=== PATIENT | male | born 1940 | race Caucasian/White ===

== ENCOUNTER → 2019-08-30 10:26 | Outpatient (BNVA) | payer MEDICARE, OTHER, SELFPAY | PROVIDERS: Family Provider Family Medicine; PCP Family Medicine; Visit Provider Podiatrist Foot & Ankle Surgery | DX: M21.612 Bunion of left foot (principal); M21.611 Bunion of right foot; M20.42 Other hammer toe(s) (acquired), left foot; M20.41 Other hammer toe(s) (acquired), right foot | CPT/HCPCS: 73630; 77077 ==

== ENCOUNTER 2020-01-29 07:52 | Outpatient (CLI) | payer MEDICARE, OTHER, SELFPAY ==
--- NOTE | 2020-01-29 08:30 | CT_ITS ---
WS: [id number] CT scan of the abdomen with oral and IV contrast. Additional two-dimensional coronal and sagittal rec onstruction was performed. 01/29/2020 Clinical Data: ABOMINAL PAIN Comparison: CT abdomen and pelvis, 01/03/2018. DLP: 811.[address] scans at [facility] use at least one of these dose optimization techniques: automat ed exposure control; mA and/or kV adjustment per patient size (includes targeted exams where dose is matched to clinical indication); or iterative reconstruction. Findings: The lower lungs show no nodules, masses or effusions. The liver, gallbladder, spleen, adrenal glands and pancreas are normal. The kidneys show equal bilateral contrast excretion with with a left inferior pole 3.2 cm cyst. There is a nonobstructing left midpole 0.28 cm calculus. No masses, obstructing calculi or intrarenal calc nicolasa are seen.. The abdominal aorta is normal in size with moderate atherosclerotic change. No appendicitis or divert iculitis is seen. Oral contrast is in the colon and small bowel and there is no bowel dilatation. No abscess, adenopathy, ascites, mass, obstruction or free air is seen. The patient has had a posterior L4-L5 fusion. CT/CT abdomen w con* [id number] Impression: Negative for acute intra-abdominal abnormalities.
[2020-01-29] MEDS: iohexol 300 mg/mL 50 mL Btl PO (08:48)
[2020-01-29 09:12] LABS: Blood Urea Nitrogen 17 mg/dL (8-23)
[2020-01-29] MEDS: iohexol 300 mg/mL 100 mL Btl IV (09:24)
== END 2020-01-29 07:53 | disposition home or self-care (01) ==
LOC: RADWPI 07:56
PROVIDERS: Family Provider Family Medicine; PCP Family Medicine; Visit Provider Family Medicine
DX: R10.9 Unspecified abdominal pain (principal)
CPT/HCPCS: 74160; 82565; 84520; Q9967

== ENCOUNTER 2020-01-30 08:46 | Outpatient (CLI) | payer MEDICARE, OTHER, SELFPAY ==
--- NOTE | 2020-01-30 09:30 | USCV_ITS ---
John Valadez Age: 79 Gender: M : 1940 Exam Date: 01/30/2020 09:13 Ordering Phys: Will Gallego MD ([email or web address]) Technologist: Mario Valero [place] [facility] [place]: ARTHEROSCLEROSIS OF CORONARY ARTERIES Risk Factors: Previous Vascular Surgery: Right Brachial BP: / Left Brachial BP: / Right Left Velocity (cm/s) Spectral Plaque Velocity (cm/s) Spectral Plaque Syst/Diast Broadening Syst/Diast Broadening 38.10/ 10.90 Prox CCA 68.50 / 19.10 48.20/ 10.10 Mid CCA 59.85 / 14.80 44.30/ 12.40 Distal CCA 50.60 / 13.00 57.50/ 10.10 Prox ICA 62.30 / 13.00 48.20/ 12.40 Mid ICA 56.80 / 15.40 66.80/ 21.80 Distal ICA 66.00 / 17.55 81.60 ECA 71.60 1.39 ICA/CCA 0.91 Antegrade Vertebral Antegrade 41.20/ 13.20 cm/s 35.80/ 11.10 cm/s Tri Subclavian Tri 71.50 71.00 FINDINGS Moderate heterogeneous plaquesat the left bifurcation and proximal internal carotid artery. Minimal plaques at the right bifurcation and proximal carotid artery. Antegrade flow in the vertebral arteries bilaterally. Normal Doppler flow velocities in the external carotid arteries bilaterally. Normal Doppler velocities in the subclavian arteries bilaterally CONCLUSIONS Moderate heterogeneous plaques at the left bifurcation and proximal internal carotid artery. Minimal plaques of the right bifurcation and proximal carotid artery. No significant stenosis, based on the above findings. Dr Will Gallego MD [facility] (Electronically Signed) Final Date: 31 January 2020 08:20 S
== END 2020-01-30 08:47 | disposition home or self-care (01) ==
LOC: US 08:47
PROVIDERS: Family Provider Family Medicine; PCP Family Medicine; Visit Provider Internal Medicine Cardiovascular Disease
DX: I25.10 Atherosclerotic heart disease of native coronary artery without angina pectoris (principal); I65.22 Occlusion and stenosis of left carotid artery
CPT/HCPCS: 93880

== ENCOUNTER 2020-02-18 07:37 | Outpatient (CLI) | payer MEDICARE, OTHER, SELFPAY ==
--- NOTE | 2020-02-18 07:47 | NM_ITS ---
WS: [id number] NUCLEAR MEDICINE HIDA SCAN WITH GALLBLADDER EJECTION FRACTION HISTORY: RUQ PAIN/NAUSEA/NORMAL CT US COMPARISON: 02/17/2019 TECHNIQUE: The patient was intravenously injected with 8.0 mCi of TC99m Mebrofenin. Immediate imaging over the right upper quadrant was followed by 5 minute image and additional images for a total of 60 minutes. Normal uptake of radiotracer throughout the liver. Activity identified in the gallbladder at 20 minutes and well distended by 60 minutes. Activity in the proximal small bowel was seen by 15 minutes. Good washout of the radiotracer from the liver by 60 minutes. The patient then drank 8 ounces of Ensure Plus. Ejection fraction at 60 minutes was 94%. Normal GB ej ection fraction is 35-75%. Post fatty meal symptoms: None. NM/NM hepatobiliary w phar* [id number] IMPRESSION: 1. Normal HIDA scan. 2. Normal gallbladder ejection fraction.
== END 2020-02-18 07:38 | disposition home or self-care (01) ==
LOC: NM 07:39
PROVIDERS: Family Provider Family Medicine; PCP Family Medicine; Visit Provider Family Medicine
DX: R10.11 Right upper quadrant pain (principal)
CPT/HCPCS: 78227; A9537

== ENCOUNTER 2020-02-28 06:35 | Day surgery (SDC) | payer MEDICARE, OTHER, SELFPAY ==
[2020-02-27 16:04] VITALS: BMI 23.3
[2020-02-28] VITALS (7 sets, daily range): BP systolic 111–158; BP diastolic 56–85; PULSE 61–73; RESP 16–21; TEMP 36.4–36.6; O2SAT 95–100
--- NOTE | 2020-02-28 06:36 | ECG_ITS ---
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 Measurements Intervals [place] Rate: 62 P: 55 [place]: 218 QRS: -48 QRSD: 75 T: 42 QT: 398 QTc: 406 Interpretive Statements SINUS RHYTHM WITH FIRST DEGREE AV BLOCK MARKED LEFT AXIS DEVIATION [QRS AXIS < -30] Compared to ECG 06/15/2019 21:32:07 No significant changes Electronically Signed On 02-29-2020 1:34:59 CDT by Will Gallego M.D. [id number]
[2020-02-28] MEDS: sodium chloride 0.9% 1,000 ML 30 ML IV (07:11)
--- NOTE | 2020-02-28 07:11 | ANES.PREANE2 ---
Pre-Anesthetic Assessment Pre-Anesthetic Assessment: Height/Weight: Height 1.75 m Weight 71.668 kg Temp Pulse Resp BP Pulse Ox 97.9 F 64 16 111/56 98 02/28/20 06:47 02/28/20 06:47 02/28/20 06:47 02/28/20 06:47 02/28/20 06:47 Preop Diagnosis: cholelithaisis Proposed Procedure: Operation Date: 02/28/20 08:05 Proposed Procedures p Laparoscopic Cholecystectomy possibly open(Not Applicable) - Cole Stewart MD Familial anesthetic complications: none Was Beta Aquilino taken within 24 hours: N/A Last intake: Intake last took plavix on tuesday, doesn't take beta blockers anymore Last Liquid Date 02/28/20 Last Liquid Time 06:25 Last Solid Date 02/27/20 Last Solid Time 20:00 Social: Social History: No alcohol and No tobacco Exam: Pre-Anes Outpt Exam: alert, oriented x 3, clear to auscultation bilaterally and regular rate & rhythm Airway: Cervical ROM: WNL MP: 3 Dentition: Full Pulmonary: Pulmonary: None reported CV/HEM: CV/HEM: CAD, HTN and CT Comments: multiple PCI interventions in the past (last one 2005) angioplasty 2012 EKG 02/27 with SR + 1st degree AV block Stress test 2016 - EF 73%, no ischemia, normal wall motion Recent visit w/ cardiology in december (no concerns for coronary insufficiency) : : None reported Hepatic: Hepatic: None reported GI: GI: GERD Metabolic: Metabolic: DM and Hyperlipidemia Musc/skel: Musc/skel: Lower Back Pain and OA/DJD Neuropsych: Neuropsych: None reported Comments: carotid duplex 02/01 - no significant stenosis Anesthetic Plan: ASA status: 4 Anesthesia: General Risk of > 500 ml blood loss (7ml/kg in children): No PFSH Anesthesia PFSH: Medical History Acquired bilateral hammer toes Aortic atherosclerosis Atherosclerosis of coronary artery of [place] heart CAD (coronary artery disease) Hyperlipidemia LDL was 80s, HDL 60 Hypertension Wan's neuroma of both feet Renal calculus Surgical History H/O arthroscopy of knee H/O thumb surgery History of back surgery History of hernia surgery Family History Other CAD (coronary artery disease) Cancer Diabetes Denies family history of Anesthesia complication Bleeding disorder Data Anesthesia Cardiac Studies: No Data to Display
[2020-02-28 07:32] LABS: Alanine Aminotransferase 16 U/L (0-41); Albumin Level 4.2 g/dL (3.5-5.2); Alkaline Phosphatase 33 IU/L (40-130); Aspartate Amino Transferase 18 U/L (0-40); Globulin 2.3 g/dL (1.3-4.6); Total Bilirubin 0.7 mg/dL (0.15-1.2); Total Protein 6.5 g/dL (6.6-8.7)
--- NOTE | 2020-02-28 07:59 | W.PM.OPSUD ---
Surgery/Procedure H&P Update DATE OF PROCEDURE: February 28, 2020 DATE H&P PERFORMED: 02/19/20 H&P UPDATE INFORMATION: No changes to prior documentation PREOP DIAGNOSIS: cholelithaisis PLANNED PROCEDURE: Operation Date: 02/28/20 08:05 Proposed Procedures p Laparoscopic Cholecystectomy possibly open(Not Applicable) - Cole Stewart MD
--- NOTE | 2020-02-28 08:43 | PM.OP ---
Operative Report Date of procedure: February 28, 2020 Pre-op Diagnosis: Chronic cholecystitis. Post-op diagnosis: same Procedure Done: Laparoscopic cholecystectomy. Specimens removed/disposition: Gallbladder. Surgeon: Cole Stewart Anesthesia: General Estimated blood loss (mL): 5 Condition: stable Disposition: PACU Procedure: The patient was brought to the Operating Room and was placed in a supine position on the Operating Room table. General endotracheal anesthesia was induced. The abdomen was prepped and draped in a sterile fashion. A small vertical incision was carried out in the inferior aspect of the umbilicus. Blunt dissection was carried out down to the fascia, which was grasped with a Court clamp. A stay suture of 0 Vicryl was placed on either side of the midline and the midline fascia was incised. The underlying peritoneum was opened bluntly and the Boo port was placed directly into the peritoneal cavity and was held in place with the inflatable balloon. The peritoneal cavity was insufflated with carbon dioxide. The laparoscope was used to inspect the abdominal cavity. No gross abnormalities were initially noted. A 5 millimeter port was placed in the epigastrium under direct vision. Two 5-millimeter ports were placed on the right side of the abdomen under direct vision. The gallbladder was grasped and was elevated. The patient was found to have some adhesions up to the infundibular region of the gallbladder which were easily taken down using blunt dissection. Blunt dissection and hydrodissection were carried out in the infundibular region of the gallbladder and the cystic duct and cystic artery were identified. The gallbladder was partially removed from the liver bed using cautery and the spatula to confirm the anatomy before the structures were clipped and divided. The gallbladder was then removed from the liver bed using cautery and the spatula. A small hole was inadvertently made in the gallbladder during the dissection and eventually all of the bile was suctioned out. No stones were ever seen, consistent with the patient's preoperative studies. After the gallbladder had been removed from the liver bed, the laparoscope was moved to the epigastric port and the gallbladder was removed from the peritoneal cavity through the umbilical port site. The stay sutures of Vicryl were tied to each other at the umbilicus. An additional [id number] suture of 0 Vicryl was placed, closing the defect so that it was airtight. The perihepatic spaces were irrigated with saline and the liver bed was reinspected. No ongoing problems were seen. The remaining ports were removed from the abdominal wall and the pneumoperitoneum was evacuated. All skin incisions were closed using inverted interrupted sutures of 4-0 Vicryl. Benzoin and Steri-Strips were placed over the incisions and Band-Aids followed. The patient was taken to the Recovery Area in stable condition postoperatively.
== END 2020-02-28 10:15 | disposition home or self-care (01) ==
PROVIDERS: PCP Family Medicine; Visit Provider Surgery
PROC: 0FT44ZZ Resection of Gallbladder, Percutaneous Endoscopic Approach (ICD-10-PCS; CPT 47562; principal; 2020-02-28 08:05)
DX: K81.1 Chronic cholecystitis (principal); I25.10 Atherosclerotic heart disease of native coronary artery without angina pectoris; I10 Essential (primary) hypertension; I25.2 Old myocardial infarction; I44.0 Atrioventricular block, first degree; K21.9 Gastro-esophageal reflux disease without esophagitis; E11.9 Type 2 diabetes mellitus without complications; E78.5 Hyperlipidemia, unspecified; M19.90 Unspecified osteoarthritis, unspecified site; Z82.49 Family history of ischemic heart disease and other diseases of the circulatory system; Z83.3 Family history of diabetes mellitus; Z79.02 Long term (current) use of antithrombotics/antiplatelets; Z79.82 Long term (current) use of aspirin
CPT/HCPCS: 47562; 12345; 36415; 80076; 88304; 93005; J0131; J0690; J2370; J2405; J2704; J2710; J3010; J3490; J7030

== ENCOUNTER 2020-02-28 23:01 | Emergency (ER) | payer MEDICARE, OTHER, SELFPAY ==
[2020-02-29 00:27] VITALS: RESP 16; TEMP 36.2
--- NOTE | 2020-02-29 01:53 | ED_ITS ---
HPI - General Adult General: Chief complaint: General Medical Stated complaint: post op problems Time Seen by Provider: 02/29/20 01:15 Source: patient and family Mode of arrival: ambulatory Limitations: no limitations History of Present Illness: HPI narrative: Mr. Valadez is a nice 79-year-old male who comes in complaining of difficulty urinating and dysuria. The patient had a cholecystectomy performed by Dr. Stewart earlier this morning. Since discharge from the hospital he has been able to urinate but he has a hard time getting himself to urinate and has discomfort when he does. It is possible there is been a small amount of blood in his urine. Patient denies any nausea vomiting, fevers or chills, back pain, or other complaints. He is unaware of anything that makes his symptoms better or worse. He is really not tried anything for this other than coming to the hospital. Associated symptoms: Deny chest pain, dyspnea, headache(s), nausea, rash, palpitations, syncope or vomiting Review of Systems Const: Denies: fever(s) Eyes: Denies: change in vision ENMT: Denies: throat pain Card: Denies: chest pain, palpitations, syncope, pre-syncope or dyspnea on exertion Resp: Denies: dyspnea, productive cough or non-productive cough GI: Reports: abdominal pain (Suprapubic); Denies: nausea, vomiting or diarrhea : Reports: difficulty urinating, dysuria and difficulty starting urination; Denies: flank pain, urinary frequency or urinary urgency Musc: Denies: neck pain, back pain or extremity pain Skin/Breast: Denies: rash or pruritus Neuro: Denies: headache(s), numbness in extremities, weakness in extremities or dizziness Troy/Lymph: Denies: easy bruising or easy bleeding All/Imm: Denies: urticaria PFSH ED PFSH: Medical History Acquired bilateral hammer toes Aortic atherosclerosis Atherosclerosis of coronary artery of [place] CAD (coronary artery disease) Hyperlipidemia LDL was 80s, HDL 60 Hypertension Wan's neuroma of both feet Renal calculus Surgical History H/O arthroscopy of knee H/O thumb surgery History of back surgery History of hernia surgery Family History Other CAD (coronary artery disease) Cancer Diabetes Denies family history of Anesthesia complication Bleeding disorder Physical Exam Const: COMMON NORMALS: no acute distress, patient oriented x3, no limitations, healthy appearing and well nourished GENERAL APPEARANCE: cooperative, well kempt and well developed HENMT: COMMON NORMALS: normocephalic, atraumatic, external ears normal, EAC's normal and Normal external nose present HEAD & SCALP: normal to inspection, normocephalic and atraumatic FACE & SINUS: normal facial exam and face symmetric NOSE: Normal external nose present and Normal nares present EXTERNAL EAR: Yes external ears normal EXTERNAL AUDITORY CANAL: EAC's normal MOUTH: Normal oral and palatal mucosa present, lip normal and tongue normal Eye: COMMON NORMALS: Equal, round and reactive pupils present and conjunctivae normal GENERAL EYE: appearance normal, both eyes and all related structures ALIGNMENT: Yes alignment normal PERIORBITAL: periorbital findings normal EYELID: eyelids normal CONJUNCTIVA: Yes conjunctivae normal SCLERA: sclerae normal PUPIL: Yes Equal, round and reactive pupils present Neck/C-Spine: COMMON NORMALS: full ROM, no lymphadenopathy, supple, no meningeal signs and no JVD GENERAL: Yes normal visual inspection and Yes trachea midline Chest: COMMONS NORMALS: normal inspection of the chest and normal palpation of entire chest wall Resp: COMMON NORMALS: normal respiratory effort, No retractions and No use of accessory muscles EFFORT & INSPECTION: Yes able to speak in complete sentences and Yes symmetric chest movement AUSCULTATION: no crackles, no rales, no rhonchi and no wheezes Cardio: COMMON NORMALS: no JVD, regular rate, regular rhythm, S1 normal heart sound present and S2 normal heart sound present RATE: regular rate RHYTHM: regular rhythm HEART SOUNDS: S1 normal heart sound present, S2 normal heart sound present, no click, no gallops, no murmurs, no rubs and abnormal split S2 GI: COMMON NORMALS: Soft to palpation and No hepatosplenomegaly present PALPATION: Yes Soft to palpation, No Tenderness to palpation present (GI), No Guarding due to palpation present (GI), No Rigid due to palpation, Yes No hepatosplenomegaly present, No Hernia present, No Palpable mass present and No Pulsatile mass present : COMMON NORMALS: Yes no CVA tenderness BLADDER/KIDNEY EXAM: Yes no CVA tenderness Back/Pelvis: COMMON NORMALS: no CVA tenderness, thoracic and lumbar spine normal to inspection, no thoracic nor lumbar tenderness and thoraco-lumbar ROM normal Extremity: COMMON NORMALS: normal to inspection, full ROM, capillary refill normal, no joint enlargement, no clubbing, cyanosis or edema and no calf tenderness Neuro: COMMON NORMALS: patient oriented x3, CN's II-XII intact bilaterally, moves all extremities, no focal motor deficits and no sensory deficits noted MENINGEAL SIGNS: Yes no meningeal signs SPEECH: speech normal Psych: COMMON NORMALS: mental status grossly normal, Normal thought process present, cooperative, normal affect, speech normal and activity/motor behavior normal APPEARANCE: Yes well kempt SPEECH: Yes normal speech THOUGHT PROCESS: Normal thought process present Skin: COMMON NORMALS: no rashes or lesions noted, turgor normal, no jaundice, no petechiae and no mottling GENERAL SKIN EXAM: no rashes or lesions noted and turgor normal Course Vital Signs: Vital signs: Vital Signs Temperature 97.9 F 02/29/20 01:59 Pulse Rate 68 02/29/20 02:51 Respiratory Rate 16 02/29/20 02:51 Blood Pressure 137/71 02/29/20 02:51 Pulse Oximetry 97 02/29/20 02:51 MDM - General Adult MDM Narrative: Medical decision making narrative: Patient had 500 cc on bladder scan but is been able to spontaneously void 350 cc of urine here. He is refusing Duvall catheter. He feels better now wants to go home. I have warned him about the possibility of recurrence of the symptoms but despite this he does not want any further testing done. Urinalysis is pending but I will go ahead and place him on an antibiotic for prostate inflammation or urinary tract infection. He agrees to follow-up with Dr. Stewart as scheduled or return here if he has any recurrence of his urinary symptoms. Lab Data: Labs: Lab Results 02/29/20 02/29/20 Range/Units 01:56 01:56 WBC 7.2 (4.0-10.0) 10^3/ uL RBC 4.71 (4.1-5.3) 10^6/u L Hgb 14.5 (11.7-16.6) g/dL Hct 44.4 (42.0-52.0) % MCV 94.3 H (80-94) fL MCH 30.8 (28.0-34.0) pg MCHC 32.7 (30.0-36.0) g/dL RDW 12.5 (12.1-15.1) % Plt Count 217 (130-400) 10^3/c mm MPV 10.2 (7.4-10.4) fL Neut % (Auto) 69.4 % Lymph % (Auto) 20.2 % [place] % (Auto) 7.9 % Eos % (Auto) 1.8 % Baso % (Auto) 0.4 % Neut # (Auto) 4.98 (1.8-7.7) 10^3/u L Lymph # (Auto) 1.5 (0.8-4.8) 10^3/u L [place] # (Auto) 0.6 (0.2-0.9) 10^3/u L Eos # (Auto) 0.1 (0.0-0.8) 10^3/u L Baso # (Auto) 0.0 (0.0-0.1) 10^3/u L Nucleated RBC % (a uto) 0 % Nucleated RBCs # 0.0 /100WBC Sodium 137 (136-145) mmol/L Potassium 4.4 (3.5-5.1) mmol/L Chloride 100 (98-107) mmol/L Carbon Dioxide 30 H (22-29) mmol/L Anion Gap 11.4 (5-19) BUN 12 (8-23) mg/dL Creatinine 0.9 (0.7-1.2) mg/dL Glucose 120 H (65-115) mg/dL Calculated Osmolal ity 281 L (285-295) mOsm/k g Calcium 9.2 (8.5-10.5) mg/dL Total Bilirubin 0.6 (0.15-1.2) mg/dL AST 24 (0-40) U/L ALT 27 (0-41) U/L Alkaline Phosphata se 34 L (40-130) IU/L Total Protein 6.7 (6.6-8.7) g/dL Albumin 4.3 (3.5-5.2) g/dL Globulin 2.4 (1.3-4.6) g/dL Lipase 26 (13-60) U/L Discharge Plan Discharge Patient Disposition: Home, Self-Care Clinical Impression: Acute urinary retention Condition: Stable Prescriptions: New cefdinir 300 mg capsule 300 mg PO Q12H 10 Days Qty: 20 RF: 0 No Action aspirin 81 mg tablet,delayed release (DR/EC) 81 mg PO QDAY RF: 0 metformin 500 mg tablet 500 mg PO QDAY RF: 0 pramipexole 0.125 mg tablet 0.125 mg PO QDAY RF: 0 diazepam [Valium] 2 mg tablet 2 mg PO BID PRN (Reason: Anxiety) RF: 0 pantoprazole 40 mg tablet,delayed release (DR/EC) 40 mg PO QDAY RF: 0 simvastatin 80 mg tablet 80 mg PO DAILY 30 Days Qty: 30 RF: 5 lisinopril 10 mg tablet 10 mg PO DAILY 30 Days Qty: 30 RF: 5 clopidogrel [Plavix] 75 mg tablet 75 mg PO QDAY Qty: 90 RF: 3 ezetimibe [Zetia] 10 mg tablet 10 mg PO QDAY Qty: 90 RF: 3 trazodone 150 mg Tablet 75 mg PO DAILY RF: 0 hydrocodone-acetaminophen 5-325 mg tablet 1 - 2 tab PO Q5H PRN (Reason: pain) Qty: 30 RF: 0 Discharge Orders: Discharge Order (Routine); Ordered 02/29/20 Ordered By: Alicia Howard Referrals: Cole Stewart MD [Physician] - 1-3 days Sathya Seay MD [Physician] - 1-3 days Jl Felix MD [Primary Care Provider] - Discharge Diet: Advance as tolerated Discharge Activity: Resume usual activity Patient Instructions: Urinary Retention in Men (ED) Activity Restrictions/Additional Instructions: Please return to the ER immediately for any of the signs or symptoms listed on your discharge instruction sheets, worsening/changing of your symptoms, you are not getting better as quickly as expected, or for ANY other cause or concerns. If your symptoms return of not being able to urinate please return to the ER immediately for recheck. Coding Level of Care Code ED Sales And Service Technician for Juwan Fwd Exam Comprehensive
[2020-02-29 01:59] VITALS: BP 140/68; PULSE 62; RESP 16; TEMP 36.6; O2SAT 97
[2020-02-29 02:22] LABS: Basophils % 0.4 %; Eosinophils # 0.1 10^3/uL (0.0-0.8); Eosinophils % 1.8 %; Hematocrit 44.4 % (42.0-52.0); Hemoglobin 14.5 g/dL (11.7-16.6); Lymphocytes # 1.5 10^3/uL (0.8-4.8); Lymphocytes % 20.2 %; Mean Corpuscular HGB Conc 32.7 g/dL (30.0-36.0); Mean Corpuscular Hemoglobin 30.8 pg (28.0-34.0); Mean Corpuscular Volume 94.3 fL (80-94); Mean Platelet Volume 10.2 fL (7.4-10.4); Monocytes # 0.6 10^3/uL (0.2-0.9); Monocytes % 7.9 %; Neutrophils # 4.98 10^3/uL (1.8-7.7); Neutrophils % 69.4 %; Nucleated Red Blood Cells % 0 %; Platelet Count 217 10^3/cmm (130-400); Red Blood Count 4.71 10^6/uL (4.1-5.3); Red Cell Distribution Width 12.5 % (12.1-15.1); White Blood Count 7.2 10^3/uL (4.0-10.0)
[2020-02-29 02:39] LABS: Alanine Aminotransferase 27 U/L (0-41); Albumin Level 4.3 g/dL (3.5-5.2); Alkaline Phosphatase 34 IU/L (40-130); Anion Gap 11.4 (5-19); Aspartate Amino Transferase 24 U/L (0-40); Blood Urea Nitrogen 12 mg/dL (8-23); Calcium 9.2 mg/dL (8.5-10.5); Carbon Dioxide 30 mmol/L (22-29); Chloride 100 mmol/L (98-107); Globulin 2.4 g/dL (1.3-4.6); Glucose 120 mg/dL (65-115); Lipase 26 U/L (13-60); Osmolality Calculated 281 mOsm/kg (285-295); Potassium 4.4 mmol/L (3.5-5.1); Sodium 137 mmol/L (136-145); Total Bilirubin 0.6 mg/dL (0.15-1.2); Total Protein 6.7 g/dL (6.6-8.7)
[2020-02-29 02:51] VITALS: BP 137/71; PULSE 68; RESP 16; O2SAT 97
[2020-02-29 02:54] LABS: Add Urine Microscopic? NO
[2020-02-29 02:59] LABS: Bilirubin Urine Neg (NEGATIVE); Blood Urine Neg (Negative); Glucose Urine UA Norm (Normal); Ketones Urine Negative (Negative); Leukocyte Esterase Urine Negative (Negative); Nitrate Urine Negative (Negative); Protein Urine Neg (Negative); Urine Appearance Clear (CLEAR); Urine Color Straw (Yellow); Urobilinogen Urine Norm (Negative); pH Urine 5 (5-7)
[2020-02-29] MEDS: cefdinir 300 MG CAPSULE PO (03:20)
[2020-02-29 03:27] VITALS: BP 152/71; PULSE 77; RESP 17; O2SAT 97
== END 2020-02-29 03:28 | disposition home or self-care (01) ==
PROVIDERS: Nurse Practitioner Family; Emergency Provider Emergency Medicine; PCP Family Medicine
DX: R33.9 Retention of urine, unspecified (principal); Z79.82 Long term (current) use of aspirin; Z79.02 Long term (current) use of antithrombotics/antiplatelets; I25.10 Atherosclerotic heart disease of native coronary artery without angina pectoris; E78.5 Hyperlipidemia, unspecified; I10 Essential (primary) hypertension
CPT/HCPCS: 12345; 51798; 80053; 81003; 83690; 85025; 99282; 99283

== ENCOUNTER → 2020-03-14 08:31 | Outpatient (BNVA) | payer MEDICARE, OTHER, SELFPAY | PROVIDERS: PCP Family Medicine; Visit Provider Nurse Practitioner Family | DX: N41.9 Inflammatory disease of prostate, unspecified (principal); N41.1 Chronic prostatitis; R33.8 Other retention of urine; N20.0 Calculus of kidney; R33.9 Retention of urine, unspecified | CPT/HCPCS: 81001 ==

== ENCOUNTER → 2020-06-17 10:45 | Outpatient (BNVA) | payer MEDICARE, OTHER, SELFPAY | PROVIDERS: PCP Family Medicine; Visit Provider Internal Medicine Cardiovascular Disease | DX: I25.10 Atherosclerotic heart disease of native coronary artery without angina pectoris (principal); I70.0 Atherosclerosis of aorta; R25.2 Cramp and spasm; I10 Essential (primary) hypertension | CPT/HCPCS: 80048 ==

== ENCOUNTER → 2020-06-18 10:31 | Outpatient (BNVA) | payer MEDICARE, OTHER, SELFPAY | PROVIDERS: PCP Family Medicine; Visit Provider Internal Medicine Cardiovascular Disease | DX: I25.10 Atherosclerotic heart disease of native coronary artery without angina pectoris (principal); I70.0 Atherosclerosis of aorta; R25.2 Cramp and spasm; I10 Essential (primary) hypertension; E78.2 Mixed hyperlipidemia | CPT/HCPCS: 83735 ==

== ENCOUNTER 2020-06-30 08:24 | Outpatient (CLI) | payer MEDICARE, OTHER, SELFPAY ==
--- NOTE | 2020-06-30 08:30 | XR_ITS ---
WS: [id number] Exam: XR KUB [id number] Date/Time of Exam: 06/30/2020 8:34 AM Reason For Exam: RENAL STONE Comparison 04/26/2019. No sign of bowel obstruction or free air. Signs of prior cholecystectomy. Operative fusion and decomp ression laminectomy of the spine from L4 to S1 with pedicle screws and posterior rods. Visualized org an margins are intact. XR/XR KUB [id number] IMPRESSION: 1. No acute abdominal finding. 2. Postoperative changes as indicated above.
== END 2020-06-30 08:25 | disposition home or self-care (01) ==
LOC: RAD 08:30
PROVIDERS: PCP Family Medicine; Visit Provider Urology
DX: N20.0 Calculus of kidney (principal)
CPT/HCPCS: 74018; 81003

== ENCOUNTER → 2020-07-21 09:55 | Outpatient (BNVA) | payer MEDICARE, OTHER, SELFPAY | PROVIDERS: PCP Family Medicine; Visit Provider Podiatrist Foot & Ankle Surgery | DX: M21.611 Bunion of right foot (principal); M21.612 Bunion of left foot; M20.41 Other hammer toe(s) (acquired), right foot; G57.63 Lesion of plantar nerve, bilateral lower limbs; M20.42 Other hammer toe(s) (acquired), left foot | CPT/HCPCS: 73630 ==

== ENCOUNTER → 2020-08-15 08:34 | Outpatient (BNVA) | payer MEDICARE, OTHER, SELFPAY | PROVIDERS: PCP Family Medicine; Visit Provider Podiatrist Foot & Ankle Surgery | DX: Z01.812 Encounter for preprocedural laboratory examination (principal); Z20.828 Contact with and (suspected) exposure to other viral communicable diseases | CPT/HCPCS: 87635 ==

== ENCOUNTER 2020-08-22 05:53 | Day surgery (SDC) | payer MEDICARE, OTHER, SELFPAY ==
[2020-08-21 10:05] VITALS: BMI 22.8
[2020-08-22 06:12] VITALS: BP 121/71; PULSE 65; RESP 16; TEMP 36.6; O2SAT 98
--- NOTE | 2020-08-22 06:12 | W.PM.OPSUD ---
Surgery/Procedure H&P Update DATE OF PROCEDURE: August 22, 2020 DATE H&P PERFORMED: 07/21/20 H&P UPDATE INFORMATION: I have reviewed H&P completed within last 30 days, I have examined patient prior to procedure, No changes to prior documentation and H&P is in [facility] EMR on date indicated PREOP DIAGNOSIS: Left bunion deformity, left second hammertoe deformity PLANNED PROCEDURE: Operation Date: 08/22/20 07:00 Proposed Procedures p left Bunionectomy Francisco with possible left sofia bunionectomywith correction of angular deformity left second toe [id number] M21.612 M20.41(Left) - Minesh Barr DPM s right second Hammertoe Correction(Right) - Minesh Barr DPM
--- NOTE | 2020-08-22 06:13 | P.HP_ITS ---
Providers/Chief Complaint Primary Care Provider: Jl Felix MD Chief Complaint: bunionectomy History of Present Illness Mr. Valadez is a pleasant 80-year-old male presenting for surgical consultation of bilateral bunion and bilateral hammertoes that are painful and affecting his ability to care everyday activities comfortably. He is exhausted conservative treatment options consisting of wide accommodative shoes, spacing, padding, splinting, stretching exercises, activity modifications and NSAIDs. Areas that are most painful to him and would like to be addressed surgically or his left bunion, left and right second hammertoes. He most recently saw his mobility engineer Dr. Gallego June 2019 and was scheduled for routine 6-month follow-up at that point. Patient has history of 1 myocardial infarction which occurred in 1999, history of coronary stenting. Review of Systems Const: Denies: fever(s) or chills Card: Denies: chest pain or dyspnea on exertion Resp: Denies: dyspnea or productive cough GI: Denies: abdominal pain, nausea or vomiting Musc: Reports: joint pain, joint swelling and limited range of motion Skin/Breast: Denies: changes in skin color or dry skin Neuro: Denies: numbness in extremities or weakness in extremities Psych: Denies: anxiety [place]/Lymph: Denies: easy bruising or easy bleeding Medications/Allergies Home Medications Medication Instructions Recorded Confirmed Last Taken Type aspirin 81 mg tablet,delayed 81 mg PO QDAY 08/30/19 08/21/20 08/21/20 History release clopidogrel 75 mg tablet 75 mg PO QDAY #90 tab 09/24/19 08/21/20 08/17/20 Rx ezetimibe 10 mg tablet 10 mg PO QDAY #90 tab 12/18/19 08/22/20 08/21/20 Rx lisinopril 10 mg tablet 10 mg PO DAILY 30 Days #30 tab 01/01/20 08/22/20 08/21/20 Rx hydrocodone-acetaminophen 1 - 2 tab PO Q5H PRN #30 tab 02/28/20 08/22/20 08/21/20 Rx trazodone 75 mg PO DAILY 02/28/20 08/21/20 02/27/20 History simvastatin 80 mg tablet 80 mg PO DAILY #90 tab 05/14/20 08/21/20 Unknown Rx diazepam 5 mg tablet 2.5 mg PO BID PRN tab 06/17/20 08/22/20 08/21/20 History famotidine 40 mg tablet 40 mg PO BID tab 06/17/20 08/22/20 08/21/20 History metformin 500 mg tablet 1,000 mg PO QDAY tab 06/17/20 08/22/20 08/21/20 08:00 History pramipexole 0.25 mg tablet 0.25 mg PO BID tab 06/17/20 08/22/20 08/21/20 History Allergies Allergy/AdvReac Type Severity Reaction Status Date / Time ciprofloxacin [From Cipro] Allergy Unknown unknown Verified 08/21/20 10:00 doxycycline Allergy Unknown hives Verified 08/21/20 10:00 PFSH PFSH: Medical History Acquired bilateral hammer toes Aortic atherosclerosis Atherosclerosis of coronary artery of [place] heart CAD (coronary artery disease) Hyperlipidemia LDL was 80s, HDL 60 Hypertension Leg cramps Wan's neuroma of both feet Renal calculus Surgical History H/O arthroscopy of knee H/O thumb surgery History of back surgery History of hernia surgery S/P extracorporeal shock wave therapy Family History Other CAD (coronary artery disease) Cancer Diabetes Denies family history of Anesthesia complication Bleeding disorder Social History Smoking and tobacco status: never smoked Alcohol intake: never Marital status: Current occupational status: retired Vital Signs Weight: Weight last 48 hrs Weight 155 lb Physical Exam Narrative: EXAM NARRATIVE: Patient is alert and oriented ?3 and in no acute distress. The following is a focused bilateral lower extremity exam. VASCULAR: Dorsalis pedis and posterior tibial arteries palpable +2 bilaterally triphasic signal appreciated with pedal Doppler up both pedal pulses bilaterally. Capillary refill time less than 3 seconds to the distal hallux bilaterally. Calf is supple and nontender proximally and distally. No edema, pedal hair growth present, mild varicosities. NEUROLOGICAL: Protective sensation intact 10 out of 10 sites, tested with [place] monofilament to bilateral feet. DERMATOLOGICAL: Dystrophic toenails at the great toe bilaterally with thickening and discoloration appreciated. Remaining toenails are normal thickness and length. Skin is well-hydrated, decreased texture and turgor, decreased elasticity there is some thinning of the skin. No open wounds. No erythema or ecchymosis present. MUSCULOSKELETAL: Bunion deformity with hallux valgus left greater than right left hallux under right the second toe. Ankle joint dorsiflexion to neutral bilaterally. First metatarsal phalangeal joint dorsiflexion 65 degrees bilaterally. Left hallux valgus deformity is reducible and is not track bound. Second hammertoe deformity bilaterally left more severe than right. Collapse of medial longitudinal arch which is partially re-created with elevation of the hallux. Muscle strength 5 out of 5 in all 3 cardinal planes to bilateral foot and ankle. Mild tenderness palpation at the left bunion deformity and second metatarsal phalangeal joint. Reducible hammertoe deformities 2 through 5 bilaterally second digit is painful and most severe with sagittal plane and transverse plane components bilaterally. Resp: COMMON NORMALS: normal respiratory effort, No retractions, No use of accessory muscles and clear to auscultation bilaterally EFFORT & INSPECTION: Yes able to speak in complete sentences and Yes symmetric chest movement AUSCULTATION: clear to auscultation bilaterally Cardio: COMMON NORMALS: regular rate, regular rhythm, S1 normal heart sound present, S2 normal heart sound present and Peripheral pulses 2+ throughout RATE: regular rate RHYTHM: regular rhythm HEART SOUNDS: S1 normal heart sound present and S2 normal heart sound present PERIPHERAL PULSES: Peripheral pulses 2+ throughout A&P Additional A&P Information Patient examined and evaluated, findings and treatment options discussed with patient at length. Patient would like to proceed with bunionectomy and hammertoe correction as his left bunion and bilateral second hammertoes are interfering with his ability to care everyday activities with increased pain with weightbearing and ambulation. Risks include pain, bleeding, numbness, i nfection, failure to correct deformity, overcorrection of deformity, damage to adjacent soft tissue structures, swelling, bruising, surgical site dehiscence, hardware irritation, hallux varus, need for further surgical intervention. Follow-up in podiatry clinic with nurse visit week 1 and 2 postoperatively. Follow-up with Dr. Barr 3 weeks postop. Of note patient had a myocardial infarction in 1999, has history of coronary stenting x8 Student Assistant: Dr. Gallego date of last visit 06/17/2020 overall functional status is stable per documentation and was scheduled for 6-month follow-up last EKG February 28, 2020 without significant change from previous evaluation. Planned procedure: Francisco bunionectomy, left foot, possible Lonnie osteotomy left foot, second hammertoe correction with proximal interphalangeal joint arthroplasty with implant right foot, plantar plate repair with possible hammertoe correction left second toe. Duration of procedure 90 minutes, anesthesia MAC, no popliteal block required. Surgery scheduled for 08/22/2019, he will DC Plavix August 17 and resume August 23. Coding Level of Care Code Acute Yardage Control Operator Forming for Chg Fwd Exam Expanded Problem Focused
[2020-08-22] MEDS: sodium chloride 0.9% 1,000 ML 30 ML IV (06:24)
[2020-08-22 06:26] LABS: Glucose Point of Care 118 mg/dL (70-110)
--- NOTE | 2020-08-22 06:38 | ANES.PREANE2 ---
Pre-Anesthetic Assessment Pre-Anesthetic Assessment: Height/Weight: Height 1.75 m Weight 70.307 kg Temp Pulse Resp BP Pulse Ox 97.9 F 65 16 121/71 98 08/22/20 06:12 08/22/20 06:12 08/22/20 06:12 08/22/20 06:12 08/22/20 06:12 Preop Diagnosis: Left bunion deformity, left second hammertoe deformity Proposed Procedure: Operation Date: 08/22/20 07:00 Proposed Procedures p left Bunionectomy Francisco with possible left sofia bunionectomywith correction of angular deformity left second toe [id number] M21.612 M20.41(Left) - Minesh Barr DPM s right second Hammertoe Correction(Right) - Minesh Barr DPM Familial anesthetic complications: None Last intake: Intake Last Liquid Date 08/21/20 Last Liquid Time 23:55 Last Solid Date 08/21/20 Last Solid Time 23:55 Social: Social History: No alcohol and No tobacco Exam: Pre-Anes Outpt Exam: alert, oriented x 3, clear to auscultation bilaterally and regular rate & rhythm Airway: MP: 2 Dentition: Full CV/HEM: CV/HEM: CAD (8 stents on plavix - last one 2012, doing well since) and HTN Comments: Able to achieve > 4 mETS stopped plavix tuesday GI: GI: GERD Metabolic: Metabolic: DM and Hyperlipidemia Anesthetic Plan: ASA status: 3 Anesthesia: MAC Risk of > 500 ml blood loss (7ml/kg in children): No Meds/Allergies Current Medications: Current Medications Generic Name Dose Route Start Last Admin Trade Name Freq PRN Reason Stop Dose Admin Sodium Chloride 1,000 mls @ 30 ml s/hr 08/22/20 06:00 08/22/20 06:24 Sodium Chloride 0.9% IV 08/23/20 05:59 30 mls/hr .Q24H MARNI Administration PFSH Anesthesia PFSH: Medical History Acquired bilateral hammer toes Aortic atherosclerosis Atherosclerosis of coronary artery of [place] heart CAD (coronary artery disease) Hyperlipidemia LDL was 80s, HDL 60 Hypertension Leg cramps Wan's neuroma of both feet Renal calculus Surgical History H/O arthroscopy of knee H/O thumb surgery History of back surgery History of hernia surgery S/P extracorporeal shock wave therapy Family History Other CAD (coronary artery disease) Cancer Diabetes Denies family history of Anesthesia complication Bleeding disorder Social History Smoking and tobacco status: never smoked Alcohol intake: never Marital status: Current occupational status: retired Data Anesthesia Other Labs: Laboratory Results - last 48 hr 08/22/20 06:22 POC Glucose 118 H Cardiac Studies: No Data to Display
[2020-08-22 08:49] VITALS: BP 116/67; PULSE 66; RESP 16; TEMP 36.2; O2SAT 95
--- NOTE | 2020-08-22 08:50 | XR_ITS ---
WS: [id number] Left foot, 3 views, 08/22/2020 Clinical Data: post op Comparison: Left foot, 07/21/2020. Findings: The patient is had correction of the bunion deformity of the left great toe. There is a distal osteot gentry of the first metatarsal with an oblique orthopedic screw reducing the operative site. XR/XR foot LT min 3V* [id number] Impression: Correction of bunion of left first MP joint of the foot.
--- NOTE | 2020-08-22 08:50 | XR_ITS ---
WS: [id number] Right foot, 3 views, 08/22/2020 Clinical Data: post op Comparison: Bilateral feet, 08/30/2019. 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 There are hammertoes are def ormities of the second through fifth toes. The remainder the foot is not remarkable. No bone destruct ion or erosion is seen. There are no fractures or dislocations. XR/XR foot RT min 3V* [id number] Impression: 1. No change in small right great toe bunion. 2. No change in the second through fifth hammertoe deformities.
[2020-08-22 09:07] VITALS: BP 116/64; PULSE 67; RESP 16; O2SAT 96
--- NOTE | 2020-08-22 11:27 | PM.OP ---
Operative Report Date of procedure: August 22, 2020 Pre-op Diagnosis: Left bunion deformity, left second hammertoe deformity Post-op diagnosis: same Procedure Done: Left modified Francisco bunionectomy CPT code 48501 Left second hammertoe repair CPT code 78217 Right second hammertoe repair CPT code 28328 Implants: 3-0 Vicryl, 4-0 Vicryl, 4-0 nylon, Campbell 28 hammer tube 2.75 mm x 14 mm x 10 degree angle x2, mini monster 3.0 mm headed partially-threaded cannulated screw 18 mm in length Pathology: none sent Surgeon: Minesh Barr D.P.M. Operations Superintendent: Moises Anesthesia: MAC Estimated blood loss: 5 mL Tourniquet time: See intraoperative documentation. IV fluids: None Urine output: None Complications: None Findings: Left bunion and bilateral second hammertoe Condition: stable Disposition: PACU Brief History: Mr. Valadez is a pleasant 80-year-old male who presents with bilateral foot pain. He has a painful bunion on the left, right bunion is not painful at this time. He has pain at the second hammertoe deformity bilaterally. He has noticed over the past several years that has hammertoe contracture as well as left bunion has not been able to be accommodated by wider shoes and padding/spacers. Second toe on the right the left great toe. He has pain with everyday activity walking and standing. Over the past year he states that the left bunion has progressed in severity he would like to have these addressed surgically as conservative measures have failed. Risks include pain, bleeding, numbness, infection, overcorrection of deformity, under correction of deformity, painful retained hardware, hardware failure, delayed union, nonunion, malunion, hypersensitivity, hallux varus, sesamoiditis, cock-up toe, persistent/chronic swelling, bruising, surgical site dehiscence, altered gait, need for further surgical intervention. Patient is agreeable wishes to proceed. He was met with preoperatively and answered all questions to his satisfaction. Informed consent signed and initialed both left and right foot preoperatively with skin marker. Patient wishes to proceed. No guarantees written, expressed or implied. Procedure: Under mild sedation the patient was brought to the operating room and placed on the operating table in supine position. A timeout was performed. Anesthesia was then administered by the anesthesia service. Bilateral lower extremities had pneumatic ankle tourniquets applied that were well-padded. Bilateral lower extremities were scrubbed, prepped and draped utilizing normal aseptic technique. Left foot was attenuated with an Esmarch bandage and tourniquet was inflated to 250 mmHg at the left ankle. Of note right lower extremity tourniquet was never inflated or utilized throughout the duration of the procedure. Attention was directed to the dorsal medial aspect of the left first metatarsophalangeal joint where a linear longitudinal incision was made medial and parallel to the extensor houses longus tendon with #15 blade. Dissection was carried down through skin and subcutaneous tissue down to the level of the joint capsule utilizing a combination of sharp and blunt technique. Care was taken to retract and preserve neurovascular and tendinous structures. All bleeders were ligated and cauterized as necessary. A linear capsulotomy was performed and the head of the first metatarsal and base of the proximal phalanx were freed from their soft tissue and capsular attachments followed by a exostectomy of the medial eminence of the first metatarsal head this was passed from operative field followed by insertion of guidewire to act as an access for the cut guide medially in the first metatarsal head. Followed by a chevron osteotomy this was modified with a oscillating saw with apex pointed distally and the capital fragment translated laterally in a more anatomically corrected position reducing the intermetatarsal angle this was temporally fixated followed by fixation of the first metatarsal head from proximal dorsal to distal plantar with care not to violate the first metatarsal phalangeal articular surface this was confirmed with fluoroscopy and direct visualization. Fixation was performed utilizing a Campbell 28 mini monster 3.0 mm partially-threaded cannulated screw 18 mm in length with excellent bony apposition and compression noted following standard AO technique. Temporary fixation was removed and the medial shelf was transected with sagittal saw all rough edges were smoothed. Lateral release was also performed sharply with #15 blade with a stab incision at the first interspace. Incision sites were flushed with saline solution. Stab incision was closed utilizing 4-0 nylon. Medial incision was closed utilizing 3-0 Vicryl at the capsule, 4-0 Vicryl to subcutaneous level and 4-0 nylon for skin. Attention was directed to the left second toe with a stepwise approach I performed a skin incision over the dorsum of the second metatarsophalangeal joint with a #15 blade 2.5 cm in length. Dissection down to the extensor tendon which a Z lengthening was performed and reapproximated utilizing 4-0 Vicryl. A contracture remained of the left second toe both sagittal plane flexion and medial deviation in the transverse plane. A dorsal and medial capsulotomy performed for release at the metatarsophalangeal joint with improvement in the toe position in the transverse plane however a sagittal contracture remained this necessitated a arthrodesis of the proximal interphalangeal joint which was performed utilizing a 2.75 mm 10 degree angle hammer tube provided by Campbell 28 with excellent bony apposition and compression of the through the head of the proximal phalanx and base of the middle phalanx were denuded of his articular surface. Left second toe was in a more anatomically corrected position. Incision sites were flushed with saline solution. These were closed with 4-0 nylon. Attention was directed to the right second toe where a linear incision was made longitudinally over the second toe proximal interphalangeal joint followed by a transverse tenotomy and capsulotomy with denuding of the articular surface of the head of the proximal phalanx and base of intermediate phalanx this was prepared for arthrodesis. Followed by insertion of implant provided by Campbell 28 2.75 mm hammer tube with 10 degree angle. Extensor tendon was reapproximated utilizing 4-0 Vicryl. Skin closed with 4-0 nylon. Incision sites were dressed with Adaptic, sterile 4 x 4, Kerlix and Mando wrap. Postop shoe applied to the right foot. Cam boot to the left. Tourniquet was deflated to the left foot with a prompt hyperemic response noted. No tourniquet utilized to the right foot. Patient tolerated procedure well and was transferred to the PACU with vital signs stable and vascular status intact. Following a period of postoperative monitoring he will be discharged home was given discharge instructions and follow-up
--- NOTE | 2020-08-22 16:28 | ANE.PACU2 ---
Inpatient post-anesthesia follow up: Airway intact: Yes Vital signs: Temperature 97.2 F Pulse Rate 67 Respiratory Rate 16 Blood Pressure 116/64 Pulse Oximetry 96 Oxygen Delivery Me thod Room Air Oxygen Flow Rate Fraction of Inspir ed Oxygen Hydration adequate: Yes Nausea and vomiting: No Pain level: 2 Mental status: Baseline
== END 2020-08-22 09:27 | disposition home or self-care (01) ==
PROVIDERS: PCP Family Medicine; Visit Provider Podiatrist Foot & Ankle Surgery
PROC: (CPT 28296; principal; 2020-08-22 07:00)
PROC: (CPT 28285; 2020-08-22 07:00)
DX: M21.612 Bunion of left foot (principal); M20.42 Other hammer toe(s) (acquired), left foot; I25.10 Atherosclerotic heart disease of native coronary artery without angina pectoris; Z95.5 Presence of coronary angioplasty implant and graft; Z79.02 Long term (current) use of antithrombotics/antiplatelets; I10 Essential (primary) hypertension; K21.9 Gastro-esophageal reflux disease without esophagitis; E11.9 Type 2 diabetes mellitus without complications; E78.5 Hyperlipidemia, unspecified; Z79.82 Long term (current) use of aspirin
CPT/HCPCS: 28285 ×2; 28296; 12345; 36416; 73630; 82962; 96365; C1713; C9290; J0690; J2704; J3010; J3490; J7030

== ENCOUNTER → 2020-09-05 15:14 | Outpatient (BNVA) | payer MEDICARE, OTHER, SELFPAY | PROVIDERS: PCP Family Medicine; Visit Provider Podiatrist Foot & Ankle Surgery | DX: M21.611 Bunion of right foot (principal); M21.612 Bunion of left foot; M20.41 Other hammer toe(s) (acquired), right foot; M20.42 Other hammer toe(s) (acquired), left foot | CPT/HCPCS: 73630 ==

== ENCOUNTER → 2020-09-22 09:09 | Outpatient (BNVA) | payer MEDICARE, OTHER, SELFPAY | PROVIDERS: PCP Family Medicine; Visit Provider Podiatrist Foot & Ankle Surgery | DX: M21.611 Bunion of right foot (principal); M21.612 Bunion of left foot; M20.41 Other hammer toe(s) (acquired), right foot; Z98.890 Other specified postprocedural states; G57.63 Lesion of plantar nerve, bilateral lower limbs; M20.42 Other hammer toe(s) (acquired), left foot | CPT/HCPCS: 73630 ==

== ENCOUNTER → 2020-10-20 09:48 | Outpatient (BNVA) | payer MEDICARE, OTHER, SELFPAY | PROVIDERS: PCP Family Medicine; Visit Provider Podiatrist Foot & Ankle Surgery | DX: M21.611 Bunion of right foot (principal); M21.612 Bunion of left foot; M20.41 Other hammer toe(s) (acquired), right foot; M20.42 Other hammer toe(s) (acquired), left foot; G57.63 Lesion of plantar nerve, bilateral lower limbs; Z98.890 Other specified postprocedural states | CPT/HCPCS: 73630 ==

== ENCOUNTER → 2020-11-19 09:35 | Outpatient (BNVA) | payer MEDICARE, OTHER, SELFPAY | PROVIDERS: PCP Family Medicine; Visit Provider Podiatrist Foot & Ankle Surgery | DX: M21.611 Bunion of right foot (principal); M21.612 Bunion of left foot; M20.41 Other hammer toe(s) (acquired), right foot; M20.42 Other hammer toe(s) (acquired), left foot; G57.63 Lesion of plantar nerve, bilateral lower limbs; Z98.890 Other specified postprocedural states; Z46.89 Encounter for fitting and adjustment of other specified devices | CPT/HCPCS: 77077; L3030 ==

== ENCOUNTER 2020-11-19 13:50 | Outpatient (CLI) | payer MEDICARE, OTHER, SELFPAY | END 2020-11-19 13:51 | disposition home or self-care (01) | LOC: SPT 13:51 | PROVIDERS: PCP Family Medicine; Visit Provider Podiatrist Foot & Ankle Surgery | DX: Z46.89 Encounter for fitting and adjustment of other specified devices (principal); G57.63 Lesion of plantar nerve, bilateral lower limbs | CPT/HCPCS: L3030 ==

== ENCOUNTER 2021-01-28 09:21 | Outpatient (CLI) | payer MEDICARE, OTHER, SELFPAY ==
--- NOTE | 2021-01-28 09:30 | USCV_ITS ---
John Valadez Age: 80 Gender: M : 1940 Exam Date: 01/28/2021 10:05 Ordering Phys: Will Gallego MD ([email or web address]) Technologist: Eva Godoy Exam Location: [facility] [place] Indication: MURMUR BP: 120 / 60 HR: 65 Rhythm: Sinus Technical Quality: Adequate MEASUREMENTS (Male / Female) Normal Values 2D ECHO LV Diastolic Diameter PLAX 3.6 cm 4.2 - 5.9 / 3.9 - 5.3 cm LV Systolic Diameter PLAX 3.0 cm LV Chamber Size 3.3 cm IVS Diastolic Thickness 0.9 cm 0.6 - 1.0 / 0.6 - 0.9 cm IVS Systolic Thickness 1.1 cm LVPW Diastolic Thickness 1.3 cm 0.6 - 1.0 / 0.6 - 0.9 cm LVPW Systolic Thickness 1.5 cm RV Chamber Size 2.9 cm LVOT Diameter 2.0 cm LV Ejection Fraction 2D Teich 37.3 % LV Ejection Fraction MOD 2C 49.6 % LV Ejection Fraction 2C AL 52.3 % LA Diameter 2.9 cm LA Width 2.7 cm LA Height 3.2 cm RA Width 3.0 cm RA Height 3.6 cm Aorta at Sinotubular Diameter 3.1 cm M-MODE LV Diastolic Diameter MM 3.6 cm 4.2 - 5.9 / 3.9 - 5.3 cm LV Systolic Diameter MM 2.6 cm LV Ejection Fraction MM Teich 56.1 % IVS Diastolic Thickness MM 1.1 cm 0.6 - 1.0 / 0.6 - 0.9 cm IVS Systolic Thickness MM 1.2 cm LVPW Diastolic Thickness MM 1.0 cm 0.6 - 1.0 / 0.6 - 0.9 cm LVPW Systolic Thickness MM 1.3 cm RV Diastolic Diameter MM 1.6 cm Aortic Annulus Diameter 2.9 cm LA Ao Ratio MM 1.3 MV E Point Septal Separation 0.6 cm DOPPLER AV Peak Velocity 144.0 cm/s LVOT Peak Velocity 95.0 cm/s AV Area Cont Eq vti 2.6 cm squared AV Area Cont Eq pk 2.1 cm squared MV Area PHT 3.7 cm squared Mitral E to A Ratio 0.8 MV E' Velocity 40.5 cm/s Mitral E to MV E' Ratio 9.1 Mitral E to LV E' Lateral Ratio 9.4 Mitral E to LV E' Septal Ratio 8.9 TR Peak Velocity 224.2 cm/s TR Peak Gradient 20.1 mmHg TR Mean Velocity 174.9 cm/s TR Mean Gradient 13.6 mmHg TR Velocity Time Integral 75.6 cm TV Peak E Velocity 53.0 cm/s PV Peak Velocity 75.0 cm/s RV Acceleration Time 0.1 s RV Ejection Time 0.3 s RV AcT/ET 0.2 FINDINGS Left Ventricle Normal left ventricular size and systolic function, EF 58 %. No regional wall motion abnormalities. Grade I/IV diastolic dysfunction (abnormal relaxation filling pattern), normal to mildly elevated filling pressures. Right Ventricle The right ventricle is normal in size and function. Right Atrium The right atrium is normal in size. Left Atrium The left atrium is normal in size. Mitral Valve Thickened mitral valve. Mild mitral annular calcification. Mild to moderate calcification in the mitral leaflet Aortic Valve Thickened aortic valve. Trace aortic valve regurgitation. Tricuspid Valve Moderate eccentric tricuspid valve regurgitation. Estimated pulmonary artery peak systolic pressure of around 30 mmHg Pulmonic Valve Mild pulmonary valve regurgitation. Pericardium Normal pericardium without effusion. Aorta Normal ascending aorta dimension. CONCLUSIONS Normal left ventricular size and systolic function, EF 58 %. No regional wall motion abnormalities. Grade I/IV diastolic dysfunction (abnormal relaxation filling pattern), normal to mildly elevated filling pressures. Thickened mitral valve. Mild mitral annular calcification. Mild to moderate calcification in the mitral leaflet. Thickened aortic valve. Trace aortic valve regurgitation. Some features of aortic valve sclerosis. Moderate eccentric tricuspid valve regurgitation. Estimated pulmonary artery peak systolic pressure of around 30 mmHg Mild pulmonary valve regurgitation. There is no pericardial effusion. There are no intracardiac masses. No similar previous studies are available for comparison Dr Will Gallego MD [facility] (Electronically Signed) Final Date: 29 January 2021 10:58 S
== END 2021-01-28 09:22 | disposition home or self-care (01) ==
LOC: RAD 09:25
PROVIDERS: PCP Family Medicine; Visit Provider Internal Medicine Cardiovascular Disease
DX: R07.89 Other chest pain (principal); R01.1 Cardiac murmur, unspecified; I08.3 Combined rheumatic disorders of mitral, aortic and tricuspid valves
CPT/HCPCS: 93306

== ENCOUNTER 2021-06-30 08:16 | Outpatient (CLI) | payer MEDICARE, OTHER, SELFPAY ==
--- NOTE | 2021-06-30 08:15 | XR_ITS ---
WS: [id number] Exam: XR KUB [id number] Date/Time of Exam: 06/30/2021 8:24 AM Reason For Exam: UROLITHIASIS Comparison 06/30/2020. No bowel obstruction or free air. No calcifications are noted in the region of the kidneys. Operative fusion with decompression laminectomy of the lower lumbar spine with hardware. Signs of prior cholec ystectomy. No sign of organ enlargement. XR/XR KUB [id number] IMPRESSION: 1. No acute abdominal process noted. 2. No calcifications noted in the region of the kidneys.
== END 2021-06-30 08:17 | disposition home or self-care (01) ==
LOC: RAD 08:18
PROVIDERS: PCP Family Medicine; Visit Provider Urology
DX: N20.9 Urinary calculus, unspecified (principal)
CPT/HCPCS: 74018; 81003

== ENCOUNTER 2021-07-13 07:17 | Outpatient (CLI) | payer MEDICARE, OTHER, SELFPAY ==
[2021-07-13 07:33] VITALS: BMI 23.6
--- NOTE | 2021-07-13 07:35 | ECG_ITS ---
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 Interpretive Statements NAME OF STUDY: LEXISCAN SESTAMIBI STRESS TEST INDICATION: Chest Pain, PROCEDURE: At the baseline, the EKG revealed sinus rhythm with PACs. Because of the baseline artifact, further interpretation is not possible. The baseline blood pressure was 146/81 mm Hg with a heart rate of 65 beats/min. Lexiscan was infused over a period of 20 seconds. A total of 0.4 milligrams of Lexiscan was infused. The stress phase was continued for a total of 5 minutes. Heart rate at the end of the stress phase was 81 with a blood pressure 133/63. The EKG at the peak infusion revealed no significant changes. Sestamibi was injected 20 seconds after the Lexiscan infusion. Blood pressure at the end of the recovery phase was 129/66 with a heart rate of 79 per minute. CONCLUSION: 1. No significant EKG changes with the LexiScan infusion 2. No LexiScan induced chest pain or cardiac arrhythmia 3. Normal blood pressure and heart rate response 4. Sestamibi/sestamibi perfusion scan pending; see separate report. Electronically Signed On 07-14-2021 18:05:22 ENAMEL SPRAYER by Will Gallego M.D. [id number]
--- NOTE | 2021-07-13 07:35 | NMCV_ITS ---
NM jaun perf SPECT r/s* [id number] John Valadez Age: 81 Gender: M : 1940 Exam Date: 07/13/2021 07:35 Ordering Phys: Will Gallego MD ([email or web address]) Technologist: STEPHANIE Real Exam Location: [facility] [place] Indications: SHORTNESS OF BREATH STRESS TEST Please see separate stress test report in [facility] for full findings IMAGE PROTOCOL Rest/Stress 1 Lexiscan Day Radiopharmaceutical Dose (mCi) Administration Site Administered by Rest: Tc-99m 10.8 IV STEPHANIE Infante Sestamibi Stress:Tc-99m 32.9 IV STEPHANIE Infante Sestamibi Rest: 13-Jul-2021 60 Discovery 630 Stress: 13-Jul-2021 30 Discovery 630 0.4mg Lexiscan. Images obtained in supine and prone position. SPECT RESULTS Technical Quality: Excellent Raw Data Analysis: Normal Image Corrections: No attenuation or motion correction applied Summed Stress Score: 5 Summed Rest Score: 2 Summed Difference Score: 3 PERFUSION FINDINGS Moderate area of decreased tracer uptake in the basal and mid inferior, mid inferolateral and apical lateral regions. Some reversibility was noted in the inferolateral region. FUNCTIONAL RESULTS (calculated via Gated SPECT) Stress Image LV EF (%): 83 Stress EDV (mL):66 TID: 1.06 Stress ESV (mL):11 FUNCTIONAL FINDINGS: Segmental wall motion analysis revealing no gross wall motion of normalities. IMPRESSIONS 1. Myocardial perfusion imaging revealing moderate area of decreased tracer uptake in the basal and mid inferior, mid inferolateral and apical lateral region, with some reversibility in the inferolateral region suggesting myocardial scarring in the distribution of the right coronary artery and the circumflex artery with a small area of ischemia mostly in the distribution of the circumflex artery. 2. Normal LV ejection fraction of 83%. 3. LV wall motion analysis revealing no gross wall motion normalities. 4. Normal LV volume. Compared to the study from 02/27/2019, the area of ischemia appears to be new Dr Will Gallego MD [facility] (Electronically Signed) Final Date: 14 July 2021 17:57 S
[2021-07-13 08:59] VITALS: BP 133/64; PULSE 81
[2021-07-13] MEDS: regadenoson 0.4 Mg/5 ml Syringe IVP (09:01)
== END 2021-07-13 07:18 | disposition home or self-care (01) ==
LOC: CDL 07:20
PROVIDERS: PCP Family Medicine; Visit Provider Internal Medicine Cardiovascular Disease
DX: R07.9 Chest pain, unspecified (principal); R06.02 Shortness of breath
CPT/HCPCS: 78452; 93017; A9500; J2785

== ENCOUNTER 2021-07-14 15:34 | Inpatient (IN) | payer MEDICARE, OTHER, SELFPAY ==
[2021-07-14] VITALS (8 sets, daily range): BP systolic 119–158; BP diastolic 71–87; PULSE 60–80; RESP 13–22; TEMP 36.2–36.5; O2SAT 95–98; BMI 23.6
--- NOTE | 2021-07-14 15:42 | XRR_ITS ---
PROCEDURE INFORMATION: Exam: XR Chest Exam date and time: 07/14/2021 3:42 PM Age: 81 years old Clinical indication: Pain; Cough and shortness of breath; Angina pectoris; Additional info: Chest pain TECHNIQUE: Imaging protocol: XR of the chest. Views: 1 view. COMPARISON: [place] [id number] ORTH 11/19/2020 9:42 AM FINDINGS: Lungs: Left apical benign granuloma. Left lower lobe atelectasis versus minimal infiltrate. Pleural spaces: Unremarkable. No pleural effusion. No pneumothorax. Heart/Mediastinum: Unremarkable. No cardiomegaly. Bones/joints: Unremarkable. XR/XR chest 1V portable [id number] IMPRESSION: 1. Left apical benign granuloma. 2. Left lower lobe atelectasis versus minimal infiltrate. Radiation Dose CTDIVOL = (mGy): DLP = (mGy-cm)
--- NOTE | 2021-07-14 16:10 | PC.NURSE ---
REQUESTED ROOM FOR PT DESMOND REHMAN VERBALIZED UNDERSTANDING.
[2021-07-14 16:18] LABS: Basophils % 0.6 %; Eosinophils # 0.1 10^3/uL (0.0-0.8); Eosinophils % 1.9 %; Hemoglobin 14.4 g/dL (11.7-16.6); Lymphocytes # 1.6 10^3/uL (0.8-4.8); Lymphocytes % 22.3 %; Mean Corpuscular HGB Conc 35.1 g/dL (30.0-36.0); Mean Corpuscular Hemoglobin 31.8 pg (28.0-34.0); Mean Corpuscular Volume 90.5 fl (80-94); Mean Platelet Volume 10.2 fL (7.4-10.4); Monocytes # 0.5 10^3/uL (0.2-0.9); Neutrophils # 4.88 10^3/uL (1.8-7.7); Neutrophils % 67.9 %; Nucleated Red Blood Cells % 0 %; Platelet Count 246 10^3/cmm (130-400); Red Blood Count 4.53 10^6/uL (4.1-5.3); Red Cell Distribution Width 12.4 % (12.1-15.1); White Blood Count 7.2 10^3/uL (4.0-10.0)
[2021-07-14 17:19] LABS: Alanine Aminotransferase 15 U/L (0-41); Albumin Level 4.1 g/dL (3.5-5.2); Alkaline Phosphatase 35 IU/L (40-130); Anion Gap 16.1 (5-19); Aspartate Amino Transferase 14 U/L (0-40); Blood Urea Nitrogen 18 mg/dL (8-23); Calcium 8.7 mg/dL (8.5-10.5); Carbon Dioxide 22 mmol/L (22-29); Chloride 103 mmol/L (98-107); Globulin 1.4 g/dL (1.3-4.6); Glucose 132 mg/dL (65-115); Osmolality Calculated 288 mOsm/kg (285-295); Potassium 4.1 mmol/L (3.5-5.1); Sodium 137 mmol/L (136-145); Total Bilirubin 0.3 mg/dL (0.15-1.2); Total Protein 5.5 g/dL (6.6-8.7)
[2021-07-14 17:21] LABS: Troponin(5th) Baseline 22 ng/L (0-15)
--- NOTE | 2021-07-14 17:42 | ECG_ITS ---
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 Measurements Intervals [place] Rate: 61 P: 53 CT: 239 QRS: -30 QRSD: 93 T: 51 QT: 386 QTc: 392 Interpretive Statements SINUS RHYTHM WITH FIRST DEGREE AV BLOCK BORDERLINE LEFT AXIS DEVIATION [QRS AXIS < -20] Compared to ECG 02/28/2020 06:48:58 No significant changes Electronically Signed On 07-15-2021 10:03:14 SHIPPING ASSOCIATE by Aggie Petty M.D. [id number]
--- NOTE | 2021-07-14 17:53 | ED_ITS ---
HPI - General Adult General: Chief complaint: Chest Pain Stated complaint: CHEST PAIN Time Seen by Provider: 07/14/21 16:31 History of Present Illness: HPI narrative: CC: Chest Pain HPI: This is a [81]yo patient hx of CAD s/pt stent x 8 presenting to the ED co mplaining of acute sudden onset of pressure like chest pain x 1 day at rest and exertional dyspnea x1 day. He is followed by Dr. Gallego. Yesterday, patient underwent a stress test that was abnormal with new reversible regions of ischemia. Pain is not tearing in nature and does not radiate to the back. Pain not associated with vomiting or PO intake. Denies any recent sympathomimetic drug use. Patient denies any cough. Denies palpitations, dysphagia, diaphoresis, radiation of pain to bilateral arms, jaw. Denies F/N/V/D. Patient denies any recent immobility, surgery, unilateral leg swelling, or prior PE. Patient denies any orthopnea. Stress test from yesterday: Myocardial perfusion imaging revealing moderate area of decreased tracer uptake in the basal and mid inferior, mid inferolateral and apical lateral region, with some reversibility in the inferolateral region suggesting myocardial scarring in the distribution of the right coronary artery and the circumflex artery with a small area of ischemia mostly in the distribution of the circumflex artery. Onset: 1 days ago Duration: ongoing for the last 1 days Location: home Severity: mild/moderate Review of Systems Narrative: Constitutional: No fever, no chills. HEENT: No vision changes CV: +chest pain, no palpitations PULM: no cough, +dyspnea. GI: No abdominal pain, no N/V/D. : No dysuria MSKEL: No muscle pain SKIN: No new rashes, no lesions. NEURO: No headache, no focal weakness. HEME: No visible bruises PSYCH: Normal mood PFSH ED PFSH: Medical History Acquired bilateral hammer toes Aortic atherosclerosis Atherosclerosis of coronary artery of [place] heart CAD (coronary artery disease) Hyperlipidemia LDL was 80s, HDL 60 Hypertension Leg cramps Wan's neuroma of both feet Renal calculus Surgical History H/O arthroscopy of knee H/O thumb surgery History of back surgery History of foot surgery History of hernia surgery History of PTCA S/P extracorporeal shock wave therapy Family History Brother CAD (coronary artery disease) Lung disease Family/Other CAD (coronary artery disease) Cancer Grandfather Stroke Cancer Mother , at age 81 Diabetes Father , at age 87 Diabetes Stroke Denies family history of Clotting disorder Dementia Chronic kidney disease (CKD) Suicide Anesthesia complication Bleeding disorder Social History Smoking and tobacco status: former smoker Alcohol intake: never Marital status: Current occupational status: retired History of recent travel: No Physical Exam Narrative: EXAM NARRATIVE: Head: Atraumatic Eyes: PERRL, conjunctiva without injection ENT: Mucous membrane moist NECK: Supple, ROM intact LUNGS: LCTAB, no crackles/rhonchi CV: RRR ABDOMEN: Soft, nontender in all quadrants EXTREMITY: Normal ROM SKIN: No rash or erythema NEURO: Awake and alert, no focal motor deficits PSYCH: Normal mood and affect Course Vital Signs: Vital signs: Vital Signs Temperature 98.7 F 07/16/21 13:14 Pulse Rate 75 07/16/21 13:14 Respiratory Rate 18 07/16/21 13:14 Blood Pressure 150/82 07/16/21 13:14 Pulse Oximetry 100 07/16/21 13:14 MDM - General Adult MDM Narrative: Medical decision making narrative: [81]yo patient w/ hx of CAD s/p stent x 8 presenting to the ED with evaluation of new chest pain at rest with abnormal stress test x 1 day. HDS, pulse 2+ radially bilaterally, no signs of fluid overload, AAOx3, neuro exam intact. Given History and Exam today I have no suspicion for ACS, Pneumothorax, Pneumonia, Pulmonary Embolus, Tamponade, Aortic Dissection or other emergent problems as a cause for this presentation. Workup: ECG, CXR, CBC, BMP, Troponin x 3 Interventions: ASA EKG showing regular sinus rhythm at HT of [61]. Normal axis. No ST elevations/depressions to suggest coronary occlusion. Normal [place], QRS, QT intervals. Findings: ECG: No overt evidence of STEMI, hyperacute T waves, localizable STD or T wave inversions. No evidence of Brugada?s sign, delta wave, epsilon wave, significantly prolonged QTc, or malignant arrhythmia. No Q waves. Disposition: inpatient admission. Dr. Gallego will follow patient. Lab Data: Labs: Lab Results 07/14/21 07/14/21 07/14/21 15:42 15:42 15:42 WBC 7.2 10^3/uL 10^3/ uL (4.0-10.0) RBC 4.53 10^6/uL 10^6 /uL (4.1-5.3) Hgb 14.4 g/dL g/dL (11.7-16.6) Hct 41.0 % L % (42.0-52.0) MCV 90.5 fl fl (80-94) MCH 31.8 pg pg (28.0-34.0) MCHC 35.1 g/dL g/dL (30.0-36.0) RDW 12.4 % % (12.1-15.1) Plt Count 246 10^3/cmm 10^3 /cmm (130-400) MPV 10.2 fL fL (7.4-10.4) Neut % (Auto) 67.9 % % Lymph % (Auto) 22.3 % % [place] % (Auto) 7.0 % % Eos % (Auto) 1.9 % % Baso % (Auto) 0.6 % % Neut # (Auto) 4.88 10^3/uL 10^3 /uL (1.8-7.7) Lymph # (Auto) 1.6 10^3/uL 10^3/ uL (0.8-4.8) [place] # (Auto) 0.5 10^3/uL 10^3/ uL (0.2-0.9) Eos # (Auto) 0.1 10^3/uL 10^3/ uL (0.0-0.8) Baso # (Auto) 0.0 10^3/uL 10^3/ uL (0.0-0.1) Nucleated RBC % (a uto) 0 % % Nucleated RBCs # 0.0 /100WBC /100W BC APTT Sodium 137 mmol/L mmol/L (136-145) Potassium 4.1 mmol/L mmol/L (3.5-5.1) Chloride 103 mmol/L mmol/L (98-107) Carbon Dioxide 22 mmol/L mmol/L (22-29) Anion Gap 16.1 (5-19) BUN 18 mg/dL mg/dL (8-23) Creatinine 0.8 mg/dL mg/dL (0.7-1.2) GFR Calculation Not Reportable Glucose 132 mg/dL H mg/dL (65-115) POC Glucose Calculated Osmolal ity 288 mOsm/kg mOsm/ kg (285-295) Calcium 8.7 mg/dL mg/dL (8.5-10.5) Total Bilirubin 0.3 mg/dL mg/dL (0.15-1.2) AST 14 U/L U/L (0-40) ALT 15 U/L U/L (0-41) Alkaline Phosphata se 35 IU/L L IU/L (40-130) Troponin T Baselin e 22 ng/L H ng/L (0-15) Troponin T 120 Min [place] Troponin T Troponin T Hi Sens 6Hr Troponin T Hi Sens 6Hr [place] Total Protein 5.5 g/dL L g/dL (6.6-8.7) Albumin 4.1 g/dL g/dL (3.5-5.2) Globulin 1.4 g/dL g/dL (1.3-4.6) 07/14/21 07/14/21 07/14/21 17:58 21:30 21:46 WBC RBC Hgb Hct MCV MCH MCHC RDW Plt Count MPV Neut % (Auto) Lymph % (Auto) [place] % (Auto) Eos % (Auto) Baso % (Auto) Neut # (Auto) Lymph # (Auto) [place] # (Auto) Eos # (Auto) Baso # (Auto) Nucleated RBC % (a uto) Nucleated RBCs # APTT Sodium Potassium Chloride Carbon Dioxide Anion Gap BUN Creatinine GFR Calculation Glucose POC Glucose 90 mg/dL mg/dL (70-110) Calculated Osmolal ity Calcium Total Bilirubin AST ALT Alkaline Phosphata se Troponin T Baselin e Troponin T 120 [address] [place] 22.46 ng/L H ng/L (0-15) [place] Troponin T 0.46 ABS# ABS# (0-10) Troponin T Hi Sens 6Hr 22.84 ng/L H ng/L (0-15) Troponin T Hi Sens 6Hr [place] 0.84 ng/L ng/L (0-12) Total Protein Albumin Globulin 12/01/21 12/01/21 12/01/21 04:36 04:36 04:36 WBC 5.1 10^3/uL 10^3/ uL (4.0-10.0) RBC 4.54 10^6/uL 10^6 /uL (4.1-5.3) Hgb 14.3 g/dL g/dL (11.7-16.6) Hct 41.5 % L % (42.0-52.0) MCV 91.4 fl fl (80-94) MCH 31.5 pg pg (28.0-34.0) MCHC 34.5 g/dL g/dL (30.0-36.0) RDW 12.3 % % (12.1-15.1) Plt Count 208 10^3/cmm 10^3 /cmm (130-400) MPV 10.4 fL fL (7.4-10.4) Neut % (Auto) 56.6 % % Lymph % (Auto) 30.3 % % [place] % (Auto) 8.6 % % Eos % (Auto) 3.3 % % Baso % (Auto) 0.8 % % Neut # (Auto) 2.90 10^3/uL 10^3 /uL (1.8-7.7) Lymph # (Auto) 1.6 10^3/uL 10^3/ uL (0.8-4.8) [place] # (Auto) 0.4 10^3/uL 10^3/ uL (0.2-0.9) Eos # (Auto) 0.2 10^3/uL 10^3/ uL (0.0-0.8) Baso # (Auto) 0.0 10^3/uL 10^3/ uL (0.0-0.1) Nucleated RBC % (a uto) 0 % % Nucleated RBCs # 0.0 /100WBC /100W BC APTT 31.3 SECONDS SECO NDS (23.9-36.7) Sodium 141 mmol/L mmol/L (136-145) Potassium 4.0 mmol/L mmol/L (3.5-5.1) Chloride 107 mmol/L mmol/L (98-107) Carbon Dioxide 28 mmol/L mmol/L (22-29) Anion Gap 10.0 (5-19) BUN 16 mg/dL mg/dL (8-23) Creatinine 0.8 mg/dL mg/dL (0.7-1.2) GFR Calculation Not Reportable Glucose 114 mg/dL mg/dL (65-115) POC Glucose Calculated Osmolal ity 294 mOsm/kg mOsm/ kg (285-295) Calcium 8.9 mg/dL mg/dL (8.5-10.5) Total Bilirubin 0.5 mg/dL mg/dL (0.15-1.2) AST 15 U/L U/L (0-40) ALT 13 U/L U/L (0-41) Alkaline Phosphata se 35 IU/L L IU/L (40-130) Troponin T Baselin e Troponin T [address] Min [place] Troponin T Troponin T Hi Sens 6Hr Troponin T Hi Sens 6Hr [place] Total Protein 5.1 g/dL L g/dL (6.6-8.7) Albumin 3.6 g/dL g/dL (3.5-5.2) Globulin 1.5 g/dL g/dL (1.3-4.6) 07/15/21 07/15/21 06:30 16:46 WBC RBC Hgb Hct MCV MCH MCHC RDW Plt Count MPV Neut % (Auto) Lymph % (Auto) [place] % (Auto) Eos % (Auto) Baso % (Auto) Neut # (Auto) Lymph # (Auto) [place] # (Auto) Eos # (Auto) Baso # (Auto) Nucleated RBC % (a uto) Nucleated RBCs # APTT Sodium Potassium Chloride Carbon Dioxide Anion Gap BUN Creatinine GFR Calculation Glucose POC Glucose 112 mg/dL H mg/dL 132 mg/dL H mg/dL (70-110) (70-110) Calculated Osmolal ity Calcium Total Bilirubin AST ALT Alkaline Phosphata se Troponin T Baselin e Troponin T [address] [place] Troponin T Troponin T Hi Sens 6Hr Troponin T Hi Sens 6Hr [place] Total Protein Albumin Globulin Discharge Plan Discharge Patient Disposition: Admitted As Inpatient Admit Provider: Chata Marley Clinical Impression: Chest pain, Dyspnea, Abnormal stress echo Condition: Stable Discharge Diet: Cardiac Discharge Activity: Increase activity as tolerated Coding Level of Care Code ED Wool Sorter for Chg Fwd
[2021-07-14 18:28] LABS: Troponin 5 2HR 22.46 ng/L (0-15); Troponin 5 2HR Delta 0.46 ABS# (0-10)
[2021-07-14] MEDS: aspirin 325 mg Tablet PO (19:21)
[2021-07-14] MEDS: nitroglycerin 0.4 mg sublingual Tablet SUBLINGUAL (19:21)
--- NOTE | 2021-07-14 20:55 | PM.HP ---
Providers/Chief Complaint Primary Care Provider: Jl Felix MD Chief Complaint: CHEST PAIN History of Present Illness John Valadez is a 81 year old male with known PMH atherosclerosis, hypertension, hyperlipidemia, had multiple percutaneous coronary interventions in the past. Recently evaluated by cardiology as outpatient where he was evaluated for chest pain and underwent stress test which was abnormal on 07/13. Showed moderate area of decreased tracer uptake in the basal and mid inferior, mid inferolateral and apical lateral region, with some reversibility in the inferolateral region suggesting myocardial scarring in the distribution of the right coronary artery and the circumflex artery with a small area of ischemia mostly in the distribution of the circumflex artery. Findings appeared to be new compared to 2019. LVEF 83%, no gross RWMA. Presented to ER today for chest pain which is currently subsided with nitro. EKG shows sinus rhytm with no acute St-T wave changes. Baseline troponin at 22, 2 hr at 22.46 without significant delta thus far. saturating 95% on RA Review of Systems General: Reports: 10 or more systems reviewed and unremarkable except in HPI and below Const: Denies: fever(s), chills or body aches Eyes: Denies: change in vision, blurry vision or photophobia ENMT: Reports: hoarseness; Denies: throat pain, enlarged tonsils, odynophagia or nasal congestion Card: Denies: chest pain, palpitations, irregular heart rhythm, edema, swelling of feet/ankles, lightheadedness, pre-syncope, dyspnea on exertion or orthopnea Resp: Denies: dyspnea, productive cough, non-productive cough, wheezing, stridor, pain on inspiration, change in phlegm color, hemoptysis or chest congestion GI: Denies: abdominal pain, nausea, vomiting, hematemesis, coffee ground emesis, dysphagia, heartburn, diarrhea, constipation, GI cramping, change in stool character, hematochezia or melena : Denies: flank pain, dysuria, urinary frequency, urinary urgency, urinary hesitancy or hematuria Musc: Denies: neck pain, back pain, extremity pain, joint swelling, joint warmth or deformity Neuro: Denies: headache(s), numbness in extremities, weakness in extremities, sensory changes, difficulty walking, frequent falls, dizziness, vertigo, behavioral changes, Slurred speech present or seizure-like activity Psych: Denies: anxiety, depression, suicidal ideation or homicidal ideation Endo: Denies: polyuria, polydipsia, tired all the time, cold intolerance or hot flashes [place]/Lymph: Denies: easy bruising or easy bleeding Medications/Allergies Home Medications Medication Instructions Recorded Confirmed Last Taken Type aspirin 81 mg tablet,delayed 81 mg PO QDAY 08/30/19 06/30/21 08/21/20 History release trazodone 75 mg PO DAILY 02/28/20 06/30/21 02/27/20 History diazepam 5 mg tablet 2.5 mg PO BID PRN tab 06/17/20 06/30/21 08/21/20 History famotidine 40 mg tablet 40 mg PO BID tab 06/17/20 06/30/21 08/21/20 History metformin 500 mg tablet 1,000 mg PO QDAY tab 06/17/20 06/30/21 08/21/20 08:00 History Sole Supports #1 ea 10/20/20 06/30/21 Unknown Rx pramipexole 0.25 mg tablet 0.5 mg PO .bedtime tab 12/25/20 06/30/21 Unknown History ezetimibe 10 mg tablet 10 mg PO QDAY #90 tab 02/27/21 06/30/21 Unknown Rx nitroglycerin 0.4 mg sublingual 0.4 mg SUBLINGUAL Q5M PRN #50 tab 03/25/21 06/30/21 Unknown Rx tablet clopidogrel 75 mg tablet See Rx Instructions .ROUTE 04/24/21 06/30/21 Unknown Rx .COMPLEX #90 tab lisinopril 20 mg tablet 5 mg PO DAILY tab 06/22/21 06/30/21 Unknown History pantoprazole 40 mg tablet,delayed 40 mg PO DAILY 06/22/21 06/30/21 Unknown History release potassium gluconate 595 mg (99 mg) 595 mg PO DAILY 06/22/21 06/30/21 Unknown History tablet simvastatin 80 mg tablet 80 mg PO DAILY #90 tab 06/23/21 06/30/21 Unknown Rx Allergies Allergy/AdvReac Type Severity Reaction Status Date / Time ciprofloxacin [From Cipro] Allergy Unknown unknown Verified 06/30/21 09:04 doxycycline Allergy Unknown hives Verified 06/30/21 09:04 PFSH Acute PFSH: Medical History Acquired bilateral hammer toes Aortic atherosclerosis Atherosclerosis of coronary artery of [place] heart CAD (coronary artery disease) Hyperlipidemia LDL was 80s, HDL 60 Hypertension Leg cramps Wan's neuroma of both feet Renal calculus Surgical History H/O arthroscopy of knee H/O thumb surgery History of back surgery History of foot surgery History of hernia surgery History of PTCA S/P extracorporeal shock wave therapy Family History Brother CAD (coronary artery disease) Lung disease Family/Other CAD (coronary artery disease) Cancer Grandfather Stroke Cancer Mother , at age 81 Diabetes Father , at age 87 Diabetes Stroke Denies family history of Clotting disorder Dementia Chronic kidney disease (CKD) Suicide Anesthesia complication Bleeding disorder Social History Smoking and tobacco status: former smoker Alcohol intake: never Marital status: Current occupational status: retired History of recent travel: No Vitals/I&O/Wt Last Vital Signs Temp 97.7 F 07/14/21 15:56 Pulse 72 07/14/21 19:22 Resp 18 07/14/21 19:22 BP 142/71 07/14/21 19:22 Pulse Ox 95 07/14/21 19:22 Weight last 48 hrs Weight 72.575 kg Physical Exam Narrative: EXAM NARRATIVE: General: No acute distress, AO x3 HEENT: PERRLA, pupils bilaterally equal and reactive, pallors not present Chest: Normal vesicular breath sounds, no added sounds, equal good air entry bilaterally CVS: S1-S2 regular, no murmurs, no tachycardia, no gallops, no rubs Abdomen: Soft, nontender, no organomegaly, bowel sounds present Neuro: No focal deficits, no facial deformity, AO x3, power 5/5 in all limbs Data : 07/14/21 15:42 07/14/21 15:42 A&P Assessment and plan (1) Angina pectoris: Ongoing chest pain with abnormal stress test yesterday Currently pain is controlled continue ASA, plavix, prn nitro and morphine for chest pain no acute ST-T wave changes 2 hr trop not significant, awaiting 6 hr troponin cardiology consulted from ER NPO post midnight in case of cardiac cath in am admit to [facility] Status: Acute (2) Abnormal stress test: Status: Acute Attestations Medical Necessity Statement*: observation admission for unstable angina, ongoing chest pain, evaluation for ACS and possible cath Coding Level of Care Code Acute Dairy Manufacturing Technologist for Juwan Caldera Diagnoses Angina pectoris I20.9 Abnormal stress test R94.39
[2021-07-14] MEDS: pramipexole 0.25 mg Tablet 0.5 MG PO (21:44)
[2021-07-14 21:49] LABS: Glucose Point of Care 90 mg/dL (70-110)
[2021-07-14 22:19] LABS: Troponin 5 6HR 22.84 ng/L (0-15); Troponin 5 6HR Delta 0.84 ng/L (0-12)
[2021-07-14] MEDS: enoxaparin 40 mg/0.4 mL Syringe SUBCUT (23:04)
[2021-07-14] MEDS: aspirin 81 mg EC Tablet PO (23:04)
[2021-07-14] MEDS: acetaminophen 325 mg Tablet 650 MG PO (23:34)
[2021-07-15] VITALS (56 sets, daily range): BP systolic 95–148; BP diastolic 56–80; PULSE 56–84; RESP 7–23; TEMP 36.6; O2SAT 92–96
[2021-07-15 04:51] LABS: Basophils % 0.8 %; Eosinophils # 0.2 10^3/uL (0.0-0.8); Eosinophils % 3.3 %; Hematocrit 41.5 % (42.0-52.0); Hemoglobin 14.3 g/dL (11.7-16.6); Lymphocytes # 1.6 10^3/uL (0.8-4.8); Lymphocytes % 30.3 %; Mean Corpuscular HGB Conc 34.5 g/dL (30.0-36.0); Mean Corpuscular Hemoglobin 31.5 pg (28.0-34.0); Mean Corpuscular Volume 91.4 fl (80-94); Mean Platelet Volume 10.4 fL (7.4-10.4); Monocytes # 0.4 10^3/uL (0.2-0.9); Monocytes % 8.6 %; Neutrophils % 56.6 %; Nucleated Red Blood Cells % 0 %; Platelet Count 208 10^3/cmm (130-400); Red Blood Count 4.54 10^6/uL (4.1-5.3); Red Cell Distribution Width 12.3 % (12.1-15.1); White Blood Count 5.1 10^3/uL (4.0-10.0)
[2021-07-15 05:06] LABS: Alanine Aminotransferase 13 U/L (0-41); Albumin Level 3.6 g/dL (3.5-5.2); Alkaline Phosphatase 35 IU/L (40-130); Aspartate Amino Transferase 15 U/L (0-40); Blood Urea Nitrogen 16 mg/dL (8-23); Calcium 8.9 mg/dL (8.5-10.5); Carbon Dioxide 28 mmol/L (22-29); Chloride 107 mmol/L (98-107); Globulin 1.5 g/dL (1.3-4.6); Glucose 114 mg/dL (65-115); Osmolality Calculated 294 mOsm/kg (285-295); Sodium 141 mmol/L (136-145); Total Bilirubin 0.5 mg/dL (0.15-1.2); Total Protein 5.1 g/dL (6.6-8.7)
[2021-07-15 06:19] LABS: Partial Thromboplastin Time 31.3 SECONDS (23.9-36.7)
[2021-07-15 06:33] LABS: Glucose Point of Care 112 mg/dL (70-110)
--- NOTE | 2021-07-15 08:30 | PM.CONSULT ---
Providers/Reason For Consult Consulting Physician/Specialty*: SIMON Gallego MD/cardiology Reason for Consult*: Patient with history of ASHD and multiple PCI's, presenting with symptoms suggestive of unstable angina Attending Physician: Vikram Castle MD Primary Care Provider: Jl Felix MD History of Present Illness History of Present Illness John Valadez is a 81 year old male, is admitted to hospital through the emergency room, where he presented with complaints of chest pain. Mr. Hoang is known to have atherosclerotic heart disease and had multiple percutaneous coronary interventions. He had PCI of all the 3 vessels in the past. He had a several angiograms in the past. But for the last 6-7 years, he has been doing okay with no significant chest pain. Recently started having some chest tightness with shortness of breath. He had a myocardial perfusion imaging on the . He was found to have small areas of ischemia in distribution of the right coronary artery/circumflex artery with areas of fixed defects in the distribution of the same vessels. According the patient, ever since the stress test, he been having some for tight feeling in the chest. This tight feeling persisted throughout the day of the test. Yesterday the pain started getting worse. From 2/6 in intensity, the pain became 6/10 in intensity. He also was fatigued with some amount of shortness of breath. He may have had some sweating. The pain was radiating to both shoulders and down to the arms. Denies any fever or chills. No cough. No other specific complaints. Because of the persistence of the symptoms, he decided to come to the hospital. Pt has an extensive cardiac history and had multiple percutaneous coronary interventions in the past.Mr. Valadez had at least 10-12 cardiac catheterization's in the myocardial past. In June of 2000, he had the first angiogram followed by PCI of the RCA lesion. In August of 2000, he had a restenosis of the same lesion, which then was re intervened. In 2003, he presented with unstable angina and had the cardiac catheterization, followed by PCI of the mid circumflex lesion. In the early part of 2005, he had a PCI of the ostial circumflex lesion. In June of the same year, he presented with unstable angina. Repeat angiogram revealed high-grade lesion in the LAD, for which he underwent a PCI. He had another intervention of the circumflex artery in 2006. He had 2 more coronary interventions in 2010, the details of which are not known at this time. He had multiple coronary angiograms in between the interventions. Pt had percutaneous coronary intervention POBA in 2012. He had at least 2 myocardial perfusion imaging since 2012 , which were unremarkable The most recent myocardial perfusion imaging from 07/13/2021 is as mentioned below. Review of Systems Narrative: CONSTITUTIONAL: No fever or chills. EYES: No blurring of vision or other visual disturbances lately. ENT: No hoarseness of voice, auditory disturbances or sore throat. CARDIOVASCULAR: As mentioned above. RESPIRATORY: No significant cough. GASTROINTESTINAL: No hematemesis or melena. GENITOURINARY: No dysuria or hematuria. INTEGUMENTARY: No skin rashes or history of skin cancer. NEURO: No transient ischemic attacks or amaurosis. PSYCHIATRIC: No history of psychosis or major depression. HEMATOLOGIC: No bleeding disorders or significant anemia. ENDOCRINE: No history of polyuria or polydipsia. MUSCULOSKELETAL: No recent joint pain or swelling. ALLERGY/IMMUNOLOGY: As mentioned above. Meds/Allergies Home Medications and Allergies Home Medications Medication Instructions Recorded Confirmed Last Taken Type aspirin 81 mg tablet,delayed 81 mg PO DAILY 08/30/19 07/15/21 08/21/20 History release trazodone 75 mg PO BEDTIME 02/28/20 07/15/21 02/27/20 History diazepam 5 mg tablet 2.5 mg PO BID PRN tab 06/17/20 07/15/21 08/21/20 History Sole Supports #1 ea 10/20/20 07/15/21 Unknown Rx pramipexole 0.25 mg tablet 0.5 mg PO BEDTIME@20 tab 12/25/20 07/15/21 Unknown History nitroglycerin 0.4 mg sublingual 0.4 mg SUBLINGUAL Q5M PRN #50 tab 03/25/21 07/15/21 Unknown Rx tablet potassium gluconate 595 mg (99 mg) 595 mg PO DAILY 06/22/21 07/15/21 Unknown History tablet simvastatin 80 mg tablet 80 mg PO DAILY #90 tab 06/23/21 07/15/21 Unknown Rx Vitamin D3 1 cap PO DAILY 07/15/21 07/15/21 Unknown History clopidogrel 75 mg PO DAILY 07/15/21 07/15/21 Unknown History ezetimibe 10 mg PO DAILY 07/15/21 07/15/21 Unknown History lisinopril 5 mg PO DAILY 07/15/21 07/15/21 Unknown History metformin 1,000 mg PO DAILY 07/15/21 07/15/21 Unknown History omeprazole 20 mg PO DAILY 07/15/21 07/15/21 Unknown History Allergies Allergy/AdvReac Type Severity Reaction Status Date / Time ciprofloxacin [From Cipro] Allergy Unknown unknown Verified 07/15/21 09:42 doxycycline Allergy Unknown hives Verified 07/15/21 09:42 Current Medications Current Medications Generic Name Dose Route Start Last Admin Trade Name Freq PRN Reason Stop Dose Admin Acetaminophen 650 mg 07/14/21 21:20 07/14/21 23:34 Acetaminophen 325 Mg Tablet PO 650 mg Q6H PRN Administration Mild/Mod Pain Or Temp >/= 101 Aspirin 81 mg 07/14/21 21:30 07/14/21 23:04 Aspirin 81 Mg Ec Tablet PO 81 mg DAILY MARNI Administration Enoxaparin Sodium 40 mg 07/14/21 22:30 07/14/21 23:04 Enoxaparin 40 Mg/0.4 Ml Syringe SUBCUT 40 mg Q24H MARNI Administration PFSH Acute PFSH: Medical History Acquired bilateral hammer toes Aortic atherosclerosis Atherosclerosis of coronary artery of [place] heart CAD (coronary artery disease) Hyperlipidemia LDL was 80s, HDL 60 Hypertension Leg cramps Wan's neuroma of both feet Renal calculus Surgical History H/O arthroscopy of knee H/O thumb surgery History of back surgery History of foot surgery History of hernia surgery History of PTCA S/P extracorporeal shock wave therapy Family History Brother CAD (coronary artery disease) Lung disease Family/Other CAD (coronary artery disease) Cancer Grandfather Stroke Cancer Mother , at age 81 Diabetes Father , at age 87 Diabetes Stroke Denies family history of Clotting disorder Dementia Chronic kidney disease (CKD) Suicide Anesthesia complication Bleeding disorder Social History Smoking and tobacco status: former smoker Alcohol intake: never Marital status: Current occupational status: retired History of recent travel: No Vitals/I&O/Wt Last Vital Signs Temp 98 F 07/15/21 04:00 Pulse 72 07/15/21 05:24 Resp 16 07/15/21 04:00 BP 123/77 07/15/21 04:00 Pulse Ox 93 07/15/21 04:00 07/14/21 07/15/21 07/15/21 22:59 06:59 14:59 Intake Total 200 / 200 Output Total 750 / 750 Balance -550 / -550 Weight last 48 hrs Weight 167 lb 11.2 oz Weight 160 lb Physical Exam Narrative: EXAM NARRATIVE: GENERAL: The patient is alert and oriented times three. Not in any acute distress. HEENT: No significant pallor, icterus or lymphadenopathy. The pupils are reactant to light. Oral cavity: There are no mucous membrane lesions. Funduscopic examination: The fundus is not visualized NECK: Trachea appears to be central. No masses noted. No JVD or thyromegaly appreciated. No carotid bruit. RESPIRATORY: Chest is symmetrical. No intercostals muscle retraction or any accessory muscle activation. There is no chest wall tenderness. Breath sounds are heard bilaterally. No rales or rhonchi heard. No evidence of any consolidation. BREASTS: Deferred. HEART: The PMI is in the 5th left intercostals space just inside the midclavicular line. No palpable precordial events. S1 and S2 are normal. No S3 or S4 heard. No pericardial rub or any click heard. ABDOMEN: No vessel pulsations or distention. No tenderness. No organomegaly appreciated. No abdominal bruit. Bowel sounds are normally heard. : Deferred. RECTAL: Deferred. LYMPHATIC: No lymphadenopathy noted in the neck or groin. EXTREMITIES: No edema or cyanosis. No clubbing. The dorsalis pedis and posterior tibial pulses are palpable but somewhat weak bilaterally. MUSCULOSKELETAL: No acute joint deformities or swelling. SKIN: There are no significant scars or skin rash noted. NEUROPSYCHIATRIC: The patient is alert and oriented x3. Appears to be in a good mood. The higher functions are grossly within normal limits. No tremors or rigidity noted. Data Labs: Other Labs: Laboratory Last Values WBC 5.1 10^3/uL (4.0- 10.0) 07/15/21 04:36 RBC 4.54 10^6/uL (4.1 -5.3) 07/15/21 04:36 Hgb 14.3 g/dL (11.7-1 6.6) 07/15/21 04:36 Hct 41.5 % (42.0-52.0 ) L 07/15/21 04:36 MCV 91.4 fl (80-94) 07/15/21 04:36 MCH 31.5 pg (28.0-34. 0) 07/15/21 04:36 MCHC 34.5 g/dL (30.0-3 6.0) 07/15/21 04:36 RDW 12.3 % (12.1-15.1 ) 07/15/21 04:36 Plt Count 208 10^3/cmm (130 -400) 07/15/21 04:36 MPV 10.4 fL (7.4-10.4 ) 07/15/21 04:36 Neut % (Auto) 56.6 % 07/15/21 04:36 Lymph % (Auto) 30.3 % 07/15/21 04:36 [place] % (Auto) 8.6 % 07/15/21 04:36 Eos % (Auto) 3.3 % 07/15/21 04:36 Baso % (Auto) 0.8 % 07/15/21 04:36 Neut # (Auto) 2.90 10^3/uL (1.8 -7.7) 07/15/21 04:36 Lymph # (Auto) 1.6 10^3/uL (0.8- 4.8) 07/15/21 04:36 [place] # (Auto) 0.4 10^3/uL (0.2- 0.9) 07/15/21 04:36 Eos # (Auto) 0.2 10^3/uL (0.0- 0.8) 07/15/21 04:36 Baso # (Auto) 0.0 10^3/uL (0.0- 0.1) 07/15/21 04:36 Nucleated RBC % (a uto) 0 % 07/15/21 04:36 Nucleated RBCs # 0.0 /100WBC 07/15/21 04:36 APTT 31.3 SECONDS (23. 9-36.7) 07/15/21 04:36 Sodium 141 mmol/L (136-1 45) 07/15/21 04:36 Potassium 4.0 mmol/L (3.5-5 .1) 07/15/21 04:36 Chloride 107 mmol/L (98-10 7) 07/15/21 04:36 Carbon Dioxide 28 mmol/L (22-29) 07/15/21 04:36 Anion Gap 10.0 (5-19) 07/15/21 04:36 BUN 16 mg/dL (8-23) 07/15/21 04:36 Creatinine 0.8 mg/dL (0.7-1. 2) 07/15/21 04:36 GFR Calculation Not Reportable 07/15/21 04:36 Glucose 114 mg/dL (65-115 ) 07/15/21 04:36 POC Glucose 112 mg/dL (70-110 ) H 07/15/21 06:30 Calculated Osmolal ity 294 mOsm/kg (285- 295) 07/15/21 04:36 Calcium 8.9 mg/dL (8.5-10 .5) 07/15/21 04:36 Total Bilirubin 0.5 mg/dL (0.15-1 .2) 07/15/21 04:36 AST 15 U/L (0-40) 07/15/21 04:36 ALT 13 U/L (0-41) 07/15/21 04:36 Alkaline Phosphata se 35 IU/L (40-130) L 07/15/21 04:36 Troponin T Baselin e 22 ng/L (0-15) H 07/14/21 15:42 Troponin T 120 Min hank 22.46 ng/L (0-15) H 07/14/21 17:58 Delta Troponin T 0.46 ABS# (0-10) 07/14/21 17:58 Troponin T Hi Sens 6Hr 22.84 ng/L (0-15) H 07/14/21 21:30 Troponin T Hi Sens 6Hr Delta 0.84 ng/L (0-12) 07/14/21 21:30 Total Protein 5.1 g/dL (6.6-8.7 ) L 07/15/21 04:36 Albumin 3.6 g/dL (3.5-5.2 ) 07/15/21 04:36 Globulin 1.5 g/dL (1.3-4.6 ) 07/15/21 04:36 Imaging^: Echo: My impression: Echocardiogram from 01/29/2021 revealed Normal left ventricular size and systolic function, EF 58 %. No regional wall motion abnormalities. Grade I/IV diastolic dysfunction (abnormal relaxation filling pattern), normal to mildly elevated filling pressures. Thickened mitral valve. Mild mitral annular calcification. Mild to moderate calcification in the mitral leaflet. Thickened aortic valve. Trace aortic valve regurgitation. Some features of aortic valve sclerosis. Moderate eccentric tricuspid valve regurgitation. Estimated pulmonary artery peak systolic pressure of around 30 mmHg Mild pulmonary valve regurgitation. There is no pericardial effusion. There are no intracardiac masses. No similar previous studies are available for comparison MPI: My impression: 1. Myocardial perfusion imaging revealing moderate area of decreased tracer uptake in the basal and mid inferior, mid inferolateral and apical lateral region, with some reversibility in the inferolateral region suggesting myocardial scarring in the distribution of the right coronary artery and the circumflex artery with a small area of ischemia mostly in the distribution of the circumflex artery. 2. Normal LV ejection fraction of 83%. 3. LV wall motion analysis revealing no gross wall motion normalities. 4. Normal LV volume. Compared to the study from 02/27/2019, the area of ischemia appears to be new EKG^: EKG 1: My Interpretation: Normal sinus rhythm with a first normal ST Ts. A&P Assessment and plan (1) Abnormal stress test: The patient's Status: Acute (2) Atherosclerotic heart disease [place] coronary artery w/angina pectoris: Patient is a troponin T was slightly elevated. There is no significant delta at the 2-hour and 6-hour testing. His symptoms are consistent with unstable angina. EKG is unremarkable. Hemodynamically seems to be stable. Based on his clinical presentation, it would be appropriate to go ahead with subcu Lovenox, p.o. aspirin, Plavix, statin drug and beta-balaji. He may be continued on your current medications. Status: Acute Qualifiers: [place] vs. transplanted heart: [place] heart Qualified Code(s): I25.119 - Atherosclerotic heart disease of [place] coronary artery with unspecified angina pectoris (3) Hypertension: The blood pressure is a stage II. His antihypertensive medications need to be optimized. Status: Acute Qualifiers: Hypertension type: essential hypertension Qualified Code(s): I10 - Essential (primary) hypertension (4) Hyperlipidemia: May continue other current medications. Status: Acute Qualifiers: Hyperlipidemia type: mixed hyperlipidemia Qualified Code(s): E78.2 - Mixed hyperlipidemia Additional A&P Information For further evaluate the patient's her coronary status, a cardiac catheterization would be appropriate. The risk of bleeding, hematoma, vascular injury, myocardial infarction, CVA, renal failure and other concomitant complications were explained. Patient understood this well and consented to proceed. We will keep the patient n.p.o. We will try to get the cardiac catheterization done as soon as possible. Because of the scheduling conflict, I would ask my colleague Dr. Clemente to perform the procedure and possible PCI. This also was discussed with patient which he understood well. 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 transplanted heart: [place] heart Hypertension I10 Hypertension type: essential hypertension Hyperlipidemia E78.2 Hyperlipidemia type: mixed hyperlipidemia
[2021-07-15] MEDS: nitroglycerin 1 gm/inch oint Pkt 0.5 INCH TOPICAL (09:17)
[2021-07-15] MEDS: lisinopril 5 mg Tablet PO (09:18)
[2021-07-15] MEDS: ezetimibe 10 mg Tablet PO (09:18)
[2021-07-15] MEDS: aspirin 81 mg EC Tablet PO (09:18)
[2021-07-15] MEDS: clopidogrel 75 mg Tablet PO (09:18)
[2021-07-15] MEDS: atorvastatin 40 mg Tablet PO (09:18)
[2021-07-15] MEDS: pantoprazole DR 40 mg Tablet PO (09:18)
--- NOTE | 2021-07-15 10:16 | PC.CHAP ---
Pastoral Care Encounter/Spiritual Assessment Type of Contact [] Declined data processing specialist visit [] Patient/Family/Request visit [] Outpatient visit [] Follow-up visit [] Physician referral [] Code/Alert [x] Routine visit [] Staff referral [] Actively dying [] Patient sleeping [x] Family support [] [] Out of room [] Palliative care [] [] Receiving care in room [] Pre-surgical visit [] Trauma [] Long length of stay [] ICU visit [x] Other: Relational/Emotional Strength [] Patient feels connected with others/family/visitors/staff [] Distress [] Loneliness/isolation [] Abandonment Spirituality of Patient [x] Person of Betsy [] Attends Sikh of their Betsy [] Believes in Prayer [] Reads Bible or Spiritism materials [] There are Spiritual issues to be addressed 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 Interventions [x] Prayer [x] Active listening [x] Non-anxious presence [x] Spiritual/emotional support [] Crisis/trauma care [] Spiritual counseling [] Bereavement support [] Provided bereavement packet [] Provided Bible/devotional materials [] Provided toy/stuffed animal, coloring book to patient or family member [] Provided Communion [] Anointing/[place] [] Salvation [x] Completed spiritual assessment [] Other: Impact on Illness or Injury [] Angry [] Fearful [] Anxious [] Often cries [] Exhaustion [] Unable to work [] Unable to attend buddhism [] Unable to walk/stand [] Unable to read [] Unable to drive [] Unable to eat/drink [] Unable to sleep [] Unable to be with family [] Patient intubated [] Other: Summary patient having possible additional stent put in... Time spent with patient 5 min
--- NOTE | 2021-07-15 10:40 | W.PM.OPSUD ---
Surgery/Procedure H&P Update DATE OF PROCEDURE: July 15, 2021 DATE H&P PERFORMED: 07/15/21 H&P UPDATE INFORMATION: I have reviewed H&P completed within last 30 days, I have examined patient prior to procedure and No changes to prior documentation PREOP DIAGNOSIS: Worsening angina/abnormal stress test PRIMARY INDICATION FOR PROCEDURE: Worsening angina/abnormal stress test PLANNED PROCEDURE: Left heart cath with possible percutaneous coronary intervention PATIENT REASSESSED PRIOR TO SEDATION, WITH NO CHANGE NOTED: Yes PHYSICAL EXAM: alert, oriented x 3, clear to auscultation bilaterally and regular rate & rhythm AIRWAY EVAL/ANESTHESIA PLAN: ASA III, Monitored Anesthesia, Local Anesthesia, Risks, benefits & alternatives of sedation and/or procedure discussed and Patient agrees to continue as planned
--- NOTE | 2021-07-15 10:51 | XACV_ITS ---
Exam Room: [facility] Ht: 175 cm Wt: 73 kg BSA: 1.88 m2 Gender: Male : 1940 Any Known Allergies: Other Exam Priority: Routine Procedure(s): Procedure Description: Diagnostic procedure Procedure Description: PCI procedure Procedure Description: Drug Eluting Coronary Stent Procedure Description: PTCA Procedure Description: Miscellaneous Procedure Description: ACT Procedure Description: Coronary Angiography Julián FRIEND; Diagnostic Cath Status: Urgent Diagnostic Findings * Indication: Unstable angina/abnormal stress test. * Left Main has no significant disease. * Left Anterior Descending has no significant disease. Patent prior stents. * Circumflex has mild proximal 20 % stenosis. Patent prior stent. * RCA has severe instent restenosis in the distal vessel. Distal Right Coronary Artery: critical 95% stenosis, DRAGAN: 2 flow. * Coronary angiography shows right dominance. PCI Status: Urgent PCI Indication: Other Interventional Findings * INDICATION: Unstable angina/abnormal stress test. * Procedure details: We engaged RCA with a JR4 guide catheter. However because of inadequate support, we switched to AL 0.75 guide catheter. IV heparin was administered to maintain an ACT above 250 seconds. A 0.014 run-through guidewire was used to cross the stenosis and was placed in PDA. 3.25 x 12 mm noncompliant balloon was used to dilate the in-stent restenosis. However there was still residual stenosis. We placed a 3.0 x 26 mm resolute Aurora drug-coated eluding stent. This was followed by post dilation using 3.25 x 8 mm NC balloon. At this time final angiogram was performed that showed excellent stent expansion, DRAGAN-3 flow and minimal residual stenosis. Guidewire and guide catheter were removed. Patient left the Assistant Plant Controller in a stable condition. * Distal Right Coronary Artery: 95% stenosis treated with a MDT NC EUPHORA RX [id number] BALLOON, MDT R GENARO 3.0X26 LUIS CARLOS, and MDT NC EUPHORA RX [id number] BALLOON. 10% residual stenosis, DRAGAN: 3 flow. Conclusions 1. There is critical coronary artery disease with in-stent restenosis of distal RCA status post revascularization with LUIS CARLOS x1.. 2. Distal Right Coronary Artery was treated with a Balloon, Drug Eluting Stent, and Balloon. Recommendations * Transfer back to [facility]. * Aspirin and Plavix for at least 1 year. * High intensity statin therapy. * Outpatient cardiology follow-up in 4 weeks. Interventional RX Recommendation: PCI w/o planned CABG Diagnostic RX Recommendation: PCI w/o planned CABG Anticoagulation: Heparin Pressures Phase:Rest AO : 99 / 69 ( 84 ) @ 9:15:00 AM 99 / 62 ( 80 ) @ 9:25:00 AM 81 / 47 ( 64 ) @ 9:34:00 AM 105 / 73 ( 90 ) @ 9:51:00 AM 100 / 55 ( 75 ) @ 9:57:00 AM Clinical Evaluation EBL: 5mL-10mL Procedural Details Procedure Consent Obtained. Current Diagnosis : NSTEMI. Pre-Procedure Time Out. Identified patient by full name and date of as verbalized by the patient/guarantor. Does the consent match the physician's order: Yes. Accurate & Complete Informed Consent: Yes. Inpatient/Outpatient History & Physical on Chart: Yes. If H&P is completed, is and addenduem needed: No; If yes, is the addendum complete: N/A. Visualize and Verify Site with Patient/Guarantor: N/A. Relevant Radiology Images available: Yes. Pre-op teaching completed and patient verbalized understanding. The risks, benefits, and alternatives of sedation and/or procedure were discussed by physician. The patient agrees to continue. Procedure started. [facility] Clinical Fraility Score: 3: Managing Well. Assistant Plant Controller Indications: ACS > 24 hours. Chest Pain Symptom Assessment: Typical Angina Symptoms. Correct patient, site and procedure confirmed by cath team. PERRLA. Strong, equal hand antenna installer bilaterally. Lungs clear x 5 lobes. IV Site on Arrival: 18 gauge in the right anticubital. IV Fluids: 0.9% NaCl at KVO. 0 mL infused prior to cathead worker. Oxygen started at 2liters/min via nasal canula. right groin was prepped with chloroprep then draped in the usual sterile fashion. right radial was prepped with chloroprep then draped in the usual sterile fashion. Baseline sample Acquired. HR: 67 BPM. Physician arrived. Physician scrubbed in. Immediate Pre-Procedure Time Out. Correct Patient: Yes; Correct Procedure: Yes; Correct Site: Yes; Correct Patient Position: Yes; Correct Supplies: Yes; Dried Flammable Prep: Yes; Blood Products Available: N/A;. Lidocaine 1% infiltrated to the right radial. Arterial access obtained. A 5 y[place]i TIG catheter in over wire. Multiple views taken of right coronary artery. Catheter removed over the exchange wire. A 5 y[place]i JL3.5 catheter in over wire. Multiple views taken of left coronary artery. Catheter removed over the exchange wire. 6 y[place]i JR 4 guide catheter was inserted over the wire. Runthrough guidewire was advanced through the guide catheter to lesion in the distal RCA. guideliner inserted OTW. [id number] NC Euphora balloon inserted OTW. balloon, wire and guideliner out. Guide catheter out. 6 yemeni AL 0.75 guide catheter was inserted over the wire. Runthrough guidewire was advanced through the guide catheter to lesion in the distal RCA. Inflation number : 1 A MDT NC EUPHORA RX [id number] BALLOON was prepped and advanced across the Dist RCA , then inflated to 12 GABINO for 0:28 seconds. Inflation number: 2 The MDT NC EUPHORA RX [id number] BALLOON was reinflated across the Dist RCA, to 14 GABINO for 0:47 seconds. Inflation number: 3 The MDT NC EUPHORA RX [id number] BALLOON was reinflated across the Dist RCA, to 14 GABINO for 0:25 seconds. Inflation number: 4 The MDT NC EUPHORA RX [id number] BALLOON was reinflated across the Dist RCA, to 18 GABINO for 0:33 seconds. Balloon out. Results checked. Inflation Number : 5 A MDT R GENARO 3.0X26 LUIS CARLOS -Lot Number# _[id number] exp: 01/02/2024 was prepped and advanced across the Dist RCA. The stent was deployed at 12 GABINO for 0:26 seconds. Stent balloon out over wire. Inflation number: 6 The MDT NC EUPHORA RX [id number] BALLOON was reinflated across the Dist RCA, to 18 GABINO for 0:25 seconds. Balloon out. Inflation number : 7 A MDT NC EUPHORA RX [id number] BALLOON was prepped and advanced across the Dist RCA , then inflated to 14 GABINO for 0:16 seconds. Inflation number: 8 The MDT NC EUPHORA RX [id number] BALLOON was reinflated across the Dist RCA, to 18 GABINO for 0:26 seconds. Balloon out. Results checked. ACT drawn. Results 390 seconds. Therapeutic limits - pre-heparin administration 90-150 seconds and monitoring heparin during a vascular procedure >250 seconds. Wire out. Guide catheter out. Post Procedure: Pulses reassessed and unchanged. PERRLA. Strong, equal hand antenna installer bilaterally. No VTE prophylaxis required. Medication's Wasted: Heparin = 1000 units. Medication's Wasted: Lidocaine 1% = 18 mL. Medication's Wasted: Nitro = 49.7 mg. Medication's Wasted: Other = Fentanyl 50mch Versed 1.5 mg. Total IV fluids: 250 mL. Contrast type used: Visipaque 320 mgI/mL, 500 mL bottle. Post-op diagnosis: CAD. Complications: None. Estimated blood loss: 5mL-10mL. Procedure completed. Patient transferred by wheelchair to 1st floor. Access Site Site: Right Radial artery Sheath Size: 6 Fr Hemostasis Success: Unsuccessful Procedure Medications Start: 11:04 AM Stop: 11:04 AM Medication: Versed 1 mg and Fentanyl 25 mcg Amount: 1 Route: I.V. Start: 11:12 AM Stop: 11:12 AM Medication: Versed Amount: 0.5 mg Route: I.V. Start: 11:12 AM Stop: 11:12 AM Medication: Nitrogylcerin Amount: 200 mcg Route: I.A. Start: 11:14 AM Stop: 11:14 AM Medication: Heparin Amount: 5000 units Route: I.V. Start: 11:23 AM Stop: 11:23 AM Medication: Heparin Amount: 3000 units Route: I.V. Start: 11:34 AM Stop: 11:34 AM Medication: Heparin Amount: 1000 units Route: I.V. Start: 11:41 AM Stop: 11:41 AM Medication: Versed Amount: 0.5 mg Route: I.V. Start: 11:48 AM Stop: 11:48 AM Medication: Heparin Amount: 1000 units Route: I.V. Start: 11:48 AM Stop: 11:48 AM Medication: Fentanyl Amount: 25 mcg Route: I.V. Start: 12:04 PM Stop: 12:04 PM Medication: Versed Amount: 0.5 mg Route: I.V. Start: 12:07 PM Stop: 12:07 PM Medication: Nitrogylcerin Amount: 100 mcg Route: I.A. Start: 12:10 PM Stop: 12:10 PM Medication: 0.9% Saline Amount: 250 ml Route: I.V. bolus Start: 12:12 PM Stop: 12:12 PM Medication: Plavix Amount: 300 mg Route: P.O. I, the attending physician, have reviewed and verified all procedure medications. Yes, all medications given per verbal order History/Risk Factors Hypertension: No Dyslipidemia: No Peripheral Arterial Disease (PAD): No Myocardial Infarction (HI): No Obesity: No Renal Disease: No Prior Interventions PCI: Yes CABG: No Valve Surgery: No Report Signatures Finalized by Braulio Clemente MD on 07/27/2021 03:58 PM
--- NOTE | 2021-07-15 10:57 | PC.NURSE ---
dr waters,then dr vidales came to see pt.both agree that angiogram is in order. to cardiac refuse laborer at this time.
--- NOTE | 2021-07-15 11:47 | P.PN_ITS ---
Subjective Subjective: Interval history: Patient was still complaining of chest pain 3/10 dull pressure-like sensation radiating to his shoulders Plan for angiogram today Dr. Gallego will evaluate him Requested half inch Nitropaste Vitals/I&O/Wt Last Vital Signs Temp 98 F 07/15/21 04:00 Pulse 65 07/15/21 08:00 Resp 17 07/15/21 08:00 BP 146/79 07/15/21 08:00 Pulse Ox 93 07/15/21 04:00 07/14/21 07/15/21 07/15/21 22:59 06:59 14:59 Intake Total 200 / 200 Output Total 750 / 750 Balance -550 / -550 Weight last 48 hrs Weight 76.067 kg Weight 72.575 kg Physical Exam Narrative: EXAM NARRATIVE: Clinically euvolemic Very pleasant cooperative at the bedside S1, S2 Abdomen soft Legs no edema Abdomen is soft Nonfocal neuro exam Development Data : 07/15/21 04:36 07/15/21 04:36 A&P Assessment and plan (1) Atherosclerotic heart disease [place] coronary artery w/angina pectoris: Status: Acute Qualifiers: [place] vs. transplanted heart: [place] heart Qualified Code(s): I25.119 - Atherosclerotic heart disease of [place] coronary artery with unspecified angina pectoris (2) Abnormal stress test: Status: Acute (3) Angina pectoris: Status: Acute (4) Unstable angina: Status: Acute Additional A&P Information Unstable angina: Abnormal stress test: Plan for angiogram today Dr. Gallego will see him this morning Requested half an inch Nitropaste npo Attestations Medical Necessity Statement*: Continue management Time Spent in Patient Care: 16 - 35 minutes Coding Level of Care Code Acute Marine Resource Economist for g Fwd Diagnoses Atherosclerotic heart disease [place] coronary artery w/angina pectoris I25.119 [place] vs. transplanted heart: [place] heart Abnormal stress test R94.39 Angina pectoris I20.9 Unstable angina I20.0
--- NOTE | 2021-07-15 15:12 | PC.NURSE ---
received from cardiac builder's labourer at 1225.report received.pt is alert and awake and oriented x 4.right wrist with tr band intact and inflated.right hand is warm to touch and with brisk capillary refill.palpable radial pulse noted distal to tr band.no hematoma noted.instructed in activity restrictions s/p radial artery procedure..and instructed to notify staff for any bleeding,pain,numbness, or for any concerns at all.pt verb understanding of instructions
[2021-07-15] MEDS: acetaminophen 325 mg Tablet 650 MG PO (15:41)
[2021-07-15 16:50] LABS: Glucose Point of Care 132 mg/dL (70-110)
[2021-07-15] MEDS: diazePAM 5 mg Tablet 2.5 MG PO (18:10)
--- NOTE | 2021-07-15 20:01 | PC.NURSE ---
tr band slowly deflated and finally removed at 1730.site dressed with 2x2 gauze and biocclusive drsg.right hand is warm to touch and with brisk capillary refill.no hematoma noted.instructed in activity restrictions s/p tr band removal..and instructed to notify staff for any bleeding,pain,numbness..or for any concerns at all.pt verb understanding of instructions
[2021-07-15] MEDS: pramipexole 0.25 mg Tablet 0.5 MG PO (20:30)
[2021-07-15] MEDS: trazodone 150 mg Tablet 75 MG PO (20:31)
[2021-07-15] MEDS: enoxaparin 40 mg/0.4 mL Syringe SUBCUT (21:27)
[2021-07-16 03:16] VITALS: BP 107/56; PULSE 64; RESP 14; TEMP 36.7; O2SAT 94
[2021-07-16 03:54] LABS: Basophils % 0.5 %; Eosinophils # 0.1 10^3/uL (0.0-0.8); Eosinophils % 1.7 %; Hematocrit 41.9 % (42.0-52.0); Hemoglobin 14.4 g/dL (11.7-16.6); Lymphocytes # 1.3 10^3/uL (0.8-4.8); Lymphocytes % 17.3 %; Mean Corpuscular HGB Conc 34.4 g/dL (30.0-36.0); Mean Corpuscular Hemoglobin 31.2 pg (28.0-34.0); Mean Corpuscular Volume 90.9 fl (80-94); Mean Platelet Volume 10.6 fL (7.4-10.4); Monocytes # 0.6 10^3/uL (0.2-0.9); Monocytes % 7.8 %; Neutrophils # 5.55 10^3/uL (1.8-7.7); Neutrophils % 72.3 %; Nucleated Red Blood Cells % 0 %; Platelet Count 222 10^3/cmm (130-400); Red Blood Count 4.61 10^6/uL (4.1-5.3); Red Cell Distribution Width 12.4 % (12.1-15.1); White Blood Count 7.7 10^3/uL (4.0-10.0)
[2021-07-16 04:13] LABS: Blood Urea Nitrogen 15 mg/dL (8-23); Calcium 8.4 mg/dL (8.5-10.5); Carbon Dioxide 26 mmol/L (22-29); Chloride 105 mmol/L (98-107); Glucose 117 mg/dL (65-115); Osmolality Calculated 288 mOsm/kg (285-295); Sodium 138 mmol/L (136-145)
[2021-07-16 04:56] VITALS: PULSE 95
--- NOTE | 2021-07-16 05:58 | PC.NURSE ---
Frequent safety and comfort rounds continue. Orders and/or nursing care completed as indicated. Patient monitored for response to intervention and treatment(s). Education provided includes medications and treatments. Patient and/or account manager sales representative verbalizes understanding. Will continue to monitor.
[2021-07-16] MEDS: diazePAM 5 mg Tablet 2.5 MG PO (06:12)
[2021-07-16] MEDS: pantoprazole DR 40 mg Tablet PO (08:25)
[2021-07-16] MEDS: clopidogrel 75 mg Tablet PO (08:25)
[2021-07-16] MEDS: lisinopril 5 mg Tablet PO (08:25)
[2021-07-16] MEDS: ezetimibe 10 mg Tablet PO (08:25)
[2021-07-16] MEDS: aspirin 81 mg EC Tablet PO (08:25)
--- NOTE | 2021-07-16 10:05 | PC.CHAP ---
Pastoral Care Encounter/Spiritual Assessment Type of Contact [] Declined bundling machine operator visit [] Patient/Family/Request visit [] Outpatient visit [] Follow-up visit [] Physician referral [] Code/Alert [x] Routine visit [] Staff referral [] Actively dying [] Patient sleeping [] Family support [] [] Out of room [] Palliative care [] [x] Receiving care in room [] Pre-surgical visit [] Trauma [x] Long length of stay [] ICU visit [] Other: Relational/Emotional Strength [x] Patient feels connected with others/family/visitors/staff [] Distress [] Loneliness/isolation [] Abandonment Spirituality of Patient [x] Person of Betsy [] Attends Church of their Betsy [x] Believes in Prayer [] Reads Bible or Religion materials [] There are Spiritual issues to be addressed Tour Driver Interventions [x] Prayer [x] Active listening [x] Non-anxious presence [x] Spiritual/emotional support [] Crisis/trauma care [x] Spiritual counseling [] Bereavement support [] Provided bereavement packet [] Provided Bible/devotional materials [] Provided toy/stuffed animal, coloring book to patient or family member [] Provided Communion [] Anointing/[facility] [] Salvation [x] Completed spiritual assessment [] Other: Impact on Illness or Injury [] Angry [] Fearful [x] Anxious [] Often cries [] Exhaustion [] Unable to work [] Unable to attend sabianist [] Unable to walk/stand [] Unable to read [] Unable to drive [] Unable to eat/drink [] Unable to sleep [] Unable to be with family [] Patient intubated [] Other: Summary retaird had a stent put feeling better some recover time going home has a poc=stive attitude Time spent with patient 10 mins
--- NOTE | 2021-07-16 10:22 | P.PN_ITS ---
Subjective Subjective: Interval history: Has no chest pain. COuld not sleep well last nite. NO SOB. Medications: Reviewed: Yes Medication Review Details: Current Medications Acetaminophen (Acetaminophen 325 Mg Tablet) 650 mg PO Q6H PRN PRN Reason: Mild/Mod Pain Or Temp >/= 101 Last Admin: 07/15/21 15:41 Dose: 650 mg Documented by: Acetaminophen (Acetaminophen 325 Mg Tablet) 650 mg PO Q6H PRN PRN Reason: MILD PAIN Al Hydrox/Mg Hydrox/Simethicone (Rpkj-Nsc-Ghndtzqoh-Schuyler 30 Ml Udc) 30 ml PO Q15M PRN PRN Reason: INDIGESTION Aspirin (Aspirin 81 Mg Ec Tablet) 81 mg PO DAILY [facility] Last Admin: 07/16/21 08:25 Dose: 81 mg Documented by: Atorvastatin Calcium (Atorvastatin 40 Mg Tablet) 40 mg PO DAILY [facility] Last Admin: 07/16/21 08:26 Dose: Not Given Documented by: Atropine Sulfate (Atropine 1 Mg/Ml Sdv 1 Ml) 0.5 mg IVP PRN PRN PRN Reason: Symptomatic bradycardia Clopidogrel Bisulfate (Clopidogrel 75 Mg Tablet) 75 mg PO DAILY [facility] Last Admin: 07/16/21 08:25 Dose: 75 mg Documented by: Diazepam (Diazepam 5 Mg Tablet) 2.5 mg PO BID PRN PRN Reason: anxiety Last Admin: 07/16/21 06:12 Dose: 2.5 mg Documented by: Ezetimibe (Ezetimibe 10 Mg Tablet) 10 mg PO DAILY [facility] Last Admin: 07/16/21 08:25 Dose: 10 mg Documented by: Enoxaparin Sodium (Enoxaparin 40 Mg/0.4 Ml Syringe) 40 mg SUBCUT Q24H [facility] Last Admin: 07/15/21 21:27 Dose: 40 mg Documented by: Fentanyl (Fentanyl 50 Mcg/Ml Inj 2ml) 50 mcg IVP PRN PRN PRN Reason: Prior to sheath removal Sodium Chloride (Sodium Chloride 0.9%) 1,000 mls @ 100 mls/hr IV .Q10H [facility] Last Admin: 07/16/21 08:31 Dose: Not Given Documented by: Lisinopril (Lisinopril 5 Mg Tablet) 5 mg PO DAILY [facility] Last Admin: 07/16/21 08:25 Dose: 5 mg Documented by: Magnesium Hydroxide (Magnesium Hydroxide 30 Ml Udc) 30 ml PO DAILY PRN PRN Reason: CONSTIPATION Morphine Sulfate (Morphine 4 Mg/Ml Sdv 1 Ml) 2 mg IVP Q6H PRN PRN Reason: SEVERE PAIN Naloxone HCl (Naloxone 0.4 Mg/Ml Sdv) 0.1 mg IVP Q2M PRN PRN Reason: OPIATERV Naloxone HCl (Naloxone 0.4 Mg/Ml Sdv) 0.1 mg IVP Q2M PRN PRN Reason: RESPIRATORY RATE < 8/MIN Nitroglycerin (Nitroglycerin 0.4 Mg Sublingual Tablet) 0.4 mg SUBLINGUAL Q5M PRN PRN Reason: chest pain Nitroglycerin (Nitroglycerin 0.4 Mg Sublingual Tablet) 0.4 mg SUBLINGUAL Q5M PRN PRN Reason: CHEST PAIN Ondansetron HCl (Ondansetron 2 Mg/Ml Sdv 2 Ml) 4 mg IVP Q8H PRN PRN Reason: vomiting, or N/V if npo Pantoprazole Sodium (Pantoprazole Dr 40 Mg Tablet) 40 mg PO DAILY [facility] Last Admin: 07/16/21 08:25 Dose: 40 mg Documented by: Pramipexole Dihydrochloride (Pramipexole 0.25 Mg Tablet) 0.5 mg PO BEDTIME [facility] Last Admin: 07/15/21 20:30 Dose: 0.5 mg Documented by: Temazepam (Temazepam 15 Mg Capsule) 15 mg PO BEDTIME PRN PRN Reason: INSOMNIA Trazodone HCl (Trazodone 150 Mg Tablet) 75 mg PO DAILY [facility] Last Admin: 07/16/21 08:31 Dose: Not Given Documented by: Vitals/I&O/Wt Last Vital Signs Temp 98.1 F 07/16/21 03:16 Pulse 95 07/16/21 04:56 Resp 14 07/16/21 03:16 BP 107/56 07/16/21 03:16 Pulse Ox 94 07/16/21 03:16 07/15/21 07/16/21 07/16/21 22:59 06:59 14:59 Intake Total 320 / 560 200 / 760 Output Total 600 / 1000 700 / 1700 Balance -280 / -440 -500 / -940 Weight last 48 hrs Weight 167 lb 11.2 oz Weight 160 lb Physical Exam Narrative: EXAM NARRATIVE: GENERAL: The patient is alert and oriented times three. Not in any acute distress. HEENT: No significant pallor, icterus or lymphadenopathy. The pupils are reactant to light. Oral cavity: There are no mucous membrane lesions. Funduscopic examination: The fundus is not visualized NECK: Trachea appears to be central. No masses noted. No JVD or thyromegaly appreciated. No carotid bruit. RESPIRATORY: Chest is symmetrical. No intercostals muscle retraction or any accessory muscle activation. There is no chest wall tenderness. Breath sounds are heard bilaterally. No rales or rhonchi heard. No evidence of any consolidation. BREASTS: Deferred. HEART: The PMI is in the 5th left intercostals space just inside the midclavicular line. No palpable precordial events. S1 and S2 are normal. No S3 or S4 heard. No pericardial rub or any click heard. ABDOMEN: No vessel pulsations or distention. No tenderness. No organomegaly appreciated. No abdominal bruit. Bowel sounds are normally heard. : Deferred. RECTAL: Deferred. LYMPHATIC: No lymphadenopathy noted in the neck or groin. EXTREMITIES: No edema or cyanosis. No clubbing. The dorsalis pedis and posterior tibial pulses are palpable but somewhat weak bilaterally. MUSCULOSKELETAL: No acute joint deformities or swelling. SKIN: There are no significant scars or skin rash noted. NEUROPSYCHIATRIC: The patient is alert and oriented x3. Appears to be in a good mood. The higher functions are grossly within normal limits. No tremors or rigidity noted. Data : 07/16/21 03:08 07/16/21 03:08 A&P Assessment and plan (1) Abnormal stress test: The patient's Status: Resolved (2) Atherosclerotic heart disease [place] coronary artery w/angina pectoris: Patient is a troponin T was slightly elevated. There is no significant delta at the 2-hour and 6-hour testing. His symptoms are consistent with unstable angina. EKG is unremarkable. Hemodynamically seems to be stable. Based on his clinical presentation, it would be appropriate to go ahead with subcu Lovenox, p.o. aspirin, Plavix, statin drug and beta-balaji. He may be continued on your current medications. Status: Resolved Qualifiers: [place] vs. transplanted heart: [place] heart Qualified Code(s): I25.119 - Atherosclerotic heart disease of [place] coronary artery with unspecified a ngina pectoris (3) Hypertension: The blood pressure is a stage II. His antihypertensive medications need to be optimized. Qualifiers: Hypertension type: essential hypertension Qualified Code(s): I10 - Essential (primary) hypertension (4) Hyperlipidemia: May continue other current medications. Qualifiers: Hyperlipidemia type: mixed hyperlipidemia Qualified Code(s): E78.2 - Mixed hyperlipidemia Additional A&P Information If the patient continues to make table, he may be discharged home today. Please make an appointment to be seen by the nurse practitioner at [facility] next week. Appointment with me in the office in 1 month. Attestations Medical Necessity Statement*: Discharge home today Coding Level of Care Code Acute Justowriter Operator for g Fwd Diagnoses Abnormal stress test R94.39 Atherosclerotic heart disease [place] coronary artery w/angina pectoris I25.119 [place] vs. transplanted heart: [place] heart Hypertension I10 Hypertension type: essential hypertension Hyperlipidemia E78.2 Hyperlipidemia type: mixed hyperlipidemia
[2021-07-16 10:45] VITALS: BP 150/82; PULSE 83; RESP 19; O2SAT 96
--- NOTE | 2021-07-16 11:00 | PM.DCS ---
Discharge Providers Date of Admission: 07/15/21 17:54 Date of Discharge: July 16, 2021 Attending Provider at Admission: Chata Marley MD Attending Provider at Discharge: Vikram Castle MD Primary Care Provider: Jl Felix MD Diagnoses at Discharge Discharge Diagnosis (1) Abnormal stress test: Status: Acute (2) Atherosclerotic heart disease [place] coronary artery w/angina pectoris: Status: Acute Qualifiers: [place] vs. transplanted heart: [place] heart Qualified Code(s): I25.119 - Atherosclerotic heart disease of [place] coronary artery with unspecified angina pectoris (3) Hypertension: Status: Acute Qualifiers: Hypertension type: essential hypertension Qualified Code(s): I10 - Essential (primary) hypertension (4) Hyperlipidemia: Status: Acute Permanent problem details: LDL was 80s, HDL 60 Qualifiers: Hyperlipidemia type: mixed hyperlipidemia Qualified Code(s): E78.2 - Mixed hyperlipidemia Reason for Visit Reason for Visit: CHEST PAIN Hospital Course Hospital Course History of Present Illness by Dr Marley John Valadez is a 81 year old male with known PMH atherosclerosis, hypertension, hyperlipidemia, had multiple percutaneous coronary interventions in the past. Recently evaluated by cardiology as outpatient where he was evaluated for chest pain and underwent stress test which was abnormal on 07/13. Showed moderate area of decreased tracer uptake in the basal and mid inferior, mid inferolateral and apical lateral region, with some reversibility in the inferolateral region suggesting myocardial scarring in the distribution of the right coronary artery and the circumflex artery with a small area of ischemia mostly in the distribution of the circumflex artery. Findings appeared to be new compared to 2019. LVEF 83%, no gross RWMA. Presented to ER today for chest pain which is currently subsided with nitro. EKG shows sinus rhytm with no acute St-T wave changes. Baseline troponin at 22, 2 hr at 22.46 without significant delta thus far. 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 Gallego, patient went for the cardiac cath next [id number], a stent was placed in the distal RCA which resolved patient's symptoms. on 07/16 patient was discharged on aspirin, Plavix, statin, Toprol, lisinopril, with close follow-up with cardiology. Adequate refills were prescribed at the time of discharge. For his HTN I have increased dose of lisinopril to 10mg from 5mg and added toprol 25mg daily regimen. IN case he stays HTN on f/u visit might benefit from further optimization. Hold metformin postcath for 48hrs. Physical Exam Narrative: EXAM NARRATIVE: Clinically euvolemic Very pleasant cooperative at the bedside S1, S2 Abdomen soft Legs no edema Abdomen is soft Nonfocal neuro exam Discharge Data Data Completed and Pending: Completed Studies During Hospitalization Category Date Time Status XR chest 1V eduardo ble [id number] Urgent Exams 07/14/21 15:42 Completed Pending at discharge Category Date Time Status CHICKEN HANGER request for service Routin e Exams 07/15/21 10:51 Taken Labs from last 24 hours 07/16/21 07/16/21 07/15/21 03:08 03:08 16:46 WBC 7.7 RBC 4.61 Hgb 14.4 Hct 41.9 L MCV 90.9 MCH 31.2 MCHC 34.4 RDW 12.4 Plt Count 222 MPV 10.6 H Neut % (Auto) 72.3 Lymph % (Auto) 17.3 [place] % (Auto) 7.8 Eos % (Auto) 1.7 Baso % (Auto) 0.5 Neut # (Auto) 5.55 Lymph # (Auto) 1.3 [place] # (Auto) 0.6 Eos # (Auto) 0.1 Baso # (Auto) 0.0 Nucleated RBC % (a uto) 0 Nucleated RBCs # 0.0 Sodium 138 Potassium 4.0 Chloride 105 Carbon Dioxide 26 Anion Gap 11.0 BUN 15 Creatinine 0.8 GFR Calculation Not Reportable Glucose 117 H POC Glucose 132 H Calculated Osmolal ity 288 Calcium 8.4 L Vitals: Last Vital Signs Temp 98.1 F 07/16/21 03:16 Pulse 83 07/16/21 10:45 Resp 19 H 07/16/21 10:45 BP 150/82 07/16/21 10:45 Pulse Ox 96 07/16/21 10:45 Discharge Plan Discharge Patient Disposition: Home Condition: Stable Prescriptions: New Toprol XL 25 mg tablet extended release 24 hr 12.5 mg PO DAILY Qty: 60 RF: 5 lisinopril 10 mg tablet 10 mg PO DAILY Qty: 60 RF: 2 Continued (DME) Sole Supports See Rx Instructions .ROUTE .MEDSUPPLY Qty: 1 RF: 0 diazepam 5 mg tablet 2.5 mg PO BID PRN (Reason: anxiety) RF: 0 pramipexole 0.25 mg tablet 0.5 mg PO BEDTIME@20 RF: 0 nitroglycerin [Nitrostat] 0.4 mg tablet, sublingual 0.4 mg sublingual Q5M PRN (Reason: chest pain) Qty: 50 RF: 5 trazodone 150 mg Tablet 75 mg PO BEDTIME RF: 0 omeprazole 20 mg capsule,delayed release(DR/EC) 20 mg PO DAILY RF: 0 ezetimibe 10 mg tablet 10 mg PO DAILY RF: 0 clopidogrel 75 mg tablet 75 mg PO DAILY Qty: 30 RF: 10 simvastatin 80 mg tablet 80 mg PO DAILY Qty: 90 RF: 10 aspirin 81 mg tablet,delayed release (DR/EC) 81 mg PO DAILY Qty: 30 RF: 10 Held metformin 500 mg tablet extended release 24 hr 1,000 mg PO DAILY RF: 0 Hold Instructions: Resume on 07/20/21. Discontinued potassium gluconate 595 mg (99 mg) tablet 595 mg PO DAILY RF: 0 lisinopril 5 mg tablet 5 mg PO DAILY RF: 0 Vitamin D3 1 cap PO DAILY RF: 0 Discharge Orders: Discharge Order (Routine); Ordered 07/16/21 Ordered By: Vikram Castle Referrals: Will Gallego MD [Physician] - 09/01/21 3:00 pm (You have a cardiology followup with Dr. Gallego at [facility] on September 01 at 3:00pm) Terrie Bhardwaj FNP [Nurse Practitioner] - 07/23/21 10:15 am (You have a post procedure followup with MONROE Atkins at [facility] on July 23 at 10:15am) Jl Felix MD [Primary Care Provider] - 07/28/21 10:45 am (Please keep your followup with Dr. Felix at [facility] on July 28 at 10:45am. ) Discharge Diet: Cardiac Discharge Activity: Increase activity as tolerated Patient Instructions: Metoprolol (By mouth) (Lopressor, Toprol XL), Coronary Angioplasty (DC), Opioid Safety, Post Angiogram Home Care Instructions Discharge Attestations Time Spent in Discharge Care*: less than 30 min Quality Metrics Clinical Quality Measures During this hospital stay, did patient experience: AMI Clinical Trial Participant: No Contraindication to aspirin (AMI): Aspirin given Contraindication to statin: Statin prescribed Contraindication to PCI: PCI performed Contraindication to Fibrinolytics: Other Coding Level of Care Code Acute g FW TN note Diagnoses Abnormal stress test R94.39 Atherosclerotic heart disease [place] coronary artery w/angina pectoris I25.119 [place] vs. transplanted heart: [place] heart Hypertension I10 Hypertension type: essential hypertension Hyperlipidemia E78.2 Hyperlipidemia type: mixed hyperlipidemia
[2021-07-16 13:11] VITALS: BP 150/82; PULSE 75; RESP 18; TEMP 37.1; O2SAT 100
[2021-07-16 13:14] VITALS: BP 150/82; PULSE 75; RESP 18; TEMP 37.1; O2SAT 100
--- NOTE | 2021-07-16 13:15 | PC.NURSE ---
discharge education provided. no questions or concerns. VS stable upon departure.
== END 2021-07-16 13:15 | disposition home or self-care (01) | DRG 247 ==
LOC: ER 19:27 → CSU 21:08
PROVIDERS: Internal Medicine; Physician Assistant; Admitting Provider Student in an Organized Health Care Education/Training Program; Emergency Provider Emergency Medicine; PCP Family Medicine; Visit Provider Internal Medicine
DX: I25.110 Atherosclerotic heart disease of native coronary artery with unstable angina pectoris (principal); E78.2 Mixed hyperlipidemia; G57.63 Lesion of plantar nerve, bilateral lower limbs; Z87.442 Personal history of urinary calculi; Z87.891 Personal history of nicotine dependence; Z79.02 Long term (current) use of antithrombotics/antiplatelets; Z79.82 Long term (current) use of aspirin
CPT/HCPCS: 36415; 36416; 71045; 78452; 80048; 80053; 82962; 83880; 84484; 85025; 85347; 85730; 93005; 93017; 94664; 96372; 99284; 99285; A9500; C1725; C1769; C1874; C1887; C1894; C9600; G0378; J1644; J1650; J2250; J2785; J3010; J3490; J7030; Q9967

== ENCOUNTER 2021-07-16 19:37 | Emergency (ER) | payer MEDICARE, OTHER, SELFPAY ==
[2021-07-16] VITALS (8 sets, daily range): BP systolic 131–149; BP diastolic 81–90; PULSE 64–86; RESP 18; TEMP 37; O2SAT 94–97; BMI 23.6
--- NOTE | 2021-07-16 19:45 | W.ED.CHESTPA ---
HPI - Chest Pain General: Chief Complaint: Chest Pain Stated Complaint: CHEST PRESSURE Time Seen by Provider: 07/16/21 19:44 History of Present Illness: HPI narrative: Mr. Valadez is an 81-year-old gentleman with history of hypertension, hyperlipidemia, aortic disease, and known CAD who has had multiple PCI who underwent coronary catheterization on 07/15 with distal RCA stenting who presents to the emergency department due to chest pain. He was discharged earlier this morning and felt okay upon discharge. He subsequently developed some intermittent right anterior chest discomfort which at times was sharp and at times pressure. No associated nausea, diaphoresis, or shortness of breath. Intensity of symptoms. However it was moderate to severe at worse. He is unsure of exact provoking factors however did notice a correlation with blood pressure including blood pressure at home with a systolic blood pressure as high as 201. No similar episodes of blood pressure difficulty associated with chest pain in the past. No other changes in health, infectious symptoms, other specific exacerbating or relieving factors identified. Review of Systems General: Reports: 10 or more systems reviewed and unremarkable except in HPI and below PFSH ED PFSH: Medical History Acquired bilateral hammer toes Aortic atherosclerosis Atherosclerosis of coronary artery of [place] heart CAD (coronary artery disease) Hyperlipidemia LDL was 80s, HDL 60 Hypertension Leg cramps Wan's neuroma of both feet Renal calculus Surgical History H/O arthroscopy of knee H/O thumb surgery History of back surgery History of foot surgery History of hernia surgery History of PTCA S/P extracorporeal shock wave therapy Family History Brother CAD (coronary artery disease) Lung disease Family/Other CAD (coronary artery disease) Cancer Grandfather Stroke Cancer Mother , at age 81 Diabetes Father , at age 87 Diabetes Stroke Denies family history of Clotting disorder Dementia Chronic kidney disease (CKD) Suicide Anesthesia complication Bleeding disorder Social History Smoking and tobacco status: former smoker Alcohol intake: never Marital status: Current occupational status: retired History of recent travel: No Physical Exam Narrative: EXAM NARRATIVE: GENERAL/CONSTITUTIONAL - well-appearing. No acute distress. Eyes - PERRL, no conjunctival injection ENMT - Atraumatic external nose and ears. Moist mucous membranes NECK - supple. trachea midline CARDIOVASCULAR - regular rate and rhythm. Peripheral pulses 2+ and equal RESPIRATORY -clear to auscultation bilaterally. No retractions or accessory muscle use. ABDOMEN/GI - Nontender/Nondistended. MSK - Extremities without obvious deformity or tenderness to palpation SKIN - Warm, Dry NEURO - alert and appropriately oriented. Moves all extremities equally. Course ED course: - Patient was seen and evaluated by me at bedside - Patient placed on cardiac monitors, IV access obtained - Initial evaluation notable for no acute distress, nontoxic appearance. Blood pressure satisfactory. - Labs notable for no leukocytosis, relative hemoconcentration compared to earlier. No significant electrolyte abnormalities or evidence of endorgan dysfunction. Delta troponin negative. - Imaging notable for no acute finding on chest x-ray. - Upon serial reexamination after treatment the patient was improved - Discussed the case with cardiology, plan to start Imdur, no indication for hospitalization or further testing at this time. - Based on patient history, evaluation, labs, and imaging as interpreted the most likely cause of the patient's condition is chest pain of uncertain etiology - The results of ED evaluation were discussed with the patient including prescriptions and/or symptomatic cares (if applicable) including appropriate and responsible use, followup plan, and return precautions. The patient verbalized understanding and felt safe for discharge. - Patient discharged in satisfactory condition. Vital Signs: Vital signs: Vital Signs Temperature 98.6 F 07/16/21 19:40 Pulse Rate 74 07/16/21 22:45 Respiratory Rate 18 07/16/21 19:40 Blood Pressure 149/90 07/16/21 22:45 Pulse Oximetry 97 07/16/21 22:45 MDM - Chest Pain Medical Records: Attestation: I reviewed the patient's medical records. Lab Data: Attestation: I reviewed the patient's lab results. Labs: Lab Results 07/16/21 07/16/21 07/16/21 19:27 19:27 19:27 WBC 8.7 10^3/uL 10^3/ uL (4.0-10.0) RBC 5.36 10^6/uL H 10 ^6/uL (4.1-5.3) Hgb 17.0 g/dL H g/dL (11.7-16.6) Hct 49.3 % % (42.0-52.0) MCV 92.0 fl fl (80-94) MCH 31.7 pg pg (28.0-34.0) MCHC 34.5 g/dL g/dL (30.0-36.0) RDW 12.4 % % (12.1-15.1) Plt Count 275 10^3/cmm 10^3 /cmm (130-400) MPV 10.7 fL H fL (7.4-10.4) Neut % (Auto) 67.1 % % Lymph % (Auto) 24.1 % % [place] % (Auto) 7.2 % % Eos % (Auto) 0.8 % % Baso % (Auto) 0.5 % % Neut # (Auto) 5.82 10^3/uL 10^3 /uL (1.8-7.7) Lymph # (Auto) 2.1 10^3/uL 10^3/ uL (0.8-4.8) [place] # (Auto) 0.6 10^3/uL 10^3/ uL (0.2-0.9) Eos # (Auto) 0.1 10^3/uL 10^3/ uL (0.0-0.8) Baso # (Auto) 0.0 10^3/uL 10^3/ uL (0.0-0.1) Nucleated RBC % (a uto) 0 % % Nucleated RBCs # 0.0 /100WBC /100W BC Sodium 138 mmol/L mmol/L (136-145) Potassium 4.1 mmol/L mmol/L (3.5-5.1) Chloride 99 mmol/L mmol/L (98-107) Carbon Dioxide 26 mmol/L mmol/L (22-29) Anion Gap 17.1 (5-19) BUN 13 mg/dL mg/dL (8-23) Creatinine 0.9 mg/dL mg/dL (0.7-1.2) GFR Calculation Not Reportable Glucose 206 mg/dL H mg/dL (65-115) Calculated Osmolal ity 292 mOsm/kg mOsm/ kg (285-295) Calcium 9.3 mg/dL mg/dL (8.5-10.5) Total Bilirubin 0.8 mg/dL mg/dL (0.15-1.2) AST 18 U/L U/L (0-40) ALT 16 U/L U/L (0-41) Alkaline Phosphata se 50 IU/L IU/L (40-130) Troponin T Baselin e 55 ng/L H ng/L (0-15) Troponin T 120 Min [place] Delta Troponin T NT-Pro-B Natriuret Pep 493 pg/mL H pg/mL (0-450) Total Protein 6.9 g/dL g/dL (6.6-8.7) Albumin 4.8 g/dL g/dL (3.5-5.2) Globulin 2.1 g/dL g/dL (1.3-4.6) 07/16/21 21:20 WBC RBC Hgb Hct MCV MCH MCHC RDW Plt Count MPV Neut % (Auto) Lymph % (Auto) [place] % (Auto) Eos % (Auto) Baso % (Auto) Neut # (Auto) Lymph # (Auto) [place] # (Auto) Eos # (Auto) Baso # (Auto) Nucleated RBC % (a uto) Nucleated RBCs # Sodium Potassium Chloride Carbon Dioxide Anion Gap BUN Creatinine GFR Calculation Glucose Calculated Osmolal ity Calcium Total Bilirubin AST ALT Alkaline Phosphata se Troponin T Baselin e Troponin T 120 Min [place] 48.18 ng/L H ng/L (0-15) Delta Troponin T -6.82 ABS# L ABS# (0-10) NT-Pro-B Natriuret Pep Total Protein Albumin Globulin EKG Data^: EKG 1: Attestation: I personally reviewed and interpreted this EKG as follows: EKG interpretation date: 07/16/21 EKG interpretation time: 19:57 Interpretation: Twelve-lead EKG shows a regular rhythm at a rate of 78. PA interval 209, QRS duration 82, QTc 396. Left axis deviation. Interpretation: Sinus rhythm. First-degree AV block. Similar to prior. EKG 2: Attestation: I personally reviewed and interpreted this EKG as follows: EKG interpretation date: 07/16/21 EKG interpretation time: 21:28 Interpretation: Twelve-lead EKG shows a regular rhythm at a rate of 71. PA interval 214, QRS duration 89, QTc 390. Left axis deviation. Interpretation: Sinus rhythm. First-degree AV block. Similar to prior. Discharge Plan Discharge Patient Disposition: Home Clinical Impression: Chest pain, Hypertension Condition: Stable Prescriptions: New isosorbide mononitrate 30 mg tablet extended release 24 hr 30 mg PO DAILY Qty: 30 RF: 0 No Action (DME) Sole Supports See Rx Instructions .ROUTE .MEDSUPPLY Qty: 1 RF: 0 diazepam 5 mg tablet 2.5 mg PO BID PRN (Reason: anxiety) RF: 0 pramipexole 0.25 mg tablet 0.5 mg PO BEDTIME@20 RF: 0 nitroglycerin [Nitrostat] 0.4 mg tablet, sublingual 0.4 mg sublingual Q5M PRN (Reason: chest pain) Qty: 50 RF: 5 trazodone 150 mg Tablet 75 mg PO BEDTIME RF: 0 omeprazole 20 mg capsule,delayed release(DR/EC) 20 mg PO DAILY RF: 0 metformin 500 mg tablet extended release 24 hr 1,000 mg PO DAILY RF: 0 Hold Instructions: Resume on 07/20/21. ezetimibe 10 mg tablet 10 mg PO DAILY RF: 0 metoprolol succinate [Toprol XL] 25 mg tablet extended release 24 hr 12.5 mg PO DAILY Qty: 60 RF: 5 clopidogrel 75 mg tablet 75 mg PO DAILY Qty: 30 RF: 10 simvastatin 80 mg tablet 80 mg PO DAILY Qty: 90 RF: 10 aspirin 81 mg tablet,delayed release (DR/EC) 81 mg PO DAILY Qty: 30 RF: 10 lisinopril 10 mg tablet 10 mg PO DAILY Qty: 60 RF: 2 Discharge Orders: Discharge ED (Routine); Ordered 07/16/21 Ordered By: Gabriel Correa Referrals: Jl Felix MD [Primary Care Provider] - Discharge Diet: Usual diet Discharge Activity: Resume usual activity Patient Instructions: Chest Pain (ED), Hypertension (ED) Activity Restrictions/Additional Instructions: Thank you for visiting the emergency department. You were seen and evaluated for chest pain. The exact cause of your symptoms is unclear however after discussion with cardiology does not need further inpatient management at this time. Please follow-up with your primary care provider and cardiology next week. Please return to the emergency department as discussed for worsening symptoms or anything else that you are concerned about and feel needs emergency department evaluation. Coding Level of Care Code ED Dynamometer Repairer for Juwan Caldera
--- NOTE | 2021-07-16 19:50 | ECG_ITS ---
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 Measurements Intervals [place] Rate: 78 P: 49 KS: 209 QRS: -49 QRSD: 82 T: 34 QT: 363 QTc: 415 Interpretive Statements SINUS RHYTHM WITH OCCASIONAL SUPRAVENTRICULAR PREMATURE COMPLEXES LEFT AXIS DEVIATION [QRS AXIS < -30] Compared to ECG 07/14/2021 18:15:30 First degree AV block no longer present Electronically Signed On 07-17-2021 6:34:37 RECRUITMENT MANAGER by Aggie Petty M.D. [email or web address] [id number] f
--- NOTE | 2021-07-16 19:50 | XRR_ITS ---
PROCEDURE INFORMATION: Exam: XR Chest Exam date and time: 07/16/2021 7:50 PM Age: 81 years old Clinical indication: Chest wall pain; Prior surgery; Surgery date: 6+ months; Surgery type: Stints; Additional info: Chest pain TECHNIQUE: Imaging protocol: XR of the chest. Views: 1 view. COMPARISON: CR XR chest 1V portable [id number] 07/14/2021 4:10 PM FINDINGS: Lungs: Unremarkable. No consolidation. Pleural spaces: Unremarkable. No pleural effusion. No pneumothorax. Heart/Mediastinum: Unremarkable. No cardiomegaly. Bones/joints: Unremarkable. XR/XR chest 1V portable [id number] IMPRESSION: No acute findings. Radiation Dose CTDIVOL = (mGy): DLP = (mGy-cm)
[2021-07-16 19:57] LABS: Basophils % 0.5 %; Eosinophils # 0.1 10^3/uL (0.0-0.8); Eosinophils % 0.8 %; Hematocrit 49.3 % (42.0-52.0); Lymphocytes # 2.1 10^3/uL (0.8-4.8); Lymphocytes % 24.1 %; Mean Corpuscular HGB Conc 34.5 g/dL (30.0-36.0); Mean Corpuscular Hemoglobin 31.7 pg (28.0-34.0); Mean Platelet Volume 10.7 fL (7.4-10.4); Monocytes # 0.6 10^3/uL (0.2-0.9); Monocytes % 7.2 %; Neutrophils # 5.82 10^3/uL (1.8-7.7); Neutrophils % 67.1 %; Nucleated Red Blood Cells % 0 %; Platelet Count 275 10^3/cmm (130-400); Red Blood Count 5.36 10^6/uL (4.1-5.3); Red Cell Distribution Width 12.4 % (12.1-15.1); White Blood Count 8.7 10^3/uL (4.0-10.0)
[2021-07-16 20:25] LABS: Troponin(5th) Baseline 55 ng/L (0-15)
[2021-07-16 20:28] LABS: Alanine Aminotransferase 16 U/L (0-41); Albumin Level 4.8 g/dL (3.5-5.2); Alkaline Phosphatase 50 IU/L (40-130); Anion Gap 17.1 (5-19); Aspartate Amino Transferase 18 U/L (0-40); Blood Urea Nitrogen 13 mg/dL (8-23); Calcium 9.3 mg/dL (8.5-10.5); Carbon Dioxide 26 mmol/L (22-29); Chloride 99 mmol/L (98-107); Globulin 2.1 g/dL (1.3-4.6); Glucose 206 mg/dL (65-115); Osmolality Calculated 292 mOsm/kg (285-295); Potassium 4.1 mmol/L (3.5-5.1); Sodium 138 mmol/L (136-145); Total Bilirubin 0.8 mg/dL (0.15-1.2); Total Protein 6.9 g/dL (6.6-8.7)
[2021-07-16 20:33] LABS: NT Pro B Type Natriuretic Pept 493 pg/mL (0-450)
--- NOTE | 2021-07-16 21:50 | ECG_ITS ---
[facility] Test Date: 2021-07-16 Pat Name: John Valadez Department: Room: Gender: Male Ged Teacher: : 1940 Requested By: Gabriel Correa Order Number: [id number] Dangelo MD: Braulio Clemente M.D. Measurements Intervals [place] Rate: 71 P: 42 ID: [id number] QRS: -52 QRSD: 89 T: 15 QT: 367 QTc: 401 Interpretive Statements SINUS RHYTHM WITH FIRST DEGREE AV BLOCK WITH OCCASIONAL SUPRAVENTRICULAR PREMATURE COMPLEXES INFERIOR MYOCARDIAL INFARCTION , PROBABLY OLD [40+ ms Q WAVE AND/OR ST/T ABNORMALITY IN II/aVF] Compared to ECG 07/16/2021 19:53:20 First degree AV block now present Myocardial infarct finding now present Left-axis deviation no longer present Electronically Signed On 07-20-2021 17:33:29 NETWORK SPECIALIST by Braulio Clemente M.D. [email or web address]/store/[id number]
[2021-07-16 22:00] LABS: Troponin 5 2HR 48.18 ng/L (0-15)
== END 2021-07-16 23:02 | disposition home or self-care (01) ==
PROVIDERS: Emergency Provider Emergency Medicine; PCP Family Medicine
DX: R07.9 Chest pain, unspecified (principal); I10 Essential (primary) hypertension; Z79.84 Long term (current) use of oral hypoglycemic drugs; Z79.02 Long term (current) use of antithrombotics/antiplatelets; Z79.82 Long term (current) use of aspirin; I25.10 Atherosclerotic heart disease of native coronary artery without angina pectoris; E78.5 Hyperlipidemia, unspecified; Z87.891 Personal history of nicotine dependence
CPT/HCPCS: 71045; 80053; 83880; 84484; 85025; 93005; 99284

== ENCOUNTER → 2021-09-03 09:30 | Outpatient (BNVA) | payer MEDICARE, OTHER, SELFPAY | PROVIDERS: PCP Family Medicine; Referring Provider Family Medicine; Visit Provider Orthopaedic Surgery | DX: M54.50 Low back pain, unspecified (principal); M54.9 Dorsalgia, unspecified | CPT/HCPCS: 72110 ==

== ENCOUNTER → 2021-09-08 08:56 | Outpatient (BNVA) | payer MEDICARE, OTHER, SELFPAY | PROVIDERS: PCP Family Medicine; Referring Provider Orthopaedic Surgery; Visit Provider Anesthesiology Pain Medicine | DX: M48.062 Spinal stenosis, lumbar region with neurogenic claudication (principal); M53.3 Sacrococcygeal disorders, not elsewhere classified; M54.2 Cervicalgia; M79.604 Pain in right leg; M79.605 Pain in left leg | CPT/HCPCS: 99205 ==

== ENCOUNTER → 2021-09-15 14:25 | Outpatient (BNVA) | payer MEDICARE, OTHER, SELFPAY | PROVIDERS: PCP Family Medicine; Visit Provider Anesthesiology Pain Medicine | DX: M48.062 Spinal stenosis, lumbar region with neurogenic claudication (principal); M53.3 Sacrococcygeal disorders, not elsewhere classified | CPT/HCPCS: G0260; J1030; J3490 ==

== ENCOUNTER → 2021-09-29 09:13 | Outpatient (BNVA) | payer MEDICARE, OTHER, SELFPAY | PROVIDERS: PCP Family Medicine; Visit Provider Anesthesiology Pain Medicine | DX: M48.062 Spinal stenosis, lumbar region with neurogenic claudication (principal); M53.3 Sacrococcygeal disorders, not elsewhere classified; M79.604 Pain in right leg; M79.605 Pain in left leg; W00.9XXA Unspecified fall due to ice and snow, initial encounter; X58.XXXA Exposure to other specified factors, initial encounter | CPT/HCPCS: 99213; 99214 ==

== ENCOUNTER → 2021-10-06 08:44 | Outpatient (BNVA) | payer MEDICARE, OTHER, SELFPAY | PROVIDERS: PCP Family Medicine; Visit Provider Orthopaedic Surgery | DX: M54.2 Cervicalgia (principal) | CPT/HCPCS: 72050 ==

== ENCOUNTER 2021-11-13 15:44 | Outpatient (CLI) | payer MEDICARE, OTHER, SELFPAY ==
--- NOTE | 2021-11-13 16:00 | MR_ITS ---
WS: [id number] MRI CERVICAL SPINE NONCONTRAST HISTORY: M54.2 - Cervicalgia, chronic pain down LEFT arm. COMPARISON: None available. Technique: Multiplanar, multisequence noncontrast imaging of the cervical spine. Mild straightening and slight reversal normal cervical lordosis. Reversal centered at the C5-6 level. Mild disc space narrowing and desiccation, most significant at C5-6 and C6-7. No fracture or marrow e slade. Craniocervical junction, C1 and C2 relationship, odontoid process and soft tissues are normal. C2-C3: Normal. C3-C4: Moderate disc osteophyte extends into the RIGHT foramen with moderate narrowing of the foramen . Correlate for RIGHT C4 nerve root encroachment. C4-C5: Mild diffuse osteophytic ridging and disc bulging with a shallow central disc protrusion. Very slight encroachment upon the ventral thecal sac and deformity of the ventral cord. Very mild central stenosis. C5-C6: Mild osteophytic ridging with annular disc bulging and mild facet arthritis. Small foraminal o steophytes. There is a very small disc protrusion in the LEFT foramen with mild encroachment upon the C6 nerve root. No high-grade stenosis. Very mild central stenosis. C6-C7: Mild annular disc bulge. There is a more focal LEFT foraminal disc osteophyte causing mild phoebe rowing of the foramen encroachment upon the C7 nerve root. C7-T1: Small bilateral paracentral osteophytes very slight narrowing of the proximal foramen. No high -grade stenosis. Paraspinal soft tissue are normal. MR/MR cervical spin wo con* [id number] IMPRESSION: 1. Small LEFT foraminal disc protrusions at C5-6 and C6-7 with encroachment up on the C6 and C7 nerve roots respectively. Only mild foraminal narrowing. 2. Moderate disc osteophyte complex RIGHT foramen of C3-4 with contact on the C4 nerve root. Moderate foraminal narrowing at C3-4 on the RIGHT. 3. Mild central stenosis at C4-5 and C5-6.
== END 2021-11-13 15:45 | disposition home or self-care (01) ==
PROVIDERS: PCP Family Medicine; Visit Provider Orthopaedic Surgery
DX: M50.222 Other cervical disc displacement at C5-C6 level (principal); M25.78 Osteophyte, vertebrae; M48.02 Spinal stenosis, cervical region
CPT/HCPCS: 72141

== ENCOUNTER 2021-11-17 06:53 | Outpatient (CLI) | payer MEDICARE, OTHER, SELFPAY ==
--- NOTE | 2021-11-17 07:02 | XR_ITS ---
WS: [id number] XR KUB [id number] REASON FOR EXAM: STONES FINDINGS: No intrarenal calculi are identified. Several small left intrarenal calculi were identified on CT sca n of 01/31/2020. No ureteral calculi. No bladder calculi are identified. Examination appears unchanged compared to 06/30/2020. XR/XR KUB [id number] IMPRESSION: No urinary tract calculi identified.
== END 2021-11-17 06:54 | disposition home or self-care (01) ==
PROVIDERS: PCP Family Medicine; Visit Provider Urology
DX: N20.9 Urinary calculus, unspecified (principal); R33.8 Other retention of urine
CPT/HCPCS: 74018; 81003

== ENCOUNTER → 2021-11-19 09:57 | Outpatient (BNVA) | payer MEDICARE, OTHER, SELFPAY | PROVIDERS: PCP Family Medicine; Visit Provider Orthopaedic Surgery | DX: M47.22 Other spondylosis with radiculopathy, cervical region (principal) | CPT/HCPCS: 99213 ==

== ENCOUNTER → 2021-12-14 13:29 | Outpatient (BNVA) | payer MEDICARE, OTHER, SELFPAY | PROVIDERS: PCP Family Medicine; Visit Provider Internal Medicine Cardiovascular Disease | DX: I25.10 Atherosclerotic heart disease of native coronary artery without angina pectoris (principal); I10 Essential (primary) hypertension; E78.2 Mixed hyperlipidemia; I70.0 Atherosclerosis of aorta; Z87.891 Personal history of nicotine dependence | CPT/HCPCS: 99213 ==

== ENCOUNTER → 2021-12-28 08:53 | Outpatient (BNVA) | payer MEDICARE, OTHER, SELFPAY | PROVIDERS: PCP Family Medicine; Visit Provider Anesthesiology Pain Medicine | DX: Z09 Encounter for follow-up examination after completed treatment for conditions other than malignant neoplasm (principal); M48.062 Spinal stenosis, lumbar region with neurogenic claudication; M53.3 Sacrococcygeal disorders, not elsewhere classified; M47.22 Other spondylosis with radiculopathy, cervical region | CPT/HCPCS: 99214 ==

== ENCOUNTER → 2022-01-14 13:10 | Outpatient (BNVA) | payer MEDICARE, OTHER, SELFPAY | PROVIDERS: PCP Family Medicine; Visit Provider Anesthesiology Pain Medicine | DX: M48.062 Spinal stenosis, lumbar region with neurogenic claudication (principal); E11.9 Type 2 diabetes mellitus without complications; Z79.84 Long term (current) use of oral hypoglycemic drugs; M53.3 Sacrococcygeal disorders, not elsewhere classified | CPT/HCPCS: 36416; 82962; G0260; J1030; J3490 ==

== ENCOUNTER → 2022-02-08 08:40 | Outpatient (BNVA) | payer MEDICARE, OTHER, SELFPAY | PROVIDERS: PCP Family Medicine; Visit Provider Anesthesiology Pain Medicine | DX: M48.062 Spinal stenosis, lumbar region with neurogenic claudication (principal); M47.22 Other spondylosis with radiculopathy, cervical region; M53.3 Sacrococcygeal disorders, not elsewhere classified; M79.604 Pain in right leg; M79.605 Pain in left leg | CPT/HCPCS: 99214 ==

== ENCOUNTER 2022-02-17 06:00 | Outpatient (RCR) | payer MEDICARE, OTHER, SELFPAY | END 2022-03-14 23:59 | disposition home or self-care (01) | LOC: SPT 06:00 | PROVIDERS: PCP Family Medicine; Referring Provider Registered Nurse; Visit Provider Registered Nurse | DX: M47.816 Spondylosis without myelopathy or radiculopathy, lumbar region (principal); M51.36 Other intervertebral disc degeneration, lumbar region; Z98.1 Arthrodesis status | CPT/HCPCS: 97110; 97162 ==

== ENCOUNTER 2022-03-10 07:07 | Outpatient (CLI) | payer MEDICARE, OTHER, SELFPAY ==
--- NOTE | 2022-03-10 07:25 | MR_ITS ---
WS: [id number] MRI LUMBAR SPINE NONCONTRAST TECHNIQUE: Sagittal T1, T2 and STIR imaging. Axial T1 and T2 imaging. CLINICAL INFORMATION: LUMBAR SPONDYLOSIS COMPARISON: MRI FINDINGS: Mild lumbar curve. No acute compression. Pedicle screw fixation L4-S1 with interbody fusion L4-L5 and L5-S1. This is new from previous. L1-L2: Normal L2-L3: Mild disc bulging. Spinal canal and foramen are patent. Mild facet arthropathy. L3-L4: Broad-based shallow central disc protrusion with moderate central canal stenosis. Impingement traversing L4 nerve roots bilaterally. Moderate facet arthropathy with ligamentum flavum hypertrophy. Mild RIGHT greater than LEFT foraminal narrowing. Encroachment on the exiting RIGHT L3 nerve root. C entral canal stenosis at this level has progressed compared to previous. L4-L5: Pedicle screw fixation with interbody fusion. Osteophytic ridging encroaches on the exiting fa r RIGHT lateral L4 nerve root. Mild RIGHT foraminal narrowing. LEFT foramen is patent. Spinal canal i s patent. Mild facet arthropathy. L5-S1: Decompressive laminectomy defects. Mild LEFT and no RIGHT foraminal narrowing. Mild facet art hropathy. Partially visualized LEFT renal cyst measuring 2.5 CM. MR/MR lumbar spine wo con* [id number] IMPRESSION: 1. Postoperative changes L4 through S1 pedicle screw fixation with interbody f usion grafts new compared to 2016. 2. Moderate central canal stenosis L3-L4 is new compared to previous due to di sc bulging in combination with facet arthropathy and ligamentum flavum hypertro phy. Impingement on the traversing RIGHT greater than LEFT L4 nerve roots. 3. Mild RIGHT L3-L4 foraminal narrowing with slight contact exiting RIGHT L3 n erve root. 4. Mild LEFT L5-S1 foraminal narrowing.
== END 2022-03-10 07:08 | disposition home or self-care (01) ==
PROVIDERS: PCP Family Medicine; Visit Provider Registered Nurse
DX: M47.816 Spondylosis without myelopathy or radiculopathy, lumbar region (principal); M51.36 Other intervertebral disc degeneration, lumbar region; Z98.1 Arthrodesis status; M48.061 Spinal stenosis, lumbar region without neurogenic claudication
CPT/HCPCS: 72148

== ENCOUNTER → 2022-03-12 08:52 | Outpatient (BNVA) | payer MEDICARE, OTHER, SELFPAY | PROVIDERS: PCP Family Medicine; Visit Provider Internal Medicine Cardiovascular Disease | DX: I25.10 Atherosclerotic heart disease of native coronary artery without angina pectoris (principal); I10 Essential (primary) hypertension; E78.5 Hyperlipidemia, unspecified | CPT/HCPCS: 99213; 99214 ==

== ENCOUNTER 2022-03-15 06:00 | Outpatient (RCR) | payer MEDICARE, OTHER, SELFPAY | END 2022-04-14 23:59 | disposition home or self-care (01) | LOC: SPT 06:00 | PROVIDERS: PCP Family Medicine; Referring Provider Registered Nurse; Visit Provider Registered Nurse | DX: M47.816 Spondylosis without myelopathy or radiculopathy, lumbar region (principal); M51.36 Other intervertebral disc degeneration, lumbar region; Z98.1 Arthrodesis status | CPT/HCPCS: 97110 ==

== ENCOUNTER 2022-05-03 20:58 | Observation (INO) | payer MEDICARE, OTHER, SELFPAY ==
--- NOTE | 2022-05-03 21:06 | ECG_ITS ---
[facility] Test Date: 2022-05-03 Pat Name: John Valadez Department: Room: 277 Gender: Male Still Pump Operator: : 1940 Requested By: Pedro Mathews Order Number: [id number] Dangelo MD: Will Gallego M.D. Measurements Intervals [place] Rate: 76 P: 59 MA: 211 QRS: -32 QRSD: 77 T: 61 QT: 351 QTc: 395 Interpretive Statements SINUS RHYTHM WITH FIRST DEGREE AV BLOCK LEFT AXIS DEVIATION [QRS AXIS < -30] Compared to ECG 07/16/2021 21:27:49 Left-axis deviation now present Myocardial infarct finding no longer present Electronically Signed On 05-04-2022 20:38:57 CDT by Will Gallego M.D. [id number]
[2022-05-03 21:07] VITALS: BP 115/69; PULSE 73; RESP 16; TEMP 36.4; O2SAT 95
--- NOTE | 2022-05-03 21:16 | XRR_ITS ---
PROCEDURE INFORMATION: Exam: XR Chest Exam date and time: 05/03/2022 9:37 PM Age: 82 years old Clinical indication: Sternal or substernal pain; Prior surgery; Surgery date: 6+ months; Surgery type: Stents; Additional info: Cp TECHNIQUE: Imaging protocol: Radiologic exam of the chest. Views: 1 view. COMPARISON: CR XR chest 1V portable [id number] 07/16/2021 7:59 PM FINDINGS: Lungs: The lung bases are suboptimally assessed due to technique however the upper lungs are clear of focal consolidation. Left upper lobe calcified pulmonary granuloma is again noted. Pleural spaces: Unremarkable. No pleural effusion. No pneumothorax. Heart/Mediastinum: Cardiac silhouette appears normal in size. No obvious vascular congestion. Bones/joints: No acute osseous findings. Other findings: Single view was submitted. XR/XR chest 1V portable [id number] IMPRESSION: No acute findings.
[2022-05-03 21:24] LABS: Basophils # 0.1 10^3/uL (0.0-0.1); Basophils % 0.6 %; Eosinophils # 0.1 10^3/uL (0.0-0.8); Eosinophils % 1.6 %; Hematocrit 43.9 % (42.0-52.0); Hemoglobin 15.1 g/dL (11.7-16.6); Lymphocytes # 2.2 10^3/uL (0.8-4.8); Lymphocytes % 28.2 %; Mean Corpuscular HGB Conc 34.4 g/dL (30.0-36.0); Mean Corpuscular Hemoglobin 31.9 pg (28.0-34.0); Mean Corpuscular Volume 92.6 fl (80-94); Mean Platelet Volume 10.2 fL (7.4-10.4); Monocytes # 0.7 10^3/uL (0.2-0.9); Monocytes % 8.7 %; Neutrophils # 4.63 10^3/uL (1.8-7.7); Neutrophils % 60.1 %; Nucleated Red Blood Cells % 0 %; Platelet Count 258 10^3/cmm (130-400); Red Blood Count 4.74 10^6/uL (4.1-5.3); Red Cell Distribution Width 12.7 % (12.1-15.1); White Blood Count 7.7 10^3/uL (4.0-10.0)
[2022-05-03 21:37] LABS: Alanine Aminotransferase 18 U/L (0-41); Albumin Level 4.2 g/dL (3.5-5.2); Alkaline Phosphatase 36 U/L (40-130); Anion Gap 15.5 (5-19); Aspartate Amino Transferase 19 U/L (0-40); Blood Urea Nitrogen 15 mg/dL (8-23); Calcium 9.5 mg/dL (8.5-10.5); Carbon Dioxide 26 mmol/L (22-29); Chloride 98 mmol/L (98-107); Globulin 2.4 g/dL (1.3-4.6); Glucose 122 mg/dL (65-115); Osmolality Calculated 282 mOsm/kg (285-295); Potassium 4.5 mmol/L (3.5-5.1); Sodium 135 mmol/L (136-145); Total Bilirubin 0.5 mg/dL (0.15-1.2); Total Protein 6.6 g/dL (6.6-8.7)
[2022-05-03 21:39] LABS: Troponin(5th) Baseline 23 ng/L (0-15)
[2022-05-03 22:06] LABS: SARS Covid-2 Antigen Negative (Negative)
[2022-05-03] MEDS: aspirin 81 mg Chew Tablet 324 MG PO (22:10)
[2022-05-03] MEDS: fentaNYL 50 mcg/mL INJ 2mL 25 MCG IVP (22:10)
[2022-05-03 22:18] VITALS: BP 119/70; PULSE 59; RESP 16; O2SAT 98
--- NOTE | 2022-05-03 22:35 | W.ED.CHESTPA ---
Documented by User: Pedro Mathews DO 05/03/22 22:49 HPI - Chest Pain General: Chief Complaint: Chest Pain Stated Complaint: C hest Pain Time Seen by Provider: 05/03/22 21:12 History of Present Illness: 82-year-old male presents with right-sided chest pain that started 4-5 days ago. He reports that initially started under His armpit and kind of moved to the back and whole right side. Patient reports now it seems like it is going across his chest and is kind of a pressure. Patient reports that he has had a previous heart attack that felt similar to this. That he currently has 7 stents. When patient arrived he reports the pain was minimal. Patient denies any diaphoresis, nausea, vomiting, shortness of breath or radiation to his neck or his arms. Associated symptoms: Deny abdominal pain, dyspnea, fever(s), nausea, palpitations or vomiting Review of Systems Const: Denies: fever(s) or chills Card: Denies: chest pain or palpitations Resp: Denies: dyspnea or productive cough GI: Denies: abdominal pain, nausea or vomiting : Denies: flank pain or dysuria Musc: Reports: back pain; Denies: neck pain Skin/Breast: Denies: rash or pruritus Neuro: Denies: headache(s) or dizziness Psych: Denies: anxiety or depression PFSH ED PFSH: Medical History Abnormal stress echo Acquired bilateral hammer toes Aortic atherosclerosis Atherosclerosis of coronary artery of [place] heart CAD (coronary artery disease) Chest pain Chronic prostatitis Dyspnea Hyperlipidemia LDL was 80s, HDL 60 Hypertension Leg cramps Wan's neuroma of both feet Renal calculus Surgical History H/O arthroscopy of knee H/O thumb surgery History of back surgery History of foot surgery History of hernia surgery History of PTCA S/P extracorporeal shock wave therapy Family History Brother CAD (coronary artery disease) Lung disease Family/Other CAD (coronary artery disease) Cancer Grandfather Stroke Cancer Mother , at age 81 Diabetes Father , at age 87 Diabetes Stroke Denies family history of Clotting disorder Dementia Chronic kidney disease (CKD) Suicide Anesthesia complication Bleeding disorder Social History Smoking and tobacco status: former smoker Alcohol intake: current Alcohol intake frequency: holidays/special occasions only Alcohol type: wine Marital status: Current occupational status: retired History of recent travel: No Physical Exam Const: COMMON NORMALS: patient oriented x3 and no limitations HENMT: COMMON NORMALS: normocephalic and TM's normal bilaterally HEAD & SCALP: normocephalic TYMPANIC MEMBRANE: TM's normal bilaterally Resp: COMMON NORMALS: normal respiratory effort, No use of accessory muscles and clear to auscultation bilaterally AUSCULTATION: clear to auscultation bilaterally Cardio: COMMON NORMALS: regular rate and regular rhythm RATE: regular rate RHYTHM: regular rhythm GI: COMMON NORMALS: Soft to palpation and non-tender PALPATION: Yes Soft to palpation Extremity: COMMON NORMALS: normal to inspection, full ROM and capillary refill normal Neuro: COMMON NORMALS: patient oriented x3, moves all extremities and no focal motor deficits Psych: COMMON NORMALS: mental status grossly normal, normal affect and speech normal SPEECH: Yes normal speech Skin: COMMON NORMALS: no rashes or lesions noted and no wounds GENERAL SKIN EXAM: no rashes or lesions noted Course Vital Signs: Vital signs: Vital Signs Temperature 97.0 F L 05/04/22 00:00 Pulse Rate 69 05/04/22 01:00 Respiratory Rate 20 H 05/04/22 00:00 Blood Pressure 167/78 05/04/22 00:00 Pulse Oximetry 96 05/04/22 00:00 Oxygen Delivery Me thod 05/04/22 00:15 MDM - Chest Pain Medical Decision Making Patient to be admitted to Dr. Sam for further observation for angina. Patient has a history of 7 stents and previous restenosis of the stents on the right side. Patient's initial troponin was 24. He will be admitted in stable condition. Lab Data : 05/03/22 21:18 05/03/22 21:18 Radiology Impressions Chest X-Ray 05/03/22 21:16 IMPRESSION: No acute findings. Laboratory Results WBC 7.7 10^3/uL (4.0-10.0) 05/03/22 21:18 RBC 4.74 10^6/uL (4.1-5.3) 05/03/22 21:18 Hgb 15.1 g/dL (11.7-16.6) 05/03/22 21:18 Hct 43.9 % (42.0-52.0) 05/03/22 21:18 MCV 92.6 fl (80-94) 05/03/22 21:18 MCH 31.9 pg (28.0-34.0) 05/03/22 21:18 MCHC 34.4 g/dL (30.0-36.0) 05/03/22 21:18 RDW 12.7 % (12.1-15.1) 05/03/22 21:18 Plt Count 258 10^3/cmm (130-400) 05/03/22 21:18 MPV 10.2 fL (7.4-10.4) 05/03/22 21:18 Neut % (Auto) 60.1 % 05/03/22 21:18 Lymph % (Auto) 28.2 % 05/03/22 21:18 [place]once % (Auto) 8.7 % 05/03/22 21:18 Eos % (Auto) 1.6 % 05/03/22 21:18 Baso % (Auto) 0.6 % 05/03/22 21:18 Neut # (Auto) 4.63 10^3/uL (1.8-7.7) 05/03/22 21:18 Lymph # (Auto) 2.2 10^3/uL (0.8-4.8) 05/03/22 21:18 [place] # (Auto) 0.7 10^3/uL (0.2-0.9) 05/03/22 21:18 Eos # (Auto) 0.1 10^3/uL (0.0-0.8) 05/03/22 21:18 Baso # (Auto) 0.1 10^3/uL (0.0-0.1) 05/03/22 21:18 Nucleated RBC % (auto) 0 % 05/03/22 21:18 Nucleated RBCs # 0.0 /100WBC 05/03/22 21:18 Sodium 135 mmol/L (136-145) L 05/03/22 21:18 Potassium 4.5 mmol/L (3.5-5.1) 05/03/22 21:18 Chloride 98 mmol/L (98-107) 05/03/22 21:18 Carbon Dioxide 26 mmol/L (22-29) 05/03/22 21:18 Anion Gap 15.5 (5-19) 05/03/22 21:18 BUN 15 mg/dL (8-23) 05/03/22 21:18 Creatinine 1.0 mg/dL (0.7-1.2) 05/03/22 21:18 GFR Calculation Not Reportable 05/03/22 21:18 Glucose 122 mg/dL (65-115) H 05/03/22 21:18 Estimat Average Glucose 134 05/03/22 21:18 Hemoglobin A1c 6.3 % (4.0-6.0) H 05/03/22 21:18 Calculated Osmolality 282 mOsm/kg (285-295) L 05/03/22 21:18 Calcium 9.5 mg/dL (8.5-10.5) 05/03/22 21:18 Total Bilirubin 0.5 mg/dL (0.15-1.2) 05/03/22 21:18 AST 19 U/L (0-40) 05/03/22 21:18 ALT 18 U/L (0-41) 05/03/22 21:18 Alkaline Phosphatase 36 U/L (40-130) L 05/03/22 21:18 Troponin T Baseline 23 ng/L (0-15) H 05/03/22 21:18 Troponin T 120 Minute 17.59 ng/L (0-15) H 05/03/22 00:47 Delta Troponin T -5.41 ABS# (0-10) L 05/03/22 00:47 Total Protein 6.6 g/dL (6.6-8.7) 05/03/22 21:18 Albumin 4.2 g/dL (3.5-5.2) 05/03/22 21:18 Globulin 2.4 g/dL (1.3-4.6) 05/03/22 21:18 Triglycerides 82 mg/dL (0-150) 05/03/22 21:18 Cholesterol 141 mg/dL (0-200) 05/03/22 21:18 LDL Cholesterol, Calc 71 mg/dL (50-129) 05/03/22 21:18 LDL/HDL Ratio 1.31 RATIO (0.00-3.22) 05/03/22 21:18 Cholesterol/HDL Ratio 2.61 mg/dL (1.0-5.00) 05/03/22 21:18 TSH 2.14 uIU/mL (0.27-4.20) 05/03/22 21:18 SARS-CoV-2 Ag (Rapid) Negative (Negative) 05/03/22 21:30 EKG Data EKG 1: I personally reviewed and interpreted this EKG as follows: EKG interpretation date: 05/03/22 EKG interpretation time: 21:06 Interpretation: Sinus rhythm with first-degree block, [place] 211, heart rate 76, QRS 77, no acute ST or T wave changes Discharge Plan Discharge Patient Disposition: Placed in Observation Admit Provider: Chuy Sam Clinical Impression: Chest pain Qualifiers: Ischemic chest pain type: unspecified angina pectoris type Coding Level of Care Code ED 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 Metal 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 Fwd Exam Comprehensive Documented by User: Haim Adames MD 05/04/22 02:47 HPI - Chest Pain General: Chief Complaint: Chest Pain Stated Complaint: C hest Pain Time Seen by Provider: 05/03/22 21:12 PFSH ED PFSH: Medical History Abnormal stress echo Acquired bilateral hammer toes Aortic atherosclerosis Atherosclerosis of coronary artery of [place] heart CAD (coronary artery disease) Chest pain Chronic prostatitis Dyspnea Hyperlipidemia LDL was 80s, HDL 60 Hypertension Leg cramps Wan's neuroma of both feet Renal calculus Surgical History H/O arthroscopy of knee H/O thumb surgery History of back surgery History of foot surgery History of hernia surgery History of PTCA S/P extracorporeal shock wave therapy Family History Brother CAD (coronary artery disease) Lung disease Family/Other CAD (coronary artery disease) Cancer Grandfather Stroke Cancer Mother , at age 81 Diabetes Father , at age 87 Diabetes Stroke Denies family history of Clotting disorder Dementia Chronic kidney disease (CKD) Suicide Anesthesia complication Bleeding disorder Social History Smoking and tobacco status: former smoker Alcohol intake: current Alcohol intake frequency: holidays/special occasions only Alcohol type: wine Marital status: Current occupational status: retired History of recent travel: No Course Vital Signs: Vital signs: Vital Signs Temperature 97.0 F L 05/04/22 00:00 Pulse Rate 69 05/04/22 01:00 Respiratory Rate 20 H 05/04/22 00:00 Blood Pressure 167/78 05/04/22 00:00 Pulse Oximetry 96 05/04/22 00:00 Oxygen Delivery Me thod 05/04/22 00:15 MDM - Chest Pain Lab Data : 05/03/22 21:18 05/03/22 21:18 Radiology Impressions Chest X-Ray 05/03/22 21:16 IMPRESSION: No acute findings. Laboratory Results WBC 7.7 10^3/uL (4.0-10.0) 05/03/22 21:18 RBC 4.74 10^6/uL (4.1-5.3) 05/03/22 21:18 Hgb 15.1 g/dL (11.7-16.6) 05/03/22 21:18 Hct 43.9 % (42.0-52.0) 05/03/22 21:18 MCV 92.6 fl (80-94) 05/03/22 21:18 MCH 31.9 pg (28.0-34.0) 05/03/22 21:18 MCHC 34.4 g/dL (30.0-36.0) 05/03/22 21:18 RDW 12.7 % (12.1-15.1) 05/03/22 21:18 Plt Count 258 10^3/cmm (130-400) 05/03/22 21:18 MPV 10.2 fL (7.4-10.4) 05/03/22 21:18 Neut % (Auto) 60.1 % 05/03/22 21:18 Lymph % (Auto) 28.2 % 05/03/22 21:18 [place] % (Auto) 8.7 % 05/03/22 21:18 Eos % (Auto) 1.6 % 05/03/22 21:18 Baso % (Auto) 0.6 % 05/03/22 21:18 Neut # (Auto) 4.63 10^3/uL (1.8-7.7) 05/03/22 21:18 Lymph # (Auto) 2.2 10^3/uL (0.8-4.8) 05/03/22 21:18 [place] # (Auto) 0.7 10^3/uL (0.2-0.9) 05/03/22 21:18 Eos # (Auto) 0.1 10^3/uL (0.0-0.8) 05/03/22 21:18 Baso # (Auto) 0.1 10^3/uL (0.0-0.1) 05/03/22 21:18 Nucleated RBC % (auto) 0 % 05/03/22 21:18 Nucleated RBCs # 0.0 /100WBC 05/03/22 21:18 Sodium 135 mmol/L (136-145) L 05/03/22 21:18 Potassium 4.5 mmol/L (3.5-5.1) 05/03/22 21:18 Chloride 98 mmol/L (98-107) 05/03/22 21:18 Carbon Dioxide 26 mmol/L (22-29) 05/03/22 21:18 Anion Gap 15.5 (5-19) 05/03/22 21:18 BUN 15 mg/dL (8-23) 05/03/22 21:18 Creatinine 1.0 mg/dL (0.7-1.2) 05/03/22 21:18 GFR Calculation Not Reportable 05/03/22 21:18 Glucose 122 mg/dL (65-115) H 05/03/22 21:18 Estimat Average Glucose 134 05/03/22 21:18 Hemoglobin A1c 6.3 % (4.0-6.0) H 05/03/22 21:18 Calculated Osmolality 282 mOsm/kg (285-295) L 05/03/22 21:18 Calcium 9.5 mg/dL (8.5-10.5) 05/03/22 21:18 Total Bilirubin 0.5 mg/dL (0.15-1.2) 05/03/22 21:18 AST 19 U/L (0-40) 05/03/22 21:18 ALT 18 U/L (0-41) 05/03/22 21:18 Alkaline Phosphatase 36 U/L (40-130) L 05/03/22 21:18 Troponin T Baseline 23 ng/L (0-15) H 05/03/22 21:18 Troponin T 120 Minute 17.59 ng/L (0-15) H 05/03/22 00:47 Delta Troponin T -5.41 ABS# (0-10) L 05/03/22 00:47 Total Protein 6.6 g/dL (6.6-8.7) 05/03/22 21:18 Albumin 4.2 g/dL (3.5-5.2) 05/03/22 21:18 Globulin 2.4 g/dL (1.3-4.6) 05/03/22 21:18 Triglycerides 82 mg/dL (0-150) 05/03/22 21:18 Cholesterol 141 mg/dL (0-200) 05/03/22 21:18 LDL Cholesterol, Calc 71 mg/dL (50-129) 05/03/22 21:18 LDL/HDL Ratio 1.31 RATIO (0.00-3.22) 05/03/22 21:18 Cholesterol/HDL Ratio 2.61 mg/dL (1.0-5.00) 05/03/22 21:18 TSH 2.14 uIU/mL (0.27-4.20) 05/03/22 21:18 SARS-CoV-2 Ag (Rapid) Negative (Negative) 05/03/22 21:30 EKG Data EKG 2: I personally reviewed and interpreted this EKG as follows: EKG interpretation date: 05/03/22 EKG interpretation time: 23:39 Interpretation: EKG #2 impression showed normal sinus rhythm with first-degree AV block. Heart rate 69. Mild left axis. Normal ST segment. Normal QT interval. Borderline first-degree AV block. Normal P waves, normal T waves. Other EKG comments: I only interpreted the EKG. Dr. Mathews was the admitting doctor. Discharge Plan Discharge Patient Disposition: Placed in Observation Admit Provider: Chuy Sam Clinical Impression: Chest pain Qualifiers: Ischemic chest pain type: unspecified angina pectoris type Coding Level of Care Code ED Reinforcing Metal 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 Fwd Exam Comprehensive
--- NOTE | 2022-05-03 23:07 | P.HP_ITS ---
Providers/Chief Complaint Primary Care Provider: Jl Felix MD Chief Complaint: C hest Pain History of Present Illness John Valadez is a 82 year old male with a past medical history of CAD, hypertension, hyperlipidemia, who presents to [facility] for chest pain. Patient tells me for the last 4 days he has been having intermittent right-sided chest pain, which comes and goes, pressure-like pain, he tells me he knows his chest pain is coronary related as he has had 7 stents placed. However today his chest pain that was on the right side, more migrated to the left side is more substernal, pressure-like pain, severe chest pain, improved with nitroglycerin, here in the emergency room has significantly decreased, but to some degree remains, he tells me he feels a lot better, no nausea, vomiting, no diaphoresis, no shortness of breath, his first troponin was 25, EKG did not show any acute ST-T wave changes, hospitalist team was called for admission Review of Systems Const: Denies: fever(s) Card: Denies: chest pain Resp: Denies: dyspnea GI: Denies: abdominal pain : Denies: flank pain Medications/Allergies Home Medications Medication Instructions Recorded Confirmed Last Taken Type diazepam 5 mg tablet 2.5 mg PO BID PRN anxiety 06/17/20 04/22/22 08/21/20 History Sole Supports #1 ea 10/20/20 04/22/22 Unknown Rx pramipexole 0.25 mg tablet 0.5 mg PO BEDTIME@20 12/25/20 04/22/22 Unknown History nitroglycerin 0.4 mg sublingual 0.4 mg sublingual Q5M PRN chest 03/25/21 04/22/22 Unknown Rx tablet (Nitrostat) pain #50 tabs metformin 500 mg tablet,extended 1,000 mg PO DAILY 07/15/21 04/22/22 Unknown History release 24 hr aspirin 81 mg tablet,delayed 81 mg PO DAILY #30 tabs 07/16/21 04/22/22 08/21/20 Rx release clopidogrel 75 mg tablet 75 mg PO DAILY #30 tabs 07/16/21 04/22/22 Unknown Rx simvastatin 80 mg tablet 80 mg PO DAILY #90 tabs 07/16/21 04/22/22 Unknown Rx acetaminophen 325 mg capsule 325 mg PO BID PRN 11/17/21 04/22/22 Unknown History (Tylenol) docusate sodium 100 mg capsule 100 mg PO DAILY PRN 11/17/21 04/22/22 Unknown History (Stool Softener) ketoconazole 2 % topical cream 1 applic topical DAILY PRN 11/17/21 04/22/22 Unknown History omega 6-qhh-gwk-fish oil 60 mg-90 1 cap PO DAILY 11/17/21 04/22/22 Unknown History mg-500 mg capsule (Fish Oil) lisinopril 20 mg tablet 10 mg PO DAILY 12/14/21 04/22/22 Unknown History trazodone 150 mg tablet 75 mg PO BEDTIME PRN 12/14/21 04/22/22 Unknown History ezetimibe 10 mg tablet 10 mg PO DAILY #90 tabs 01/12/22 04/22/22 Unknown Rx ketoconazole 2 % topical cream 1 applic topical BID #30 grams 04/22/22 04/22/22 Unknown Rx Allergies Allergy/AdvReac Type Severity Reaction Status Date / Time ciprofloxacin [From Cipro] Allergy Unknown unknown Verified 04/22/22 14:17 doxycycline Allergy Unknown hives Verified 04/22/22 14:17 PFSH Acute PFSH: Medical History Abnormal stress echo Acquired bilateral hammer toes Aortic atherosclerosis Atherosclerosis of coronary artery of [place] heart CAD (coronary artery disease) Chest pain Chronic prostatitis Dyspnea Hyperlipidemia LDL was 80s, HDL 60 Hypertension Leg cramps Wan's neuroma of both feet Renal calculus Surgical History H/O arthroscopy of knee H/O thumb surgery History of back surgery History of foot surgery History of hernia surgery History of PTCA S/P extracorporeal shock wave therapy Family History Brother CAD (coronary artery disease) Lung disease Family/Other CAD (coronary artery disease) Cancer Grandfather Stroke Cancer Mother , at age 81 Diabetes Father , at age 87 Diabetes Stroke Denies family history of Clotting disorder Dementia Chronic kidney disease (CKD) Suicide Anesthesia complication Bleeding disorder Social History Smoking and tobacco status: former smoker Alcohol intake: current Alcohol intake frequency: holidays/special occasions only Alcohol type: wine Marital status: Current occupational status: retired History of recent travel: No Vitals/I&O/Wt Last Vital Signs Temp 97.5 F L 05/03/22 21:07 Pulse 59 L 05/03/22 22:18 Resp 16 05/03/22 22:18 BP 119/70 05/03/22 22:18 Pulse Ox 98 05/03/22 22:18 O2 Del Method 05/03/22 21:07 Weight last 48 hrs Weight 72.575 kg Physical Exam Const: COMMON NORMALS: no acute distress and patient oriented x3 HENMT: COMMON NORMALS: normocephalic HEAD & SCALP: normocephalic Eye: COMMON NORMALS: Equal, round and reactive pupils present and EOMs intact bilaterally Neck/C-Spine: COMMON NORMALS: no JVD Resp: COMMON NORMALS: normal respiratory effort, No retractions, No use of accessory muscles and clear to auscultation bilaterally AUSCULTATION: clear to auscultation bilaterally Cardio: COMMON NORMALS: regular rate, regular rhythm, S1 normal heart sound present and S2 normal heart sound present RATE: regular rate RHYTHM: regular rhythm HEART SOUNDS: S1 normal heart sound present and S2 normal heart sound present GI: COMMON NORMALS: Normal to inspection, nondistended, normoactive bowel sounds present, Soft to palpation, non-tender, No hepatosplenomegaly present, no masses and no bruits PALPATION: Yes Soft to palpation and Yes No hepatosplenomegaly present Extremity: COMMON NORMALS: capillary refill normal, no clubbing, cyanosis or edema, no calf tenderness and no pedal edema Neuro: COMMON NORMALS: patient oriented x3 Psych: COMMON NORMALS: mental status grossly normal Data : 05/03/22 21:18 05/03/22 21:18 A&P Assessment and plan (1) Chest pain: Status: Acute Qualifiers: Ischemic chest pain type: unspecified angina pectoris type Plan Chest pain 07/15/21 [facility] w/PCI 1. There is critical? coronary artery disease with in-stent restenosis of distal RCA status post revascularization with LUIS CARLOS x1.. ? 2. Distal Right Coronary Artery was treated with a Balloon, Drug Eluting Stent, and Balloon. Stress Test 07/13/21 1. No significant EKG changes with the LexiScan infusion 2. No LexiScan induced chest pain or cardiac arrhythmia 3. Normal blood pressure and heart rate response ?1.? Myocardial perfusion imaging revealing moderate area of decreased tracer ?uptake in the basal and mid inferior, mid inferolateral and apical lateral ?region, with some reversibility in the inferolateral region suggesting ?myocardial scarring in the distribution of the right coronary artery and the ?circumflex artery with a small area of ischemia mostly in the distribution of ?the circumflex artery. ?2.? Normal LV ejection fraction of 83%. ?3.? LV wall motion analysis revealing no gross wall motion normalities. ?4.? Normal LV volume. ?Compared to the study from 02/27/2019, the area of ischemia appears to be new 01/28/21 Echo ?Normal left ventricular size and systolic function, EF 58 %. No ?regional wall motion abnormalities. Grade I/IV diastolic ?dysfunction (abnormal relaxation filling pattern), normal to ?mildly elevated filling pressures. ?Thickened mitral valve.? Mild mitral annular calcification. ?Mild to moderate calcification in the mitral leaflet. ?Thickened aortic valve. Trace aortic valve regurgitation.? Some ?features of aortic valve sclerosis. ?Moderate eccentric tricuspid valve regurgitation.? Estimated ?pulmonary artery peak systolic pressure of around 30 mmHg ?Mild pulmonary valve regurgitation. ?There is no pericardial effusion. ?There are no intracardiac masses. ?No similar previous studies are available for comparison -History does sound cardiac in nature Plan -Serial EKGs, troponins, telemetry monitoring -Aspirin, statin, Plavix -Monitor for chest pain -If patient's chest pain trend increases or troponins increase, will consider discussed with cardiology and proceed with coronary angiogram -For now plan on cardiac echo, stress test -Full code -Lovenox for DVT prophylaxis Attestations Medical Necessity Statement*: Patient requires hospitalization, outpatient observation, for chest pain Coding Level of Care Code Acute Lead Ramp Agent for [facility] Fwd Exam Comprehensive Diagnoses Chest pain R07.9 Ischemic chest pain type: unspecified angina pectoris type
--- NOTE | 2022-05-03 23:35 | ECG_ITS ---
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 Measurements Intervals [place] Rate: 69 P: 59 [place]: 230 QRS: -39 QRSD: 77 T: 57 QT: 373 QTc: 402 Interpretive Statements SINUS RHYTHM WITH FIRST DEGREE AV BLOCK LEFT AXIS DEVIATION [QRS AXIS < -30] Compared to ECG 07/16/2021 21:27:49 Left-axis deviation now present Myocardial infarct finding no longer present Electronically Signed On 05-04-2022 20:46:54 CDT by Will Gallego M.D. [email or web address] Managementcentin[facility].[email or web address]/[id number]
[2022-05-03 23:47] VITALS: PULSE 63; O2SAT 98
[2022-05-03 23:50] VITALS: BP 119/70; PULSE 63; RESP 18; O2SAT 98
[2022-05-04] VITALS (39 sets, daily range): BP systolic 99–167; BP diastolic 56–79; PULSE 57–79; RESP 1–32; TEMP 36.1–36.7; O2SAT 94–98
[2022-05-04 00:52] LABS: Chol HDL Ratio 2.61 mg/dL (1.0-5.00); Cholesterol 141 mg/dL (0-200); LDL Cholesterol Calculated 71 mg/dL (50-129); LDL HDL Ratio 1.31 RATIO (0.00-3.22); Thyroid Stimulating Hormone 2.14 uIU/mL (0.27-4.20); Triglycerides 82 mg/dL (0-150)
[2022-05-04] MEDS: enoxaparin 40 mg/0.4 mL Syringe SUBCUT ×2 (00:57→19:58)
[2022-05-04 01:18] LABS: Troponin 5 2HR 17.59 ng/L (0-15)
[2022-05-04 01:29] LABS: Troponin 5 2HR Delta -5.41 ABS# (0-10)
[2022-05-04 01:45] LABS: Estmated Average Glucose 134; Hemoglobin A1C 6.3 % (4.0-6.0)
[2022-05-04 02:47] LABS: HDL Cholesterol 54 mg/dL (60-100)
[2022-05-04 03:07] LABS: Basophils # 0.1 10^3/uL (0.0-0.1); Basophils % 0.9 %; Eosinophils # 0.1 10^3/uL (0.0-0.8); Eosinophils % 1.3 %; Hematocrit 41.8 % (42.0-52.0); Hemoglobin 13.8 g/dL (11.7-16.6); Mean Corpuscular Volume 93.9 fl (80-94); Mean Platelet Volume 10.2 fL (7.4-10.4); Monocytes # 0.6 10^3/uL (0.2-0.9); Monocytes % 8.9 %; Neutrophils # 3.93 10^3/uL (1.8-7.7); Neutrophils % 58.5 %; Nucleated Red Blood Cells % 0 %; Platelet Count 219 10^3/cmm (130-400); Red Blood Count 4.45 10^6/uL (4.1-5.3); Red Cell Distribution Width 12.6 % (12.1-15.1); White Blood Count 6.7 10^3/uL (4.0-10.0)
--- NOTE | 2022-05-04 03:16 | ECG_ITS ---
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 Measurements Intervals [place] Rate: 71 P: 51 [place]: 259 QRS: -28 QRSD: 94 T: 65 QT: 367 QTc: 401 Interpretive Statements SINUS RHYTHM WITH FIRST DEGREE AV BLOCK WITH OCCASIONAL SUPRAVENTRICULAR PREMATURE COMPLEXES BORDERLINE LEFT AXIS DEVIATION [QRS AXIS < -20] Compared to ECG 05/03/2022 23:35:05 No significant changes Electronically Signed On 05-04-2022 20:47:06 CDT by Will Gallego M.D. [email or web address].[email or web address]/[id number]
[2022-05-04 03:24] LABS: Troponin 5 6HR 17.81 ng/L (0-15); Troponin 5 6HR Delta -5.19 ng/L (0-12)
[2022-05-04 03:35] LABS: Anion Gap 11.9 (5-19); Blood Urea Nitrogen 15 mg/dL (8-23); Calcium 9.6 mg/dL (8.5-10.5); Carbon Dioxide 29 mmol/L (22-29); Chloride 99 mmol/L (98-107); Glucose 125 mg/dL (65-115); NT Pro B Type Natriuretic Pept 133 pg/mL (0-450); Osmolality Calculated 284 mOsm/kg (285-295); Potassium 3.9 mmol/L (3.5-5.1); Sodium 136 mmol/L (136-145)
[2022-05-04 06:22] LABS: Glucose Point of Care 104 mg/dL (70-110)
[2022-05-04 08:42] LABS: D Dimer 0.33 ug/mIFEU (0-0.59)
[2022-05-04] MEDS: nitroglycerin 0.4 mg sublingual Tablet SUBLINGUAL (08:44)
--- NOTE | 2022-05-04 08:54 | PC.NURSE ---
Patient given 0.4mg of nitro at 0849 am for chest pain. One nitro relieved pain.
[2022-05-04] MEDS: morphine 4 mg/mL SDV 1 mL 2 MG IVP (09:27)
--- NOTE | 2022-05-04 09:31 | PC.NURSE ---
2mg of morphine given due to severe pain in legs. Patient believes it is due to dehydration.
[2022-05-04] MEDS: lisinopril 10 mg Tablet PO (09:56)
[2022-05-04] MEDS: aspirin 81 mg EC Tablet PO (09:56)
[2022-05-04] MEDS: atorvastatin 40 mg Tablet PO (09:56)
[2022-05-04] MEDS: pantoprazole DR 40 mg Tablet PO (09:57)
[2022-05-04] MEDS: clopidogrel 75 mg Tablet PO (09:57)
[2022-05-04] MEDS: sodium chloride 0.9% 1,000 ML 50 ML IV (10:09)
--- NOTE | 2022-05-04 10:09 | PC.PHAR ---
pt states he takes care of his own medications-pt states he is not taking prilosec 20mg bid rx filled 04/17/22 90ds
--- NOTE | 2022-05-04 11:05 | PM.CONSULT ---
Providers/Reason For Consult Consulting Physician/Specialty*: Braulio Clemente MD/Cardiology Reason for Consult*: Unstable angina Requesting Physician: Dr Castle Attending Physician: Chuy Sam MD Primary Care Provider: Jl Felix MD History of Present Illness History of Present Illness John Valadez is a 82 year old male with past medical history of CAD with multiple PCI's in the past, hyperlipidemia and hypertension was presented with chest pain. It started about 2 to 3 days back. It worsened yesterday and he came to the hospital. Initially started on the right side however now it is substernal. Also radiates to the back between the shoulder blades. Still having it on and off. His troponins have been negative. EKG does not show ischemic changes. Review of Systems Const: Denies: fever(s) Card: Reports: chest pain Resp: Denies: dyspnea GI: Denies: abdominal pain : Denies: flank pain Medications/Allergies Home Medications Medication Instructions Recorded Confirmed Last Taken Type diazepam 5 mg tablet 2.5 mg PO BID PRN anxiety 06/17/20 05/04/22 08/21/20 History Sole Supports #1 ea 10/20/20 05/04/22 Unknown Rx pramipexole 0.25 mg tablet 0.5 mg PO QPM 12/25/20 05/04/22 Unknown History nitroglycerin 0.4 mg sublingual 0.4 mg sublingual Q5M PRN chest 03/25/21 05/04/22 Unknown Rx tablet (Nitrostat) pain #50 tabs metformin 500 mg tablet,extended 500 mg PO BID 07/15/21 05/04/22 Unknown History release 24 hr ketoconazole 2 % topical cream See Rx Instructions .Route .COMPLEX 11/17/21 05/04/22 Unknown History omega 2-tzu-ibc-fish oil 60 mg-90 1 cap PO DAILY 11/17/21 05/04/22 Unknown History mg-500 mg capsule (Fish Oil) lisinopril 20 mg tablet 10 mg PO QPM 12/14/21 05/04/22 Unknown History trazodone 150 mg tablet 75 mg PO BEDTIME 12/14/21 05/04/22 Unknown History ezetimibe 10 mg tablet 10 mg PO DAILY #90 tabs 01/12/22 05/04/22 Unknown Rx aspirin 81 mg tablet,delayed 81 mg PO QAM 05/04/22 05/04/22 Unknown History release clopidogrel 75 mg tablet 75 mg PO QAM 05/04/22 05/04/22 Unknown History docusate sodium 100 mg capsule 100 mg PO BID PRN Constipation 05/04/22 05/04/22 Unknown History hydrocodone 5 mg-acetaminophen 325 1 tab PO Q4H PRN Pain 05/04/22 05/04/22 Unknown History mg tablet metoprolol succinate 25 mg 12.5 mg PO QAM 05/04/22 05/04/22 Unknown History tablet,extended release 24 hr promethazine 25 mg tablet 25 mg PO Q6H PRN Nausea And 05/04/22 05/04/22 Unknown History Vomiting simvastatin 80 mg tablet 80 mg PO BEDTIME 05/04/22 05/04/22 Unknown History Allergies Allergy/AdvReac Type Severity Reaction Status Date / Time ciprofloxacin [From Cipro] Allergy Unknown unknown Verified 05/04/22 09:37 doxycycline Allergy Unknown hives Verified 05/04/22 09:37 Current Medications Generic Name Dose Route Start Last Admin Trade Name Freq PRN Reason Stop Dose Admin Aspirin 81 mg 05/04/22 09:00 05/04/22 09:56 Aspirin 81 Mg Ec Tablet PO 81 mg DAILY MARNI Administration Atorvastatin Calcium 40 mg 05/04/22 09:00 05/04/22 09:56 Atorvastatin 40 Mg Tablet PO 40 mg DAILY MARNI Administration Clopidogrel Bisulfate 75 mg 05/04/22 09:00 05/04/22 09:57 Clopidogrel 75 Mg Tablet PO 75 mg DAILY MARNI Administration Enoxaparin Sodium 40 mg 05/03/22 23:24 05/04/22 00:57 Enoxaparin 40 Mg/0.4 Ml Syringe SUBCUT 40 mg Q24H MARNI Administration Sodium Chloride 1,000 mls @ 50 mls/hr 05/04/22 10:15 05/04/22 10:09 Sodium Chloride 0.9% IV 50 mls/hr .Q20H MARNI Administration Insulin Human Lispro 0 unit 05/04/22 08:00 05/04/22 07:30 Insulin Lispro 100 Unit/1 Ml SUBCUT Not Given TIDWM [facility] Protocol Lisinopril 10 mg 05/04/22 09:00 05/04/22 09:56 Lisinopril 10 Mg Tablet PO 10 mg DAILY MARNI Administration Morphine Sulfate 2 mg 05/03/22 23:39 05/04/22 09:27 Morphine 4 Mg/Ml Sdv 1 Ml IVP 2 mg Q4H PRN Administration SEVERE PAIN Nitroglycerin 0.4 mg 05/03/22 23:24 05/04/22 08:44 Nitroglycerin 0.4 Mg Sublingual Tablet SUBLINGUAL 0.4 mg Q5M PRN Administration chest pain Pantoprazole Sodium 40 mg 05/04/22 09:00 05/04/22 09:[address] 40 Mg Tablet PO 40 mg DAILY MARNI Administration PFSH Acute PFSH: Medical History Abnormal stress echo Acquired bilateral hammer toes Aortic atherosclerosis Atherosclerosis of coronary artery of [place] heart CAD (coronary artery disease) Chest pain Chronic prostatitis Dyspnea Hyperlipidemia LDL was 80s, HDL 60 Hypertension Leg cramps Wan's neuroma of both feet Renal calculus Surgical History H/O arthroscopy of knee H/O thumb surgery History of back surgery History of foot surgery History of hernia surgery History of PTCA S/P extracorporeal shock wave therapy Family History Brother CAD (coronary artery disease) Lung disease Family/Other CAD (coronary artery disease) Cancer Grandfather Stroke Cancer Mother , at age 81 Diabetes Father , at age 87 Diabetes Stroke Denies family history of Clotting disorder Dementia Chronic kidney disease (CKD) Suicide Anesthesia complication Bleeding disorder Social History Smoking and tobacco status: former smoker Alcohol intake: current Alcohol intake frequency: holidays/special occasions only Alcohol type: wine Marital status: Current occupational status: retired History of recent travel: No Vitals/I&O/Wt Last Vital Signs Temp 98.1 F 05/04/22 11:01 Pulse 64 05/04/22 11:01 Resp 18 05/04/22 11:01 BP 123/71 05/04/22 11:01 Pulse Ox 94 05/04/22 11:01 O2 Del Method 05/04/22 07:13 05/03/22 05/04/22 05/04/22 22:59 06:59 14:59 Output Total 480 / 480 250 / 250 Balance -480 / -480 -250 / -250 Weight last 48 hrs Weight 160 lb Physical Exam Const: COMMON NORMALS: no acute distress, patient oriented x3 and alert Eye: COMMON NORMALS: Equal, round and reactive pupils present PUPIL: Yes Equal, round and reactive pupils present Resp: COMMON NORMALS: normal respiratory effort and clear to auscultation bilaterally AUSCULTATION: clear to auscultation bilaterally Cardio: COMMON NORMALS: regular rate, regular rhythm, S1 normal heart sound present and S2 normal heart sound present RATE: regular rate RHYTHM: regular rhythm HEART SOUNDS: S1 normal heart sound present and S2 normal heart sound present Extremity: COMMON NORMALS: normal to inspection Neuro: COMMON NORMALS: patient oriented x3 SENSORIUM/ORIENTATION: Yes alert Data : 05/05/22 02:24 05/05/22 02:24 A&P Assessment and plan (1) Unstable angina: Status: Acute (2) Dyslipidemia: Status: Acute (3) Hyperlipidemia: Status: Acute Qualifiers: Hyperlipidemia type: mixed hyperlipidemia Qualified Code(s): E78.2 - Mixed hyperlipidemia Plan Patient has presented with worsening chest pain symptoms. Given his significant CAD with multiple stents in the past, we will proceed with coronary angiogram with possible PCI. Risks and benefits of the procedure have been discussed with the patient. Continue aspirin and Plavix. Thank you for involving us with care of this patient. We will continue to follow. Please call with questions. Consult Attestations Medical Necessity Statement: Care expected to cross 2 midnights. 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
--- NOTE | 2022-05-04 11:06 | XACV_ITS ---
Exam Room: [facility] Ht: 74 cm Wt: 73 kg BSA: 1.34 m2 Gender: Male : 1940 Any Known Allergies: Other Exam Priority: Routine Procedure(s): Procedure Description: Diagnostic procedure Procedure Description: Left Heart Catheterization Procedure Description: Coronary Angiography Procedure Description: Pressure Wire Diagnostic Cath Status: Urgent Diagnostic Findings * Left main artery: Patent LAD: Has luminal irregularities however no significant stenosis. Patent prior stents. Left circumflex artery: Proximally has 50% stenosis. RCA: Has multiple stents that are patent. Distal stent has 20 to 30% in-stent restenosis.. * INDICATION: 82 year old male with past medical history of CAD with multiple PCI's in the past, hyperlipidemia and hypertension was presented with chest pain. It started about 2 to 3 days back. It worsened yesterday and he came to the hospital. Initially started on the right side however now it is substernal. Also radiates to the back between the shoulder blades. Still having it on and off. His troponins have been negative. EKG does not show ischemic changes. * Coronary angiography shows right dominance. Interventional Findings * It was aProcedure detail:XB 3.5 guide catheter was used to engage left main artery. IV heparin was used to maintain ACT above 250 S. After normalization we advanced IFR wire into distal left circumflex artery. IFR value of 0.97 was obtained. It was nonischemic. At this time guidewire and guide catheter were removed. Patient left the Equipment Driver in a stable condition.. Conclusions 1. Left main artery: Patent LAD: Has luminal irregularities however no significant stenosis. Patent prior stents. Left circumflex artery: Proximally has 50% stenosis. RCA: Has multiple stents that are patent. Distal stent has 20 to 30% in-stent restenosis.. 2. Nonischemic IFR value of 0.97 for proximal left circumflex artery. Recommendations * Aggressive risk factor modification. * Continue dual antiplatelet therapy. * As patient continues having chest discomfort, can add Ranexa. * Outpatient cardiology follow-up. Interventional RX Recommendation: medical therapy and/or counseling Pressures Phase:Rest AO : 72 / 46 ( 60 ) @ 12:37:00 PM 69 / 44 ( 57 ) @ 12:37:00 PM 91 / 50 ( 70 ) @ 12:40:00 PM 123 / 66 ( 89 ) @ 12:48:00 PM 120 / 62 ( 88 ) @ 12:58:00 PM 123 / 62 ( 87 ) @ 12:58:00 PM LV : 121 / -2 / 18 @ 12:58:00 PM 124 / -3 / 17 @ 12:58:00 PM Valves Phase:DefaultPhase AV : 3.0 @ 12:04:02 PM AV Mean Gradient: 15.0 @ 12:04:02 PM Clinical Evaluation EBL: 5mL-10mL Procedural Details Pre-Procedure Time Out. Identified patient by full name and date of as verbalized by the patient/guarantor. Does the consent match the physician's order: Yes. Accurate & Complete Informed Consent: Yes. Inpatient/Outpatient History & Physical on Chart: Yes. If H&P is completed, is and addenduem needed: No; If yes, is the addendum complete: N/A. Visualize and Verify Site with Patient/Guarantor: N/A. Relevant Radiology Images available: Yes. Pre-op teaching completed and patient verbalized understanding. The risks, benefits, and alternatives of sedation and/or procedure were discussed by physician. The patient agrees to continue. Procedure started. [facility] Clinical Fraility Score: 3: Managing Well. Equipment Driver Indications: ACS > 24 hours. Chest Pain Symptom Assessment: Atypical Angina. Correct patient, site and procedure confirmed by cath team. Current diagnosis: Chest Pain. PERRLA. Strong, equal hand electric container tester bilaterally. Lungs clear x 5 lobes. IV Site on Arrival: 18 gauge in the right anticubital. IV Fluids: 0.9% NaCl at KVO. 0 mL infused prior to tag and label cutter. Oxygen started at 2liters/min via nasal canula. right groin was prepped with chloroprep then draped in the usual sterile fashion. right radial was prepped with chloroprep then draped in the usual sterile fashion. Baseline sample Acquired. HR: 65 BPM. Physician arrived. Physician scrubbed in. Immediate Pre-Procedure Time Out. Correct Patient: Yes; Correct Procedure: Yes; Correct Site: Yes; Correct Patient Position: Yes; Correct Supplies: Yes; Dried Flammable Prep: Yes; Blood Products Available: N/A;. Lidocaine 1% infiltrated to the right radial. Arterial access obtained. Wire unable to advance. Wire and needle removed. Arterial access obtained. A 5 [place] TIG catheter in over wire. Multiple views taken of left coronary artery. Catheter redirected to the RCA. Multiple views taken of right coronary artery. Cori Locke in for Jagdish Velasquez. Physician review of cine films. Catheter removed over the exchange wire. 6 [place] XB 3.5 guide catheter was inserted over the wire. IFR guidewire was advanced through the guide catheter to lesion in the prox Circ. IFR Results: 0.97. Wire out. Guide catheter out. A 5 [place] TIG catheter in over wire. EDP Sample taken: LV 121/-3,18; HR: 65 BPM; SpO2: 97%. Pullback taken: LV 124/-3,17; AO 120/62(88); Mean: 15mmHg, Peak to Peak: 3mmHg, SEP: 6sec/min; HR: 64 BPM; SpO2: 97%. Catheter removed over the exchange wire. A TR Band was successful obtaining hemostatsis at the Right Radial artery insertion site. Post Procedure: Pulses reassessed and unchanged. PERRLA. Strong, equal hand electric container tester bilaterally. No VTE prophylaxis required. Medication's Wasted: Lidocaine 1% = 2 mL. Medication's Wasted: Nitro = 49.8 mg. Medication's Wasted: Heparin = 4000 units. Total IV fluids: 39 mL. Complications: None. Estimated blood loss: 5mL-10mL. Responsiveness - Normal response to verbal stimuli; alert and oriented, PERRLA. Airway - Unaffected, no intervention required; spontaneous ventilation. Circulation: W/N/L, pulses unchanged. Nausea/Vomiting: No. Procedure completed. Patient transferred by wheelchair to [facility]. Vital chart was stopped. Access Site Site: Right Radial artery Sheath Size: 6 Fr Hemostasis Method: TR Band Hemostasis Success: Successful Procedure Medications Start: 11:29 AM Stop: : AM Medication: Versed Amount: 1 mg Route: I.V. Start: 11:30 AM Stop: 11:30 AM Medication: Fentanyl Amount: 50 mcg Route: I.V. Start: 11:31 AM Stop: 11: AM Medication: Versed Amount: 1 mg Route: I.V. Start: 11: AM Stop: 11: AM Medication: Fentanyl Amount: 50 mcg Route: I.V. Start: 11:34 AM Stop: 11:34 AM Medication: Nitrogylcerin Amount: 200 mcg Route: I.A. Start: 11:35 AM Stop: 11:35 AM Medication: Heparin Amount: 5000 units Route: I.V. Start: 11:45 AM Stop: 11:45 AM Medication: Heparin Amount: 2000 units Route: I.V. I, the attending physician, have reviewed and verified all procedure medications. Yes, all medications given per verbal order History/Risk Factors Hypertension: Yes Dyslipidemia: No Peripheral Arterial Disease (PAD): No Myocardial Infarction (AR): No Obesity: No Renal Disease: No Prior Interventions PCI: Yes CABG: No Valve Surgery: No Date of PCI: 07/15/2021 Report Signatures Finalized by Braulio Clemente MD on 05/15/2022 11:43 PM
--- NOTE | 2022-05-04 11:23 | W.PM.OPSUD ---
Surgery/Procedure H&P Update DATE OF PROCEDURE: May 04, 2022 DATE H&P PERFORMED: 05/04/22 H&P UPDATE INFORMATION: I have reviewed H&P completed within last 30 days, I have examined patient prior to procedure and No changes to prior documentation PREOP DIAGNOSIS: Worsening angina PRIMARY INDICATION FOR PROCEDURE: Worsening angina PLANNED PROCEDURE: Left heart cath with possible percutaneous coronary intervention PATIENT REASSESSED PRIOR TO SEDATION, WITH NO CHANGE NOTED: Yes PHYSICAL EXAM: alert, oriented x 3, clear to auscultation bilaterally and regular rate & rhythm AIRWAY EVAL/ANESTHESIA PLAN: ASA III, Local Anesthesia, Risks, benefits & alternatives of sedation and/or procedure discussed and Patient agrees to continue as planned ADDITIONAL INFORMATION: Moderate sedation
--- NOTE | 2022-05-04 11:30 | PC.NURSE ---
off unit to lab analyst
--- NOTE | 2022-05-04 11:48 | P.PN_ITS ---
Subjective Subjective: That stress test was ordered I have canceled it because he is complaining of chest pain 5/[address] Have [address] assembler knife Dr. Clemente He is n.p.o. Chest pain 5/10 Normal saline has been initiated Vitals/I&O/Wt Last Vital Signs Temp 98.1 F 05/04/22 11:01 Pulse 64 05/04/22 11:01 Resp 18 05/04/22 11:01 BP 123/71 05/04/22 11:01 Pulse Ox 94 05/04/22 11:01 O2 Del Method 05/04/22 07:13 05/03/22 05/04/22 05/04/22 22:59 06:59 14:59 Output Total 480 / 480 250 / 250 Balance -480 / -480 -250 / -250 Weight last 48 hrs Weight 72.575 kg Physical Exam Narrative: S1, S2 Looks euvolemic 5/10 dull pain Awake and alert Currently on room air Family at the bedside Abdomen soft Nonfocal neuro exam Data : 05/04/22 02:56 05/04/22 02:56 A&P Assessment and plan (1) Chest pain: Status: Acute Qualifiers: Ischemic chest pain type: unspecified angina pectoris type (2) Cervical spondylosis with radiculopathy: Status: Acute (3) Chronic prostatitis: Status: Acute (4) Sacroiliac dysfunction: Status: Acute (5) Lumbar stenosis with neurogenic claudication: Status: Acute (6) Unstable angina: Status: Acute Plan Unstable angina Cardiology consulted He is n.p.o. He will go for angiogram Normal saline has been initiated N.p.o. DVT prophylaxis on board Continue dual antiplatelet therapy Dull pain 5/10 He was given 1 dose of nitroglycerin in the morning Hemodynamically stable Dr. 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
[2022-05-04] MEDS: sodium chloride 0.9% 1,000 ML 75 ML IV (12:30)
[2022-05-04 12:44] LABS: Glucose Point of Care 125 mg/dL (70-110)
--- NOTE | 2022-05-04 14:30 | PC.NURSE ---
pt started to ooze when removing another 3cc of air out of the TR band. applied 5 cc of air back in TR band. no new drainage noted. pt denies any pain on right arm. no hematoma, swelling. radial pulse is palpable+3. instructed pt and to notify nurse if any unusual bleeding noted. they both verbalizes understanding.
[2022-05-04 16:26] LABS: Glucose Point of Care 258 mg/dL (70-110)
[2022-05-04] MEDS: insulin lispro 100 unit/1 mL SUBCUT (17:19)
[2022-05-04] MEDS: pramipexole 0.25 mg Tablet 0.5 MG PO (18:45)
[2022-05-04] MEDS: diazePAM 5 mg Tablet 2.5 MG PO (18:45)
--- NOTE | 2022-05-04 19:45 | PC.NURSE ---
TR band off at 1900 pm no hematoma, bleeding noted. pt denies any pain on right arm or wrist. instructed pt to tell nurse immediately for any unusual pain, swelling or bleeding to right arm. david light given.
[2022-05-04] MEDS: metoprolol succinate ER (24 HR) 25 mg Tablet 12.5 MG PO (19:58)
[2022-05-04] MEDS: trazodone 150 mg Tablet 75 MG PO (19:58)
[2022-05-04 20:26] LABS: Glucose Point of Care 116 mg/dL (70-110)
--- NOTE | 2022-05-04 22:57 | USCV_ITS ---
John Valadez Age: 82 Gender: M : 1940 Exam Date: 05/04/2022 01:08 Ordering Phys: Chuy Sam MD Technologist: MIKAYLA Exam Location: [facility] [place] Indication: shortness of breath x 1-2 weeks. History of a total of 9 cardiac stents beginning in 1999 BP: 119 / 70 HR: 72 Rhythm: Sinus Technical Quality: Adequate MEASUREMENTS (Male / Female) Normal Values 2D ECHO LV Diastolic Diameter PLAX 3.6 cm 4.2 - 5.9 / 3.9 - 5.3 cm LV Systolic Diameter PLAX 2.3 cm IVS Diastolic Thickness 1.2 cm 0.6 - 1.0 / 0.6 - 0.9 cm IVS Systolic Thickness 2.0 cm LVPW Diastolic Thickness 1.4 cm 0.6 - 1.0 / 0.6 - 0.9 cm LVPW Systolic Thickness 1.6 cm LVOT Diameter 1.8 cm LV Ejection Fraction 2D Teich 68.1 % LV Ejection Fraction MOD 2C 55.6 % LV Ejection Fraction 2C AL 56.2 % LA Diameter 2.6 cm LA Width 3.6 cm LA Height 3.7 cm RA Width 3.4 cm RA Height 4.9 cm Aorta at Sinotubular Diameter 2.6 cm IVC Diameter 1.2 cm M-MODE Aortic Annulus Diameter 2.9 cm LA Ao Ratio MM 0.9 MV E Point Septal Separation 0.3 cm DOPPLER AV Peak Velocity 137.0 cm/s LVOT Peak Velocity 74.0 cm/s AV Area Cont Eq vti 1.6 cm squared AV Area Cont Eq pk 1.5 cm squared MV Area PHT 3.3 cm squared Mitral E to A Ratio 0.8 MV E' Velocity 30.0 cm/s Mitral E to MV E' Ratio 8.6 Mitral E to LV E' Lateral Ratio 8.0 Mitral E to LV E' Septal Ratio 9.5 TR Peak Velocity 269.3 cm/s TR Peak Gradient 29.0 mmHg TV Peak E Velocity 34.0 cm/s Right Atrial Pressure 5.0 mmHg Pulmonary Artery Systolic Pressu 34.0 mmHg PV Peak Velocity 111.0 cm/s FINDINGS Left Ventricle Mild left ventricular hypertrophy. No regional wall motion abnormalities. Normal left ventricular size and systolic function, EF 59 %. Grade I/IV diastolic dysfunction (abnormal relaxation filling pattern), normal to mildly elevated filling pressures. Right Ventricle The right ventricle is normal in size and function. Right Atrium Mildly increased right atrial size. Left Atrium The left atrium is normal in size. Mitral Valve Thickened mitral valve. Mild mitral annular calcification. Aortic Valve Thickened aortic valve. Mild aortic valve regurgitation. Tricuspid Valve Moderate tricuspid valve regurgitation. Pulmonic Valve Moderate pulmonary valve regurgitation. Pericardium Normal pericardium without effusion. Aorta Normal aortic annulus size. IVC Normal inferior vena cava. CONCLUSIONS Mild left ventricular hypertrophy. No regional wall motion abnormalities. Normal left ventricular size and systolic function, EF 59 %. Grade I/IV diastolic dysfunction (abnormal relaxation filling pattern), normal to mildly elevated filling pressures. Mildly increased right atrial size. Thickened mitral valve. Mild mitral annular calcification. Thickened aortic valve. Mild aortic valve regurgitation. Moderate tricuspid valve regurgitation. Estimated pulmonary artery peak systolic pressure 34 mmHg Moderate pulmonary valve regurgitation. There is no pericardial effusion. There are no intracardiac masses. Compared to the study from 01/28/2021, there may not be a significant change Dr Will Gallego MD FACC (Electronically Signed) Final Date: 05 May 2022 21:43 S
[2022-05-05] VITALS: BP 102/58; PULSE 55; RESP 18; TEMP 36.5; O2SAT 98
[2022-05-05 02:53] LABS: Basophils # 0.1 10^3/uL (0.0-0.1); Basophils % 0.7 %; Eosinophils # 0.2 10^3/uL (0.0-0.8); Eosinophils % 2.2 %; Hematocrit 42.1 % (42.0-52.0); Hemoglobin 14.3 g/dL (11.7-16.6); Lymphocytes # 1.6 10^3/uL (0.8-4.8); Lymphocytes % 23.2 %; Mean Corpuscular Hemoglobin 31.2 pg (28.0-34.0); Mean Corpuscular Volume 91.9 fl (80-94); Mean Platelet Volume 10.5 fL (7.4-10.4); Monocytes # 0.6 10^3/uL (0.2-0.9); Monocytes % 8.8 %; Neutrophils % 64.5 %; Nucleated Red Blood Cells % 0 %; Platelet Count 224 10^3/cmm (130-400); Red Blood Count 4.58 10^6/uL (4.1-5.3); Red Cell Distribution Width 12.4 % (12.1-15.1)
[2022-05-05 03:33] LABS: Anion Gap 12.1 (5-19); Blood Urea Nitrogen 15 mg/dL (8-23); Carbon Dioxide 27 mmol/L (22-29); Chloride 104 mmol/L (98-107); Glucose 115 mg/dL (65-115); NT Pro B Type Natriuretic Pept 272 pg/mL (0-450); Osmolality Calculated 290 mOsm/kg (285-295); Potassium 4.1 mmol/L (3.5-5.1); Sodium 139 mmol/L (136-145)
[2022-05-05 04:00] VITALS: BP 102/58; PULSE 60; RESP 18; TEMP 36.7; O2SAT 97
[2022-05-05 05:48] VITALS: PULSE 62
[2022-05-05 06:27] LABS: Glucose Point of Care 130 mg/dL (70-110)
[2022-05-05 07:57] VITALS: BP 126/67; PULSE 59; RESP 18; TEMP 36.4; O2SAT 95
[2022-05-05] MEDS: clopidogrel 75 mg Tablet PO (09:03)
[2022-05-05] MEDS: atorvastatin 40 mg Tablet PO (09:03)
[2022-05-05] MEDS: aspirin 81 mg EC Tablet PO (09:03)
[2022-05-05] MEDS: metoprolol succinate ER (24 HR) 25 mg Tablet 12.5 MG PO (09:03)
--- NOTE | 2022-05-05 09:06 | PM.PN ---
Subjective Subjective: Patient underwent coronary angiogram yesterday. Left circumflex artery had proximal moderate stenosis. iFR was nonischemic. Prior stents and other arteries were all patent. Patient has some chest discomfort at times. Vitals/I&O/Wt Last Vital Signs Temp 97.6 F 05/05/22 07:57 Pulse 59 L 05/05/22 07:57 Resp 18 05/05/22 07:57 BP 126/67 05/05/22 07:57 Pulse Ox 95 05/05/22 07:57 O2 Del Method 05/05/22 07:57 05/04/22 05/05/22 05/05/22 22:59 06:59 14:59 Intake Total 2411 / 2651 480 / 3131 Output Total 1450 / 1700 Balance 2411 / 2401 -970 / 1431 Weight last 48 hrs Weight 160 lb Physical Exam Const: COMMON NORMALS: no acute distress, patient oriented x3 and alert Eye: COMMON NORMALS: Equal, round and reactive pupils present PUPIL: Yes Equal, round and reactive pupils present Resp: COMMON NORMALS: normal respiratory effort and clear to auscultation bilaterally AUSCULTATION: clear to auscultation bilaterally Cardio: COMMON NORMALS: regular rate, regular rhythm, S1 normal heart sound present and S2 normal heart sound present RATE: regular rate RHYTHM: regular rhythm HEART SOUNDS: S1 normal heart sound present and S2 normal heart sound present Extremity: COMMON NORMALS: normal to inspection Neuro: COMMON NORMALS: patient oriented x3 SENSORIUM/ORIENTATION: Yes alert Data : 05/05/22 02:24 05/05/22 02:24 A&P Assessment and plan (1) Unstable angina: Status: Acute (2) Dyslipidemia: Status: Acute (3) Hyperlipidemia: Status: Acute Qualifiers: Hyperlipidemia type: mixed hyperlipidemia Qualified Code(s): E78.2 - Mixed hyperlipidemia Plan Patient coronary angiogram did not reveal significant CAD. iFR was negative for moderate left circumflex artery stenosis. Medical therapy. He did not tolerate Imdur in the past. Can start on Pradaxa 500 mg twice daily. Thank you for involving us with care of this patient. Patient is stable to be discharged from cardiology standpoint. Please call with questions. 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
[2022-05-05] MEDS: diazePAM 5 mg Tablet 2.5 MG PO (09:36)
--- NOTE | 2022-05-05 10:11 | P.DS_ITS ---
Discharge Providers Date of Admission: 05/03/22 22:49 Date of Discharge: May 05, 2022 Attending Provider at Admission: Chuy Sam MD Attending Provider at Discharge: Chuy Sam MD Primary Care Provider: Jl Felix MD Diagnoses at Discharge Discharge Diagnosis (1) Unstable angina: Status: Acute (2) Dyslipidemia: Status: Acute (3) Hyperlipidemia: Status: Acute Qualifiers: Hyperlipidemia type: mixed hyperlipidemia Qualified Code(s): E78.2 - Mixed hyperlipidemia Permanent problem details: LDL was 80s, HDL 60 Reason for Visit Reason for Visit: C hest Pain Hospital Course Hospital Course 82-year-old male who has history of established coronary disease with 9 stents in the past, follows up with Dr. Gallego outpatient, presented with chief complaint of unstable angina. He was upset that a stress test was ordered requested by the admitting physician however this was canceled in the morning cardiology was consulted he went for coronary angiogram which did not show significant stenosis. EKG did not show significant ischemic or infarctive changes, sinus rhythm with first-degree AV block. Chest x-ray unremarkable. Patient is not complaining of chest pain at the time of discharge she is hemodynamically stable. BNP 272. He remained stable on room air no signs of tachycardia. He does get bradycardic, takes metoprolol at home. Dr. Menjivar has recommended Imdur 500 mg twice daily patient has not responded well to Imdur in the past. 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 echo complete* [id number] Stat Ultrasound 05/04/22 22:57 Taken Radiology Impressions Chest X-Ray 05/03/22 21:16 IMPRESSION: No acute findings. Laboratory Results WBC 7.0 10^3/uL (4.0-10.0) 05/05/22 02:24 RBC 4.58 10^6/uL (4.1-5.3) 05/05/22 02:24 Hgb 14.3 g/dL (11.7-16.6) 05/05/22 02:24 Hct 42.1 % (42.0-52.0) 05/05/22 02:24 MCV 91.9 fl (80-94) 05/05/22 02:24 MCH 31.2 pg (28.0-34.0) 05/05/22 02:24 MCHC 34.0 g/dL (30.0-36.0) 05/05/22 02:24 RDW 12.4 % (12.1-15.1) 05/05/22 02:24 Plt Count 224 10^3/cmm (130-400) 05/05/22 02:24 MPV 10.5 fL (7.4-10.4) H 05/05/22 02:24 Neut % (Auto) 64.5 % 05/05/22 02:24 Lymph % (Auto) 23.2 % 05/05/22 02:24 [place]bour % (Auto) 8.8 % 05/05/22 02:24 Eos % (Auto) 2.2 % 05/05/22 02:24 Baso % (Auto) 0.7 % 05/05/22 02:24 Neut # (Auto) 4.50 10^3/uL (1.8-7.7) 05/05/22 02:24 Lymph # (Auto) 1.6 10^3/uL (0.8-4.8) 05/05/22 02:24 Barbour # (Auto) 0.6 10^3/uL (0.2-0.9) 05/05/22 02:24 Eos # (Auto) 0.2 10^3/uL (0.0-0.8) 05/05/22 02:24 Baso # (Auto) 0.1 10^3/uL (0.0-0.1) 05/05/22 02:24 Nucleated RBC % (auto) 0 % 05/05/22 02:24 Nucleated RBCs # 0.0 /100WBC 05/05/22 02:24 PT 13.50 SECONDS (12.1-14.9) 05/04/22 02:56 INR 1.00 (0.8-1.2) 05/04/22 02:56 D-Dimer 0.33 ug/mIFEU (0-0.59) 05/04/22 02:56 Sodium 139 mmol/L (136-145) 05/05/22 02:24 Potassium 4.1 mmol/L (3.5-5.1) 05/05/22 02:24 Chloride 104 mmol/L (98-107) 05/05/22 02:24 Carbon Dioxide 27 mmol/L (22-29) 05/05/22 02:24 Anion Gap 12.1 (5-19) 05/05/22 02:24 BUN 15 mg/dL (8-23) 05/05/22 02:24 Creatinine 0.8 mg/dL (0.7-1.2) 05/05/22 02:24 GFR Calculation Not Reportable 05/05/22 02:24 Glucose 115 mg/dL (65-115) 05/05/22 02:24 POC Glucose 130 mg/dL (70-110) H 05/05/22 06:12 Estimat Average Glucose 134 05/03/22 21:18 Hemoglobin A1c 6.3 % (4.0-6.0) H 05/03/22 21:18 Calculated Osmolality 290 mOsm/kg (285-295) 05/05/22 02:24 Calcium 9.0 mg/dL (8.5-10.5) 05/05/22 02:24 Magnesium 2.0 mg/dL (1.7-2.3) 05/05/22 02:24 Total Bilirubin 0.5 mg/dL (0.15-1.2) 05/03/22 21:18 AST 19 U/L (0-40) 05/03/22 21:18 ALT 18 U/L (0-41) 05/03/22 21:18 Alkaline Phosphatase 36 U/L (40-130) L 05/03/22 21:18 Troponin T Baseline 23 ng/L (0-15) H 05/03/22 21:18 Troponin T 120 Minute 17.59 ng/L (0-15) H 05/03/22 00:47 Delta Troponin T -5.41 ABS# (0-10) L 05/03/22 00:47 Troponin T Hi Sens 6Hr 17.81 ng/L (0-15) H 05/04/22 02:56 Troponin T Hi Sens 6Hr Delta -5.19 ng/L (0-12) L 05/04/22 02:56 NT-Pro-B Natriuret Pep 272 pg/mL (0-450) 05/05/22 02:24 Total Protein 6.6 g/dL (6.6-8.7) 05/03/22 21:18 Albumin 4.2 g/dL (3.5-5.2) 05/03/22 21:18 Globulin 2.4 g/dL (1.3-4.6) 05/03/22 21:18 Triglycerides 82 mg/dL (0-150) 05/03/22 21:18 Cholesterol 141 mg/dL (0-200) 05/03/22 21:18 LDL Cholesterol, Calc 71 mg/dL (50-129) 05/03/22 21:18 HDL Cholesterol 54 mg/dL (60-100) L 05/03/22 21:18 LDL/HDL Ratio 1.31 RATIO (0.00-3.22) 05/03/22 21:18 Cholesterol/HDL Ratio 2.61 mg/dL (1.0-5.00) 05/03/22 21:18 TSH 2.14 uIU/mL (0.27-4.20) 05/03/22 21:18 SARS-CoV-2 Ag (Rapid) Negative (Negative) 05/03/22 21:30 Vitals Last Vital Signs Temp 97.6 F 05/05/22 07:57 Pulse 59 L 05/05/22 07:57 Resp 18 05/05/22 07:57 BP 126/67 05/05/22 07:57 Pulse Ox 95 05/05/22 07:57 O2 Del Method 05/05/22 07:57 Discharge Plan Discharge Patient Disposition: Home Condition: Stable Prescriptions: New ranolazine 500 mg tablet extended release 12 hr 500 mg PO BID Qty: 60 2RF Rx Instructions: Hold if heart rate below 60 Continued (DME) Sole Supports See Rx Instructions .ROUTE .MEDSUPPLY Qty: 1 0RF Rx Instructions: As directed lisinopril 20 mg tablet 10 mg PO QPM diazepam 5 mg tablet 2.5 mg PO BID PRN (Reason: anxiety) pramipexole 0.25 mg tablet 0.5 mg PO QPM ketoconazole 2 % cream See Rx Instructions .ROUTE .COMPLEX Rx Instructions: Apply to red, scaly areas on face 1-2 times daily prn omega [id number] oil [Fish Oil] 60-90-500 mg capsule 1 cap PO DAILY nitroglycerin [Nitrostat] 0.4 mg tablet, sublingual 0.4 mg sublingual Q5M PRN (Reason: chest pain) Qty: 50 5RF Rx Instructions: do not exceed 3 doses per episode ezetimibe 10 mg tablet 10 mg PO DAILY Qty: 90 2RF trazodone 150 mg tablet 75 mg PO BEDTIME metformin 500 mg tablet extended release 24 hr 500 mg PO BID Hold Instructions: Resume on 07/20/21. hydrocodone-acetaminophen 5-325 mg tablet 1 tab PO Q4H PRN (Reason: Pain) clopidogrel 75 mg tablet 75 mg PO QAM simvastatin 80 mg tablet 80 mg PO BEDTIME Aspir-81 81 mg Tablet,Delayed Release (Dr/Ec) 81 mg PO QAM promethazine 25 mg tablet 25 mg PO Q6H PRN (Reason: Nausea And Vomiting) docusate sodium 100 mg capsule 100 mg PO BID PRN (Reason: Constipation) Held metoprolol succinate 25 mg tablet extended release 24 hr 12.5 mg PO QAM Hold Instructions: Resume on 05/10/22. Your heart rate has been below 60 please hold metoprolol succinate until you see Dr. Gallego Discharge Orders: Discharge Order (Routine); Ordered 05/05/22 Ordered By: Vikram Castle Referrals: Jl Felix MD [Primary Care Provider] - Patient Instructions: Opioid Safety Discharge Attestations Time Spent in Discharge Care*: less than 30 min Quality Metrics Clinical Quality Measures [ No reported AMI, CVA or VTE this stay] Coding Level of Care Code Acute Chg FW FL note Diagnoses Unstable angina I20.0 Dyslipidemia E78.5 Hyperlipidemia E78.2 Hyperlipidemia type: mixed hyperlipidemia
[2022-05-05 11:21] VITALS: BP 126/67; PULSE 59; RESP 18; TEMP 36.4; O2SAT 95
--- NOTE | 2022-05-05 11:23 | PC.NURSE ---
Discharge Note Patient discharged to home via ambulation accompanied by spouse. Discharge instructions reviewed with patient and/or passenger representative. Mobile pharmacy medications and/or prescriptions provided. Belongings/home medications returned.
== END 2022-05-05 11:00 | disposition home or self-care (01) ==
LOC: ER 22:49 → MEDSURG 23:16
PROVIDERS: Internal Medicine; Admitting Provider Family Medicine; Emergency Provider Student in an Organized Health Care Education/Training Program; PCP Family Medicine; Visit Provider Family Medicine
DX: I25.110 Atherosclerotic heart disease of native coronary artery with unstable angina pectoris (principal); E78.2 Mixed hyperlipidemia; Z95.5 Presence of coronary angioplasty implant and graft; I44.0 Atrioventricular block, first degree; M47.22 Other spondylosis with radiculopathy, cervical region; N41.1 Chronic prostatitis; M53.3 Sacrococcygeal disorders, not elsewhere classified; M48.062 Spinal stenosis, lumbar region with neurogenic claudication; Z79.82 Long term (current) use of aspirin; I10 Essential (primary) hypertension; Z87.891 Personal history of nicotine dependence; Z82.49 Family history of ischemic heart disease and other diseases of the circulatory system
CPT/HCPCS: 36415; 36416; 71045; 80048; 80053; 80061; 82962; 83036; 83735; 83880; 84443; 84484; 85025; 85378; 85610; 87426; 93005; 93306; 93458; 93571; 94664; 96360; 96361; 96372; 96374; 96375; 99152; 99153; 99285; C1769; C1887; C1894; G0378; J1644; J1650; J1815; J2250; J2270; J3010; J3490; J7030; Q9967

== ENCOUNTER → 2022-05-18 08:44 | Outpatient (BNVA) | payer MEDICARE, OTHER, SELFPAY | PROVIDERS: PCP Family Medicine; Visit Provider Nurse Practitioner Family | DX: I25.10 Atherosclerotic heart disease of native coronary artery without angina pectoris (principal); I10 Essential (primary) hypertension; Z87.891 Personal history of nicotine dependence; R07.9 Chest pain, unspecified | CPT/HCPCS: 36415; 80048; 99214 ==

== ENCOUNTER → 2022-06-16 10:59 | Outpatient (BNVA) | payer MEDICARE, OTHER, SELFPAY | PROVIDERS: PCP Family Medicine; Visit Provider Internal Medicine Cardiovascular Disease | DX: I25.118 Atherosclerotic heart disease of native coronary artery with other forms of angina pectoris (principal); I36.1 Nonrheumatic tricuspid (valve) insufficiency; R25.2 Cramp and spasm; I10 Essential (primary) hypertension; E78.5 Hyperlipidemia, unspecified | CPT/HCPCS: 99214 ==

== ENCOUNTER 2022-07-06 07:57 | Outpatient (CLI) | payer MEDICARE, OTHER, SELFPAY ==
--- NOTE | 2022-07-06 08:13 | XRR_ITS ---
PROCEDURE INFORMATION: Exam: XR Abdomen Exam date and time: 07/06/2022 8:28 AM Age: 82 years old Clinical indication: Condition or disease; Kidney or ureter condition; Calculus (stone) in kidney; Prior surgery; Surgery type: Gb; Additional info: Urolithiasis, anali @ [facility] 07/06/22 @ 0800 appointment to follow TECHNIQUE: Imaging protocol: Radiologic exam of the abdomen. Views: Frontal supine view of the abdomen. 1 View. COMPARISON: CR XR KUB [id number] 11/17/2021 7:04 AM FINDINGS: Gastrointestinal tract: Normal. No bowel dilation. Evidence of cholecystectomy is seen. Bones/joints: Orthopedic hardware with transpedicular screws and rods are in place L4-L5 and S1. Laminectomy defects are seen at the L5 level. The bones are otherwise unremarkable XR/XR KUB [id number] IMPRESSION: 1. No acute GI abnormality. 2. Laminectomy and surgical hardware lumbar spine 3. Cholecystectomy
== END 2022-07-06 07:58 | disposition home or self-care (01) ==
PROVIDERS: PCP Family Medicine; Visit Provider Urology
DX: N20.9 Urinary calculus, unspecified (principal); Z90.49 Acquired absence of other specified parts of digestive tract; M96.1 Postlaminectomy syndrome, not elsewhere classified; R33.8 Other retention of urine
CPT/HCPCS: 51798; 74018; 81003; 99213

== ENCOUNTER → 2022-07-13 13:49 | Outpatient (BNVA) | payer MEDICARE, OTHER, SELFPAY | PROVIDERS: PCP Family Medicine; Visit Provider Podiatrist Foot & Ankle Surgery | DX: M79.89 Other specified soft tissue disorders (principal) | CPT/HCPCS: 99214 ==

== ENCOUNTER 2022-08-26 08:10 | Emergency (ER) | payer MEDICARE, OTHER, SELFPAY ==
[2022-08-26 08:13] VITALS: BP 103/64; PULSE 91; RESP 16; TEMP 36.4; O2SAT 98; BMI 23.6
[2022-08-26 08:49] VITALS: BP 105/59; PULSE 78; RESP 16; O2SAT 95
--- NOTE | 2022-08-26 08:53 | PC.NURSE ---
111ML OF URINE IN BLADDER PER BLADDER SCANNER. PHYSICIAN INSTRUCTED TO HOLD PLACING CATHETER UNTIL FURTHER NOTICE.
[2022-08-26 09:03] LABS: Basophils % 0.2 %; Eosinophils % 0.3 %; Hematocrit 43.4 % (42.0-52.0); Lymphocytes % 6.4 %; Mean Corpuscular HGB Conc 34.6 g/dL (30.0-36.0); Mean Corpuscular Volume 92.5 fl (80-94); Mean Platelet Volume 10.3 fL (7.4-10.4); Monocytes # 0.9 10^3/uL (0.2-0.9); Monocytes % 5.6 %; Neutrophils # 13.35 10^3/uL (1.8-7.7); Neutrophils % 86.6 %; Nucleated Red Blood Cells % 0 %; Platelet Count 195 10^3/cmm (130-400); Red Blood Count 4.69 10^6/uL (4.1-5.3); Red Cell Distribution Width 12.6 % (12.1-15.1); White Blood Count 15.4 10^3/uL (4.0-10.0)
[2022-08-26 09:27] LABS: Alanine Aminotransferase 14 U/L (0-41); Albumin Level 3.5 g/dL (3.5-5.2); Alkaline Phosphatase 48 U/L (40-130); Anion Gap 15.3 (5-19); Aspartate Amino Transferase 12 U/L (0-40); Blood Urea Nitrogen 21 mg/dL (8-23); Carbon Dioxide 24 mmol/L (22-29); Chloride 94 mmol/L (98-107); Globulin 2.7 g/dL (1.3-4.6); Glucose 141 mg/dL (65-115); Osmolality Calculated 273 mOsm/kg (285-295); Potassium 4.3 mmol/L (3.5-5.1); Sodium 129 mmol/L (136-145); Total Bilirubin 0.9 mg/dL (0.15-1.2); Total Protein 6.2 g/dL (6.6-8.7)
[2022-08-26 09:28] LABS: Lactate (Lactic Acid level) 1.4 mmol/L (0.5-2.2)
[2022-08-26 09:29] LABS: Add Urine Microscopic? YES; Bacteria Urine TRACE /hpf; Bilirubin Urine Neg (Negative); Blood Urine Neg (Negative); Glucose Urine UA Norm (Normal); Ketones Urine 1+ (Negative); Leukocyte Esterase Urine Negative (Negative); Mucus Urine 2+ /hpf; Nitrate Urine Negative (Negative); Protein Urine Trace (Negative); RBC Urine 0-4 /hpf (0-2); Squamous Epithelial Cell Urine 0-4 /hpf (0-5); Urine Appearance Clear (CLEAR); Urine Color Yellow (Yellow); Urobilinogen Urine Norm (Negative); pH Urine 5 (5-7)
[2022-08-26 09:30] LABS: Add Urine Culture? Yes; Hyaline Casts Urine 0-4 /lpf
[2022-08-26 10:00] VITALS: BP 113/67; PULSE 71; RESP 16; O2SAT 95
--- NOTE | 2022-08-26 10:11 | W.ED.MALEGU ---
Documented by User: ROS Murillo 09/02/22 09:37 HPI - Male Genitourinary General: Chief complaint: Urogenital-Male Stated complaint: UTI Time Seen by Provider: 08/26/22 08:26 History of Present Illness: Difficulty urinating. He reports that he was diagnosed 3 days ago at [facility] with a urinary tract infection and started on nitrofurantoin. He reports that he is just not feeling well and he is having a very hard time urinating. He reports that in the past 24 hours he has drank probably 50 ounces of fluid and has maybe urinated 5 ounces of fluid. He reports that he has had some fever low-grade of 100 and chills. He denies any pain currently. He does report that he has a history of chronic prostatitis. He also has a history of renal stone but states that his x-ray in the fall did not show any stones at all. Associated symptoms: Deny nausea or vomiting Review of Systems Const: Reports: fever(s), chills and body aches Card: Denies: chest pain or palpitations Resp: Denies: dyspnea, productive cough or non-productive cough GI: Denies: abdominal pain, nausea or vomiting : Reports: urinary dribbling, difficulty starting urination, change in urine stream and oliguria Neuro: Denies: headache(s) [facility] ED PFSH: Medical History Abnormal stress echo Acquired bilateral hammer toes Aortic atherosclerosis Atherosclerosis of coronary artery of ambler heart Benign essential hypertension with target blood pressure below 140/90 CAD (coronary artery disease) Cervical spondylosis with radiculopathy Chest pain Chest pain Chronic prostatitis Dyslipidemia Dyspnea Hyperlipidemia LDL was 80s, HDL 60 Hypertension Leg cramps Lumbar stenosis with neurogenic claudication Wan's neuroma of both feet Renal calculus Sacroiliac dysfunction Unstable angina Surgical History H/O arthroscopy of knee H/O thumb surgery History of back surgery History of foot surgery History of hernia surgery History of PTCA S/P extracorporeal shock wave therapy Family History Brother CAD (coronary artery disease) Lung disease Family/Other CAD (coronary artery disease) Cancer Grandfather Stroke Cancer Mother , at age 81 Diabetes Father , at age 87 Diabetes Stroke Denies family history of Clotting disorder Dementia Chronic kidney disease (CKD) Suicide Anesthesia complication Bleeding disorder Social History Smoking and tobacco status: never smoked Alcohol intake: current Alcohol intake frequency: holidays/special occasions only Alcohol type: wine Marital status: Current occupational status: retired History of recent travel: No Physical Exam Const: COMMON NORMALS: no acute distress, patient oriented x3 and alert Neck/C-Spine: COMMON NORMALS: no JVD Resp: COMMON NORMALS: normal respiratory effort, No use of accessory muscles and clear to auscultation bilaterally AUSCULTATION: clear to auscultation bilaterally Cardio: COMMON NORMALS: no JVD, regular rate, regular rhythm, S1 normal heart sound present and S2 normal heart sound present RATE: regular rate RHYTHM: regular rhythm HEART SOUNDS: S1 normal heart sound present and S2 normal heart sound present GI: COMMON NORMALS: Normal to inspection, nondistended, normoactive bowel sounds present, Soft to palpation and non-tender PALPATION: Yes Soft to palpation : COMMON NORMALS: Yes no CVA tenderness BLADDER/KIDNEY EXAM: Yes no CVA tenderness Back/Pelvis: COMMON NORMALS: no CVA tenderness Neuro: COMMON NORMALS: patient oriented x3, moves all extremities and no focal motor deficits SENSORIUM/ORIENTATION: Yes alert Course Vital Signs: Vital signs: Vital Signs Temperature 97.6 F 08/26/22 08:13 Pulse Rate 84 08/26/22 11:30 Respiratory Rate 17 08/26/22 10:30 Blood Pressure 163/91 08/26/22 11:30 Pulse Oximetry 96 08/26/22 11:30 Oxygen Delivery Me thod 08/26/22 10:00 MDM - Male Medical Decision Making Differentials include urinary tract infection, pyelonephritis, prostatitis, sepsis White blood cell count is 15.4 lactic acid is 1.4. Patient is slightly hyponatremic with ketones in the urine. Urine negative for blood and nitrates. Patient was able to provide a urine sample although small amounts at a time. Bladder scan showed less than 200 mL in the bladder. Digital rectal exam was deferred due to concern for acute bacterial prostatitis with an elevated white blood cell count. Review of patient's chart shows the patient has been a patient of Dr. Seay for some time. He has been treated for chronic prostatitis. He can no longer take fluoroquinolones or doxycycline. Dr. Seay's note states that patient had initially been sensitive to Septra but that seemed to stop working for him as time went on. Most recently, Dr. Seay is ordered the patient Augmentin antibiotic which seemed effective. Normal saline fluid bolus administered today to help with dehydration. Start flomax. Stop nitrofurantoin start Augmentin medication twice daily for 10 days. I discussed case with Dr. Barnett and he agreed with work-up nd plan of care. Advised patient to make sure that he is staying well-hydrated. Follow-up with Dr. Seay. Return to the ER as needed for new or worsening symptoms or inability to urinate. Prior to discharge pt was able to almost fill the urinal and reported urine stream was improved Lab Data 08/26/22 08:35 08/26/22 08:35 Laboratory Results WBC 15.4 10^3/uL (4.0-10.0) H 08/26/22 08:35 RBC 4.69 10^6/uL (4.1-5.3) 08/26/22 08:35 Hgb 15.0 g/dL (11.7-16.6) 08/26/22 08:35 Hct 43.4 % (42.0-52.0) 08/26/22 08:35 MCV 92.5 fl (80-94) 08/26/22 08:35 MCH 32.0 pg (28.0-34.0) 08/26/22 08:35 MCHC 34.6 g/dL (30.0-36.0) 08/26/22 08:35 RDW 12.6 % (12.1-15.1) 08/26/22 08:35 Plt Count 195 10^3/cmm (130-400) 08/26/22 08:35 MPV 10.3 fL (7.4-10.4) 08/26/22 08:35 Neut % (Auto) 86.6 % 08/26/22 08:35 Lymph % (Auto) 6.4 % 08/26/22 08:35 [place] % (Auto) 5.6 % 08/26/22 08:35 Eos % (Auto) 0.3 % 08/26/22 08:35 Baso % (Auto) 0.2 % 08/26/22 08:35 Neut # (Auto) 13.35 10^3/uL (1.8-7.7) H 08/26/22 08:35 Lymph # (Auto) 1.0 10^3/uL (0.8-4.8) 08/26/22 08:35 [place] # (Auto) 0.9 10^3/uL (0.2-0.9) 08/26/22 08:35 Eos # (Auto) 0.0 10^3/uL (0.0-0.8) 08/26/22 08:35 Baso # (Auto) 0.0 10^3/uL (0.0-0.1) 08/26/22 08:35 Nucleated RBC % (auto) 0 % 08/26/22 08:35 Nucleated RBCs # 0.0 /100WBC 08/26/22 08:35 Sodium 129 mmol/L (136-145) L 08/26/22 08:35 Potassium 4.3 mmol/L (3.5-5.1) 08/26/22 08:35 Chloride 94 mmol/L (98-107) L 08/26/22 08:35 Carbon Dioxide 24 mmol/L (22-29) 08/26/22 08:35 Anion Gap 15.3 (5-19) 08/26/22 08:35 BUN 21 mg/dL (8-23) 08/26/22 08:35 Creatinine 0.9 mg/dL (0.7-1.2) 08/26/22 08:35 GFR Calculation Not Reportable 08/26/22 08:35 Glucose 141 mg/dL (65-115) H 08/26/22 08:35 Calculated Osmolality 273 mOsm/kg (285-295) L 08/26/22 08:35 Lactate 1.4 mmol/L (0.5-2.2) 08/26/22 08:55 Calcium 9.0 mg/dL (8.5-10.5) 08/26/22 08:35 Total Bilirubin 0.9 mg/dL (0.15-1.2) 08/26/22 08:35 AST 12 U/L (0-40) 08/26/22 08:35 ALT 14 U/L (0-41) 08/26/22 08:35 Alkaline Phosphatase 48 U/L (40-130) 08/26/22 08:35 Total Protein 6.2 g/dL (6.6-8.7) L 08/26/22 08:35 Albumin 3.5 g/dL (3.5-5.2) 08/26/22 08:35 Globulin 2.7 g/dL (1.3-4.6) 08/26/22 08:35 Urine Color Yellow (Yellow) 08/26/22 08:59 Urine Appearance Clear (CLEAR) 08/26/22 08:59 Urine pH 5 (5-7) 08/26/22 08:59 Ur Specific [place] 1.020 (1.005-1.030) 08/26/22 08:59 Urine Protein Trace (Negative) 08/26/22 08:59 Urine Glucose (UA) Norm (Normal) 08/26/22 08:59 Urine Ketones 1+ (Negative) H 08/26/22 08:59 Urine Blood Neg (Negative) 08/26/22 08:59 Urine Nitrate Negative (Negative) 08/26/22 08:59 Urine Bilirubin Neg (Negative) 08/26/22 08:59 Urine Urobilinogen Norm mg/dL (Negative) 08/26/22 08:59 Ur Leukocyte Esterase Negative (Negative) 08/26/22 08:59 Urine RBC 0-4 /hpf (0-2) H 08/26/22 08:59 Urine WBC 10-15 /hpf (0-5) H 08/26/22 08:59 Ur Squamous Epith Cells 0-4 /hpf (0-5) H 08/26/22 08:59 Amorphous Sediment Not Reportable 08/26/22 08:59 Urine Bacteria Trace /hpf (NONE) 08/26/22 08:59 Hyaline Casts 0-4 /lpf H 08/26/22 08:59 Urine Mucus 2+ /hpf 08/26/22 08:59 Discharge Plan Discharge Patient Disposition: Home Clinical Impression: Prostatitis Condition: Stable Prescriptions: New Flomax 0.4 mg capsule 0.4 mg PO DAILY Qty: 7 0RF No Action (DME) Sole Supports See Rx Instructions .ROUTE .MEDSUPPLY Qty: 1 0RF Rx Instructions: As directed lisinopril 20 mg tablet 20 mg PO QPM diazepam 5 mg tablet 2.5 mg PO BID PRN (Reason: anxiety) ketoconazole 2 % cream See Rx Instructions .ROUTE .COMPLEX Rx Instructions: Apply to red, scaly areas on face 1-2 times daily prn omega 3-nvf-ekd-fish oil [Fish Oil] 60-90-500 mg capsule 1 cap PO DAILY ezetimibe 10 mg tablet 10 mg PO DAILY Qty: 90 2RF nitroglycerin [Nitrostat] 0.4 mg tablet, sublingual 0.4 mg sublingual Q5M PRN (Reason: chest pain) Qty: 50 5RF Rx Instructions: do not exceed 3 doses per episode simvastatin 80 mg tablet 80 mg PO DAILY Qty: 90 3RF trazodone 150 mg tablet 75 mg PO BEDTIME metformin 500 mg tablet extended release 24 hr 500 mg PO BID Hold Instructions: Resume on 07/20/21. clopidogrel 75 mg tablet 75 mg PO QAM aspirin 81 mg Tablet,Delayed Release (Dr/Ec) 81 mg PO QAM metoprolol succinate 25 mg tablet extended release 24 hr 12.5 mg PO QAM Hold Instructions: Resume on 05/10/22. Your heart rate has been below 60 please hold metoprolol succinate until you see Dr. Gallego pramipexole 0.5 mg tablet 0.5 mg PO QPM gabapentin 300 mg capsule 300 mg PO DAILY omeprazole 20 mg capsule,delayed release(DR/EC) 20 mg PO DAILY Men's 50 Plus Multivitamin 400-20-370 mcg Tablet 1 tab PO DAILY Discharge Orders: Discharge ED (Routine); Ordered 08/26/22 Ordered By: Katharine Penn Referrals: Jl Felix MD [Primary Care Provider] - Discharge Diet: Usual diet Discharge Activity: Increase activity as tolerated Patient Instructions: Prostatitis (Acute) Activity Restrictions/Additional Instructions: Take antibiotics as directed. Flomax should be taken once per day and can cause your blood pressure to drop so use caution when getting up quickly. Make sure that you are staying well-hydrated. I recommend taking a probiotic?oral cnzz-spp-raqobxb probiotic as the antibiotic can kill good and bad bacteria in your gut. Follow-up with urology within the next few days. Return to the ER as needed for new or worsening symptoms including, but not limited to, inability to urinate, vomiting, worsening fever. Coding Level of Care Code ED Display Associate for Chg Fwd Exam Detailed Documented by User: Jean Barnett DO 09/06/22 07:21 HPI - Male Genitourinary General: Chief complaint: Urogenital-Male Stated complaint: UTI Time Seen by Provider: 08/26/22 08:26 PFSH ED PFSH: Medical History Abnormal stress echo Acquired bilateral hammer toes Aortic atherosclerosis Atherosclerosis of coronary artery of ambler heart Benign essential hypertension with target blood pressure below 140/90 CAD (coronary artery disease) Cervical spondylosis with radiculopathy Chest pain Chest pain Chronic prostatitis Dyslipidemia Dyspnea Hyperlipidemia LDL was 80s, HDL 60 Hypertension Leg cramps Lumbar stenosis with neurogenic claudication Wan's neuroma of both feet Renal calculus Sacroiliac dysfunction Unstable angina Surgical History H/O arthroscopy of knee H/O thumb surgery History of back surgery History of foot surgery History of hernia surgery History of PTCA S/P extracorporeal shock wave therapy Family History Brother CAD (coronary artery disease) Lung disease Family/Other CAD (coronary artery disease) Cancer Grandfather Stroke Cancer Mother , at age 81 Diabetes Father , at age 87 Diabetes Stroke Denies family history of Clotting disorder Dementia Chronic kidney disease (CKD) Suicide Anesthesia complication Bleeding disorder Social History Smoking and tobacco status: never smoked Alcohol intake: current Alcohol intake frequency: holidays/special occasions only Alcohol type: wine Marital status: Current occupational status: retired History of recent travel: No Course Vital Signs: Vital signs: Vital Signs Temperature 97.6 F 08/26/22 08:13 Pulse Rate 84 08/26/22 11:30 Respiratory Rate 17 08/26/22 10:30 Blood Pressure 163/91 08/26/22 11:30 Pulse Oximetry 96 08/26/22 11:30 Oxygen Delivery Me thod 08/26/22 10:00 MDM - Male Medical Decision Making Differentials include urinary tract infection, pyelonephritis, prostatitis, sepsis White blood cell count is 15.4 lactic acid is 1.4. Patient is slightly hyponatremic with ketones in the urine. Urine negative for blood and nitrates. Patient was able to provide a urine sample although small amounts at a time. Bladder scan showed less than 200 mL in the bladder. Digital rectal exam was deferred due to concern for acute bacterial prostatitis with an elevated white blood cell count. Review of patient's chart shows the patient has been a patient of Dr. Seay for some time. He has been treated for chronic prostatitis. He can no longer take fluoroquinolones or doxycycline. Dr. Seay's note states that patient had initially been sensitive to Septra but that seemed to stop working for him as time went on. Most recently, Dr. Seay is ordered the patient Augmentin antibiotic which seemed effective. Normal saline fluid bolus administered today to help with dehydration. Start flomax. Stop nitrofurantoin start Augmentin medication twice daily for 10 days. I discussed case with Dr. Barnett and he agreed with work-up nd plan of care. Advised patient to make sure that he is staying well-hydrated. Follow-up with Dr. Seay. Return to the ER as needed for new or worsening symptoms or inability to urinate. Prior to discharge pt was able to almost fill the urinal and reported urine stream was improved Chart reviewed and patient discussed with midlevel. Agree with assessment and plan. Lab Data 08/26/22 08:35 08/26/22 08:35 Laboratory Results WBC 15.4 10^3/uL (4.0-10.0) H 08/26/22 08:35 RBC 4.69 10^6/uL (4.1-5.3) 08/26/22 08:35 Hgb 15.0 g/dL (11.7-16.6) 08/26/22 08:35 Hct 43.4 % (42.0-52.0) 08/26/22 08:35 MCV 92.5 fl (80-94) 08/26/22 08:35 MCH 32.0 pg (28.0-34.0) 08/26/22 08:35 MCHC 34.6 g/dL (30.0-36.0) 08/26/22 08:35 RDW 12.6 % (12.1-15.1) 08/26/22 08:35 Plt Count 195 10^3/cmm (130-400) 08/26/22 08:35 MPV 10.3 fL (7.4-10.4) 08/26/22 08:35 Neut % (Auto) 86.6 % 08/26/22 08:35 Lymph % (Auto) 6.4 % 08/26/22 08:35 [place] % (Auto) 5.6 % 08/26/22 08:35 Eos % (Auto) 0.3 % 08/26/22 08:35 Baso % (Auto) 0.2 % 08/26/22 08:35 Neut # (Auto) 13.35 10^3/uL (1.8-7.7) H 08/26/22 08:35 Lymph # (Auto) 1.0 10^3/uL (0.8-4.8) 08/26/22 08:35 [place] # (Auto) 0.9 10^3/uL (0.2-0.9) 08/26/22 08:35 Eos # (Auto) 0.0 10^3/uL (0.0-0.8) 08/26/22 08:35 Baso # (Auto) 0.0 10^3/uL (0.0-0.1) 08/26/22 08:35 Nucleated RBC % (auto) 0 % 08/26/22 08:35 Nucleated RBCs # 0.0 /100WBC 08/26/22 08:35 Sodium 129 mmol/L (136-145) L 08/26/22 08:35 Potassium 4.3 mmol/L (3.5-5.1) 08/26/22 08:35 Chloride 94 mmol/L (98-107) L 08/26/22 08:35 Carbon Dioxide 24 mmol/L (22-29) 08/26/22 08:35 Anion Gap 15.3 (5-19) 08/26/22 08:35 BUN 21 mg/dL (8-23) 08/26/22 08:35 Creatinine 0.9 mg/dL (0.7-1.2) 08/26/22 08:35 GFR Calculation Not Reportable 08/26/22 08:35 Glucose 141 mg/dL (65-115) H 08/26/22 08:35 Calculated Osmolality 273 mOsm/kg (285-295) L 08/26/22 08:35 Lactate 1.4 mmol/L (0.5-2.2) 08/26/22 08:55 Calcium 9.0 mg/dL (8.5-10.5) 08/26/22 08:35 Total Bilirubin 0.9 mg/dL (0.15-1.2) 08/26/22 08:35 AST 12 U/L (0-40) 08/26/22 08:35 ALT 14 U/L (0-41) 08/26/22 08:35 Alkaline Phosphatase 48 U/L (40-130) 08/26/22 08:35 Total Protein 6.2 g/dL (6.6-8.7) L 08/26/22 08:35 Albumin 3.5 g/dL (3.5-5.2) 08/26/22 08:35 Globulin 2.7 g/dL (1.3-4.6) 08/26/22 08:35 Urine Color Yellow (Yellow) 08/26/22 08:59 Urine Appearance Clear (CLEAR) 08/26/22 08:59 Urine pH 5 (5-7) 08/26/22 08:59 Ur Specific [place] 1.020 (1.005-1.030) 08/26/22 08:59 Urine Protein Trace (Negative) 08/26/22 08:59 Urine Glucose (UA) Norm (Normal) 08/26/22 08:59 Urine Ketones 1+ (Negative) H 08/26/22 08:59 Urine Blood Neg (Negative) 08/26/22 08:59 Urine Nitrate Negative (Negative) 08/26/22 08:59 Urine Bilirubin Neg (Negative) 08/26/22 08:59 Urine Urobilinogen Norm mg/dL (Negative) 08/26/22 08:59 Ur Leukocyte Esterase Negative (Negative) 08/26/22 08:59 Urine RBC 0-4 /hpf (0-2) H 08/26/22 08:59 Urine WBC 10-15 /hpf (0-5) H 08/26/22 08:59 Ur Squamous Epith Cells 0-4 /hpf (0-5) H 08/26/22 08:59 Amorphous Sediment Not Reportable 08/26/22 08:59 Urine Bacteria Trace /hpf (NONE) 08/26/22 08:59 Hyaline Casts 0-4 /lpf H 08/26/22 08:59 Urine Mucus 2+ /hpf 08/26/22 08:59 Discharge Plan Discharge Patient Disposition: Home Clinical Impression: Prostatitis Condition: Stable Prescriptions: New Flomax 0.4 mg capsule 0.4 mg PO DAILY Qty: 7 0RF No Action (DME) Sole Supports See Rx Instructions .ROUTE .MEDSUPPLY Qty: 1 0RF Rx Instructions: As directed lisinopril 20 mg tablet 20 mg PO QPM diazepam 5 mg tablet 2.5 mg PO BID PRN (Reason: anxiety) ketoconazole 2 % cream See Rx Instructions .ROUTE .COMPLEX Rx Instructions: Apply to red, scaly areas on face 1-2 times daily prn omega 0-oav-dvq-fish oil [Fish Oil] 60-90-500 mg capsule 1 cap PO DAILY ezetimibe 10 mg tablet 10 mg PO DAILY Qty: 90 2RF nitroglycerin [Nitrostat] 0.4 mg tablet, sublingual 0.4 mg sublingual Q5M PRN (Reason: chest pain) Qty: 50 5RF Rx Instructions: do not exceed 3 doses per episode simvastatin 80 mg tablet 80 mg PO DAILY Qty: 90 3RF trazodone 150 mg tablet 75 mg PO BEDTIME metformin 500 mg tablet extended release 24 hr 500 mg PO BID Hold Instructions: Resume on 07/20/21. clopidogrel 75 mg tablet 75 mg PO QAM aspirin 81 mg Tablet,Delayed Release (Dr/Ec) 81 mg PO QAM metoprolol succinate 25 mg tablet extended release 24 hr 12.5 mg PO QAM Hold Instructions: Resume on 05/10/22. Your heart rate has been below 60 please hold metoprolol succinate until you see Dr. Gallego pramipexole 0.5 mg tablet 0.5 mg PO QPM gabapentin 300 mg capsule 300 mg PO DAILY omeprazole 20 mg capsule,delayed release(DR/EC) 20 mg PO DAILY Men's 50 Plus Multivitamin 400-20-370 mcg Tablet 1 tab PO DAILY Discharge Orders: Discharge ED (Routine); Ordered 08/26/22 Ordered By: Katharine Penn Referrals: Jl Felix MD [Primary Care Provider] - Discharge Diet: Usual diet Discharge Activity: Increase activity as tolerated Patient Instructions: Prostatitis (Acute) Activity Restrictions/Additional Instructions: Take antibiotics as directed. Flomax should be taken once per day and can cause your blood pressure to drop so use caution when getting up quickly. Make sure that you are staying well-hydrated. I recommend taking a probiotic?oral [id number] probiotic as the antibiotic can kill good and bad bacteria in your gut. Follow-up with urology within the next few days. Return to the ER as needed for new or worsening symptoms including, but not limited to, inability to urinate, vomiting, worsening fever. Coding Level of Care Code ED Display Associate for Juwan Fwerika Exam Detailed
[2022-08-26 10:30] VITALS: BP 123/68; PULSE 70; RESP 17; O2SAT 97
[2022-08-26] MEDS: sodium chloride 0.9% 1,000 ML 999 ML IV (10:32)
[2022-08-26 11:00] VITALS: BP 168/105; PULSE 80; O2SAT 97
[2022-08-26 11:30] VITALS: BP 163/91; PULSE 84; O2SAT 96
== END 2022-08-26 12:12 | disposition home or self-care (01) ==
PROVIDERS: Emergency Provider Nurse Practitioner Family; PCP Family Medicine
DX: N41.9 Inflammatory disease of prostate, unspecified (principal); Z79.82 Long term (current) use of aspirin; Z79.02 Long term (current) use of antithrombotics/antiplatelets; Z79.84 Long term (current) use of oral hypoglycemic drugs; I25.10 Atherosclerotic heart disease of native coronary artery without angina pectoris; I10 Essential (primary) hypertension; E78.5 Hyperlipidemia, unspecified
CPT/HCPCS: 51798; 80053; 81001; 83605; 85025; 87086; 96360; 99284; J7030

== ENCOUNTER 2022-09-10 07:21 | Day surgery (SDC) | payer MEDICARE, OTHER, SELFPAY ==
[2022-09-09 11:58] VITALS: BMI 23.6
--- NOTE | 2022-09-10 07:23 | P.OP_ITS ---
Operative Report Date of procedure: September 10, 2022 Pre-op diagnosis: Preop Diagnosis Soft tissue mass left foot Post-op diagnosis: Soft tissue mass left foot. Painful retained hardware left foot Post-op findings: Soft tissue mass to the dorsum of the left foot with prominent screw head Procedure done: Soft tissue mass excision left foot. CPT code 52639 Deep hardware removal left foot. CPT code 03914 Implants: 4-0 Vicryl, 4-0 nylon Specimens removed/disposition: Soft tissue mass left foot, waste, consistent with fibrous tissue 3 mm headed screw removed in total from left foot Pathology: None Surgeon: Minesh Barr D.P.M. Aeronautical Engineering Professor: Nannette Estimated blood loss: 5 See intraoperative documentation IV fluids: 0 Urine output: 0 Complications: None Findings: Soft tissue mass to the left foot consistent with fibrous tissue and prominent screw head Brief History: Pleasant 82-year-old male has painful soft tissue mass to the dorsum of his left foot requesting removal.? Has already failed conservative treatment consisting of shoe gear modification, accommodative shoes and activity modification.? It bothers him daily and would like to have it removed.? I reviewed at length with the patient, the risks, potential complications, benefits, alternatives, expectations, and typical outcomes associated with the surgery. The risks and potential complications were explained in detail, including but not limited to infection, wound dehiscence or soft tissue complications, bleeding and hematoma, chronic edema, neuritis or nerve damage producing numbness or chronic pain, CRPS, failure to relieve pain or worsening pain, thick / painful / unsightly scar, limited motion / stiffness, malposition, delayed union, malunion, or nonunion, fracture, reaction to implants, anesthetic complications, venous thromboembolism, and deformity recurrence.? I discussed the notion of no regrets with the patient as it pertains to complications and outcomes. The patient seemed to understand the nature of the proposed care and required convalescence. They asked appropriate questions, answered to their satisfaction. They are aware no guarantees can be made as to a satisfactory outcome and they understand there may be other possible unforeseen complications or outcomes not listed here that will be treated accordingly if they arise. There were no written or implied guarantees given to the patient. They gave informed consent to proceed. Procedure: Under mild sedation the patient was brought to the operating room and remained on the gurney in supine position. A timeout was performed. Anesthesia was then administered by the anesthesia service. Local anesthesia was injected by myself consisting of 20 cc of 0.5% Marcaine plain in a right Castaneda block fashion. 10 cc of Exparel also infiltrated subcutaneously in a grid like fashion proximal to the operative site. Well-padded pneumatic tourniquet applied to the right ankle. The right lower extremity was then scrubbed, prepped and draped utilizing normal aseptic technique. Right foot was exanguinated with an Esmarch bandage and the tourniquet inflated to 250 mmHg. Attention was directed to the dorsal aspect of the right first metatarsal phalangeal joint where a palpable soft tissue mass that was mobile was appreciated. Directly over the soft tissue mass a linear longitudinal incision was made this was medial and parallel to the extensor houses longus tendon proximal to the first metatarsal phalangeal joint. Incision was made in a linear fashion with a #15 blade through skin with dissection carried down through subcutaneous tissue utilizing blunt and sharp technique. A mass of scar tissue was appreciated this was fibrous tissue measuring approximately 3 mm x 4 mm x 4 mm this was sharply excised with pickups and a 15 blade a past preoperative field. There was no cystlike material, no chondral or osseous component to the mass. Upon excision of the fibrous mass I was able to visualize a prominent screw head which was likely the nidus for irritation. Determination was made to remove the screw head that was proud, a 3 mm screw was removed and passed from the operative field in total. This was from a first metatarsal head bunionectomy, osteotomy from previous surgery was completely hea led and orthopedic hardware no longer needed. This was passed off the field and the incision was flushed with copious amounts of sterile skin solution. It was closed in a layered fashion with subcutaneous tissue reapproximated lysing 4-0 Vicryl. Skin closed with 4-0 nylon. The incision was dressed with Adaptic, sterile 4 x 4, Kerlix and Mando wrap. Postop shoe was applied to the right foot. Tourniquet was deflated and a prompt hyperemic response was noted to the distal digits of the right foot. Patient tolerated the procedure and anesthesia well and was transferred to the PACU with vital signs stable and vascular status intact. Following a period of postop monitoring he will be discharged home may be weightbearing as tolerated. He was given at home care instructions as well as follow-up
[2022-09-10 07:28] VITALS: BP 112/61; PULSE 73; RESP 16; TEMP 36.2; O2SAT 96
[2022-09-10] MEDS: gabapentin 300 mg Capsule PO (07:52)
[2022-09-10] MEDS: CELEcoxib 200 mg Capsule 400 MG PO (07:52)
[2022-09-10] MEDS: sodium chloride 0.9% 1,000 ML 30 ML IV (07:53)
[2022-09-10 07:54] LABS: Glucose Point of Care 122 mg/dL (70-110)
--- NOTE | 2022-09-10 08:04 | ANES.PREANE2 ---
Pre-Anesthetic Assessment Height/Weight: Height 1.75 m Weight 72.575 kg Temp Pulse Resp BP Pulse Ox O2 Del Method 97.2 F L 73 16 112/61 96 09/10/22 07:28 09/10/22 07:28 09/10/22 07:28 09/10/22 07:28 09/10/22 07:28 09/10/22 07:44 Preop Diagnosis: Soft tissue mass left foot Operation Date: 09/10/22 09:00 Proposed Procedures p Excision soft tissue mass left foot 85744,M71.372(Left) - Minesh Barr DPM Familial anesthetic complications: None Was Beta Aquilino taken within 24 hours: Yes Was Clonidine taken within 24 hours: N/A Last intake: Intake Last Liquid Date 09/09/22 Last Liquid Time 22:30 Last Solid Date 09/09/22 Last Solid Time 19:00 Social No alcohol and No tobacco Exam alert, oriented x 3, clear to auscultation bilaterally and regular rate & rhythm Airway Mallampati: Class II Dentition: full CV/HEM Stable Angina, Coronary Artery Disease, Hypertension and Myocardial Infarction 05/04/22 CV. echo complete ?Mild left ventricular hypertrophy. No regional wall motion ?abnormalities. Normal left ventricular size and systolic ?function, EF 59 %. Grade I/IV diastolic dysfunction (abnormal ?relaxation filling pattern), normal to mildly elevated filling ?pressures. ?Mildly increased right atrial size. ?Thickened mitral valve. Mild mitral annular calcification. ?Thickened aortic valve. Mild aortic valve regurgitation. ?Moderate tricuspid valve regurgitation. ?Estimated pulmonary artery peak systolic pressure 34 mmHg ?Moderate pulmonary valve regurgitation. ?There is no pericardial effusion. ?There are no intracardiac masses. ?Compared to the study from 01/28/2021, there may not be a ?significant change ?05/04/22 [facility] ? 1. Left main artery: Patent LAD: Has luminal irregularities however no significant stenosis.? Patent prior stents. Left circumflex artery: Proximally has 50% stenosis. RCA: Has multiple stents that are patent. Distal stent has 20 to 30% in-stent restenosis.. ? 2. Nonischemic IFR value of 0.97 for proximal left circumflex artery. GI Gastroesophageal Reflux Disease Metabolic Diabetes Mellitus and Hyperlipidemia Anesthetic Plan ASA status: 3 Anesthesia: MAC Risk of > 500 ml blood loss (7ml/kg in children): No Medications/Allergies Home Medications Medication Instructions Recorded Confirmed Last Taken Type diazepam 5 mg tablet 2.5 mg PO BID PRN anxiety 06/17/20 09/09/22 09/10/22 History Sole Supports #1 ea 10/20/20 08/26/22 Unknown Rx metformin 500 mg tablet,extended 500 mg PO BID 07/15/21 09/09/22 09/09/22 History release 24 hr ketoconazole 2 % topical cream See Rx Instructions .Route .COMPLEX 11/17/21 09/09/22 09/09/22 History omega 3-euw-amu-fish oil 60 mg-90 1 cap PO DAILY 11/17/21 09/09/22 09/09/22 History mg-500 mg capsule (Fish Oil) lisinopril 20 mg tablet 20 mg PO QPM 12/14/21 09/09/22 09/09/22 History trazodone 150 mg tablet 75 mg PO BEDTIME 12/14/21 09/09/22 09/09/22 History ezetimibe 10 mg tablet 10 mg PO DAILY #90 tabs 01/12/22 09/09/22 09/09/22 Rx aspirin 81 mg tablet,delayed 81 mg PO QAM 05/04/22 09/09/22 09/04/22 History release clopidogrel 75 mg tablet 75 mg PO QAM 05/04/22 09/09/22 09/03/22 History metoprolol succinate 25 mg 12.5 mg PO QAM 05/04/22 09/09/22 09/10/22 History tablet,extended release 24 hr nitroglycerin 0.4 mg sublingual 0.4 mg sublingual Q5M PRN chest 05/17/22 09/09/22 Unknown Rx tablet (Nitrostat) pain #50 tabs simvastatin 80 mg tablet 80 mg PO DAILY #90 tabs 06/28/22 09/09/22 09/09/22 Rx gabapentin 300 mg capsule 300 mg PO DAILY 08/26/22 09/09/22 09/09/22 History finrbaqzodop-ydi-zzdap acid-vit 1 tab PO DAILY 08/26/22 09/09/22 09/09/22 History K-lycop 400 mcg-20 mcg-370 mcg tablet (Men's 50 Plus Multivitamin) omeprazole 20 mg capsule,delayed 20 mg PO DAILY 08/26/22 09/09/22 09/10/22 History release pramipexole 0.5 mg tablet 0.5 mg PO QPM 08/26/22 09/09/22 09/09/22 History tamsulosin 0.4 mg capsule (Flomax) 0.4 mg PO DAILY #7 caps 08/26/22 09/09/22 09/06/22 Rx Allergies Allergy/AdvReac Type Severity Reaction Status Date / Time ciprofloxacin [From Cipro] Allergy Unknown unknown Verified 09/10/22 07:32 doxycycline Allergy Unknown hives Verified 09/10/22 07:32 Current Medications Generic Name Dose Route Start Last Admin Trade Name Freq PRN Reason Stop Dose Admin Sodium Chloride 1,000 mls @ 30 mls/hr 09/10/22 07:30 09/10/22 07:53 Sodium Chloride 0.9% IV 09/11/22 07:29 30 mls/hr .Q24H MARNI Administration PFSH Anesthesia Medical History Abnormal stress echo Acquired bilateral hammer toes Aortic atherosclerosis Atherosclerosis of coronary artery of [place] heart Benign essential hypertension with target blood pressure below 140/90 CAD (coronary artery disease) Cervical spondylosis with radiculopathy Chest pain Chest pain Chronic prostatitis Dyslipidemia Dyspnea Hyperlipidemia LDL was 80s, HDL 60 Hypertension Leg cramps Lumbar stenosis with neurogenic claudication Wan's neuroma of both feet Renal calculus Sacroiliac dysfunction Unstable angina Surgical History H/O arthroscopy of knee H/O thumb surgery History of back surgery History of foot surgery History of hernia surgery History of PTCA S/P extracorporeal shock wave therapy Family History Brother CAD (coronary artery disease) Lung disease Family/Other CAD (coronary artery disease) Cancer Grandfather Stroke Cancer Mother , at age 81 Diabetes Father , at age 87 Diabetes Stroke Denies family history of Clotting disorder Dementia Chronic kidney disease (CKD) Suicide Anesthesia complication Bleeding disorder Social History Smoking and tobacco status: never smoked Alcohol intake: current Alcohol intake frequency: holidays/special occasions only Alcohol type: wine Marital status: Current occupational status: retired History of recent travel: No Data Anesthesia Cardiac Studies: Echocardiogram 05/04/22 Echocardiogram Ultrasound 01/28/21 Sestamibi Stress Test (Cardiology) 07/13/21
--- NOTE | 2022-09-10 08:18 | ECG_ITS ---
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 Measurements Intervals [place] Rate: 64 P: 57 AL: 229 QRS: -28 QRSD: 91 T: 64 QT: 381 QTc: 393 Interpretive Statements SINUS RHYTHM WITH FIRST DEGREE AV BLOCK BORDERLINE LEFT AXIS DEVIATION [QRS AXIS < -20] Compared to ECG 05/04/2022 03:18:03 No significant changes Electronically Signed On 09-10-2022 22:24:20 POLYMER SCIENTIST by Aggie Petty M.D. [id number]
--- NOTE | 2022-09-10 08:35 | PM.OP ---
Operative Report Date of procedure: September 10, 2022 Pre-op diagnosis: Preop Diagnosis Soft tissue mass left foot Preop Diagnosis Soft tissue mass left foot Post-op diagnosis: Soft tissue mass left foot Retained orthopedic hardware left foot Post-op findings: Intraoperative findings necessitated removal of implanted hardware to the left foot. Location of hardware was a nidus of irritation creating synovitis and fibrosing contributory patient's subjective complaint of pain Procedure done: Excision of soft tissue mass left foot. CPT code 17041 Deep hardware removal left foot. CPT code 26703 Implants: 4-0 Vicryl, 4 nylon Specimens removed/disposition: Synovitis and fibrosing excised- waste 3 mm headed screw partially-threaded and cannulated-disposed Surgeon: Minesh Barr D.P.M. Computed Tomography Scanner Operator: Nannette Estimated blood loss: Less than 5 mL See intraoperative documentation IV fluids: 0 Urine output: 0 Complications: None Findings: Intraoperative findings necessitated removal of implanted hardware to the left foot. Location of hardware was a nidus of irritation creating synovitis and fibrosing contributory patient's subjective complaint of pain Brief History: Pleasant 82-year-old male has painful soft tissue mass to the dorsum of his left foot requesting removal.? Has already failed conservative treatment consisting of shoe gear modification, accommodative shoes and activity modification.? It bothers him daily and would like to have it removed.? I reviewed at length with the patient, the risks, potential complications, benefits, alternatives, expectations, and typical outcomes associated with the surgery. The risks and potential complications were explained in detail, including but not limited to infection, wound dehiscence or soft tissue complications, bleeding and hematoma, chronic edema, neuritis or nerve damage producing numbness or chronic pain, CRPS, failure to relieve pain or worsening pain, thick / painful / unsightly scar, limited motion / stiffness, malposition, delayed union, malunion, or nonunion, fracture, reaction to implants, anesthetic complications, venous thromboembolism, and deformity recurrence.? I discussed the notion of no regrets with the patient as it pertains to complications and outcomes. The patient seemed to understand the nature of the proposed care and required convalescence. They asked appropriate questions, answered to their satisfaction. They are aware no guarantees can be made as to a satisfactory outcome and they understand there may be other possible unforeseen complications or outcomes not listed here that will be treated accordingly if they arise. There were no written or implied guarantees given to the patient. They gave informed consent to proceed. Procedure: Under mild sedation the patient was brought to the operating room and remained on the gurney in supine position. A timeout was performed. Anesthesia was then administered by the anesthesia service. Local anesthesia was injected by myself consisting of 20 cc of Marcaine 0.5% plain in a left Castaneda block fashion and 10 cc of Exparel subcutaneously in a grid like fashion at the operative site. Well-padded pneumatic tourniquet was applied to the left ankle. The left lower extremity was then scrubbed, prepped and draped utilizing normal aseptic technique. Left foot was exanguinated with an Esmarch bandage and the tourniquet was then inflated to 250 mmHg. Attention was directed to the dorsum of the left foot at the level of the first metatarsal neck where a palpable mass was identified. The mass was mobile and firm and well-circumscribed and was just medial to the extensor houses longus tendon. Directly over the mass a linear longitudinal incision was made through skin with dissection carried down through subcutaneous tissue where fibrosing and thickening of the synovium of the extensor houses longus tendon sheath was appreciated. This was sharply excised and passed from the operative field. No fluid-filled mass and no atypical findings were appreciated in regards to the synovitis and fibrotic consistency of the soft tissue mass. With blunt and sharp dissection confirming no remaining synovitis or fibrotic tissue appreciated I encountered a screw head from previous bunionectomy that was in direct line of sight of the soft tissue mass and the likely source of irritation contributing to its formation. The screw head was proud and I felt best to have this removed to prevent reoccurrence of irritation and formation of excessive scar tissue and synovitis. The screw was from a [place] bunionectomy and the osteotomy site is well-healed, this was seen on x-ray as well as intraoperative findings and screw was no longer needed at this point is contributing to future issues. The screw was explanted in total and passed from the operative field. The incision was then flushed with copious amounts of sterile skin solution. Periosteum and subcutaneous tissue were reapproximated utilizing 4-0 Vicryl. Skin was reapproximated utilizing 4-0 nylon. The incision was then dressed with Adaptic, sterile 4 x 4's, Kerlix and Mando wrap and the tourniquet was then deflated. A prompt hyperemic response was noted to the distal digits of the left foot. Patient tolerated the procedure and anesthesia well and was transferred to the PACU with vital signs stable and vascular status intact. Following a period of postop monitoring he will be discharged home. May be weightbearing as tolerated with a postop shoe which was dispensed. He was provided pain medication be taken judiciously as needed. Will follow-up in 1 week.
--- NOTE | 2022-09-10 09:27 | W.PM.OPSUD ---
Surgery/Procedure H&P Update DATE OF PROCEDURE: September 10, 2022 DATE H&P PERFORMED: 09/10/22 CHANGES TO PREVIOUS DOCUMENTATION: none PREOP DIAGNOSIS: Soft tissue mass left foot PLANNED PROCEDURE: Operation Date: 09/10/22 09:00 Proposed Procedures p Excision soft tissue mass left foot 45507,M71.372(Left) - Minesh Barr DPM
--- NOTE | 2022-09-10 09:28 | PM.OPSURHP ---
Providers/Chief Complaint Primary Care Provider: Jl Felix MD Chief Complaint: surgery History of Present Illness Pleasant 82 year old male patient presenting to clinic for evaluation of a soft tissue mass to the top of his left great toe.? Patient states that he would like to discuss options of getting the mass removed if possible.? It bothers him when wearing shoes, he has tried to alter his shoe type and get extra-depth without relief.? He states it is a nuisance on a daily basis, has minor tenderness with that daily and would like to have this thing removed.? Patient denies any subjective nausea, vomiting, fever, chills, shortness of breath or chest pain.? He is accompanied by his . Review of Systems General: Reports: 10 or more systems reviewed and unremarkable except in HPI and below Const: Denies: fever(s) or chills Eyes: Denies: change in vision Card: Denies: chest pain or palpitations Resp: Denies: dyspnea or productive cough GI: Denies: abdominal pain, nausea or vomiting : Denies: flank pain Musc: Reports: extremity pain, joint pain, joint stiffness, limited range of motion and deformity Skin/Breast: Reports: skin tenderness; Denies: rash Neuro: Reports: difficulty walking; Denies: numbness in extremities, sensory changes or frequent falls Psych: Denies: suicidal ideation [place]/Lymph: Denies: easy bruising Medications/Allergies Home Medications Medication Instructions Recorded Confirmed Last Taken Type diazepam 5 mg tablet 2.5 mg PO BID PRN anxiety 06/17/20 09/09/22 09/10/22 History Sole Supports #1 ea 10/20/20 08/26/22 Unknown Rx metformin 500 mg tablet,extended 500 mg PO BID 07/15/21 09/09/22 09/09/22 History release 24 hr ketoconazole 2 % topical cream See Rx Instructions .Route .COMPLEX 11/17/21 09/09/22 09/09/22 History omega 8-ekj-cah-fish oil 60 mg-90 1 cap PO DAILY 11/17/21 09/09/22 09/09/22 History mg-500 mg capsule (Fish Oil) lisinopril 20 mg tablet 20 mg PO QPM 12/14/21 09/09/22 09/09/22 History trazodone 150 mg tablet 75 mg PO BEDTIME 12/14/21 09/09/22 09/09/22 History ezetimibe 10 mg tablet 10 mg PO DAILY #90 tabs 01/12/22 09/09/22 09/09/22 Rx aspirin 81 mg tablet,delayed 81 mg PO QAM 05/04/22 09/09/22 09/04/22 History release clopidogrel 75 mg tablet 75 mg PO QAM 05/04/22 09/09/22 09/03/22 History metoprolol succinate 25 mg 12.5 mg PO QAM 05/04/22 09/09/22 09/10/22 History tablet,extended release 24 hr nitroglycerin 0.4 mg sublingual 0.4 mg sublingual Q5M PRN chest 05/17/22 09/09/22 Unknown Rx tablet (Nitrostat) pain #50 tabs simvastatin 80 mg tablet 80 mg PO DAILY #90 tabs 06/28/22 09/09/22 09/09/22 Rx gabapentin 300 mg capsule 300 mg PO DAILY 08/26/22 09/09/22 09/09/22 History sperghtiyfsf-xik-ujqqi acid-vit 1 tab PO DAILY 08/26/22 09/09/22 09/09/22 History K-lycop 400 mcg-20 mcg-370 mcg tablet (Men's 50 Plus Multivitamin) omeprazole 20 mg capsule,delayed 20 mg PO DAILY 08/26/22 09/09/22 09/10/22 History release pramipexole 0.5 mg tablet 0.5 mg PO QPM 08/26/22 09/09/22 09/09/22 History tamsulosin 0.4 mg capsule (Flomax) 0.4 mg PO DAILY #7 caps 08/26/22 09/09/22 09/06/22 Rx Allergies Allergy/AdvReac Type Severity Reaction Status Date / Time ciprofloxacin [From Cipro] Allergy Unknown unknown Verified 09/10/22 07:32 doxycycline Allergy Unknown hives Verified 09/10/22 07:32 PFSH PFSH: Medical History Abnormal stress echo Acquired bilateral hammer toes Aortic atherosclerosis Atherosclerosis of coronary artery of [place] heart Benign essential hypertension with target blood pressure below 140/90 CAD (coronary artery disease) Cervical spondylosis with radiculopathy Chest pain Chest pain Chronic prostatitis Dyslipidemia Dyspnea Hyperlipidemia LDL was 80s, HDL 60 Hypertension Leg cramps Lumbar stenosis with neurogenic claudication Wan's neuroma of both feet Renal calculus Sacroiliac dysfunction Unstable angina Surgical History H/O arthroscopy of knee H/O thumb surgery History of back surgery History of foot surgery History of hernia surgery History of PTCA S/P extracorporeal shock wave therapy Family History Brother CAD (coronary artery disease) Lung disease Family/Other CAD (coronary artery disease) Cancer Grandfather Stroke Cancer Mother , at age 81 Diabetes Father , at age 87 Diabetes Stroke Denies family history of Clotting disorder Dementia Chronic kidney disease (CKD) Suicide Anesthesia complication Bleeding disorder Social History Smoking and tobacco status: never smoked Alcohol intake: current Alcohol intake frequency: holidays/special occasions only Alcohol type: wine Marital status: Current occupational status: retired History of recent travel: No Dietary Habits: Caffeine: Yes Vital Signs Vitals Signs: Last Vital Signs Temp 97.2 F L 09/10/22 07:28 Pulse 73 09/10/22 07:28 Resp 16 09/10/22 07:28 BP 112/61 09/10/22 07:28 Pulse Ox 96 09/10/22 07:28 O2 Del Method 09/10/22 07:44 Weight: Weight last 48 hrs Weight 160 lb Physical Exam Narrative: EXAM NARRATIVE: Patient is alert and oriented ?3 and in no acute distress.? The following is a focused bilateral lower extremity exam. VASCULAR: Dorsalis pedis and posterior tibial arteries palpable +2.? Capillary refill time less than 3 seconds to the distal hallux bilaterally. Calf is supple and nontender proximally and distally.? Mild edema at the operative site consistent with postoperative course. NEUROLOGICAL: Protective sensation intact to light touch. DERMATOLOGICAL: Well-healed cicatrix hammertoe correction and bunionectomy sites.? No erythema, warmth or drainage, no signs of dehiscence.? No ecchymosis. MUSCULOSKELETAL: Soft tissue mass to the dorsal aspect of the left forefoot just proximal to the dorsal aspect of the left first metatarsal phalangeal joint.? Is a well-circumscribed nodular mass, is firm.? It is symmetrical.? Measures 1 cm in circumference.? Mass is mobile.? Mass is tender to palpation.? Proximately no pain to palpation at the bunionectomy or hammertoe repair bilaterally no pain with posterior calf squeeze.? Patient ambulating in regular tennis shoes without pain or discomfort. CARDIOVASCULAR: S1, S2, normal rate, normal rhythm.? Dorsalis pedis and posterior tibial arteries palpable. LUNGS: Clear to auscltation, no use of acessory muscles, no crackles or wheezes. A&P Assessment and plan (1) Mass of soft tissue of left lower extremity: (2) Left foot pain: Plan Pleasant 82-year-old male has painful soft tissue mass to the dorsum of his left foot requesting removal.? Has already failed conservative treatment consisting of shoe gear modification, accommodative shoes and activity modification.? It bothers him daily and would like to have it removed.? I reviewed at length with the patient, the risks, potential complications, benefits, alternatives, expectations, and typical outcomes associated with the surgery. The risks and potential complications were explained in detail, including but not limited to infection, wound dehiscence or soft tissue complications, bleeding and hematoma, chronic edema, neuritis or nerve damage producing numbness or chronic pain, CRPS, failure to relieve pain or worsening pain, thick / painful / unsightly scar, limited motion / stiffness, malposition, delayed union, malunion, or nonunion, fracture, reaction to implants, anesthetic complications, venous thromboembolism, and deformity recurrence.? I discussed the notion of no regrets with the patient as it pertains to complications and outcomes. The patient seemed to understand the nature of the proposed care and required convalescence. They asked appropriate questions, answered to their satisfaction. They are aware no guarantees can be made as to a satisfactory outcome and they understand there may be other possible unforeseen complications or outcomes not listed here that will be treated accordingly if they arise. There were no written or implied guarantees given to the patient. They gave informed consent to proceed. 09/10/2022, excision of soft tissue mass left foot.? laura TRIMBLE, supine, 20 minutes.? Coding Level of Care Code Acute Code for Chg Fwd Diagnoses Mass of soft tissue of left lower extremity M79.89 Left foot pain M79.672
[2022-09-10] MEDS: ceFAZolin 2,000 MG in sodium chloride 0.9% (plus) 50 ML 100 MG IV (09:32)
[2022-09-10 10:05] VITALS: BP 86/50; PULSE 66; RESP 15; TEMP 36.6; O2SAT 92
[2022-09-10 10:10] VITALS: BP 87/52; PULSE 65; RESP 13; O2SAT 91
[2022-09-10 10:16] VITALS: BP 94/56; PULSE 66; RESP 16; TEMP 36.6; O2SAT 92
[2022-09-10 10:30] VITALS: BP 110/65; PULSE 65; RESP 15; O2SAT 93
--- NOTE | 2022-09-10 13:24 | ANE.PACU2 ---
Inpatient post-anesthesia follow up: Airway intact: Yes Vital signs: Temperature 97.9 F Pulse Rate 65 Respiratory Rate 15 Blood Pressure 110/65 Pulse Oximetry 93 Oxygen Delivery Me thod Room Air Oxygen Flow Rate Fraction of Inspir ed Oxygen Hydration adequate: Yes Nausea and vomiting: No Pain level: 1 Mental status: Baseline
== END 2022-09-10 11:01 | disposition home or self-care (01) ==
PROVIDERS: PCP Family Medicine; Visit Provider Podiatrist Foot & Ankle Surgery
PROC: (CPT 11420; principal; 2022-09-10 09:00)
DX: M79.89 Other specified soft tissue disorders (principal); R22.42 Localized swelling, mass and lump, left lower limb; T84.84XA Pain due to internal orthopedic prosthetic devices, implants and grafts, initial encounter; Y83.8 Other surgical procedures as the cause of abnormal reaction of the patient, or of later complication, without mention of misadventure at the time of the procedure; I25.10 Atherosclerotic heart disease of native coronary artery without angina pectoris; I10 Essential (primary) hypertension; I25.2 Old myocardial infarction; K21.9 Gastro-esophageal reflux disease without esophagitis; E11.9 Type 2 diabetes mellitus without complications; E78.5 Hyperlipidemia, unspecified; Z79.84 Long term (current) use of oral hypoglycemic drugs
CPT/HCPCS: 11420; 12041; 20680; 36416; 82962; 93005; C9290; J0690; J2704; J3010; J3490; J7030; L3260

== ENCOUNTER → 2022-09-16 09:59 | Outpatient (BNVA) | payer MEDICARE, OTHER, SELFPAY | PROVIDERS: PCP Family Medicine; Visit Provider Podiatrist Foot & Ankle Surgery | DX: M79.672 Pain in left foot (principal); M79.89 Other specified soft tissue disorders | CPT/HCPCS: 99024 ==

== ENCOUNTER → 2022-09-23 15:11 | Outpatient (BNVA) | payer MEDICARE, OTHER, SELFPAY | PROVIDERS: PCP Family Medicine; Visit Provider Podiatrist Foot & Ankle Surgery | DX: Z98.890 Other specified postprocedural states (principal); Y79.2 Prosthetic and other implants, materials and accessory orthopedic devices associated with adverse incidents; M79.89 Other specified soft tissue disorders; T84.84XA Pain due to internal orthopedic prosthetic devices, implants and grafts, initial encounter | CPT/HCPCS: 99024 ==

== ENCOUNTER → 2022-09-29 16:01 | Outpatient (BNVA) | payer MEDICARE, OTHER, SELFPAY | PROVIDERS: PCP Family Medicine; Visit Provider Urology | DX: N41.1 Chronic prostatitis (principal); N20.9 Urinary calculus, unspecified; R39.9 Unspecified symptoms and signs involving the genitourinary system; N40.1 Benign prostatic hyperplasia with lower urinary tract symptoms; N13.8 Other obstructive and reflux uropathy | CPT/HCPCS: 51741; 51798; 81003; 99213 ==

== ENCOUNTER → 2022-12-29 10:04 | Outpatient (BNVA) | payer MEDICARE, OTHER, SELFPAY | PROVIDERS: PCP Family Medicine; Visit Provider Internal Medicine Cardiovascular Disease | DX: I25.10 Atherosclerotic heart disease of native coronary artery without angina pectoris (principal); I10 Essential (primary) hypertension; I70.0 Atherosclerosis of aorta; I36.1 Nonrheumatic tricuspid (valve) insufficiency; E78.5 Hyperlipidemia, unspecified | CPT/HCPCS: 99214 ==

== ENCOUNTER → 2022-12-30 07:43 | Outpatient (BNVA) | payer MEDICARE, OTHER, SELFPAY | PROVIDERS: PCP Family Medicine; Visit Provider Urology | DX: N40.1 Benign prostatic hyperplasia with lower urinary tract symptoms (principal); N13.8 Other obstructive and reflux uropathy; N41.0 Acute prostatitis; N20.9 Urinary calculus, unspecified; R39.9 Unspecified symptoms and signs involving the genitourinary system | CPT/HCPCS: 51741; 51798; 81003; 99213 ==

== ENCOUNTER → 2023-03-03 13:05 | Outpatient (BNVA) | payer MEDICARE, OTHER, SELFPAY | PROVIDERS: PCP Family Medicine; Visit Provider Nurse Practitioner Family | DX: I10 Essential (primary) hypertension (principal) | CPT/HCPCS: 99213 ==

== ENCOUNTER → 2023-05-02 13:52 | Outpatient (BNVA) | payer MEDICARE, OTHER, SELFPAY | PROVIDERS: PCP Family Medicine; Visit Provider Nurse Practitioner Family | DX: L81.4 Other melanin hyperpigmentation (principal); D22.5 Melanocytic nevi of trunk; L85.3 Xerosis cutis; L57.8 Other skin changes due to chronic exposure to nonionizing radiation; Z85.828 Personal history of other malignant neoplasm of skin | CPT/HCPCS: 17000; 99213 ==

== ENCOUNTER 2023-05-18 15:09 | Emergency (ER) | payer MEDICARE, OTHER, SELFPAY ==
--- NOTE | 2023-05-18 15:15 | ECG_ITS ---
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 Measurements Intervals [place] Rate: 63 P: 56 NE: 210 QRS: -39 QRSD: 81 T: 51 QT: 381 QTc: 392 Interpretive Statements SINUS RHYTHM WITH FIRST DEGREE AV BLOCK WITH OCCASIONAL VENTRICULAR PREMATURE COMPLEXES LEFT AXIS DEVIATION [QRS AXIS < -30] INTERPRETATION BASED ON A DEFAULT AGE OF 40 YEARS Compared to ECG 09/10/2022 08:18:31 No significant changes Electronically Signed On 05-18-2023 22:33:33 CDT by Brualio Clemente M.D. [id number]
[2023-05-18 15:16] VITALS: BP 139/73; PULSE 61; RESP 17; TEMP 36.3; O2SAT 98; BMI 23.6
[2023-05-18] MEDS: aspirin 81 mg Chew Tablet 324 MG PO (15:44)
[2023-05-18 15:52] LABS: Basophils # 0.1 10^3/uL (0.0-0.1); Basophils % 0.8 %; Eosinophils # 0.1 10^3/uL (0.0-0.8); Eosinophils % 1.8 %; Hematocrit 42.4 % (37-53); Lymphocytes # 1.4 10^3/uL (0.8-4.8); Lymphocytes % 22.4 %; Mean Corpuscular HGB Conc 34.2 g/dL (30-55); Mean Corpuscular Hemoglobin 31.3 pg (27-33); Mean Corpuscular Volume 91.4 fl (82-101); Mean Platelet Volume 9.8 fL (7.4-10.4); Monocytes # 0.5 10^3/uL (0.2-0.9); Monocytes % 8.2 %; Neutrophils # 4.12 10^3/uL (1.8-7.7); Neutrophils % 66.5 %; Nucleated Red Blood Cells % 0 %; Platelet Count 235 10^3/cmm (157-399); Red Blood Count 4.64 10^6/uL (3.85-5.65); Red Cell Distribution Width 12.8 % (12.1-15.1)
[2023-05-18 16:07] LABS: Partial Thromboplastin Time 27.4 SECONDS (23.9-36.7)
[2023-05-18 16:11] LABS: Troponin(5th) Baseline 17 ng/L (0-15)
[2023-05-18 16:26] LABS: Alanine Aminotransferase 16 U/L (0-41); Albumin Level 4.3 g/dL (3.5-5.2); Alkaline Phosphatase 39 U/L (40-130); Anion Gap 14.1 (5-19); Aspartate Amino Transferase 18 U/L (0-40); Blood Urea Nitrogen 14 mg/dL (8-23); Calcium 9.5 mg/dL (8.5-10.5); Carbon Dioxide 30 mmol/L (22-29); Chloride 100 mmol/L (98-107); Creatinine Clr Calc Pharmacy 63.9522; Globulin 2.1 g/dL (1.3-4.6); Glucose 117 mg/dL (65-115); NT Pro B Type Natriuretic Pept 255 pg/mL (0-450); Osmolality Calculated 292 mOsm/kg (285-295); Potassium 4.1 mmol/L (3.5-5.1); Sodium 140 mmol/L (136-145); Total Bilirubin 0.4 mg/dL (0.15-1.2); Total Protein 6.4 g/dL (6.6-8.7)
[2023-05-18 16:39] LABS: Add Urine Microscopic? NO; Charge for UA Resulting for Rev
[2023-05-18 16:49] VITALS: BP 133/74; PULSE 66; O2SAT 97
[2023-05-18 16:49] LABS: Bilirubin Urine Neg (Negative); Blood Urine Neg (Negative); Glucose Urine UA Norm (Normal); Ketones Urine Negative (Negative); Leukocyte Esterase Urine Negative (Negative); Nitrate Urine Negative (Negative); Protein Urine Neg (Negative); Urine Appearance Clear (CLEAR); Urine Color Yellow (Yellow); Urobilinogen Urine Norm (Negative); pH Urine 6 (5-7)
--- NOTE | 2023-05-18 17:19 | ECG_ITS ---
[facility] Test Date: 2023-05-18 Pat Name: John Valadez Department: Room: Gender: Male Certified Registered Locksmith: : 1940 Requested By: Jagdish Velez Order Number: [id number] Dangelo MD: Braulio Clemente M.D. Measurements Intervals [place] Rate: 68 P: 46 [place]: 236 QRS: -52 QRSD: 89 T: 49 QT: 382 QTc: 408 Interpretive Statements SINUS RHYTHM WITH FIRST DEGREE AV BLOCK LEFT AXIS DEVIATION [QRS AXIS < -30] PATTERN CONSISTENT WITH PULMONARY DISEASE Compared to ECG 05/18/2023 15:15:38 No significant changes Electronically Signed On 05-18-2023 22:34:27 CDT by Braulio Clemente M.D. [id number]
--- NOTE | 2023-05-18 17:28 | W.ED.CHESTPA ---
HPI - Chest Pain General: Chief Complaint: Chest Pain Stated Complaint: chest pain and neck pain Time Seen by Provider: 05/18/23 15:34 History of Present Illness: 83-year-old male presents emergency department complaints of lower chest wall pressure. He states he also has some left-sided neck pain. He states he recently has had a significant increase in his life stressors as his brother 2 days ago. He does have an extensive cardiac history to include a myocardial infarction as well as a total of 10 cardiac stents. He states he currently takes Plavix and aspirin daily. He states that he did take a sublingual nitroglycerin at home and did not get relief from his chest pressure. He describes his discomfort as a 2 out of 10 chest pressure. He denies nausea, vomiting, diaphoresis or shortness of breath. He states that he does intermittently have acid reflux and does have esophageal spasm and this feels very similar to that. He states that given his cardiac history he did want to be evaluated. He states that approximately 2 years ago he was seen by Dr. Gallego his risk compliance manager for an angioplasty and was told that everything looked okay and was open. Associated symptoms: Reports nausea Review of Systems General: Reports: 10 or more systems reviewed and unremarkable except in HPI and below Card: Reports: chest pain GI: Reports: nausea Psych: Reports: anxiety PFSH ED PFSH: Medical History Abnormal stress echo Acquired bilateral hammer toes Acute prostatitis Aortic atherosclerosis Atherosclerosis of coronary artery of [place] heart Benign essential hypertension with target blood pressure below 140/90 BPH w urinary obs/LUTS CAD (coronary artery disease) Cervical spondylosis with radiculopathy Chest pain Chest pain Chronic prostatitis Dyslipidemia Dyspnea Hyperlipidemia LDL was 80s, HDL 60 Hypertension Leg cramps Lumbar stenosis with neurogenic claudication Wan's neuroma of both feet Renal calculus Sacroiliac dysfunction Unstable angina Surgical History H/O arthroscopy of knee H/O thumb surgery History of back surgery History of foot surgery History of hernia surgery History of PTCA S/P extracorporeal shock wave therapy Family History Brother CAD (coronary artery disease) Lung disease Family/Other CAD (coronary artery disease) Cancer Grandfather Stroke Cancer Mother , at age 81 Diabetes Father , at age 87 Diabetes Stroke Denies family history of Clotting disorder Dementia Chronic kidney disease (CKD) Suicide Anesthesia complication Bleeding disorder Social History Smoking and tobacco status: never smoked Alcohol intake: current Alcohol intake frequency: holidays/special occasions only Alcohol type: wine Substance/Drug Use: never Marital status: Current occupational status: retired Physical Exam Const: COMMON NORMALS: no acute distress, average body habitus, patient oriented x3 and alert HENMT: COMMON NORMALS: normocephalic, atraumatic, Normal external nose present and moist oral mucous membranes HEAD & SCALP: normocephalic and atraumatic NOSE: Normal external nose present Eye: COMMON NORMALS: Equal, round and reactive pupils present and EOMs intact bilaterally PUPIL: Yes Equal, round and reactive pupils present Neck/C-Spine: COMMON NORMALS: full ROM, no lymphadenopathy, supple, no meningeal signs, no JVD and No carotid bruits Chest: COMMONS NORMALS: normal inspection of the chest and normal palpation of entire chest wall Resp: COMMON NORMALS: normal respiratory effort and clear to auscultation bilaterally AUSCULTATION: clear to auscultation bilaterally Cardio: COMMON NORMALS: no JVD, regular rate, regular rhythm, S1 normal heart sound present, S2 normal heart sound present and Peripheral pulses 2+ throughout RATE: regular rate RHYTHM: regular rhythm HEART SOUNDS: S1 normal heart sound present and S2 normal heart sound present PERIPHERAL PULSES: Peripheral pulses 2+ throughout GI: COMMON NORMALS: Normal to inspection, nondistended, normoactive bowel sounds present, Soft to palpation and non-tender PALPATION: Yes Soft to palpation : COMMON NORMALS: Yes no CVA tenderness BLADDER/KIDNEY EXAM: Yes no CVA tenderness Back/Pelvis: COMMON NORMALS: no CVA tenderness and thoracic and lumbar spine normal to inspection Extremity: COMMON NORMALS: normal to inspection, full ROM and capillary refill normal Neuro: COMMON NORMALS: patient oriented x3, CN's II-XII intact bilaterally, moves all extremities and gait normal SENSORIUM/ORIENTATION: Yes alert MENINGEAL SIGNS: Yes no meningeal signs Psych: COMMON NORMALS: mental status grossly normal, Normal thought process present and cooperative THOUGHT PROCESS: Normal thought process present Skin: COMMON NORMALS: no rashes or lesions noted and turgor normal GENERAL SKIN EXAM: no rashes or lesions noted and turgor normal Course Vital Signs: Vital signs: Vital Signs Temperature 97.4 F L 05/18/23 15:16 Pulse Rate 65 05/18/23 18:30 Respiratory Rate 17 05/18/23 15:16 Blood Pressure 134/74 05/18/23 18:30 Pulse Oximetry 95 05/18/23 18:30 Oxygen Delivery Me thod Room Air 05/18/23 16:49 MDM - Chest Pain Medical Decision Making Physical exam completed and documented, I will obtain chest x-ray, twelve-lead EKG cardiac enzymes as well as provide the patient with cardiac dose aspirin and a GI cocktail given his history of gastroesophageal reflux disease and coronary artery disease. I suspect given the patient's level of anxiousness and increased recent life stressors that his chest pressure is more related to stress. Patient has requested that he receive something for anxiety I have advised him that I will hold giving him any antianxiety medications while here in the emergency department till we complete our cardiac evaluation and that we will revisit the possibility of getting a prescription at the time of discharge. Differential Diagnosis Likely acute myocardial infarction (Atypical chest pain, stress response, anxiety,) Medical Records I reviewed the patient's medical records. Lab Data I reviewed the patient's lab results. 05/18/23 15:43 05/18/23 15:43 Radiology Impressions Chest X-Ray 05/18/23 17:34 IMPRESSION: 1. No acute abnormality demonstrated. 2. There is no interval change from the prior examination. Laboratory Results WBC 6.20 10^3/uL (3.29-11.43) 05/18/23 15:43 RBC 4.64 10^6/uL (3.85-5.65) 05/18/23 15:43 Hgb 14.50 g/dL (11.27-16.99) 05/18/23 15:43 Hct 42.4 % (37-53) 05/18/23 15:43 MCV 91.4 fl (82-101) 05/18/23 15:43 MCH 31.3 pg (27-33) 05/18/23 15:43 MCHC 34.2 g/dL (30-55) 05/18/23 15:43 RDW 12.8 % (12.1-15.1) 05/18/23 15:43 Plt Count 235 10^3/cmm (157-399) 05/18/23 15:43 MPV 9.8 fL (7.4-10.4) 05/18/23 15:43 Neut % (Auto) 66.5 % 05/18/23 15:43 Lymph % (Auto) 22.4 % 05/18/23 15:43 [place] % (Auto) 8.2 % 05/18/23 15:43 Eos % (Auto) 1.8 % 05/18/23 15:43 Baso % (Auto) 0.8 % 05/18/23 15:43 Neut # (Auto) 4.12 10^3/uL (1.8-7.7) 05/18/23 15:43 Lymph # (Auto) 1.4 10^3/uL (0.8-4.8) 05/18/23 15:43 [place] # (Auto) 0.5 10^3/uL (0.2-0.9) 05/18/23 15:43 Eos # (Auto) 0.1 10^3/uL (0.0-0.8) 05/18/23 15:43 Baso # (Auto) 0.1 10^3/uL (0.0-0.1) 05/18/23 15:43 Nucleated RBC % (auto) 0 % 05/18/23 15:43 Nucleated RBCs # 0.0 /100WBC 05/18/23 15:43 PT 12.40 SECONDS (12.1-14.9) 05/18/23 15:43 INR 0.90 (0.8-1.2) 05/18/23 15:43 APTT 27.4 SECONDS (23.9-36.7) 05/18/23 15:43 Sodium 140 mmol/L (136-145) 05/18/23 15:43 Potassium 4.1 mmol/L (3.5-5.1) 05/18/23 15:43 Chloride 100 mmol/L (98-107) 05/18/23 15:43 Carbon Dioxide 30 mmol/L (22-29) H 05/18/23 15:43 Anion Gap 14.1 (5-19) 05/18/23 15:43 BUN 14 mg/dL (8-23) 05/18/23 15:43 Creatinine 0.9 mg/dL (0.7-1.2) 05/18/23 15:43 GFR Calculation Not Reportable 05/18/23 15:43 Glucose 117 mg/dL (65-115) H 05/18/23 15:43 Calculated Osmolality 292 mOsm/kg (285-295) 05/18/23 15:43 Calcium 9.5 mg/dL (8.5-10.5) 05/18/23 15:43 Total Bilirubin 0.4 mg/dL (0.15-1.2) 05/18/23 15:43 AST 18 U/L (0-40) 05/18/23 15:43 ALT 16 U/L (0-41) 05/18/23 15:43 Alkaline Phosphatase 39 U/L (40-130) L 05/18/23 15:43 Troponin T Baseline 17 ng/L (0-15) H 05/18/23 15:43 Troponin T 120 Minute 15.89 ng/L (0-15) H 05/18/23 17:31 Delta Troponin T -1.11 ABS# (0-10) L 05/18/23 17:31 NT-Pro-B Natriuret Pep 255 pg/mL (0-450) 05/18/23 15:43 Total Protein 6.4 g/dL (6.6-8.7) L 05/18/23 15:43 Albumin 4.3 g/dL (3.5-5.2) 05/18/23 15:43 Globulin 2.1 g/dL (1.3-4.6) 05/18/23 15:43 Urine Color Yellow (Yellow) 05/18/23 16:32 Urine Appearance Clear (CLEAR) 05/18/23 16:32 Urine pH 6 (5-7) 05/18/23 16:32 Ur Specific [place] 1.020 (1.005-1.030) 05/18/23 16:32 Urine Protein Neg (Negative) 05/18/23 16:32 Urine Glucose (UA) Norm (Normal) 05/18/23 16:32 Urine Ketones Negative (Negative) 05/18/23 16:32 Urine Blood Neg (Negative) 05/18/23 16:32 Urine Nitrate Negative (Negative) 05/18/23 16:32 Urine Bilirubin Neg (Negative) 05/18/23 16:32 Urine Urobilinogen Norm mg/dL (Negative) 05/18/23 16:32 Ur Leukocyte Esterase Negative (Negative) 05/18/23 16:32 All radiology interpretation(s) finalized by discharge ED provider radiology interpretation(s): MPRESSION: 1. ? No acute abnormality demonstrated. 2. ? There is no interval change from the prior examination. Discharge Plan Discharge Patient Disposition: Home Clinical Impression: Chest pain, non-cardiac, Anxiety Condition: Stable Prescriptions: New diazepam 5 mg tablet 5 mg PO BID Qty: 10 0RF No Action (DME) Sole Supports See Rx Instructions .ROUTE .MEDSUPPLY Qty: 1 0RF Rx Instructions: As directed diazepam 5 mg tablet 2.5 mg PO BID PRN (Reason: anxiety) ketoconazole 2 % cream See Rx Instructions .ROUTE .COMPLEX Rx Instructions: Apply to red, scaly areas on face 1-2 times daily prn omega 6-vph-ryq-fish oil [Fish Oil] 60-90-500 mg capsule 1 cap PO DAILY aspirin 81 mg tablet,delayed release (DR/EC) 81 mg PO DAILY nitroglycerin [Nitrostat] 0.4 mg tablet, sublingual 0.4 mg sublingual Q5M PRN (Reason: chest pain) Qty: 50 5RF Rx Instructions: do not exceed 3 doses per episode simvastatin 80 mg tablet 80 mg PO DAILY Qty: 90 3RF ezetimibe 10 mg tablet 10 mg PO DAILY Qty: 90 2RF trazodone 150 mg tablet 75 mg PO BEDTIME metformin 500 mg tablet extended release 24 hr 500 mg PO BID Hold Instructions: Resume on 07/20/21. lisinopril 10 mg tablet 2.5 mg PO QPM clopidogrel 75 mg tablet 75 mg PO QAM pramipexole 0.5 mg tablet 0.5 mg PO QPM gabapentin 300 mg capsule 300 mg PO DAILY omeprazole 20 mg capsule,delayed release(DR/EC) 20 mg PO DAILY Men's 50 Plus Multivitamin 400-20-370 mcg Tablet 1 tab PO DAILY Discharge Orders: Discharge ED (Routine); Ordered 05/18/23 Ordered By: Jagdish Velez Referrals: lJ Felix MD [Primary Care Provider] - Discharge Diet: Advance as tolerated Discharge Activity: Resume usual activity Patient Instructions: Opioid Safety, Pain Management Coding Level of Care Code ED Bilingual Spanish Inbound Sales for Juwan Caldera
--- NOTE | 2023-05-18 17:34 | XRR_ITS ---
PROCEDURE INFORMATION: Exam: XR Chest Exam date and time: 05/18/2023 5:38 PM Age: 83 years old Clinical indication: Pain; Chest pressure; Additional info: Chest pressure/pain TECHNIQUE: Imaging protocol: Radiologic exam of the chest. Views: 1 view. COMPARISON: CR XR chest 1V portable [id number] 05/03/2022 9:37 PM FINDINGS: Lungs: Mild fibrosis at the left lung base. No consolidative pulmonary infiltrates are noted. Small left upper lobe pulmonary granuloma noted. Pleural spaces: No pleural effusion. No pneumothorax. Heart/Mediastinum: No cardiomegaly. Vasculature: The thoracic aorta is atherosclerotic. Bones/joints: Unremarkable. XR/XR chest 1V portable [id number] IMPRESSION: 1. No acute abnormality demonstrated. 2. There is no interval change from the prior examination.
[2023-05-18 18:00] LABS: Troponin 5 2HR 15.89 ng/L (0-15)
[2023-05-18 18:06] LABS: Troponin 5 2HR Delta -1.11 ABS# (0-10)
[2023-05-18 18:30] VITALS: BP 134/74; PULSE 65; O2SAT 95
== END 2023-05-18 18:32 | disposition home or self-care (01) ==
PROVIDERS: Emergency Provider Internal Medicine; PCP Family Medicine
DX: R07.89 Other chest pain (principal); F41.9 Anxiety disorder, unspecified; Z79.02 Long term (current) use of antithrombotics/antiplatelets; Z79.82 Long term (current) use of aspirin; Z79.84 Long term (current) use of oral hypoglycemic drugs; I25.10 Atherosclerotic heart disease of native coronary artery without angina pectoris; I10 Essential (primary) hypertension; E78.5 Hyperlipidemia, unspecified
CPT/HCPCS: 36415; 71045; 80053; 81003; 83880; 84484; 85025; 85610; 85730; 93005; 99285

== ENCOUNTER → 2023-08-02 11:18 | Outpatient (BNVA) | payer MEDICARE, OTHER, SELFPAY | PROVIDERS: PCP Family Medicine; Visit Provider Internal Medicine Cardiovascular Disease | DX: I25.10 Atherosclerotic heart disease of native coronary artery without angina pectoris (principal); I10 Essential (primary) hypertension; I36.1 Nonrheumatic tricuspid (valve) insufficiency; E78.5 Hyperlipidemia, unspecified; Z79.82 Long term (current) use of aspirin | CPT/HCPCS: 99214 ==

== ENCOUNTER 2023-08-07 12:38 | Emergency (ER) | payer MEDICARE, OTHER, SELFPAY ==
--- NOTE | 2023-08-07 12:42 | XRR_ITS ---
PROCEDURE INFORMATION: Exam: XR Chest Exam date and time: 08/07/2023 2:23 PM Age: 83 years old Clinical indication: Cough TECHNIQUE: Imaging protocol: Radiologic exam of the chest. Views: 1 view. COMPARISON: CR (CHEST, ) 05/18/2023 5:38 PM FINDINGS: Lungs: Suboptimal pulmonary expansion with associated accentuation of bronchovascular markings. No acute pulmonary parenchymal pathology evident given this factor. Pleural spaces: No pleural effusion or pneumothorax. Heart/Mediastinum: Cardiomediastinal contours accentuated by incomplete pulmonary expansion and AP technique. Bones/joints: No significant pathology. XR/XR chest 1V portable [id number] IMPRESSION: No acute pathology or significant interval change given technique.
[2023-08-07 12:56] VITALS: BP 134/80; PULSE 72; RESP 15; TEMP 36.4; O2SAT 96
--- NOTE | 2023-08-07 14:28 | ED_ITS ---
HPI - URI/Sore Throat General: Chief Complaint: Upper Respiratory Infection Stated Complaint: cough Time Seen by Provider: 08/07/23 14:07 History of Present Illness: 83-year-old male patient states that he started with a infection of the respiratory system after Thanksgiving. Patient was on Augmentin for 10 days and 4 days worth of prednisone. Patient reports doing better after the 10 days of Augmentin but for the last week patient has felt like he is getting worse again. Patient started taking the Augmentin 4 days ago. Patient also notes that his A1c was elevated and believes it is secondary to an infection. Patient appears nontoxic. Vital signs are stable. Patient appears in no pain. Review of Systems General: Reports: 10 or more systems reviewed and unremarkable except in HPI and below ENMT: Reports: post nasal drip Resp: Reports: non-productive cough PFSH ED PFSH: Medical History Acute prostatitis BPH w urinary obs/LUTS Unstable angina Chest pain Cervical spondylosis with radiculopathy Chronic prostatitis Sacroiliac dysfunction Lumbar stenosis with neurogenic claudication Dyslipidemia Benign essential hypertension with target blood pressure below 140/90 Abnormal stress echo Dyspnea Chest pain Leg cramps Atherosclerosis of coronary artery of [place] heart CAD (coronary artery disease) Hypertension Hyperlipidemia LDL was 80s, HDL 60 Renal calculus Aortic atherosclerosis 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 Surgical History History of foot surgery History of PTCA S/P extracorporeal shock wave therapy H/O thumb surgery H/O arthroscopy of knee History of hernia surgery History of back surgery Family History Brother CAD (coronary artery disease) Lung disease Family/Other CAD (coronary artery disease) Cancer Grandfather Stroke Cancer Mother , at age 81 Diabetes Father , at age 87 Diabetes Stroke Denies family history of Clotting disorder Dementia Chronic kidney disease (CKD) Suicide Anesthesia complication Bleeding disorder Social History Smoking and tobacco/nicotine status: never used tobacco/nicotine Alcohol intake: current Alcohol intake frequency: holidays/special occasions only Alcohol type: wine Substance/Drug Use: never Marital status: Current occupational status: retired Physical Exam Const: COMMON NORMALS: alert HENMT: COMMON NORMALS: normocephalic, TM's normal bilaterally and Normal nasal mucous membranes and turbinates present HEAD & SCALP: normocephalic NOSE: Normal nasal mucous membranes and turbinates present TYMPANIC MEMBRANE: TM's normal bilaterally THROAT: posterior oropharynx abnormal cobblestoning Resp: COMMON NORMALS: normal respiratory effort and clear to auscultation bilaterally AUSCULTATION: clear to auscultation bilaterally Cardio: COMMON NORMALS: regular rate and regular rhythm RATE: regular rate RHYTHM: regular rhythm GI: COMMON NORMALS: Soft to palpation and non-tender PALPATION: Yes Soft to palpation Extremity: COMMON NORMALS: no pedal edema Neuro: SENSORIUM/ORIENTATION: Yes alert Skin: COMMON NORMALS: turgor normal GENERAL SKIN EXAM: turgor normal Course Vital Signs: Vital signs: Vital Signs Temperature 97.6 F 08/07/23 12:56 Pulse Rate 72 08/07/23 12:56 Respiratory Rate 15 08/07/23 12:56 Blood Pressure 134/80 08/07/23 12:56 Pulse Oximetry 96 08/07/23 12:56 Oxygen Delivery Me thod Room Air 08/07/23 12:56 MDM - URI/Sore Throat Medical Decision Making Patient comes in today for 3 to 4-day history of cough and nasal drainage. Patient reports illness last month that seem to improve but over the last 3 to 4 days seems to have gotten worse again. Patient appears nontoxic. Patient appears in no pain. Lungs are clear to auscultation. Vital signs are normal. Differential diagnosis includes but not limited to upper respiratory infection, pneumonia, bronchitis, influenza, COVID-19. Patient tested positive for COVID- 19. Believe the patient most likely has a upper respiratory secondary to the COVID-19. Recommend supportive care and follow-up as needed. Patient reported understanding. Lab Data Radiology Impressions Chest X-Ray 08/07/23 12:42 IMPRESSION: No acute pathology or significant interval change given technique. Laboratory Results Influenza Type A Ag negative (Negative) 08/07/23 15:15 Influenza Type B Ag negative (Negative) 08/07/23 15:15 SARS-CoV-2 Ag (Rapid) positive (Negative) H 08/07/23 15:15 All radiology interpretation(s) finalized by discharge Discharge Plan Discharge Patient Disposition: Home Clinical Impression: Upper respiratory tract infection due to 2019-nCoV Condition: Stable Prescriptions: No Action (DME) Sole Supports See Rx Instructions .ROUTE .MEDSUPPLY Qty: 1 0RF Rx Instructions: As directed diazepam 5 mg tablet 2.5 mg PO BID PRN (Reason: anxiety) ketoconazole 2 % cream See Rx Instructions .ROUTE .COMPLEX Rx Instructions: Apply to red, scaly areas on face 1-2 times daily prn omega 8-nhf-slf-fish oil [Fish Oil] 60-90-500 mg capsule 1 cap PO DAILY aspirin 81 mg tablet,delayed release (DR/EC) 81 mg PO DAILY nitroglycerin [Nitrostat] 0.4 mg tablet, sublingual 0.4 mg sublingual Q5M PRN (Reason: chest pain) Qty: 50 5RF Rx Instructions: do not exceed 3 doses per episode ezetimibe 10 mg tablet 10 mg PO DAILY Qty: 90 2RF simvastatin 80 mg tablet 80 mg PO DAILY Qty: 90 3RF trazodone 150 mg tablet 75 mg PO BEDTIME metformin 500 mg tablet extended release 24 hr 500 mg PO BID Hold Instructions: Resume on 07/20/21. lisinopril 10 mg tablet 2.5 mg PO QPM diazepam 5 mg tablet 5 mg PO BID Qty: 10 0RF clopidogrel 75 mg tablet 75 mg PO QAM pramipexole 0.5 mg tablet 0.5 mg PO QPM gabapentin 300 mg capsule 300 mg PO DAILY omeprazole 20 mg capsule,delayed release(DR/EC) 20 mg PO DAILY Men's 50 Plus Multivitamin 400-20-370 mcg Tablet 1 tab PO DAILY Discharge Orders: Discharge ED (Routine); Ordered 08/07/23 Ordered By: Carlos Gill Referrals: Jl Felix MD [Primary Care Provider] - Discharge Diet: Usual diet Discharge Activity: Increase activity as tolerated Patient Instructions: COVID-19 (Coronavirus Disease 2019) (ED) Activity Restrictions/Additional Instructions: Drink plenty of water and fluids. Use acetaminophen and/or ibuprofen as needed for pain and discomfort. Use [id number] cough medicine to help with cough. Use [id number] Claritin as needed for nasal drainage. Follow-up with primary care for further instructions. Return to ED for new concerns. Coding Level of Care Code ED Technology Project Manager for Juwan Caldera
[2023-08-07 15:40] LABS: Influenza A by IFA negative (Negative); Influenza B by IFA negative (Negative)
[2023-08-07 15:43] LABS: SARS Covid-2 Antigen positive (Negative)
[2023-08-07 16:28] VITALS: BP 94/70; PULSE 68; O2SAT 95
== END 2023-08-07 16:29 | disposition home or self-care (01) ==
PROVIDERS: Emergency Medicine; Emergency Provider Nurse Practitioner Family; PCP Family Medicine
DX: U07.1 COVID-19 (principal); Z79.02 Long term (current) use of antithrombotics/antiplatelets; Z79.82 Long term (current) use of aspirin; Z79.84 Long term (current) use of oral hypoglycemic drugs; E78.5 Hyperlipidemia, unspecified; I10 Essential (primary) hypertension; I25.10 Atherosclerotic heart disease of native coronary artery without angina pectoris
CPT/HCPCS: 71045; 87426; 87804; 99284

== ENCOUNTER → 2023-09-01 09:04 | Outpatient (BNVA) | payer MEDICARE, OTHER, SELFPAY | PROVIDERS: PCP Family Medicine; Visit Provider Nurse Practitioner Family | DX: L57.0 Actinic keratosis (principal); Z85.828 Personal history of other malignant neoplasm of skin; L81.4 Other melanin hyperpigmentation; D22.5 Melanocytic nevi of trunk; L85.3 Xerosis cutis; L57.8 Other skin changes due to chronic exposure to nonionizing radiation; L72.0 Epidermal cyst | CPT/HCPCS: 17000; 99213 ==

== ENCOUNTER 2023-11-01 10:05 | Outpatient (CLI) | payer MEDICARE, OTHER, SELFPAY ==
--- NOTE | 2023-11-01 10:17 | XR_ITS ---
WS: [id number], AP view, 11/01/2023 Clinical Data: History of nephrolithiasis Comparison: [facility], 07/06/2022 Findings: No abnormal intraabdominal masses or calcifications are seen. There is no dilatated small bowel or ev idence of obstruction. There is a moderate amount of fecal material in the transverse and descending colons. There are maribell cystectomy clips in the right upper quadrant. There is a posterior lumbosacral fusion with pedicle sc rews, connecting rods and disc spacers L4-S1. There are laminectomy changes at L4. There is a bony fu silverio on the right at L5-S1 Impression: 1. Moderate amount of fecal material in the colon. 2. Posterior lumbosacral fusion L4-S1.
== END 2023-11-01 10:06 | disposition home or self-care (01) ==
LOC: RAD 10:13
PROVIDERS: PCP Family Medicine; Visit Provider Nurse Practitioner Family
DX: Z87.442 Personal history of urinary calculi (principal)
CPT/HCPCS: 74018

== ENCOUNTER 2023-12-19 20:30 | Emergency (ER) | payer MEDICARE, OTHER, SELFPAY ==
[2023-12-19 20:33] VITALS: BP 152/89; PULSE 83; RESP 18; TEMP 37; O2SAT 94
--- NOTE | 2023-12-19 20:43 | W.ED.ALLEREA ---
HPI - Allergic Reaction General: Chief complaint: Allergic Reaction Stated complaint: Allergic Reaction to Medicine Time Seen by Provider: 12/19/23 20:39 History of Present Illness: HPI narrative: Patient says he had cough and congestion and tightness with breathing for several days now. He went to urgent care and they started him on a Z-Bala. He says after he took the Z-Bala today he felt like he could not swallow very well and was thinking maybe he was having allergic reaction. Also said after he took a Z-Bala he had to urinate very frequently. Review of Systems Narrative: Constitutional symptoms: Negative except as documented in HPI. Skin symptoms: Negative except as documented in HPI. Eye symptoms: Negative except as documented in HPI. ENMT symptoms: Negative except as documented in HPI. Respiratory symptoms: Negative except as documented in HPI. Cardiovascular symptoms: Negative except as documented in HPI. Gastrointestinal symptoms: Negative except as documented in HPI. Genitourinary symptoms: Negative except as documented in HPI. Musculoskeletal symptoms: Negative except as documented in HPI. Neurologic symptoms: Negative except as documented in HPI. Psychiatric symptoms: Negative except as documented in HPI. Endocrine symptoms: Negative except as documented in HPI. 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 Surgical History History of foot surgery History of PTCA S/P extracorporeal shock wave therapy H/O thumb surgery H/O arthroscopy of knee History of hernia surgery History of back surgery Family History Brother CAD (coronary artery disease) Lung disease Family/Other CAD (coronary artery disease) Cancer Grandfather Stroke Cancer Mother , at age 81 Diabetes Father , at age 87 Diabetes Stroke Denies family history of Clotting disorder Dementia Chronic kidney disease (CKD) Suicide Anesthesia complication Bleeding disorder Social History Smoking and tobacco/nicotine status: never used tobacco/nicotine Alcohol intake: current Alcohol intake frequency: holidays/special occasions only Alcohol type: wine Substance/Drug Use: never Marital status: Current occupational status: retired Physical Exam Narrative: EXAM NARRATIVE: General: Alert, no acute distress. Skin: Warm, dry. Head: Normocephalic, atraumatic. Neck: Supple, trachea midline. Eye: Extraocular movements are intact. Ears, nose, mouth and throat: mucosa moist. Cardiovascular: Regular, Normal peripheral perfusion. Respiratory: Lungs are clear to auscultation, respirations are non-labored, breath sounds are equal, Symmetrical chest wall expansion. Gastrointestinal: Soft, Nontender, Non distended, Normal bowel sounds. Musculoskeletal: Normal ROM, no deformity. Neurological: Alert and oriented, No focal neurological deficit observed. Psychiatric: Cooperative, appropriate mood & affect. Course Vital Signs: Vital signs: Vital Signs Temperature 98.6 F 12/19/23 20:33 Pulse Rate 69 12/19/23 22:08 Respiratory Rate 18 12/19/23 20:33 Blood Pressure 131/73 12/19/23 22:08 Pulse Oximetry 97 12/19/23 22:08 Oxygen Delivery Me thod Room Air 12/19/23 22:08 MDM - Allergic Reaction Medical Decision Making Medical decision making: Differential diagnosis including but not limited to and based on the above HPI, review of systems and physical exam: Basic lab work and a UA. Decadron for his possible allergic reaction. These were all normal and he is now concerned about his congestion. Ordered chest x-ray and respiratory panel. They will call back about the respiratory panel tomorrow. Orders placed to evaluate differential diagnosis based on the above differential, HPI and physical exam Lab Review: Laboratory results were reviewed and interpreted by myself the emergency room physician. Lab work is unremarkable. No white count. No anemia. No renal failure. Chest x-ray: No acute process. No infiltrate. No pneumothorax. No cardiomegaly. This was reviewed and interpreted by myself the ER physician. I reviewed the patient's medical record. Reexamination: Patient remained stable. No increased work of breathing. No altered mental status. Assessment and plan: Upper respiratory infection Allergic reaction -IV Decadron here. Changing his antibiotics and placing on steroids at home - Discharged home - Discussed findings and plan with patient. Answered any questions. - All laboratory values were reviewed and interpreted personally by myself, the ER physician - All imaging was reviewed and interpreted personally by myself, the ER physician. - Evaluation and treatment of this problem were appropriate in the emergency setting Lab Data 12/19/23 20:46 12/19/23 20:46 Laboratory Results WBC 5.89 10^3/uL (3.29-11.43) 12/19/23 20:46 RBC 4.62 10^6/uL (3.85-5.65) 12/19/23 20:46 Hgb 14.60 g/dL (11.27-16.99) 12/19/23 20:46 Hct 40.5 % (37-53) 12/19/23 20:46 MCV 87.7 fl (82-101) 12/19/23 20:46 MCH 31.6 pg (27-33) 12/19/23 20:46 MCHC 36.0 g/dL (30-55) 12/19/23 20:46 RDW 12.8 % (12.1-15.1) 12/19/23 20:46 Plt Count 231 10^3/cmm (157-399) 12/19/23 20:46 MPV 10.0 fL (7.4-10.4) 12/19/23 20:46 Neut % (Auto) 64.8 % 12/19/23 20:46 Lymph % (Auto) 19.7 % 12/19/23 20:46 [place] % (Auto) 10.9 % 12/19/23 20:46 Eos % (Auto) 3.6 % 12/19/23 20:46 Baso % (Auto) 0.7 % 12/19/23 20:46 Neut # (Auto) 3.82 10^3/uL (1.8-7.7) 12/19/23 20:46 Lymph # (Auto) 1.2 10^3/uL (0.8-4.8) 12/19/23 20:46 [place] # (Auto) 0.6 10^3/uL (0.2-0.9) 12/19/23 20:46 Eos # (Auto) 0.2 10^3/uL (0.0-0.8) 12/19/23 20:46 Baso # (Auto) 0.0 10^3/uL (0.0-0.1) 12/19/23 20:46 Nucleated RBC % (auto) 0 % 12/19/23 20:46 Nucleated RBCs # 0.0 /100WBC 12/19/23 20:46 Sodium 138 mmol/L (136-145) 12/19/23 20:46 Potassium 4.1 mmol/L (3.5-5.1) 12/19/23 20:46 Chloride 103 mmol/L (98-107) 12/19/23 20:46 Carbon Dioxide 25 mmol/L (22-29) 12/19/23 20:46 Anion Gap 14.1 (5-19) 12/19/23 20:46 BUN 15 mg/dL (8-23) 12/19/23 20:46 Creatinine 0.9 mg/dL (0.7-1.2) 12/19/23 20:46 GFR Calculation Not Reportable 12/19/23 20:46 Glucose 154 mg/dL (65-115) H 12/19/23 20:46 Calculated Osmolality 290 mOsm/kg (285-295) 12/19/23 20:46 Calcium 9.5 mg/dL (8.5-10.5) 12/19/23 20:46 Total Bilirubin 0.4 mg/dL (0.15-1.2) 12/19/23 20:46 AST 21 U/L (0-40) 12/19/23 20:46 ALT 19 U/L (0-41) 12/19/23 20:46 Alkaline Phosphatase 47 U/L (40-130) 12/19/23 20:46 Total Protein 6.7 g/dL (6.6-8.7) 12/19/23 20:46 Albumin 3.7 g/dL (3.5-5.2) 12/19/23 20:46 Globulin 3.0 g/dL (1.3-4.6) 12/19/23 20:46 Urine Color Yellow (Yellow) 12/19/23 21:38 Urine Appearance Clear (CLEAR) 12/19/23 21:38 Urine pH 5 (5-7) 12/19/23 21:38 Ur Specific [place] 1.020 (1.005-1.030) 12/19/23 21:38 Urine Protein Neg (Negative) 12/19/23 21:38 Urine Glucose (UA) Norm (Normal) 12/19/23 21:38 Urine Ketones Negative (Negative) 12/19/23 21:38 Urine Blood Neg (Negative) 12/19/23 21:38 Urine Nitrate Negative (Negative) 12/19/23 21:38 Urine Bilirubin Neg (Negative) 12/19/23 21:38 Urine Urobilinogen Neg mg/dL (Negative) 12/19/23 21:38 Ur Leukocyte Esterase Negative (Negative) 12/19/23 21:38 Urine RBC None /hpf (0-2) 12/19/23 21:38 Urine WBC None /hpf (0-5) 12/19/23 21:38 Ur Squamous Epith Cells None /hpf (0-5) 12/19/23 21:38 Amorphous Sediment Not Reportable 12/19/23 21:38 Urine Bacteria None /hpf (NONE) 12/19/23 21:38 Urine Mucus 1+ /hpf 12/19/23 21:38 XR interpretation done by ED provider, pending radiology final review Discharge Plan Discharge Patient Disposition: Home Clinical Impression: Adverse reaction to drug, Upper respiratory infection Condition: Stable Prescriptions: New dexamethasone 6 mg tablet 6 mg PO DAILY 5 Days Qty: 5 0RF amoxicillin-pot clavulanate 875-125 mg tablet 1 tab PO BID 7 Days Qty: 14 0RF No Action (DME) Sole Supports See Rx Instructions .ROUTE .MEDSUPPLY Qty: 1 0RF Rx Instructions: As directed diazepam 5 mg tablet 2.5 mg PO BID PRN (Reason: anxiety) ketoconazole 2 % cream See Rx Instructions .ROUTE .COMPLEX Rx Instructions: Apply to red, scaly areas on face 1-2 times daily prn omega [id number] oil [Fish Oil] 60-90-500 mg capsule 1 cap PO DAILY aspirin 81 mg tablet,delayed release (DR/EC) 81 mg PO DAILY nitroglycerin [Nitrostat] 0.4 mg tablet, sublingual 0.4 mg sublingual Q5M PRN (Reason: chest pain) Qty: 50 5RF Rx Instructions: do not exceed 3 doses per episode simvastatin 80 mg tablet 80 mg PO DAILY Qty: 90 3RF ezetimibe 10 mg tablet See Rx Instructions .ROUTE .COMPLEX Qty: 90 0RF Dose Instruction: Take 1 tablet by mouth once daily Rx Instructions: Take 1 tablet by mouth once daily trazodone 150 mg tablet 75 mg PO BEDTIME metformin 500 mg tablet extended release 24 hr 500 mg PO BID Hold Instructions: Resume on 07/20/21. lisinopril 10 mg tablet 2.5 mg PO QPM diazepam 5 mg tablet 5 mg PO BID Qty: 10 0RF clopidogrel 75 mg tablet 75 mg PO QAM pramipexole 0.5 mg tablet 0.5 mg PO QPM gabapentin 300 mg capsule 300 mg PO DAILY omeprazole 20 mg capsule,delayed release(DR/EC) 20 mg PO DAILY Men's 50 Plus Multivitamin 400-20-370 mcg Tablet 1 tab PO DAILY Discharge Orders: Discharge ED (Routine); Ordered 12/19/23 Ordered By: Jana Gil Referrals: Jl Felix MD [Primary Care Provider] - 4-7 days Discharge Diet: Usual diet Discharge Activity: Resume usual activity Patient Instructions: Upper Respiratory Infection (ED) Activity Restrictions/Additional Instructions: Thank you for choosing [facility] for your healthcare needs today. Please realize this is an emergency room and that we are providing you with a medical screening exam and this may not be complete and all inclusive of all the testing and or work up that you may need to determine your ailment or severity of your illness. You have been screened and evaluated and felt safe for discharge. Health conditions do change or evolve sometimes and as such it is important that you follow up with your Primary Doctor to be re checked, 3-5 days is a general good time frame for follow up. You are always welcome to return to the ED for re assessment if your symptoms are worsening or you have new concerns Coding Level of Care Code ED Sample Box Maker for Juwan Caldera
[2023-12-19] MEDS: dexamethasone 10 mg/mL INJ IVP (20:55)
[2023-12-19 21:00] LABS: Basophils % 0.7 %; Eosinophils # 0.2 10^3/uL (0.0-0.8); Eosinophils % 3.6 %; Hematocrit 40.5 % (37-53); Lymphocytes # 1.2 10^3/uL (0.8-4.8); Lymphocytes % 19.7 %; Mean Corpuscular Hemoglobin 31.6 pg (27-33); Mean Corpuscular Volume 87.7 fl (82-101); Monocytes # 0.6 10^3/uL (0.2-0.9); Monocytes % 10.9 %; Neutrophils # 3.82 10^3/uL (1.8-7.7); Neutrophils % 64.8 %; Nucleated Red Blood Cells % 0 %; Platelet Count 231 10^3/cmm (157-399); Red Blood Count 4.62 10^6/uL (3.85-5.65); Red Cell Distribution Width 12.8 % (12.1-15.1); White Blood Count 5.89 10^3/uL (3.29-11.43)
[2023-12-19 21:20] LABS: Alanine Aminotransferase 19 U/L (0-41); Albumin Level 3.7 g/dL (3.5-5.2); Alkaline Phosphatase 47 U/L (40-130); Anion Gap 14.1 (5-19); Aspartate Amino Transferase 21 U/L (0-40); Blood Urea Nitrogen 15 mg/dL (8-23); Calcium 9.5 mg/dL (8.5-10.5); Carbon Dioxide 25 mmol/L (22-29); Chloride 103 mmol/L (98-107); Creatinine Clr Calc Pharmacy 63.9522; Glucose 154 mg/dL (65-115); Osmolality Calculated 290 mOsm/kg (285-295); Potassium 4.1 mmol/L (3.5-5.1); Sodium 138 mmol/L (136-145); Total Bilirubin 0.4 mg/dL (0.15-1.2); Total Protein 6.7 g/dL (6.6-8.7)
[2023-12-19 21:52] LABS: Bilirubin Urine Neg (Negative); Blood Urine Neg (Negative); Glucose Urine UA Norm (Normal); Ketones Urine Negative (Negative); Leukocyte Esterase Urine Negative (Negative); Nitrate Urine Negative (Negative); Protein Urine Neg (Negative); Urine Appearance Clear (CLEAR); Urine Color Yellow (Yellow); Urobilinogen Urine Neg (Negative); pH Urine 5 (5-7)
[2023-12-19 21:53] LABS: Add Urine Culture? No; Mucus Urine 1+ /hpf
--- NOTE | 2023-12-19 22:06 | XRR_ITS ---
PROCEDURE INFORMATION: Exam: XR Chest Exam date and time: 12/19/2023 10:16 PM Age: 83 years old Clinical indication: Shortness of breath; Prior surgery; Surgery date: 6+ months; Surgery type: Cardiac stents TECHNIQUE: Imaging protocol: Radiologic exam of the chest. Views: 1 view. COMPARISON: CR XR chest 1V portable [id number] 08/07/2023 2:23 PM FINDINGS: Lungs: Mild chronic patchy scarring in the bilateral lung bases. New airspace opacity. Small chronic calcified granuloma in the left upper lobe. Pleural spaces: Unremarkable. No pleural effusion. No pneumothorax. Heart/Mediastinum: Unremarkable. No cardiomegaly. Bones/joints: Unremarkable. XR/XR chest 1V [id number] IMPRESSION: No significant radiographic change compared to 08/07/2023. Mild basilar scarring. No new airspace opacity.
[2023-12-19 22:08] VITALS: BP 131/73; PULSE 69; O2SAT 97
[2023-12-19 22:35] VITALS: BP 125/74; PULSE 69; O2SAT 92
[2023-12-20 01:53] LABS: Adenovirus Not Detected (NOT DETECT); Chlamydia Pneumoniae Not Detected (NOT DETECT); Coronavirus 229E,HKU1,NL63,OC4 Not Detected (NOT DETECT); Human Metapneumovirus Not Detected (NOT DETECT); Human Rhinovirus/Enterovirus Not Detected (NOT DETECT); Influenza A Not Detected (NOT DETECT); Influenza A H1 Not Detected (NOT DETECT); Influenza A H1-2009 Not Detected (NOT DETECT); Influenza A H3 Not Detected (NOT DETECT); Influenza B Not Detected (NOT DETECT); Mycoplasma Pneumoniae Not Detected (NOT DETECT); Parainfluenza Virus Type 1 Not Detected (NOT DETECT); Parainfluenza Virus Type 2 Not Detected (NOT DETECT); Parainfluenza Virus Type 3 Detected (NOT DETECT); Parainfluenza Virus Type 4 Not Detected (NOT DETECT); Respiratory Syncytial Virus A Not Detected (NOT DETECT); Respiratory Syncytial Virus B Not Detected (NOT DETECT); SARS-COV-2 Not Detected (NOT DETECT)
== END 2023-12-19 22:44 | disposition home or self-care (01) ==
PROVIDERS: Emergency Provider Emergency Medicine; PCP Family Medicine
DX: T78.40XA Allergy, unspecified, initial encounter (principal); T36.3X5A Adverse effect of macrolides, initial encounter; J06.9 Acute upper respiratory infection, unspecified; Z79.02 Long term (current) use of antithrombotics/antiplatelets; Z79.82 Long term (current) use of aspirin; Z79.84 Long term (current) use of oral hypoglycemic drugs; E78.5 Hyperlipidemia, unspecified; I10 Essential (primary) hypertension; I25.10 Atherosclerotic heart disease of native coronary artery without angina pectoris; X58.XXXA Exposure to other specified factors, initial encounter
CPT/HCPCS: 71045; 80053; 81001; 85025; 87486; 87581; 87633; 96374; 99284; J1100

== ENCOUNTER 2023-12-23 11:59 | Emergency (ER) | payer MEDICARE, OTHER, SELFPAY ==
--- NOTE | 2023-12-23 12:01 | XR_ITS ---
WS: [id number] Portable AP upright chest, 12/23/2023 Clinical Data: cxr Comparison: Portable chest, 12/19/2023 Findings: There are patchy opacities extending from both [place] into the lower lobes which could repres ent atelectasis and/or minimal pneumonia. There is blunting of the left costophrenic angle which coul d indicate a small left effusion. No nodules or masses are seen. The heart is normal. The pulmonary vascularity is not increased. No pneumonia or pneumothorax is seen. The heart is normal. The aortic a rch and descending thoracic aorta show tortuosity. XR/XR chest 1V portable [id number] Impression: 1. Patchy opacities extending from both [place] inferiorly into the lower lobes wh ich could indicate atelectasis and/or pneumonia. 2. Possible small left pleural effusion. 3. Atherosclerosis.
[2023-12-23 12:15] VITALS: BP 132/74; PULSE 80; RESP 18; TEMP 36.4; O2SAT 95; BMI 23.6
[2023-12-23 13:29] LABS: Basophils % 0.4 %; Eosinophils # 0.2 10^3/uL (0.0-0.8); Eosinophils % 3.2 %; Hematocrit 44.2 % (37-53); Lymphocytes # 1.3 10^3/uL (0.8-4.8); Lymphocytes % 18.1 %; Mean Corpuscular HGB Conc 33.5 g/dL (30-55); Mean Corpuscular Hemoglobin 30.9 pg (27-33); Mean Corpuscular Volume 92.3 fl (82-101); Monocytes # 0.6 10^3/uL (0.2-0.9); Monocytes % 8.4 %; Neutrophils # 4.78 10^3/uL (1.8-7.7); Neutrophils % 69.5 %; Nucleated Red Blood Cells % 0 %; Platelet Count 250 10^3/cmm (157-399); Red Blood Count 4.79 10^6/uL (3.85-5.65); Red Cell Distribution Width 12.6 % (12.1-15.1); White Blood Count 6.89 10^3/uL (3.29-11.43)
--- NOTE | 2023-12-23 13:43 | CTR_ITS ---
PROCEDURE INFORMATION: Exam: CTA Chest With Contrast Exam date and time: 12/23/2023 2:32 PM Age: 83 years old Clinical indication: Shortness of breath and other: Hemoptysis; Prior surgery; Surgery date: 6+ months; Surgery type: Cardiac stents; Additional info: Hemoptysis, wells score of 4. Cough, hemoptysis. SOB. TECHNIQUE: Imaging protocol: Computed tomographic angiography of the chest with contrast. Exam focused on the arteries. 3D rendering (Not supervised by radiologist): MIP and/or 3D reconstructed images were created by the technologist. Radiation optimization: All CT scans at this facility use at least one of these dose optimization techniques: automated exposure control; mA and/or kV adjustment per patient size (includes targeted exams where dose is matched to clinical indication); or iterative reconstruction. Contrast material: OMNI 350; Contrast volume: 80 ml; Contrast route: INTRAVENOUS (IV); COMPARISON: CR XR chest 1V portable [id number] 12/23/2023 1:35 PM RADIATION DOSE METRICS: Total DLP (mGy-cm): 345.01 FINDINGS: Pulmonary arteries: The pulmonary arteries are normal in course and caliber. No pulmonary emboli. Aorta: The aorta demonstrates moderate atherosclerotic calcification. Aorta normal in course and caliber. Thyroid: The thyroid gland is normal. Lungs: There is subpleural atelectasis of the dependent portions of the lungs. Patchy and ground-glass consolidations in the left lower lobe. Severe bilateral bronchial wall thickening, worse in the bilateral lower lobes where there are also multi segmental and subsegmental areas of mucoid impaction (worse on the right). Ground-glass consolidations in the right lower lobe. Pleural spaces: Unremarkable. No pneumothorax. No pleural effusion. Heart: There is calcification of the aortic valve annulus. There is calcification of the mitral valve annulus. The heart demonstrates moderate diffuse enlargement. Coronary arteries: There is severe atherosclerotic calcification of the coronary arteries. Lymph nodes: Unremarkable. No enlarged lymph nodes. Gallbladder and bile ducts: Prior cholecystectomy. Stomach and bowel: The visualized intra-abdominal structures demonstrate no acute findings. Bones/joints: Mild multilevel degenerative changes of the spine, as manifested by multilevel anterior osteophytes and multilevel decrease in intervertebral disc space. No acute fracture, dislocation, or aggressive osseous lesion. Soft tissues: Unremarkable. CT/CT angio chest PE protcl [id number] IMPRESSION: 1. No pulmonary emboli. 2. Severe bilateral lower lobe dominant bronchitis with multi segmental mucoid impaction and early bilateral basal airspace disease/pneumonia intermixed with atelectasis. Aspirated content is also in the differential diagnosis. 3. Incidental findings as above.
[2023-12-23 13:44] LABS: INR 0.96 (0.8-1.2)
[2023-12-23 13:50] LABS: Alanine Aminotransferase 23 U/L (0-41); Albumin Level 3.9 g/dL (3.5-5.2); Alkaline Phosphatase 51 U/L (40-130); Anion Gap 12.3 (5-19); Aspartate Amino Transferase 23 U/L (0-40); Blood Urea Nitrogen 14 mg/dL (8-23); Calcium 9.1 mg/dL (8.5-10.5); Carbon Dioxide 28 mmol/L (22-29); Chloride 101 mmol/L (98-107); Creatinine Clr Calc Pharmacy 57.5569; Globulin 3.3 g/dL (1.3-4.6); Glucose 114 mg/dL (65-115); Osmolality Calculated 285 mOsm/kg (285-295); Potassium 4.3 mmol/L (3.5-5.1); Sodium 137 mmol/L (136-145); Total Bilirubin 0.6 mg/dL (0.15-1.2); Total Protein 7.2 g/dL (6.6-8.7)
[2023-12-23 14:20] LABS: NT Pro B Type Natriuretic Pept 156 pg/mL (0-450)
[2023-12-23] MEDS: iohexol 350 mg/mL 500 mL Btl (per mL) IV (14:32)
[2023-12-23 15:59] VITALS: O2SAT 91; O2SAT 92
[2023-12-23 16:03] VITALS: BP 161/84; PULSE 68; RESP 16; O2SAT 96
[2023-12-23] MEDS: cefTRIAXone 1,000 MG in sodium chloride 0.9% (plus) 50 ML 100 MG IV (16:26)
--- NOTE | 2023-12-23 16:27 | ED_ITS ---
HPI - General Adult 2 General: Chief complaint: Upper Respiratory Infection Stated complaint: coughing with some blood Time Seen by Provider: 12/23/23 13:42 Source: patient Mode of arrival: ambulatory Limitations: no limitations History of Present Illness: Patient comes in complaint of worsening cough. Seen in the ED and started on Augmentin but reports not really improving. Cough is getting worse and he is now having episodes of hemoptysis. Patient is a diabetic on metformin. Massive CAD history. 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 Also having left rib and side pain as well as productive cough. Review of Systems 2 General: Reports: 10 or more systems reviewed and unremarkable except in HPI and below PFSH ED 2 PFSH: Medical History Acute prostatitis BPH w urinary obs/LUTS Unstable angina Chest pain Cervical spondylosis with radiculopathy Chronic prostatitis Sacroiliac dysfunction Lumbar stenosis with neurogenic claudication Dyslipidemia Benign essential hypertension with target blood pressure below 140/90 Abnormal stress echo Dyspnea Chest pain Leg cramps Atherosclerosis of coronary artery of [place] heart CAD (coronary artery disease) Hypertension Hyperlipidemia LDL was 80s, HDL 60 Renal calculus Aortic atherosclerosis 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 Surgical History History of foot surgery History of PTCA S/P extracorporeal shock wave therapy H/O thumb surgery H/O arthroscopy of knee History of hernia surgery History of back surgery Family History Brother CAD (coronary artery disease) Lung disease Family/Other CAD (coronary artery disease) Cancer Grandfather Stroke Cancer Mother , at age 81 Diabetes Father , at age 87 Diabetes Stroke Denies family history of Clotting disorder Dementia Chronic kidney disease (CKD) Suicide Anesthesia complication Bleeding disorder Social History Smoking and tobacco/nicotine status: never used tobacco/nicotine Alcohol intake: current Alcohol intake frequency: holidays/special occasions only Alcohol type: wine Substance/Drug Use: never Marital status: Current occupational status: retired Physical Exam 2 Const: COMMON NORMALS: no acute distress, average body habitus, patient oriented x3, healthy appearing, alert and well nourished GENERAL APPEARANCE: well kempt and well developed HENMT: COMMON NORMALS: normocephalic, atraumatic, external ears normal and moist oral mucous membranes HEAD & SCALP: normocephalic and atraumatic E XTERNAL EAR: Yes external ears normal Eye: COMMON NORMALS: Equal, round and reactive pupils present, EOMs intact bilaterally and conjunctivae normal CONJUNCTIVA: Yes conjunctivae normal P UPIL: Yes Equal, round and reactive pupils present Neck/C-Spine: COMMON NORMALS: full ROM, no lymphadenopathy and supple Chest: CHEST: Yes Symmetrical chest wall rise Resp: COMMON NORMALS: normal respiratory effort, No retractions, No use of accessory muscles and clear to auscultation bilaterally AUSCULTATION: clear to auscultation bilaterally Cardio: COMMON NORMALS: regular rate, regular rhythm, S1 normal heart sound present, S2 normal heart sound present, No gallops present (Cardio), No clicks present (Cardio), No murmurs present (Cardio) and No rub (Cardio) RATE: r egular rate RHYTHM: regular rhythm HEART SOUNDS: S1 normal heart sound present, S2 normal heart sound present and no murmurs PERIPHERAL PULSES: o ther (Radial pulses 2+ and symmetric) GI: COMMON NORMALS: Soft to palpation, non-tender and no masses INSPECTION: No abdominal distension PALPATION: Yes Soft to palpation, No Guarding due to palpation present (GI) and No Rebound tenderness present : COMMON NORMALS: Yes no CVA tenderness BLADDER/KIDNEY EXAM: Yes no CVA tenderness Back/Pelvis: COMMON NORMALS: no CVA tenderness Extremity: COMMON NORMALS: normal to inspection, full ROM, capillary refill normal and no clubbing, cyanosis or edema Neuro: COMMON NORMALS: patient oriented x3 SENSORIUM/ORIENTATION: Yes alert Psych: APPEARANCE: Yes well kempt Skin: COMMON NORMALS: no rashes or lesions noted, no wounds, turgor normal and no jaundice GENERAL SKIN EXAM: no rashes or lesions noted and turgor normal Course 2 ED course: Patient evaluated, chest x-ray unremarkable maybe some lower bronchial findings, radiology read actually referred to patchy knowledge. Given hemoptysis I decided to do a CTA PE scan given patient's low normal O2 sat of 93%. And Wells score of 4. This negative for PE but did show bilateral lower lobe pneumonia with some mucous plugging. Patient be taken off Augmentin and started on Levaquin given Rocephin here in the ER. Patient will be vies to follow-up with PCP in 3 to 4 days to ensure improvement. Exertional O2 sat was done and the patient stayed above 93. On room air currently. Vital Signs: Vital signs: Vital Signs Temperature 97.6 F 12/23/23 12:15 Pulse Rate 68 12/23/23 16:03 Respiratory Rate 16 12/23/23 16:03 Blood Pressure 161/84 12/23/23 16:03 Pulse Oximetry 96 12/23/23 16:03 Oxygen Delivery Me thod Room Air 12/23/23 16:03 MDM - General Adult Medical Decision Making See ED course. Medical Records I reviewed the patient's medical records. Lab Data I reviewed the patient's lab results. 12/23/23 13:06 12/23/23 13:06 Radiology Impressions Chest X-Ray 12/23/23 12:01 Impression: 1. Patchy opacities extending from both rakesh inferiorly into the lower lobes which could indicate atelectasis and/or pneumonia. 2. Possible small left pleural effusion. 3. Atherosclerosis. Chest CTA 12/23/23 13:43 IMPRESSION: 1. No pulmonary emboli. 2. Severe bilateral lower lobe dominant bronchitis with multi segmental mucoid impaction and early bilateral basal airspace disease/pneumonia intermixed with atelectasis. Aspirated content is also in the differential diagnosis. 3. Incidental findings as above. Laboratory Results WBC 6.89 10^3/uL (3.29-11.43) 12/23/23 13:06 RBC 4.79 10^6/uL (3.85-5.65) 12/23/23 13:06 Hgb 14.80 g/dL (11.27-16.99) 12/23/23 13:06 Hct 44.2 % (37-53) 12/23/23 13:06 MCV 92.3 fl (82-101) 12/23/23 13:06 MCH 30.9 pg (27-33) 12/23/23 13:06 MCHC 33.5 g/dL (30-55) 12/23/23 13:06 RDW 12.6 % (12.1-15.1) 12/23/23 13:06 Plt Count 250 10^3/cmm (157-399) 12/23/23 13:06 MPV 10.0 fL (7.4-10.4) 12/23/23 13:06 Neut % (Auto) 69.5 % 12/23/23 13:06 Lymph % (Auto) 18.1 % 12/23/23 13:06 Starr % (Auto) 8.4 % 12/23/23 13:06 Eos % (Auto) 3.2 % 12/23/23 13:06 Baso % (Auto) 0.4 % 12/23/23 13:06 Neut # (Auto) 4.78 10^3/uL (1.8-7.7) 12/23/23 13:06 Lymph # (Auto) 1.3 10^3/uL (0.8-4.8) 12/23/23 13:06 Starr # (Auto) 0.6 10^3/uL (0.2-0.9) 12/23/23 13:06 Eos # (Auto) 0.2 10^3/uL (0.0-0.8) 12/23/23 13:06 Baso # (Auto) 0.0 10^3/uL (0.0-0.1) 12/23/23 13:06 Nucleated RBC % (auto) 0 % 12/23/23 13:06 Nucleated RBCs # 0.0 /100WBC 12/23/23 13:06 PT 13.00 SECONDS (12.1-14.9) 12/23/23 13:06 INR 0.96 (0.8-1.2) 12/23/23 13:06 Sodium 137 mmol/L (136-145) 12/23/23 13:06 Potassium 4.3 mmol/L (3.5-5.1) 12/23/23 13:06 Chloride 101 mmol/L (98-107) 12/23/23 13:06 Carbon Dioxide 28 mmol/L (22-29) 12/23/23 13:06 Anion Gap 12.3 (5-19) 12/23/23 13:06 BUN 14 mg/dL (8-23) 12/23/23 13:06 Creatinine 1.0 mg/dL (0.7-1.2) 12/23/23 13:06 GFR Calculation Not Reportable 12/23/23 13:06 Glucose 114 mg/dL (65-115) 12/23/23 13:06 Calculated Osmolality 285 mOsm/kg (285-295) 12/23/23 13:06 Calcium 9.1 mg/dL (8.5-10.5) 12/23/23 13:06 Total Bilirubin 0.6 mg/dL (0.15-1.2) 12/23/23 13:06 AST 23 U/L (0-40) 12/23/23 13:06 ALT 23 U/L (0-41) 12/23/23 13:06 Alkaline Phosphatase 51 U/L (40-130) 12/23/23 13:06 NT-Pro-B Natriuret Pep 156 pg/mL (0-450) 12/23/23 13:06 Total Protein 7.2 g/dL (6.6-8.7) 12/23/23 13:06 Albumin 3.9 g/dL (3.5-5.2) 12/23/23 13:06 Globulin 3.3 g/dL (1.3-4.6) 12/23/23 13:06 All radiology interpretation(s) finalized by discharge ED provider radiology interpretation(s): see ED course for EDP interpretation Discharge Plan Discharge Patient Disposition: Home Clinical Impression: Cough with hemoptysis Bilateral pneumonia Qualifiers: Pneumonia type: due to unspecified organism Lung location: lower lobe of lung Q ualified Code(s): J18.9 - Pneumonia, unspecified organism Condition: Stable Prescriptions: New levofloxacin 750 mg tablet 750 mg PO DAILY 5 Days Qty: 5 0RF benzonatate 200 mg capsule 200 mg PO TID PRN (Reason: cough) Qty: 20 0RF Discontinued amoxicillin-pot clavulanate 875-125 mg tablet 1 tab PO BID 7 Days Qty: 14 0RF No Action (DME) Sole Supports See Rx Instructions .ROUTE .MEDSUPPLY Qty: 1 0RF Rx Instructions: As directed ketoconazole 2 % cream See Rx Instructions .ROUTE .COMPLEX Rx Instructions: Apply to red, scaly areas on face 1-2 times daily prn omega 3-[id number]-qhu-fish oil [Fish Oil] 60-90-500 mg capsule 1 cap PO DAILY aspirin 81 mg tablet,delayed release (DR/EC) 81 mg PO DAILY nitroglycerin [Nitrostat] 0.4 mg tablet, sublingual 0.4 mg sublingual Q5M PRN (Reason: chest pain) Qty: 50 5RF Rx Instructions: do not exceed 3 doses per episode simvastatin 80 mg tablet 80 mg PO DAILY Qty: 90 3RF trazodone 150 mg tablet 75 mg PO BEDTIME metformin 500 mg tablet extended release 24 hr 500 mg PO BID Hold Instructions: Resume on 07/20/21. lisinopril 10 mg tablet 2.5 mg PO QPM clopidogrel 75 mg tablet 75 mg PO QAM pramipexole 0.5 mg tablet 0.5 mg PO QPM gabapentin 300 mg capsule 300 mg PO DAILY Men's 50 Plus Multivitamin 400-20-370 mcg Tablet 1 tab PO DAILY diazepam 5 mg tablet 5 mg PO BID PRN (Reason: Anxiety) ezetimibe 10 mg tablet 10 mg PO DAILY Discharge Orders: Discharge ED (Routine); Ordered 12/23/23 Ordered By: Anthony Gresham Referrals: Jl Felix MD [Primary Care Provider] - Discharge Diet: Usual diet Discharge Activity: Resume usual activity Patient Instructions: Bacterial Pneumonia (ED) Coding Level of Care Code ED Route Delivery Service Driver for Juwan Caldera
[2023-12-23 17:46] VITALS: BP 128/83; PULSE 69; RESP 16; TEMP 36.4; O2SAT 97
== END 2023-12-23 17:47 | disposition home or self-care (01) ==
PROVIDERS: Emergency Medicine; Emergency Provider Emergency Medicine; PCP Family Medicine
DX: R04.2 Hemoptysis (principal); J18.9 Pneumonia, unspecified organism; Z79.02 Long term (current) use of antithrombotics/antiplatelets; Z79.82 Long term (current) use of aspirin; Z79.84 Long term (current) use of oral hypoglycemic drugs; E78.5 Hyperlipidemia, unspecified; I10 Essential (primary) hypertension; I25.10 Atherosclerotic heart disease of native coronary artery without angina pectoris
CPT/HCPCS: 36415; 71045; 71275; 80053; 83880; 85025; 85610; 96374; 99285; J0696; Q9967

== ENCOUNTER → 2024-01-18 09:09 | Outpatient (BNVA) | payer MEDICARE, OTHER, SELFPAY | PROVIDERS: PCP Family Medicine; Visit Provider Nurse Practitioner Family | DX: L21.8 Other seborrheic dermatitis (principal); L57.0 Actinic keratosis; D69.2 Other nonthrombocytopenic purpura; Z85.828 Personal history of other malignant neoplasm of skin | CPT/HCPCS: 17000; 99214 ==

== ENCOUNTER → 2024-02-13 09:54 | Outpatient (BNVA) | payer MEDICARE, OTHER, SELFPAY | PROVIDERS: PCP Family Medicine; Visit Provider Internal Medicine Cardiovascular Disease | DX: I25.10 Atherosclerotic heart disease of native coronary artery without angina pectoris (principal); I70.0 Atherosclerosis of aorta; I10 Essential (primary) hypertension; I36.1 Nonrheumatic tricuspid (valve) insufficiency; E78.5 Hyperlipidemia, unspecified; Z87.891 Personal history of nicotine dependence | CPT/HCPCS: 99214 ==

== ENCOUNTER 2024-06-07 21:44 | Emergency (ER) | payer MEDICARE, OTHER, SELFPAY ==
[2024-06-07 21:50] VITALS: BP 146/78; PULSE 93; RESP 16; TEMP 37.3; O2SAT 94
[2024-06-07 22:44] LABS: Basophils % 0.4 %; Eosinophils % 0.4 %; Lymphocytes # 0.8 10^3/uL (0.8-4.8); Lymphocytes % 16.5 %; Mean Corpuscular HGB Conc 34.1 g/dL (30-55); Mean Corpuscular Hemoglobin 31.3 pg (27-33); Mean Corpuscular Volume 91.8 fl (82-101); Mean Platelet Volume 9.8 fL (7.4-10.4); Monocytes # 0.3 10^3/uL (0.2-0.9); Monocytes % 6.6 %; Neutrophils % 75.7 %; Nucleated Red Blood Cells % 0 %; Platelet Count 226 10^3/cmm (157-399); Red Blood Count 5.01 10^6/uL (3.85-5.65); White Blood Count 5.02 10^3/uL (3.29-11.43)
--- NOTE | 2024-06-07 22:55 | ED_ITS ---
HPI - Abdominal Pain 2 General: Chief Complaint: Abdominal Pain Stated Complaint: n/v cant eat Time Seen by Provider: 06/07/24 22:25 Source: patient Mode of arrival: ambulatory Limitations: no limitations History of Present Illness: Patient is an 84-year-old male with history of CAD, unstable angina, and dyslipidemia who presents to the emergency department complaining of abdominal pain for the past 3 days. He is also reporting nausea, diarrhea, decrease in appetite, and chills/body aches. States he has not been running fevers, but has felt hot. He reports a history of acid reflux as well as stomach ulcers, but states that this is feeling different. Denies any known sick contacts. He has been taking Tylenol and ibuprofen for his body aches and other symptoms, minimal relief. Denies any blood in his stool or black tarry stools. No chest pain, shortness of breath, urinary symptoms, or other symptoms to note. MD elicited complaint: abdominal pain Onset (ago): day(s) Pain Consistency: constant Location: Epigastric Severity: mild Quality: cramping Associated Symptoms: Reports chills, diarrhea and nausea; Denies bloating, change in stool character, constipation, dysuria, fever(s), hematochezia, melena and vomiting Treatments prior to arrival: NSAIDs and other (Acetaminophen) Related Data Home Medications Medication Instructions Recorded Confirmed metformin 500 mg tablet,extended 500 mg PO BID 07/15/21 02/13/24 release 24 hr ketoconazole 2 % topical cream See Rx Instructions .Route .COMPLEX 11/17/21 02/13/24 omega 8-new-jbq-fish oil 60 mg-90 1 cap PO DAILY 11/17/21 02/13/24 mg-500 mg capsule (Fish Oil) trazodone 150 mg tablet 75 mg PO BEDTIME 12/14/21 02/13/24 clopidogrel 75 mg tablet 75 mg PO QAM 05/04/22 02/13/24 gabapentin 300 mg capsule 300 mg PO DAILY 08/26/22 02/13/24 rmptqwwgcwob-peu-hazrt acid-vit 1 tab PO DAILY 08/26/22 02/13/24 K-lycop 400 mcg-20 mcg-370 mcg tablet (Men's 50 Plus Multivitamin) pramipexole 0.5 mg tablet 0.5 mg PO QPM 08/26/22 02/13/24 aspirin 81 mg tablet,delayed 81 mg PO DAILY 12/29/22 02/13/24 release diazepam 5 mg tablet 5 mg PO BID PRN Anxiety 12/23/23 02/13/24 omeprazole 20 mg tablet,delayed 20 mg PO DAILY 02/13/24 02/13/24 release Previous Rx's Medication Instructions Recorded Sole Supports #1 ea 10/20/20 nitroglycerin 0.4 mg sublingual 0.4 mg sublingual Q5M PRN chest 05/17/22 tablet (Nitrostat) pain #50 tabs lisinopril 10 mg tablet 2.5 mg (1/4 x 10 mg) PO QPM #90 05/07/24 tabs simvastatin 80 mg tablet See Rx Instructions .Route 05/25/24 .COMPLEX #90 tabs ezetimibe 10 mg tablet See Rx Instructions .Route 06/04/24 .COMPLEX #90 tabs Allergies Allergy/AdvReac Type Severity Reaction Status Date / Time ciprofloxacin [From Cipro] Allergy Unknown unknown Verified 06/07/24 21:54 doxycycline Allergy Unknown hives Verified 06/07/24 21:54 Review of Systems 2 General: Reports: 10 or more systems reviewed and unremarkable except in HPI and below Const: Reports: chills, body aches and change in appetite; Denies: fever(s), change in weight or diaphoresis ENMT: Denies: throat pain or hoarseness Card: Denies: chest pain, palpitations or lightheadedness Resp: Denies: dyspnea, productive cough or wheezing GI: Reports: abdominal pain, nausea and diarrhea; Denies: vomiting, constipation, bloating, change in stool character, hematochezia or melena : Denies: flank pain, difficulty urinating, dysuria, urinary frequency or urinary urgency Musc: Denies: neck pain or back pain Skin/Breast: Denies: rash or new lesions Neuro: Denies: headache(s) or dizziness PFSH ED 2 PFSH: Medical History Acute prostatitis BPH w urinary obs/LUTS Unstable angina Chest pain Cervical spondylosis with radiculopathy Chronic prostatitis Sacroiliac dysfunction Lumbar stenosis with neurogenic claudication Dyslipidemia Benign essential hypertension with target blood pressure below 140/90 Abnormal stress echo Dyspnea Chest pain Leg cramps Atherosclerosis of coronary artery of [place] heart CAD (coronary artery disease) Hypertension Hyperlipidemia LDL was 80s, HDL 60 Renal calculus Aortic atherosclerosis 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 Surgical History History of foot surgery History of PTCA S/P extracorporeal shock wave therapy H/O thumb surgery H/O arthroscopy of knee History of hernia surgery History of back surgery Family History Brother CAD (coronary artery disease) Lung disease Family/Other CAD (coronary artery disease) Cancer Grandfather Stroke Cancer Mother , at age 81 Diabetes Father , at age 87 Diabetes Stroke Denies family history of Clotting disorder Dementia Chronic kidney disease (CKD) Suicide Anesthesia complication Bleeding disorder Social History Smoking and tobacco/nicotine status: former use of tobacco/nicotine (quit at age 21) Alcohol intake: current Alcohol intake frequency: holidays/special occasions only Alcohol type: wine Substance/Drug Use: never Marital status: Current occupational status: retired Physical Exam 2 Const: COMMON NORMALS: no acute distress, average body habitus, patient oriented x3, no limitations, healthy appearing, alert and well nourished G ENERAL APPEARANCE: cooperative and comfortable ORIENTATION/CONSCIOUSNESS: Yes awake OTHER: Somewhat tired appearing HENMT: COMMON NORMALS: normocephalic, atraumatic, hearing grossly normal bilaterally, external ears normal, Normal external nose present, Normal nasal mucous membranes and turbinates present and moist oral mucous membranes HEAD & SCALP: normocephalic and atraumatic NOSE: Normal external nose present and Normal nasal mucous membranes and turbinates present EXTERNAL EAR: Yes external ears normal Eye: COMMON NORMALS: Equal, round and reactive pupils present, EOMs intact bilaterally, conjunctivae normal and normal visual hernandez by confrontation C ONJUNCTIVA: Yes conjunctivae normal PUPIL: Yes Equal, round and reactive pupils present Neck/C-Spine: COMMON NORMALS: full ROM, supple, no meningeal signs and no JVD Resp: COMMON NORMALS: normal respiratory effort, No retractions, No use of accessory muscles and clear to auscultation bilaterally AUSCULTATION: clear to auscultation bilaterally, no crackles, no rales, no rhonchi and no wheezes Cardio: COMMON NORMALS: no JVD, regular rate, regular rhythm, S1 normal heart sound present, S2 normal heart sound present, No gallops present (Cardio), No clicks present (Cardio), No murmurs present (Cardio), No rub (Cardio) and Peripheral pulses 2+ throughout RATE: regular rate RHYTHM: regular rhythm HEART SOUNDS: S1 normal heart sound present and S2 normal heart sound present PERIPHERAL PULSES: Peripheral pulses 2+ throughout GI: COMMON NORMALS: Normal to inspection, nondistended, normoactive bowel sounds present, Soft to palpation, No hepatosplenomegaly present and no masses AUSCULTATION: Yes normoactive bowel sounds PALPATION: Yes Soft to palpation, Yes Tenderness to palpation present (GI) (Mild diffuse tenderness to palpation), No Guarding due to palpation present (GI), No Rigid due to palpation and Yes No hepatosplenomegaly present RECTAL EXAM: Yes deferred : COMMON NORMALS: Yes no CVA tenderness BLADDER/KIDNEY EXAM: Yes no CVA tenderness Back/Pelvis: COMMON NORMALS: no CVA tenderness Extremity: COMMON NORMALS: normal to inspection and full ROM Neuro: COMMON NORMALS: patient oriented x3, moves all extremities, no focal motor deficits and no sensory deficits noted SENSORIUM/ORIENTATION: Yes alert MENINGEAL SIGNS: Yes no meningeal signs Psych: COMMON NORMALS: mental status grossly normal, cooperative and speech normal SPEECH: Yes normal speech Skin: COMMON NORMALS: no rashes or lesions noted GENERAL SKIN EXAM: no rashes or lesions noted Course 2 Vital Signs: Vital signs: Vital Signs Temperature 99.1 F 06/07/24 21:50 Pulse Rate 90 06/07/24 23:12 Respiratory Rate 16 06/07/24 21:50 Blood Pressure 110/67 06/07/24 23:12 Pulse Oximetry 92 06/07/24 23:12 Oxygen Delivery Me thod Room Air 06/07/24 21:50 MDM - Abdominal Pain Medical Decision Making Patient presented with few days of epigastric abdominal pain as well as symptoms of decreased appetite, chills, body aches, and diarrhea. No sick contacts reported. His vitals were normal on arrival, afebrile. Some mild diffuse tenderness to palpation of his abdomen on exam, he was somewhat tired appearing. His lab work all completely unremarkable. CT did not demonstrate any acute findings. With his reported symptoms consistent with some sort of viral infection, we will treat conservatively. Because this is likely a gastroenteritis, encouraged him to drink plenty of fluids and alternating Tylenol/ibuprofen as he has been. He was prescribed sucralfate and omeprazole earlier, he will continue taking these. With any persistence of pain, onset of chest pain or shortness of breath, he is encouraged to return for reevaluation. Discussed this case with Dr. Tubbs. Lab Data 06/07/24 22:37 06/07/24 22:37 Labs/Radiology: Radiology Impressions Abdomen/Pelvis CT 06/07/24 23:18 IMPRESSION: No acute intra-abdominal process. COMMENTS: Consistent with the [employer]'s Incidental Findings Committee white paper (J Am Volodymyr Radiol 2018): Any incidental renal lesion less than 1 cm or classified as too small to characterize, or any incidental cystic renal lesion characterized as simple-appearing, is likely benign. No follow-up imaging is recommended for these lesions per consensus recommendations based on imaging criteria. Laboratory Results WBC 5.02 10^3/uL (3.29-11.43) 06/07/24 22:37 RBC 5.01 10^6/uL (3.85-5.65) 06/07/24 22:37 Hgb 15.70 g/dL (11.27-16.99) 06/07/24 22:37 Hct 46.0 % (37-53) 06/07/24 22:37 MCV 91.8 fl (82-101) 06/07/24 22:37 MCH 31.3 pg (27-33) 06/07/24 22:37 MCHC 34.1 g/dL (30-55) 06/07/24 22:37 RDW 13.0 % (12.1-15.1) 06/07/24 22:37 Plt Count 226 10^3/cmm (157-399) 06/07/24 22:37 MPV 9.8 fL (7.4-10.4) 06/07/24 22:37 Neut % (Auto) 75.7 % 06/07/24 22:37 Lymph % (Auto) 16.5 % 06/07/24 22:37 [place] % (Auto) 6.6 % 06/07/24 22:37 Eos % (Auto) 0.4 % 06/07/24 22:37 Baso % (Auto) 0.4 % 06/07/24 22:37 Neut # (Auto) 3.80 10^3/uL (1.8-7.7) 06/07/24 22:37 Lymph # (Auto) 0.8 10^3/uL (0.8-4.8) 06/07/24 22:37 [place] # (Auto) 0.3 10^3/uL (0.2-0.9) 06/07/24 22:37 Eos # (Auto) 0.0 10^3/uL (0.0-0.8) 06/07/24 22:37 Baso # (Auto) 0.0 10^3/uL (0.0-0.1) 06/07/24 22:37 Nucleated RBC % (auto) 0 % 06/07/24 22:37 Nucleated RBCs # 0.0 /100WBC 06/07/24 22:37 Sodium 134 mmol/L (136-145) L 06/07/24 22:37 Potassium 4.0 mmol/L (3.5-5.1) 06/07/24 22:37 Chloride 99 mmol/L (98-107) 06/07/24 22:37 Carbon Dioxide 25 mmol/L (22-29) 06/07/24 22:37 Anion Gap 14.0 (5-19) 06/07/24 22:37 BUN 13 mg/dL (8-23) 06/07/24 22:37 Creatinine 1.0 mg/dL (0.7-1.2) 06/07/24 22:37 GFR Calculation Not Reportable 06/07/24 22:37 Glucose 138 mg/dL (65-115) H 06/07/24 22:37 Calculated Osmolality 280 mOsm/kg (285-295) L 06/07/24 22:37 Lactic Acid 1.2 mmol/L (0.5-2.2) 06/07/24 22:37 Calcium 8.7 mg/dL (8.5-10.5) 06/07/24 22:37 Total Bilirubin 0.7 mg/dL (0.15-1.2) 06/07/24 22:37 AST 36 U/L (0-40) 06/07/24 22:37 ALT 23 U/L (0-41) 06/07/24 22:37 Alkaline Phosphatase 45 U/L (40-130) 06/07/24 22:37 C-Reactive Protein 21.4 mg/L (0.0-4.9) H 06/07/24 22:37 Total Protein 6.9 g/dL (6.6-8.7) 06/07/24 22: Albumin 4.0 g/dL (3.5-5.2) 06/07/24 22: Globulin 2.9 g/dL (1.3-4.6) 06/07/24 22: Lipase 58 U/L (13-60) 06/07/24 22:37 Urine Color Yellow (Yellow) 06/07/24 22: Urine Appearance Clear (CLEAR) 06/07/24 22: Urine pH 5.0 (5-7) 06/07/24 22: Ur Specific [place] 1.018 (1.005-1.030) 06/07/24 22: Urine Protein Negative (Negative) 06/07/24 22:37 Urine Glucose (UA) Negative (Normal) 06/07/24 22:37 Urine Ketones 1+ (Negative) H 06/07/24 22:37 Urine Blood Negative (Negative) 06/07/24 22: Urine Nitrate Negative (Negative) 06/07/24 22:37 Urine Bilirubin Negative (Negative) 06/07/24 22:37 Urine Urobilinogen 0.2 mg/dL (Negative) 06/07/24 22:37 Ur Leukocyte Esterase Negative (Negative) 06/07/24 22: Urine RBC 0-2 /hpf (0-2) 06/07/24 22:37 Urine WBC 0-5 /hpf (0-5) 06/07/24 22:37 Ur Squamous Epith Cells 0-5 /hpf (0-5) 06/07/24 22:37 Amorphous Sediment Not Reportable 06/07/24 22:37 Urine Bacteria None seen /hpf (NONE) 06/07/24 22:37 Hyaline Casts 0-4 /lpf H 06/07/24 22:37 Coronavirus (PCR) Negative (Negative) 06/07/24 22:37 Influenza A (PCR) Negative (Negative) 06/07/24 22:37 Influenza Type B (PCR) Negative (Negative) 06/07/24 22:37 RSV (PCR) Negative (Negative) 06/07/24 22:37 All radiology interpretation(s) finalized by discharge Discharge Plan Discharge Patient Disposition: Home Clinical Impression: Viral gastroenteritis, Chronic GERD Condition: Stable Prescriptions: No Action (DME) Sole Supports See Rx Instructions .ROUTE .MEDSUPPLY Qty: 1 0RF Rx Instructions: As directed ketoconazole 2 % cream See Rx Instructions .ROUTE .COMPLEX Rx Instructions: Apply to red, scaly areas on face 1-2 times daily prn omega 5-ieg-tmn-fish oil [Fish Oil] 60-90-500 mg capsule 1 cap PO DAILY omeprazole 20 mg tablet,delayed release (DR/EC) 20 mg PO DAILY aspirin 81 mg tablet,delayed release (DR/EC) 81 mg PO DAILY nitroglycerin [Nitrostat] 0.4 mg tablet, sublingual 0.4 mg sublingual Q5M PRN (Reason: chest pain) Qty: 50 5RF Rx Instructions: do not exceed 3 doses per episode lisinopril 10 mg tablet 2.5 mg PO QPM Qty: 90 3RF simvastatin 80 mg tablet See Rx Instructions .ROUTE .COMPLEX Qty: 90 3RF Dose Instruction: Take 1 tablet by mouth once daily Rx Instructions: Take 1 tablet by mouth once daily ezetimibe 10 mg tablet See Rx Instructions .ROUTE .COMPLEX Qty: 90 3RF Dose Instruction: Take 1 tablet by mouth once daily Rx Instructions: Take 1 tablet by mouth once daily trazodone 150 mg tablet 75 mg PO BEDTIME metformin 500 mg tablet extended release 24 hr 500 mg PO BID Hold Instructions: Resume on 07/20/21. clopidogrel 75 mg tablet 75 mg PO QAM pramipexole 0.5 mg tablet 0.5 mg PO QPM gabapentin 300 mg capsule 300 mg PO DAILY Men's 50 Plus Multivitamin 400-20-370 mcg Tablet 1 tab PO DAILY diazepam 5 mg tablet 5 mg PO BID PRN (Reason: Anxiety) Discharge Orders: Discharge ED (Routine); Ordered 06/08/24 Ordered By: Ezekiel Sheikh Referrals: Jl Felix MD [Primary Care Provider] - Patient Instructions: Gastroenteritis (ED), GERD (Gastroesophageal Reflux Disease) (ED) Activity Restrictions/Additional Instructions: Continue taking your sucralfate and omeprazole as prescribed. Drink plenty of fluids. Avoid lying down at least 2 hours after eating. Tylenol/ibuprofen for body aches or fevers. If you continue to have worsening abdominal pain, chest pain, or other concerning symptoms please return to the emergency department. Otherwise follow-up with primary care. Coding Level of Care Code ED Stitcher Utility for Juwan Caldera
[2024-06-07 23:05] LABS: Alanine Aminotransferase 23 U/L (0-41); Alkaline Phosphatase 45 U/L (40-130); Aspartate Amino Transferase 36 U/L (0-40); Blood Urea Nitrogen 13 mg/dL (8-23); C Reactive Protein 21.4 mg/L (0.0-4.9); Calcium 8.7 mg/dL (8.5-10.5); Carbon Dioxide 25 mmol/L (22-29); Chloride 99 mmol/L (98-107); Creatinine Clr Calc Pharmacy 56.5646; Globulin 2.9 g/dL (1.3-4.6); Glucose 138 mg/dL (65-115); Lipase 58 U/L (13-60); Osmolality Calculated 280 mOsm/kg (285-295); Sodium 134 mmol/L (136-145); Total Bilirubin 0.7 mg/dL (0.15-1.2); Total Protein 6.9 g/dL (6.6-8.7)
[2024-06-07 23:06] LABS: Lactic Sepsis W/Reflex 1.2 mmol/L (0.5-2.2)
[2024-06-07] MEDS: lidocaine 2% viscous 15 ML, aluminum-mag hydrox-simethicon 30 ML, sucralfate oral liq 1 GM PO (23:11)
[2024-06-07 23:12] VITALS: BP 110/67; PULSE 90; O2SAT 92
--- NOTE | 2024-06-07 23:18 | CTR_ITS ---
PROCEDURE INFORMATION: Exam: CT Abdomen And Pelvis With Contrast Exam date and time: 06/07/2024 11:24 PM Age: 84 years old Clinical indication: Abdominal pain; Generalized; Prior surgery; Surgery date: 6+ months; Surgery type: Hernia, choley, back TECHNIQUE: Imaging protocol: Computed tomography of the abdomen and pelvis with contrast. Radiation optimization: All CT scans at this facility use at least one of these dose optimization techniques: automated exposure control; mA and/or kV adjustment per patient size (includes targeted exams where dose is matched to clinical indication); or iterative reconstruction. Contrast material: OMNI 350; Contrast volume: 100 ml; Contrast route: INTRAVENOUS (IV); COMPARISON: CT abdomen w con* [id number] 01/29/2020 9:16 AM RADIATION DOSE METRICS: Total DLP (mGy-cm): 494.33 FINDINGS: Lungs: Atelectatic changes in both lower lobes. Coronary arteries: Severe coronary calcifications. Liver: Normal. No mass. Gallbladder and biliary ducts: Post cholecystectomy. Pancreas: Normal. No ductal dilation. Spleen: Calcified granulomas in the spleen. Adrenal glands: Normal. No mass. Kidneys and ureters: At least 2 nonobstructing stones in the left kidney measuring up to 5 mm in the lower pole. There is a 3 cm simple cyst in the lower pole of the left kidney. No hydronephrosis on either side. Stomach and bowel: Diverticulosis sigmoid colon. Appendix: No evidence of appendicitis. Intraperitoneal space: Unremarkable. No free air. No significant fluid collection. Vasculature: Pelvic phleboliths. Vascular calcifications. Lymph nodes: Unremarkable. No enlarged lymph nodes. Urinary bladder: Unremarkable as visualized. Reproductive: Prominent prostate gland. Bones/joints: Mild curvature of the lumbar spine convex to the left. Post posterior L4-S1 instrumentation with no hardware complication. Posterior osteophyte disc complex at L3-L4 with mild bony canal stenosis. Soft tissues: Unremarkable. CT/CT abdomen pelvis w con* [id number] IMPRESSION: No acute intra-abdominal process. COMMENTS: Consistent with the [employer]'s Incidental Findings Committee white paper (J Am Volodymyr Radiol 2018): Any incidental renal lesion less than 1 cm or classified as too small to characterize, or any incidental cystic renal lesion characterized as simple-appearing, is likely benign. No follow-up imaging is recommended for these lesions per consensus recommendations based on imaging criteria.
[2024-06-07 23:27] LABS: Covid PCR NEGATIVE (Negative); Influenza A NEGATIVE (Negative); Influenza B NEGATIVE (Negative); Respiratory Syncytial Virus Ce NEGATIVE (Negative)
[2024-06-07] MEDS: iohexol 350 mg/mL 500 mL Btl (per mL) IV (23:29)
[2024-06-07 23:30] VITALS: BP 118/72; PULSE 79; O2SAT 94
[2024-06-07 23:43] LABS: Bilirubin Urine Negative (Negative); Blood Urine Negative (Negative); Glucose Urine UA Negative (Normal); Ketones Urine 1+ (Negative); Leukocyte Esterase Urine Negative (Negative); Nitrate Urine Negative (Negative); Protein Urine Negative (Negative); Specific Gravity, Urine 1.018 (1.005-1.030); Urine Appearance Clear (CLEAR); Urine Color Yellow (Yellow); Urobilinogen Urine 0.2 mg/dL (Negative)
[2024-06-07 23:48] LABS: Add Urine Microscopic? YES; Bacteria Urine None Seen /hpf; Hyaline Casts Urine 0-4 /lpf; RBC Urine 0-2 /hpf (0-2); Squamous Epithelial Cell Urine 0-5 /hpf (0-5); WBC Urine 0-5 /hpf (0-5)
[2024-06-08 00:30] VITALS: BP 109/69; PULSE 80; O2SAT 93
[2024-06-08 00:53] VITALS: BP 115/71; PULSE 77; O2SAT 91
== END 2024-06-08 00:38 | disposition home or self-care (01) ==
PROVIDERS: Emergency Provider Physician Assistant; PCP Family Medicine
DX: A08.4 Viral intestinal infection, unspecified (principal); K21.9 Gastro-esophageal reflux disease without esophagitis
CPT/HCPCS: 0241U; 74177; 80053; 81001; 83605; 83690; 85025; 86140; 99285

== ENCOUNTER 2024-07-22 09:34 | Emergency (ER) | payer MEDICARE, OTHER, SELFPAY ==
[2024-07-22 09:40] VITALS: BP 152/76; PULSE 82; TEMP 36.4; O2SAT 94; BMI 23.6
--- NOTE | 2024-07-22 10:29 | PC.PHAR ---
patient keeps an updated list in wallet of medications that may help us in the future
--- NOTE | 2024-07-22 10:33 | XRR_ITS ---
PROCEDURE INFORMATION: Exam: XR Chest Exam date and time: 07/22/2024 10:42 AM Age: 84 years old Clinical indication: Cough and dyspnea; Prior surgery; Surgery date: 6+ months; Surgery type: Cardiac stents; Patient HX: PT C/O sore throat x2 days, PT was seen at [facility] 2 weeks ago for congestion, aches, and cough. PT states pain is 7/10. PT states he feels like he has the flu. ; Additional info: Dyspnea/cough TECHNIQUE: Imaging protocol: Radiologic exam of the chest. Views: 1 view. COMPARISON: CT angio chest PE protcl [id number] 12/23/2023 2:32 PM FINDINGS: Lungs: There are reticular opacities in the left lower lung zone might represent atelectasis versus infiltrates. Calcified granulomas in the left upper lung zone. Pleural spaces: Unremarkable. No pleural effusion. No pneumothorax. Heart/Mediastinum: Coronary stent is seen. Vasculature: Unfolding of the thoracic aorta. Aortic arch calcifications. Bones/joints: Unremarkable. XR/XR chest 1V portable [id number] IMPRESSION: Left lower lung zone reticular opacities that might represent atelectasis versus infiltrates.
--- NOTE | 2024-07-22 11:12 | W.ED.URI ---
HPI - URI/Sore Throat General: Chief Complaint: Upper Respiratory Infection Stated Complaint: sore throat Time Seen by Provider: 07/22/24 09:35 History of Present Illness: 84-year-old male presents to the emergency room complaining of a sore throat and cough body aches congestion. He began about 2 weeks ago with cough and congestion he was seen at a local clinic started on amoxicillin clavulanic acid he has about 2 days of this left. The sore throat began 2 days ago and has gotten progressively worse patient states he feels like he has a fluid denies any hemoptysis no chest pain. Nonproductive cough. Associated symptoms: Deny abdominal pain, chills, chest pain or fever(s) Related Data Home Medications Medication Instructions Recorded Confirmed metformin 500 mg tablet,extended 500 mg PO BID 07/15/21 07/22/24 release 24 hr ketoconazole 2 % topical cream See Rx Instructions .Route .COMPLEX 11/17/21 07/22/24 omega 6-toq-wnk-fish oil 60 mg-90 1 cap PO DAILY 11/17/21 07/22/24 mg-500 mg capsule (Fish Oil) trazodone 150 mg tablet 75 mg PO BEDTIME 12/14/21 07/22/24 clopidogrel 75 mg tablet 75 mg PO QAM 05/04/22 07/22/24 gabapentin 300 mg capsule 300 mg PO DAILY 08/26/22 07/22/24 agwbqpsntzhy-sda-yccnr acid-vit 1 tab PO DAILY 08/26/22 07/22/24 K-lycop 400 mcg-20 mcg-370 mcg tablet (Men's 50 Plus Multivitamin) pramipexole 0.5 mg tablet 0.5 mg PO QPM 08/26/22 07/22/24 aspirin 81 mg tablet,delayed 81 mg PO DAILY 12/29/22 07/22/24 release diazepam 5 mg tablet 5 mg PO BID PRN Anxiety 12/23/23 07/22/24 omeprazole 20 mg tablet,delayed 20 mg PO DAILY 02/13/24 07/22/24 release ezetimibe 10 mg tablet 10 mg PO DAILY 07/22/24 07/22/24 lisinopril 10 mg tablet 10 mg PO QPM 07/22/24 07/22/24 simvastatin 80 mg tablet 80 mg PO DAILY 07/22/24 07/22/24 Previous Rx's Medication Instructions Recorded Sole Supports #1 ea 10/20/20 nitroglycerin 0.4 mg sublingual 0.4 mg sublingual Q5M PRN chest 07/05/24 tablet (Nitrostat) pain #50 tabs azithromycin 250 mg tablet See Rx Instructions PO .COMPLEX #6 07/22/24 (Zithromax Z-Bala) tabs cefdinir 300 mg capsule 300 mg PO BID 10 days #20 caps 07/22/24 Allergies Allergy/AdvReac Type Severity Reaction Status Date / Time ciprofloxacin [From Cipro] Allergy Unknown unknown Verified 07/22/24 09:45 doxycycline Allergy Unknown hives Verified 07/22/24 09:45 Review of Systems Const: Denies: fever(s) or chills ENMT: Reports: throat pain Card: Denies: chest pain Resp: Denies: dyspnea GI: Denies: abdominal pain : Denies: dysuria, urinary frequency or urinary urgency Musc: Denies: neck pain or back pain Skin/Breast: Denies: rash PFSH ED PFSH: Medical History Acute prostatitis BPH w urinary obs/LUTS Unstable angina Chest pain Cervical spondylosis with radiculopathy Chronic prostatitis Sacroiliac dysfunction Lumbar stenosis with neurogenic claudication Dyslipidemia Benign essential hypertension with target blood pressure below 140/90 Abnormal stress echo Dyspnea Chest pain Leg cramps Atherosclerosis of coronary artery of [place] heart CAD (coronary artery disease) Hypertension Hyperlipidemia LDL was 80s, HDL 60 Renal calculus Aortic atherosclerosis 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 Surgical History History of foot surgery History of PTCA S/P extracorporeal shock wave therapy H/O thumb surgery H/O arthroscopy of knee History of hernia surgery History of back surgery Family History Brother CAD (coronary artery disease) Lung disease Family/Other CAD (coronary artery disease) Cancer Grandfather Stroke Cancer Mother , at age 81 Diabetes Father , at age 87 Diabetes Stroke Denies family history of Clotting disorder Dementia Chronic kidney disease (CKD) Suicide Anesthesia complication Bleeding disorder Social History (Reviewed 06/07/24 @ 22:58 by ASAD Lozano Smoking and tobacco/nicotine status: former use of tobacco/nicotine (quit at age 21) Alcohol intake: current Alcohol intake frequency: holidays/special occasions only Alcohol type: wine Substance/Drug Use: never Marital status: Current occupational status: retired Physical Exam Const: COMMON NORMALS: no acute distress GENERAL APPEARANCE: cooperative and comfortable ORIENTATION/CONSCIOUSNESS: Yes awake, Yes oriented to person, Yes oriented to place and Yes oriented to time HENMT: COMMON NORMALS: normocephalic, atraumatic and hearing grossly normal bilaterally HEAD & SCALP: normocephalic and atraumatic OTHER: Oropharynx clear or mucosa pink moist posterior pharyngeal wall normal lips, normal Resp: COMMON NORMALS: normal respiratory effort, No retractions, No use of accessory muscles and clear to auscultation bilaterally AUSCULTATION: clear to auscultation bilaterally Cardio: COMMON NORMALS: regular rate, regular rhythm and No murmurs present (Cardio) RATE: regular rate RHYTHM: regular rhythm GI: COMMON NORMALS: Soft to palpation and No hepatosplenomegaly present AUSCULTATION: Yes normoactive bowel sounds PALPATION: Yes Soft to palpation, No Tenderness to palpation present (GI), No Guarding due to palpation present (GI) and Yes No hepatosplenomegaly present Extremity: COMMON NORMALS: normal to inspection, capillary refill normal, no clubbing, cyanosis or edema, no calf tenderness and no pedal edema Neuro: SENSORIUM/ORIENTATION: Yes oriented to person, Yes oriented to place and Yes oriented to time Skin: COMMON NORMALS: no rashes or lesions noted GENERAL SKIN EXAM: no rashes or lesions noted Course Vital Signs: Vital signs: Vital Signs Temperature 97.5 F L 07/22/24 09:40 Pulse Rate 67 07/22/24 13:44 Blood Pressure 136/74 07/22/24 13:44 Pulse Oximetry 95 07/22/24 13:44 MDM - URI/Sore Throat Medical Decision Making Patient does have residual pneumonia he is brought on his Augmentin and is still radiographically present. Will switch him to cefdinir and Zithromax. Have him follow-up with his primary care doctor as needed other labs reviewed no leukocytosis flu COVID RSV swab negative Medical Records I reviewed the patient's medical records. Lab Data I reviewed the patient's lab results. 07/22/24 11:27 07/22/24 11:27 Radiology Impressions Chest X-Ray 07/22/24 10:33 IMPRESSION: Left lower lung zone reticular opacities that might represent atelectasis versus infiltrates. Laboratory Results WBC 6.79 10^3/uL (3.29-11.43) 07/22/24 11:27 RBC 4.89 10^6/uL (3.85-5.65) 07/22/24 11:27 Hgb 15.10 g/dL (11.27-16.99) 07/22/24 11:27 Hct 45.1 % (37-53) 07/22/24 11:27 MCV 92.2 fl (82-101) 07/22/24 11:27 MCH 30.9 pg (27-33) 07/22/24 11:27 MCHC 33.5 g/dL (30-55) 07/22/24 11: RDW 12.3 % (12.1-15.1) 07/22/24 11:27 Plt Count 261 10^3/cmm (157-399) 07/22/24 11:27 MPV 10.0 fL (7.4-10.4) 07/22/24 11:27 Neut % (Auto) 62.6 % 07/22/24 11:27 Lymph % (Auto) 22.5 % 07/22/24 11:27 [place] % (Auto) 11.0 % 07/22/24 11:27 Eos % (Auto) 2.8 % 07/22/24 11:27 Baso % (Auto) 0.7 % 07/22/24 11:27 Neut # (Auto) 4.24 10^3/uL (1.8-7.7) 07/22/24 11:27 Lymph # (Auto) 1.5 10^3/uL (0.8-4.8) 07/22/24 11:27 [place] # (Auto) 0.8 10^3/uL (0.2-0.9) 07/22/24 11:27 Eos # (Auto) 0.2 10^3/uL (0.0-0.8) 07/22/24 11:27 Baso # (Auto) 0.1 10^3/uL (0.0-0.1) 07/22/24 11:27 Nucleated RBC % (auto) 0 % 07/22/24 11:27 Nucleated RBCs # 0.0 /100WBC 07/22/24 11:27 Sodium 135 mmol/L (136-145) L 07/22/24 11:27 Potassium 4.9 mmol/L (3.5-5.1) 07/22/24 11:27 Chloride 99 mmol/L (98-107) 07/22/24 11:27 Carbon Dioxide 27 mmol/L (22-29) 07/22/24 11:27 Anion Gap 13.9 (5-19) 07/22/24 11:27 BUN 16 mg/dL (8-23) 07/22/24 11:27 Creatinine 1.0 mg/dL (0.7-1.2) 07/22/24 11:27 GFR Calculation Not Reportable 07/22/24 11:27 Glucose 114 mg/dL (65-115) 07/22/24 11:27 Calculated Osmolality 282 mOsm/kg (285-295) L 07/22/24 11:27 Calcium 9.8 mg/dL (8.5-10.5) 07/22/24 11:27 Total Bilirubin 0.5 mg/dL (0.15-1.2) 07/22/24 11:27 AST 22 U/L (0-40) 07/22/24 11:27 ALT 18 U/L (0-41) 07/22/24 11:27 Alkaline Phosphatase 50 U/L (40-130) 07/22/24 11:27 Total Protein 7.1 g/dL (6.6-8.7) 07/22/24 11:27 Albumin 4.0 g/dL (3.5-5.2) 07/22/24 11:27 Globulin 3.1 g/dL (1.3-4.6) 07/22/24 11:27 Coronavirus (PCR) Negative (Negative) 07/22/24 10:50 Influenza A (PCR) Negative (Negative) 07/22/24 10:50 Influenza Type B (PCR) Negative (Negative) 07/22/24 10:50 RSV (PCR) Negative (Negative) 07/22/24 10:50 All radiology interpretation(s) finalized by discharge Discharge Plan Discharge Patient Disposition: Home Clinical Impression: Pneumonia Condition: Stable Prescriptions: New cefdinir 300 mg capsule 300 mg PO BID 10 Days Qty: 20 0RF azithromycin [Zithromax Z-Bala] 250 mg tablet See Rx Instructions .ROUTE .COMPLEX Qty: 6 0RF Rx Instructions: For 250 mg dose pack: take 500 mg today (day 1), then 250 mg for 4 days (days 2-5) Discontinued amoxicillin-pot clavulanate 875-125 mg tablet 1 tab PO Q12H No Action (DME) Sole Supports See Rx Instructions .ROUTE .MEDSUPPLY Qty: 1 0RF Rx Instructions: As directed ketoconazole 2 % cream See Rx Instructions .ROUTE .COMPLEX Rx Instructions: Apply to red, scaly areas on face 1-2 times daily prn omega 4-zsk-fdq-fish oil [Fish Oil] 60-90-500 mg capsule 1 cap PO DAILY omeprazole 20 mg tablet,delayed release (DR/EC) 20 mg PO DAILY aspirin 81 mg tablet,delayed release (DR/EC) 81 mg PO DAILY nitroglycerin [Nitrostat] 0.4 mg tablet, sublingual 0.4 mg sublingual Q5M PRN (Reason: chest pain) Qty: 50 5RF Rx Instructions: do not exceed 3 doses per episode trazodone 150 mg tablet 75 mg PO BEDTIME metformin 500 mg tablet extended release 24 hr 500 mg PO BID Hold Instructions: Resume on 07/20/21. simvastatin 80 mg tablet 80 mg PO DAILY lisinopril 10 mg tablet 10 mg PO QPM ezetimibe 10 mg tablet 10 mg PO DAILY Rx Instructions: Take 1 tablet by mouth once daily clopidogrel 75 mg tablet 75 mg PO QAM pramipexole 0.5 mg tablet 0.5 mg PO QPM gabapentin 300 mg capsule 300 mg PO DAILY Men's 50 Plus Multivitamin 400-20-370 mcg Tablet 1 tab PO DAILY diazepam 5 mg tablet 5 mg PO BID PRN (Reason: Anxiety) Discharge Orders: Discharge ED (Routine); Ordered 07/22/24 Ordered By: Jean Barnett Referrals: Jl Felix MD [Primary Care Provider] - Patient Instructions: Pneumonia (ED), Opioid Safety, Pain Management Activity Restrictions/Additional Instructions: Thank you for choosing [facility] for your healthcare needs today. It is very important that you follow up as instructed or that you return to the Emergency Department should you have concerns or if your condition changes or worsens in any way. Chest x-ray shows small pneumonia. Recommend stopping the Augmentin and switching instead to cefdinir and Zithromax. This provides different antimicrobial coverage. Follow-up if not improving Coding Level of Care Code ED Industrial Design Engineer for Juwan Caldera
[2024-07-22 11:34] LABS: Basophils # 0.1 10^3/uL (0.0-0.1); Basophils % 0.7 %; Eosinophils # 0.2 10^3/uL (0.0-0.8); Eosinophils % 2.8 %; Hematocrit 45.1 % (37-53); Lymphocytes # 1.5 10^3/uL (0.8-4.8); Lymphocytes % 22.5 %; Mean Corpuscular HGB Conc 33.5 g/dL (30-55); Mean Corpuscular Hemoglobin 30.9 pg (27-33); Mean Corpuscular Volume 92.2 fl (82-101); Monocytes # 0.8 10^3/uL (0.2-0.9); Neutrophils # 4.24 10^3/uL (1.8-7.7); Neutrophils % 62.6 %; Nucleated Red Blood Cells % 0 %; Platelet Count 261 10^3/cmm (157-399); Red Blood Count 4.89 10^6/uL (3.85-5.65); Red Cell Distribution Width 12.3 % (12.1-15.1); White Blood Count 6.79 10^3/uL (3.29-11.43)
[2024-07-22 11:46] LABS: Covid PCR NEGATIVE (Negative); Influenza A NEGATIVE (Negative); Influenza B NEGATIVE (Negative); Respiratory Syncytial Virus Ce NEGATIVE (Negative)
[2024-07-22 11:53] LABS: Alanine Aminotransferase 18 U/L (0-41); Alkaline Phosphatase 50 U/L (40-130); Anion Gap 13.9 (5-19); Aspartate Amino Transferase 22 U/L (0-40); Blood Urea Nitrogen 16 mg/dL (8-23); Calcium 9.8 mg/dL (8.5-10.5); Carbon Dioxide 27 mmol/L (22-29); Chloride 99 mmol/L (98-107); Creatinine Clr Calc Pharmacy 56.5646; Globulin 3.1 g/dL (1.3-4.6); Glucose 114 mg/dL (65-115); Osmolality Calculated 282 mOsm/kg (285-295); Potassium 4.9 mmol/L (3.5-5.1); Sodium 135 mmol/L (136-145); Total Bilirubin 0.5 mg/dL (0.15-1.2); Total Protein 7.1 g/dL (6.6-8.7)
[2024-07-22 13:44] VITALS: BP 136/74; PULSE 67; O2SAT 95
== END 2024-07-22 13:45 | disposition home or self-care (01) ==
PROVIDERS: Emergency Provider Family Medicine; PCP Family Medicine
DX: J18.9 Pneumonia, unspecified organism (principal); Z11.52 Encounter for screening for COVID-19; Z79.02 Long term (current) use of antithrombotics/antiplatelets; Z87.891 Personal history of nicotine dependence; I10 Essential (primary) hypertension; I25.10 Atherosclerotic heart disease of native coronary artery without angina pectoris; E78.5 Hyperlipidemia, unspecified
CPT/HCPCS: 0241U; 71045; 80053; 85025; 99284

== ENCOUNTER 2024-08-23 15:52 | Outpatient (CLI) | payer MEDICARE, OTHER, SELFPAY ==
--- NOTE | 2024-08-23 16:00 | MR_ITS ---
WS: [id number] MRI BRAIN WITH HIGH-RESOLUTION IMAGING THROUGH THE INTERNAL AUDITORY CANALS WITHOUT AND WITH CONTRAST HISTORY: R42 DIZZINESS AND GIDDINESS COMPARISON: None available. TECHNIQUE: Multiplanar, multisequence imaging is performed through the brain. Additional 3 mm imaging performed in multiple planes through the internal auditory canal. Postcontrast imaging with 16 ml's of MultiHance. No acute intracranial hemorrhage, midline shift, edema or mass effect. No acute infarct. Diffusion imaging is normal. No prior large infarct. Very mild small vessel ischemi c disease. Mild symmetric volume loss and cerebral atrophy. No hemorrhage. Ventricles and extra-axial spaces are normal. No inferior displacement of cerebellar tonsils. Clivus and pituitary gland are normal. Internal and external auditory canals: Unremarkable. Cranial nerves VII and VIII complexes: Unremarkable. No enhancement or mass. Cerebellopontine angles: Normal. Paranasal sinuses: Normal. Mastoid air cells: Normal. Calvarium and scalp: Normal. Visualized [place] and dural venous sinuses demonstrate no abnormality. MR/MR iac's wo/w con* [id number] IMPRESSION: 1. No mass or abnormal enhancement at the internal auditory canals or cerebell opontine angles. 2. No acute infarct or hemorrhage. 3. Mild small vessel ischemic disease and mild atrophy.
[2024-08-23] MEDS: gadobenate dimeglumine 20 mL vial IV (16:29)
== END 2024-08-23 15:53 | disposition home or self-care (01) ==
LOC: RAD 15:52
PROVIDERS: PCP Family Medicine; Visit Provider Specialist
DX: R42 Dizziness and giddiness (principal); I25.10 Atherosclerotic heart disease of native coronary artery without angina pectoris; I10 Essential (primary) hypertension; I36.1 Nonrheumatic tricuspid (valve) insufficiency; E78.5 Hyperlipidemia, unspecified; Z87.891 Personal history of nicotine dependence
CPT/HCPCS: 70553; 99214

== ENCOUNTER → 2024-09-10 10:54 | Outpatient (BNVA) | payer MEDICARE, OTHER, SELFPAY | PROVIDERS: PCP Family Medicine; Visit Provider Nurse Practitioner Family | DX: L24.0 Irritant contact dermatitis due to detergents (principal); L21.8 Other seborrheic dermatitis; D69.2 Other nonthrombocytopenic purpura; Z08 Encounter for follow-up examination after completed treatment for malignant neoplasm; Z85.828 Personal history of other malignant neoplasm of skin; L57.0 Actinic keratosis | CPT/HCPCS: 17000; 99214 ==

== ENCOUNTER → 2024-10-09 09:04 | Outpatient (BNVA) | payer MEDICARE, OTHER, SELFPAY | PROVIDERS: PCP Family Medicine; Visit Provider Nurse Practitioner Family | DX: L24.0 Irritant contact dermatitis due to detergents (principal); S10.80XA Unspecified superficial injury of other specified part of neck, initial encounter; X58.XXXA Exposure to other specified factors, initial encounter; D69.2 Other nonthrombocytopenic purpura; Z08 Encounter for follow-up examination after completed treatment for malignant neoplasm; Z85.828 Personal history of other malignant neoplasm of skin; L57.0 Actinic keratosis | CPT/HCPCS: 17000; 99213 ==

== ENCOUNTER 2024-11-06 09:37 | Outpatient (CLI) | payer MEDICARE, OTHER, SELFPAY ==
--- NOTE | 2024-11-06 09:41 | XR_ITS ---
WS: [id number] Exam: XR KUB [id number] Date/Time of Exam: 11/06/2024 9:48 AM Reason For Exam: HX OF NEPHROLITHIASIS No bowel obstruction or free air. 7 mm calcification superimposes the medial RIGHT renal silhouette. There are also small calcifications superimposing the LEFT kidney. These may be renal calculi. Operative fusion of the spine from L4- S1 with hardware. Degenerative changes of both hips. No sign of organ enlargement. Signs of prior cholecystectomy. XR/XR KUB [id number] IMPRESSION: 1. Calcifications superimpose both renal silhouettes and may represent bilatera l renal calculi. 2. No acute abdominal process.
== END 2024-11-06 09:38 | disposition home or self-care (01) ==
PROVIDERS: PCP Family Medicine; Visit Provider Nurse Practitioner Family
DX: Z87.442 Personal history of urinary calculi (principal); R93.5 Abnormal findings on diagnostic imaging of other abdominal regions, including retroperitoneum; Z98.1 Arthrodesis status; M16.0 Bilateral primary osteoarthritis of hip
CPT/HCPCS: 74018

== ENCOUNTER 2025-01-03 18:21 | Emergency (ER) | payer MEDICARE, OTHER, SELFPAY ==
[2025-01-03 18:37] VITALS: BP 144/73; PULSE 78; RESP 17; TEMP 36.9; O2SAT 94; BMI 23.6
--- NOTE | 2025-01-03 20:41 | ED_ITS ---
HPI - URI/Sore Throat 2 General: Chief Complaint: Upper Respiratory Infection Stated Complaint: sore throat right side Time Seen by Provider: 01/03/25 18:45 Source: patient Mode of arrival: ambulatory Limitations: no limitations History of Present Illness: 84yo male presents with significant othe r for evaluation of a sore throat that is on the right side of his throat that has been ongoing for the past 5 to 7 days. Significant other reports the pain started approximately 3 days after using Astelin nasal spray. Reports he has noticed redness to his throat as well. States has discomfort to the right side of the scalp with palpation. Reports he has had some discomfort of the right ear as well. Patient denies fever, congestion, vomiting, known sick contacts, any other concerns at this time. Associated symptoms: Reports ear or mastoid pain (right); Deny chills or fever(s) Related Data Home Medications ?Medication ?Instructions ?Recorded ?Confirmed ketoconazole 2 % topical cream See Rx Instructions .Erlinda mckinney .COMPLEX 11/17/21 07/22/24 omega 2-nec-nam-fish oil 60 mg-90 1 cap PO DAILY 11/1707/22/24 mg-500 mg capsule (Fish Oil) trazodone 150 mg tablet 75 mg PO BEDTIME 12/14/21 clopidogrel 75 mg tablet 75 mg PO QAM 05/04/22 gabapentin 300 mg capsule 300 mg PO DAILY 08/26/2204/07 kouunqlaclko-gib-wcqgg acid-vit 1 tab PO DAILY 3 07/22/24 K-lycop 400 mcg-20 mcg-370 mcg tablet (Men's 50 Plus Multivitamin) pramipexole 0.5 mg tablet 0.5 mg PO QPM 08/26/2207/22 aspirin 81 mg tablet,delayed 81 mg PO DAILY 12/29/22 1 09/22/23 release diazepam 5 mg tablet 5 mg PO BID PRN Anxiety 12/1307/22/24 ezetimibe 10 mg tablet 10 mg PO DAILY 07/22/2404/07 lisinopril 10 mg tablet 10 mg PO QPM 07/22/24 simvastatin 80 mg tablet 80 mg PO DAILY 12/08/24 12/0 8/24 omeprazole 20 mg tablet,delayed 20 mg PO DAILY PRN 05/09 release Previous Rx's ?Medication ?Instructions ?Recorded Sole Supports #1 ea 10/20/20 nitroglycerin 0.4 mg sublingual 0.4 mg sublingual Q5M PRN chest 07/05/24 tablet (Nitrostat) pain #50 tabs amoxicillin 875 mg-potassium 1 tab PO BID #14 tabs clavulanate 125 mg tablet Allergies Allergy/AdvReac Type Severity Reaction Status Date / Time ciprofloxacin (From Cipro) Allergy Unknown unknown Verified 08/23/24 10:26 doxycycline Allergy Unknown hives Verified 08/23/24 10:26 Review of Systems 2 Const: Denies: fever(s) or chills ENMT: Reports: throat pain (right sided) and ear or mastoid pain (right) Resp: Denies: productive cough Skin/Breast: Denies: rash Neuro: Denies: numbness in extremities, lack of coordination or difficulty walking PFSH ED 2 PFSH: Medical History Acute prostatitis BPH w urinary obs/LUTS Unstable angina Chest pain Cervical spondylosis with radiculopathy Chronic prostatitis Sacroiliac dysfunction Lumbar stenosis with neurogenic claudication Dyslipidemia Benign essential hypertension with target blood pressure below 140/90 Abnormal stress echo Dyspnea Chest pain Leg cramps Atherosclerosis of coronary artery of [place] heart CAD (coronary artery disease) Hypertension Hyperlipidemia LDL was 80s, HDL 60 Renal calculus Aortic atherosclerosis 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 Surgical History History of foot surgery History of PTCA S/P extracorporeal shock wave therapy H/O thumb surgery H/O arthroscopy of knee History of hernia surgery History of back surgery Family History Brother CAD (coronary artery disease) Lung disease Family/Other CAD (coronary artery disease) Cancer Grandfather Stroke Cancer Mother , at age 81 Diabetes Father , at age 87 Diabetes Stroke Denies family history of Clotting disorder Dementia Chronic kidney disease (CKD) Suicide Anesthesia complication Bleeding disorder Social History Smoking and tobacco/nicotine status: never used tobacco/nicotine Alcohol intake: current Alcohol intake frequency: holidays/special occasions only Alcohol type: wine Substance/Drug Use: never Marital status: Current occupational status: retired Physical Exam 2 Const: COMMON NORMALS: no acute distress, patient oriented x3, healthy appearing and alert GENERAL APPEARANCE: cooperative O RIENTATION/CONSCIOUSNESS: Yes awake OTHER: Patient is ambulatory to vertical [facility] recliner with no difficulty. He is sitting upright in the seat in no acute distress. He is interactive with exam appropriately. He is able to provide history with assistance from significant other at bedside. HENMT: COMMON NORMALS: normocephalic and atraumatic HEAD & SCALP: n ormocephalic, atraumatic and scalp tenderness (right side); no contusion and no laceration HEAD IMAGES: 1. mild tenderness to palpation. No rash, lesion, swelling, fluctuation noted TYMPANIC MEMBRANE: TM abnormal TM laterality: right Details: bulging, effusion, erythematous and fluid behind TM THROAT: postnasal drainage and other (erythema, increased on right ) Chest: CHEST: Yes Symmetrical chest wall rise Resp: COMMON NORMALS: normal respiratory effort EFFORT & INSPECTION: Yes able to speak in complete sentences Neuro: COMMON NORMALS: patient oriented x3 SENSORIUM/ORIENTATION: Yes alert Psych: COMMON NORMALS: cooperative ATTITUDE: Yes calm Skin: COMMON NORMALS: no rashes or lesions noted GENERAL SKIN EXAM: no rashes or lesions noted Course 2 Vital Signs: Vital signs: Vital Signs Temperature 98.4 F 01/03/25 18:37 Pulse Rate 78 01/03/25 18:37 Respiratory Rate 17 01/03/25 18:37 Blood Pressure 144/73 01/03/25 18:37 Pulse Oximetry 94 01/03/25 18:37 Oxygen Delivery Me thod Room Air 01/03/25 18:37 MDM - URI/Sore Throat Medical Decision Making 84yo male presents with significant other for evaluation of a sore throat that is on the right side of his throat that has been ongoing for the past 5 to 7 days. Significant other reports the pain started approximately 3 days after using Astelin nasal spray. Reports he has noticed redness to his throat as well. States has discomfort to the right side of the scalp with palpation. Reports he has had some discomfort of the right ear as well. Patient denies fever, congestion, vomiting, known sick contacts, any other concerns at this time. Patient is nontoxic in appearance. Vital signs are stable. Patient did have strep testing earlier in the week at the clinic which was negative. Influenza A/B, COVID-19, and RSV not detected. Right otitis media noted on exam. Discussed with patient the Augmentin prescribed would cover the ear, but would not cover the sore throat if it is not related to a bacterial illness. Encourage patient to increase his fluid intake and continue to monitor symptoms. Advise follow-up with primary care, call Tuesday with an update of symptoms and to discuss a recheck. Return precautions provided. Patient and family state understanding and have no further questions or concerns at this time. Differential Diagnosis Likely upper respiratory infection, otitis media, sinusitis, viral infection and pharyngitis Lab Data I reviewed the patient's lab results. Laboratory Results Influenza A (PCR) Negative (Negative) 01/03/25 20:03 Influenza Type B (PCR) Negative (Negative) 01/03/25 20:03 RSV (PCR) Negative (Negative) 01/03/25 20:03 SARS-CoV-2 (PCR) Negative (Negative) 01/03/25 20:03 No radiology studies performed this visit Discharge Plan Discharge Patient Disposition: Home Clinical Impression: Acute right otitis media, Acute sore throat, Scalp pain Condition: Stable Prescriptions: New amoxicillin-pot clavulanate 875-125 mg tablet 1 tab PO BID Qty: 14 0RF No Action (DME) Sole Supports See Rx Instructions .ROUTE .MEDSUPPLY Qty: 1 0RF Rx Instructions: As directed ketoconazole 2 % cream See Rx Instructions .ROUTE .COMPLEX Rx Instructions: Apply to red, scaly areas on face 1-2 times daily prn omega 9-udz-eui-fish oil [Fish Oil] 60-90-500 mg capsule 1 cap PO DAILY omeprazole 20 mg tablet,delayed release (DR/EC) 20 mg PO DAILY PRN aspirin 81 mg tablet,delayed release (DR/EC) 81 mg PO DAILY nitroglycerin [Nitrostat] 0.4 mg tablet, sublingual 0.4 mg sublingual Q5M PRN (Reason: chest pain) Qty: 50 5RF Rx Instructions: do not exceed 3 doses per episode trazodone 150 mg tablet 75 mg PO BEDTIME simvastatin 80 mg tablet 80 mg PO DAILY lisinopril 10 mg tablet 10 mg PO QPM ezetimibe 10 mg tablet 10 mg PO DAILY Rx Instructions: Take 1 tablet by mouth once daily clopidogrel 75 mg tablet 75 mg PO QAM pramipexole 0.5 mg tablet 0.5 mg PO QPM gabapentin 300 mg capsule 300 mg PO DAILY Men's 50 Plus Multivitamin 400-20-370 mcg Tablet 1 tab PO DAILY diazepam 5 mg tablet 5 mg PO BID PRN (Reason: Anxiety) Discharge Orders: Discharge ED (Routine); Ordered 01/03/25 Ordered By: Mor Gaines Referrals: Jl Felix MD [Primary Care Provider, Family Practice] Discharge Diet: Usual diet Discharge Activity: Resume usual activity Patient Instructions: Otitis Media - Adult, Pain Management, Sore Throat - Adult Activity Restrictions/Additional Instructions: Influenza A/B, COVID-19, and RSV not detected. Augmentin has been sent to the pharmacy for the ear infection. Please take this medication to completion The sore throat may still be related to a viral illness. Try to increase your fluid intake and continue to monitor symptoms Follow-up with primary care, call Tuesday with an update of symptoms and to discuss a recheck Return to the emergency department if any rapid worsening symptoms, onset of fever associated with worsening, and as needed Print Language: Divehi Coding Level of Care Code ED Solid Waste Division Supervisor for Juwan Caldera
[2025-01-03 20:45] LABS: Influenza A NEGATIVE (Negative); Influenza B NEGATIVE (Negative); Respiratory Syncytial Virus Ce NEGATIVE (Negative); SARS-CoV-2 PCR NEGATIVE (Negative)
[2025-01-03] MEDS: amoxicillin-clav 875-125 mg Tablet 1 TAB PO (21:07)
[2025-01-03 21:08] VITALS: BP 120/78; PULSE 75; RESP 16; O2SAT 98
== END 2025-01-03 21:08 | disposition home or self-care (01) ==
PROVIDERS: Emergency Provider Nurse Practitioner; PCP Family Medicine
DX: J02.9 Acute pharyngitis, unspecified (principal); H66.91 Otitis media, unspecified, right ear; R51.9 Headache, unspecified; Z11.52 Encounter for screening for COVID-19
CPT/HCPCS: 87637; 99283; J9999

== ENCOUNTER 2025-02-18 10:22 | Outpatient (CLI) | payer MEDICARE, OTHER, SELFPAY ==
--- NOTE | 2025-02-18 10:28 | CTR_ITS ---
PROCEDURE INFORMATION: Exam: CT Neck With Contrast Exam date and time: 02/18/2025 11:02 AM Age: 84 years old Clinical indication: Pain; Other: Otalgia; Ear infections, sore throat with drainage x 2 months TECHNIQUE: Imaging protocol: Computed tomography of the neck with contrast. Radiation optimization: All CT scans at this facility use at least one of these dose optimization techniques: automated exposure control; mA and/or kV adjustment per patient size (includes targeted exams where dose is matched to clinical indication); or iterative reconstruction. Contrast material: OMNI 350; Contrast volume: 100 ml; Contrast route: INTRAVENOUS (IV); COMPARISON: MR cervical spin wo con* [id number] 11/13/2021 4:30 PM RADIATION DOSE METRICS: Total DLP (mGy-cm): 159.41 FINDINGS: Brain: The brain and intracranial vasculature appear normal. Orbital cavities: The orbits are normal to the extent seen. Paranasal sinuses: Visible paranasal sinuses appear normal exception of a tiny retention cyst in the inferior medial right maxillary sinus.. Auditory system: There is no indication of otitis media or mastoiditis. Salivary glands: Normal. Glands are normal in size. Pharynx: Unremarkable. No significant tonsillar enlargement. Larynx: Unremarkable. Epiglottis is normal. Thyroid: Normal. No enlarged or calcified nodules. Trachea: Visualized trachea is unremarkable. Lungs: Granulomatous calcification in the left lung apex is seen. No acute pulmonary pathology is suspected. Lymph nodes: No cervical mass or lymphadenopathy is evident. Lymph node granulomatous calcifications are identified right 2A and 2B levels. No acute inflammatory changes or abscess is identified. Vasculature: Distal common carotid artery atherosclerotic calcifications are seen without dissection or significant stenosis. Bones/joints: There is no fracture, lytic, or blastic lesion. Moderate C4-C5 through C7-T1 disc space narrowing is observed there is potentially significant foraminal stenosis from facet arthropathy on the right at the C3-C4 level. Soft tissues: Unremarkable. No significant soft tissue swelling. CT/CT neck w con* [id number] IMPRESSION: 1. No indication of otitis media or mastoiditis. 2. Granulomatous calcifications, right level 2A and 2B lymph nodes and left lung apex. 3. Potential right C4 root impingement due to bony foraminal stenosis from facet arthropathy.
[2025-02-18 10:59] LABS: Blood Urea Nitrogen 13 mg/dL (8-23)
[2025-02-18] MEDS: iohexol 350 mg/mL 500 mL Btl (per mL) IV (11:07)
== END 2025-02-18 10:23 | disposition home or self-care (01) ==
LOC: RAD 10:23
PROVIDERS: PCP Family Medicine; Visit Provider Specialist
DX: H92.01 Otalgia, right ear (principal)
CPT/HCPCS: 70491; 82565; 84520

== ENCOUNTER → 2025-03-08 10:22 | Outpatient (BNVA) | payer MEDICARE, OTHER, SELFPAY | PROVIDERS: PCP Family Medicine; Visit Provider Nurse Practitioner Family | DX: I25.10 Atherosclerotic heart disease of native coronary artery without angina pectoris (principal); I10 Essential (primary) hypertension; I36.1 Nonrheumatic tricuspid (valve) insufficiency; E78.5 Hyperlipidemia, unspecified; Z79.02 Long term (current) use of antithrombotics/antiplatelets; Z79.82 Long term (current) use of aspirin; Z98.61 Coronary angioplasty status; I70.0 Atherosclerosis of aorta | CPT/HCPCS: 93005; 99213 ==

== ENCOUNTER → 2025-03-20 09:53 | Outpatient (BNVA) | payer MEDICARE, OTHER, SELFPAY | PROVIDERS: PCP Family Medicine; Visit Provider Nurse Practitioner Family | DX: L57.8 Other skin changes due to chronic exposure to nonionizing radiation (principal); D69.2 Other nonthrombocytopenic purpura; Z08 Encounter for follow-up examination after completed treatment for malignant neoplasm; Z85.828 Personal history of other malignant neoplasm of skin; L57.0 Actinic keratosis | CPT/HCPCS: 17000; 99213 ==

== ENCOUNTER → 2025-04-18 14:49 | Outpatient (BNVA) | payer MEDICARE, OTHER, SELFPAY | PROVIDERS: PCP Family Medicine; Visit Provider Nurse Practitioner Family | DX: L57.0 Actinic keratosis (principal); L57.8 Other skin changes due to chronic exposure to nonionizing radiation; D69.2 Other nonthrombocytopenic purpura; Z08 Encounter for follow-up examination after completed treatment for malignant neoplasm; Z85.828 Personal history of other malignant neoplasm of skin | CPT/HCPCS: 11102; 99214 ==

== ENCOUNTER 2025-04-24 21:26 | Emergency (ER) | payer MEDICARE, OTHER, SELFPAY ==
--- OUTSIDE RECORDS SUMMARY | 2015-07-09 04:27 | XMS_ITS | Continuity of Care Document ---
Author Organization [facility] Address [address] [place] [address] Phone Care Team Providers Care Body And Frame Man Name Role Phone Tyshawn SANDERSON, Alexander Unavailable Unavaila ble Medications Medication Instructions Dosage Effective Dates (start - stop) Status Comments SIMVASTATIN 80MG TABLETS TAKE 1 TABLET BY MOUTH DAILY - Active Zetia 10 MG Tab TAKE 1 TABLET DAILY. - Active Clopidogrel Bisulfate 75 MG Tab TAKE 1 TABLET BY MOUTH DAILY - Active Zetia 10 MG Tab TAKE 1 TABLET DAILY. - No Longer Active Procedures Procedure Date OV Est Pt, Detailed Visit OV Est Pt, Detailed Visit LIPID PANEL OV Est Pt, Comprehensive ECG - INTERP. & REPORT ONLY [facility]IAL [facility] CARE, COMP PRQ CARDIAC ANGIOPLAST 1 ART L HRT ARTERY/VENTRICLE ANGIO HOSPITAL DISCHARGE < 30 MIN TTE W/DOPPLER COMPLETE CARDIOVASCULAR STRESS TEST CARDIOVASCULAR STRESS TEST ECG - INTERP. & REPORT ONLY OV Est Pt, Detailed Visit OV Est Pt, Detailed Visit Ultrasound Screening AAA OV Est Pt, Detailed Visit 1 Rx via qualified eRx sys OV Est Pt, Detailed Visit OV Est Pt, Detailed Visit OV Est Pt, Detailed Visit Advance Directives Directive Yes / No Effective Date File Name No Information Encounters Encounter Description Practice Location Reason(s) For Visit Diagnoses Date Provider Providers Copied on Encounter [facility], [address] [facility], [place], [address], [place] tel:[phone] [facility] No Information 5 Tyshawn marvin [address], [place], [place], [id number], [place]. tel:[phone] [facility], [address] [facility], [place], [address], [place] tel:[phone] [facility] No Information 5 Tyshawn marvin [address], [address], [place], [place], [id number], [place]. tel:[phone] OV Est Pt, Detailed Visit [facility], [address] [facility], [place], [address], [place] tel:[phone] [facility] No Information 4 Tyshawn marvin [address], [address], [place], [place], [id number], [place]. tel:[phone] Referring Provider: Alexander Villagran, [address], [place], [address]. tel:[phone] OV Est Pt, Detailed Visit [facility], [address] [facility], [place], [address], [place] tel:[phone] [facility] No Information 4 Tyhsawn marvin [address], [address], [place], [place], [id number], [place]. tel:[phone] Referring Provider: Alexander Villagran, [address], [place], [address]. tel:[phone] OV Est Pt, Comprehensive [facility], [address] [facility], [place], [address], [place] tel:[phone] [facility] No Information 4 Tyshawn marvin [address], [address], [place], [place], [id number], [place]. tel:[phone] Referring Provider: Alexander Villagran, [address], [place], [address]. tel:[phone] [facility], [address] [place], [address], [place] tel:[phone] [facility] No Information 3 Lidia Erickson. [address], [address], [place], [place], [id number], [place]. tel:[phone] Referring Provider: Dre Murillo, [address], [place], [address]. tel:[phone] [facility]ARE, [facility], [address] [place], [address], [place] tel:[phone] [facility] No Information 3 Tyshawn marvin [address], [address], [place], [place], [id number], [place]. tel:[phone] Referring Provider: Alexander Villagran, [address], [place], [address]. tel:[phone] [facility], [address] [place], [address], [place] tel:[phone] [facility] No Information 3 Tyshawn marvin [address], [address], [place], [place], [id number], [place]. tel:[phone] Referring Provider: Alexander Villagran, [address], [place], [address]. tel:[phone] [facility], [address] [place], [address], [place] tel:[phone] [facility] No Information 3 Eli Williamson. [address], [address], [place], [place], [id number], [place]. tel:[phone] Referring Provider: Clay Benitez, [address], [place], [address]. tel:[phone] [facility], [address] [place], [address], [place] tel:[phone] [facility] No Information 3 Eli Williamson. [address], [address], [place], [place], [id number], [place]. tel:[phone] Referring Provider: Clay Benitez, [address], [place], [address]. tel:[phone] OV Est Pt, Detailed Visit [facility], [address] [place], [address], [place] tel:[phone] [facility] No Information 3 Tyshawn marvin [address], [address], [place], [place], [id number], [place]. tel:[phone] Referring Provider: Alexander Villagran, [address], [place], [address]. tel:[phone] OV Est Pt, Detailed Visit [facility], [address] [place], [address], [place] tel:[phone] [facility] No Information 3 Tyshawn marvin [address], [address], [place], [place], [id number], [place]. tel:[phone] Referring Provider: Alexander Villagran, [address], [place], [address]. tel:[phone] [facility], [address], [place], [address], [place] tel:[phone] [facility] No Information 3 Tyshawn marvin [address], [address], [place], [place], [id number], [place]. tel:[phone] Referring Provider: Alexander Villagran, [address], [place], [address]. tel:[phone] OV Est Pt, Detailed Visit [facility], [address], [place], [address], [place] tel:[phone] [facility] No Information 3 Tyshawn marvin [address], [place], [place], [id number], [place]. tel:[phone] Referring Provider: Alexander Villagran, [address], [place], [address]. [phone] OV Est Pt, Detailed Visit [facility], [address], [place], [address], [place] tel:[phone] [facility] No Information 3 Tyshawn marvin [address], [address], [place], [place], [id number], [place]. tel:[phone] Referring Provider: Alexander Villagran, [address], [place], [address]. [phone] OV Est Pt, Detailed Visit [facility], [address], [place], [address], [place] tel:[phone] [facility] No Information 3 Tyshawn marvin [address], [address], [place], [place], [id number], [place]. tel:[phone] Referring Provider: Alexander Villagran, [address], [place], [address]. tel:[phone] OV Est Pt, Detailed Visit [facility], [address], [place], [address], [place] tel:[phone] [facility] No Information 2 Tyshawn marvin [address], [address], [place], [place], [address], [place]. tel:[phone] Referring Provider: Alexander Villagran, [address], [place], [address]. tel:[phone] Family History Family Member Type Diagnosis Age At Onset No Information Payers Payer name Insurance type Covered republican ID Shawn vallesshani(s) [employer] [place] [id number] [employer] [place] [id number] Social History Type Description Quantity Date Captured Comments Sex Male Smoking Status No Information Chief Complaint And Reason For Visit No Information Reason For Referral Reason For Referral No Information History Of Present Illness Encounter Date Complaint History Of Prese nt Illness No Information Functional Status Date Functional Assessmen t No Information Medications Administered Medication Instructions Dosage Effective Dates (start - stop) Status Comments Zetia 10 MG Tab TAKE 1 TABLET DAILY. - No Longer Active Instructions Date Instruction Additional Infor mation No Information Assessments Type Assessment Date No Information Patient Care Teams Name Effective Dates (start - stop) Status Members No Information
--- OUTSIDE RECORDS SUMMARY | 2025-01-14 12:00 | XMS_ITS ---
Author Organization [facility] Address [address] [facility] [place] [address] Care Team Providers Care Foster Care Social Worker Name Role Phone Jl Felix Primary Care Provider HENRY Lyons Unavailable [phone] REASON FOR VISIT 4-6 weeks w/IPSS/PVR/FR Encounters Encounter Location Date Provider Diagnosis [facility] [address] [facility] [place] [address] 01/14/2025 HENRY QUIROSER Right flank discomfo rt R10.9 ; Bilateral nephrolithiasis N20.0 ; BPH loc w urin obs/LUTS N40.1 and Chronic prostatitis N41.1 Assessments Encounter Date Diagnosis (ICD Code) Assessment Notes Treatment Notes Treatment Clinical Notes Section Notes 01/14/2025 Right flank discomfort (ICD-10 - R10.9) 01/14/2025 Bilateral nephrolithiasis (ICD-10 - N20.0) 01/14/2025 BPH loc w urin obs/LUTS (ICD-10 - N40.1) 01/14/2025 Chronic prostatitis (ICD-10 - N41.1) Plan Of Treatment No Information Progress Notes * John HERNANDEZ NDOB:1940 (85 yo M)Acc No.[id number]:01/14/2025 Patient: John ABDUL Provider: Mil CESPEDES MD :1940 A ge:84 Y S ex:Male Date:01/14/2025 Address:[address], [facility], [id number] Pcp:Jl Felix Subjective: * Chief Complaints: * 1 . 4-6 weeks w/IPSS/PVR/FR. * HPI: M igrated HPI: Mr. Hernandez is an 84-year-old male patient with chronic prostatitis. He was previously followed by Dr. Seay. He also has history of kidney stones ESWL in the past. Denies family history of kidney stones or malignancy. He states his PSAs always been normal. He has never had any procedures on the prostate. He has tried Tamsulosin without improvement. He reports taking Cipro daily for 2 to 3 years, but he developed joint pain and stopped medication. Per documentation he was on Septra without improvement, then on Doxy which gave him a rash. He was most recently given Augmentin, which she has on hand to use for flares. IPSS 11, QOL 3. KUB on 11/01/23 showed no obvious stones. KUB from 11/06/24 at [facility] which revealed a few small L nephrolithiasis and a large 7mm R renal stone. He has had some intermittent right sided back pain. Denies fever, hematuria, chills or nausea/vomiting. Patient interested in removal of large right renal stone due to intermittent R flank discomfort and stone likely too large to pass. He elected to proceed with R ESWL. Patient is on anticoagulation with Plavix and ASA, and will need cardiac clearance from Dr. Gallego. Underwent RIGHT ESWL on 12/14/24. Here today 4 weeks post op with noninvasive urodynamics and IPSS. * Medical History: Objective: * Vitals: Assessment: * Assessment: 1. R ight flank discomfort - R10.9 2 . B ilateral nephrolithiasis - N20.0? Specify :R>L 3 . B PH loc w urin obs/LUTS - N40.1 4 . C hronic prostatitis - N41.1 Plan: * Treatment: * Billing Information: * Visit Code: * Procedure Codes: * Electronic signature of AUST IN MD COY on 04/24/2025 at 09:35 PM CDT Sign off status: Pending * Provider: Mil CESPEDES MD Date: 0 01/14/2025 Generated for Ashley hauser/Delmy/Preetitting on: 0 04/24/2025 09:35 PM CDT History and Physical Notes * HPI (History of Present Illness) Category Sub-Category Detail Notes Category Not es Migrated HPI Mr. Hernandez is an 84-year-old male patient with chronic prostatitis. He was previously followed by Dr. Seay. He also has history of kidney stones ESWL in the past. Denies family history of kidney stones or malignancy. He states his PSAs always been normal. He has never had any procedures on the prostate. He has tried Tamsulosin without improvement. He reports taking Cipro daily for 2 to 3 years, but he developed joint pain and stopped medication. Per documentation he was on Septra without improvement, then on Doxy which gave him a rash. He was most recently given Augmentin, which she has on hand to use for flares. IPSS 11, QOL 3. KUB on 11/01/23 showed no obvious stones. KUB from 11/06/24 at [facility] which revealed a few small L nephrolithiasis and a large 7mm R renal stone. He has had some intermittent right sided back pain. Denies fever, hematuria, chills or nausea/vomiting. Patient interested in removal of large right renal stone due to intermittent R flank discomfort and stone likely too large to pass. He elected to proceed with R ESWL. Patient is on anticoagulation with Plavix and ASA, and will need cardiac clearance from Dr. Gallego. Underwent RIGHT ESWL on 12/14/24. Here today 4 weeks post op with noninvasive urodynamics and IPSS
--- OUTSIDE RECORDS SUMMARY | 2025-03-28 06:00 | XMS_ITS ---
Author Organization [facility] Address [address] [place] [address] Care Team Providers Care Ndt Inspector Name Role Phone Isidro SANDERSON, Jl Primary Care Provider Miles Verde Irma Unavailable [phone] Katharine Wang Unavailable [phone] REASON FOR VISIT 2mo F/U-PPI Effectiveness Encounters Encounter Location Date Provider Diagnosis [facility] [address] [place] [address] 03/28/2025 Katharine Wang Plan Of Treatment No Information Progress Notes * John HERNANDEZDOB:1940 ( 85 yo M)Acc No.[id number]:03/28/2025 Progress Notes Patient: John Mckenna Provider: Mil Wang APRN :1940 A ge:84 Y S ex:Male Date:03/28/2025 Address:[address] [facility], [id number] Pcp:Jl Felix MD Subjective: * Chief Complaints: * 2 mo F/U-PPI Effectiveness * Electronic signature of Caden Han APRN on 04/24/2025 at 09:35 PM CDT Sign off status: Pending * Provider: Mil Wang APRN Date: 0 03/28/2025 Generated for Printi ng/Faxing/eTransmitting on: 0 04/24/2025 09:35 PM CDT
--- OUTSIDE RECORDS SUMMARY | 2025-03-28 10:30 | XMS_ITS ---
Author Organization [facility] Address [address] [place] [address] Care Team Providers Care Hydraulic Engineer Name Role Phone Jl eFlix MD Primary Care Provider Irma Davenport Unavailable [phone] Sumanth Rubalcava Unavailable [phone] REASON FOR VISIT Unintentional weight loss Medications Medication SIG (Take, Route, Frequency, Duration) Notes Start Date End Date Status Trazodone Hydrochloride 150 MG Oral Tablet Trazodone Hydrochloride 150 MG Oral Tablet 05/18/2019 Active Imiquimod *Pick strength-f orm from [facility] for eRX* Not-Taking Gabapentin 300 MG Capsule 1 capsule Orally Once a day *Pick strength-form from [facility] for eRX* Not-Taking carvedilol 3.13 MG Oral Tablet carvedilol 3.13 MG Oral Tablet 03/13/2019 Not-Taking Tylenol 325 MG Tablet 1 tablet as needed Orally every 6 hrs Active Lisinopril 2.5 MG Oral Tablet Lisinopril 2.5 MG Oral Tablet 05/18/2019 Active Gabapentin 300 MG Capsule 1 capsule Orally Once a day Active Simvastatin 80 MG Oral Tablet Simvastatin 80 MG Oral Tablet 03/13/2019 Active Omeprazole 20 MG Tablet Delayed Release 1 tablet 30 minutes before morning meal Orally Once a day; Duration: 90 days 01/28/2025 Active Magnesium 125 MG Capsule as directed Orally Active Fish Oil 500 MG Capsule 1 capsule Orally Three times a day Active ezetimibe 10 MG Oral Tablet ezetimibe 10 MG Oral Tablet 03/13/2019 Active Diazepam 5 MG Oral Tablet Diazepam 5 MG Oral Tablet 05/18/2019 Active clopidogrel 75 MG Oral Tablet clopidogrel 75 MG Oral Tablet 03/13/2019 Active Aspirin 81 MG Enteric Coated Tablet Aspirin 81 MG Enteric Coated Tablet 03/13/2019 Active Pramipexole *Reorder from [facility] for eRx and Interaction Alerts* Not-Taking Potassium Chloride 1.33 MEQ Oral Tablet Potassium Chloride 1.33 MEQ Oral Tablet 03/13/2019 Not-Taking Ayse Allergy 180 MG Tablet 1 tablet Orally Twice a day Active Simvastatin *[facility]* Not-Taking Pramipexole dihydrochloride 0.25 MG Oral Tablet Pramipexole dihydrochloride 0.25 MG Oral Tablet 03/13/2019 Not-Taking Metformin hydrochloride 500 MG Oral Tablet Metformin hydrochloride 500 MG Oral Tablet 03/13/2019 Not-Taking Metformin *[facility] for [facility] and Interaction Alerts* Not-Taking Ketoconazole *Pick strength-f orm from [facility] for [facility]* Not-Taking Levy Stool Softener Levy Stool Softener 03/13/2019 Not-Taking pantoprazole 40 MG Enteric Coated Tablet pantoprazole 40 MG Enteric Coated Tablet 05/18/2019 Not-Taking Encounters Encounter Location Date Provider Diagnosis [facility] [address] [facility] [place] [address] 03/28/2025 Sumanth Rubalcava Plan Of Treatment No Information Progress Notes * John HERNANDEZDOB:1940 ( 85 yo M)Acc No.[id number]:03/28/2025 History and Physical Patient: John Mckenna Provider: Mil Rubalcava MD :1940 A ge:84 Y S ex:Male Date:03/28/2025 [address] [facility] Pcp:Jl Felix MD 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 Subjective: * Chief Complaints: * U nintentional weight loss * Medications: T akingAllegra Allergy 180 MG Tablet 1 tablet Orally Twice a day Aspirin 81 MG Enteric Coated Tablet , Notes to Pharmacist: Aspirin 81 MG Enteric Coated Tabletclopidogrel 75 MG Oral Tablet , Notes to Pharmacist: clopidogrel 75 MG Oral TabletDiazepam 5 MG Oral Tablet , Notes to Pharmacist: Diazepam 5 MG Oral Tabletezetimibe 10 MG Oral Tablet , Notes to Pharmacist: ezetimibe 10 MG Oral TabletFish Oil 500 MG Capsule 1 capsule Orally Three times a day Gabapentin 300 MG Capsule 1 capsule Orally Once a day Lisinopril 2.5 MG Oral Tablet , Notes to Pharmacist: Lisinopril 2.5 MG Oral TabletMagnesium 125 MG Capsule as directed Orally Omeprazole 20 MG Tablet Delayed Release 1 tablet 30 minutes before morning meal Orally Once a day Simvastatin 80 MG Oral Tablet , Notes to Pharmacist: Simvastatin 80 MG Oral TabletTrazodone Hydrochloride 150 MG Oral Tablet , Notes to Pharmacist: Trazodone Hydrochloride 150 MG Oral TabletTylenol 325 MG Tablet 1 tablet as needed Orally every 6 hrs Taking Ayse Allergy 180 MG Tablet 1 tablet Orally Twice a day Taking Aspirin 81 MG Enteric Coated Tablet , Notes to Pharmacist: Aspirin 81 MG Enteric Coated TabletTaking clopidogrel 75 MG Oral Tablet , Notes to Pharmacist: clopidogrel 75 MG Oral TabletTaking Diazepam 5 MG Oral Tablet , Notes to Pharmacist: Diazepam 5 MG Oral TabletTaking ezetimibe 10 MG Oral Tablet , Notes to Pharmacist: ezetimibe 10 MG Oral TabletTaking Fish Oil 500 MG Capsule 1 capsule Orally Three times a day Taking Gabapentin 300 MG Capsule 1 capsule Orally Once a day Taking Lisinopril 2.5 MG Oral Tablet , Notes to Pharmacist: Lisinopril 2.5 MG Oral TabletTaking Magnesium 125 MG Capsule as directed Orally Taking Omeprazole 20 MG Tablet Delayed Release 1 tablet 30 minutes before morning meal Orally Once a day Taking Simvastatin 80 MG Oral Tablet , Notes to Pharmacist: Simvastatin 80 MG Oral TabletTaking Trazodone Hydrochloride 150 MG Oral Tablet , Notes to Pharmacist: Trazodone Hydrochloride 150 MG Oral TabletTaking Tylenol 325 MG Tablet 1 tablet as needed Orally every 6 hrs Not-Takingcarvedilol 3.13 MG Oral Tablet , Notes to Pharmacist: carvedilol 3.13 MG Oral TabletGabapentin 300 MG Capsule 1 capsule Orally Once a day , Notes to Pharmacist: *Pick strength-form from [facility] for eRX*Imiquimod , Notes to Pharmacist: *[facility]*Ketoconazole , Notes to Pharmacist: *Pick strength-form from [facility] for [facility]*Metformin , Notes to Pharmacist: *[facility] for [facility] and Interaction Alerts*Metformin hydrochloride 500 MG Oral Tablet , Notes to Pharmacist: Metformin hydrochloride 500 MG Oral Tabletpantoprazole 40 MG Enteric Coated Tablet , Notes to Pharmacist: pantoprazole 40 MG Enteric Coated TabletPhillips Stool Softener , Notes to Pharmacist: Cam Stool SoftenerPotassium Chloride 1.33 MEQ Oral Tablet , Notes to Pharmacist: Potassium Chloride 1.33 MEQ Oral TabletPramipexole , Notes to Pharmacist: *Reorder from [facility] for eRx and Interaction Alerts*Pramipexole dihydrochloride 0.25 MG Oral Tablet , Notes to Pharmacist: Pramipexole dihydrochloride 0.25 MG Oral TabletSimvastatin , Notes to Pharmacist: *[facility]*Not-Taking carvedilol 3.13 MG Oral Tablet , Notes to Pharmacist: carvedilol 3.13 MG Oral TabletNot-Taking Gabapentin 300 MG Capsule 1 capsule Orally Once a day , Notes to Pharmacist: *Pick strength-form from [facility] for eRX*Not-Taking Imiquimod , Notes to Pharmacist: *[facility] from [facility] for [facility]*Not-Taking Ketoconazole , Notes to Pharmacist: *Pick strength-form from [facility] for eRX*Not-Taking Metformin , Notes to Pharmacist: *Reorder from [facility] for eRx and Interaction Alerts*Not-Taking Metformin hydrochloride 500 MG Oral Tablet , Notes to Pharmacist: Metformin hydrochloride 500 MG Oral TabletNot-Taking pantoprazole 40 MG Enteric Coated Tablet , Notes to Pharmacist: pantoprazole 40 MG Enteric Coated TabletNot-Taking Levy Stool Softener , Notes to Pharmacist: Levy Stool SoftenerNot-Taking Potassium Chloride 1.33 MEQ Oral Tablet , Notes to Pharmacist: Potassium Chloride 1.33 MEQ Oral TabletNot-Taking Pramipexole , Notes to Pharmacist: *Reorder from [facility] for eRx and Interaction Alerts*Not-Taking Pramipexole dihydrochloride 0.25 MG Oral Tablet , Notes to Pharmacist: Pramipexole dihydrochloride 0.25 MG Oral TabletNot-Taking Simvastatin , Notes to Pharmacist: *Pick strength-form from [facility] for eRX* Billing Information: * Procedure Codes: * Electronic signature of Blake Rubalcava MD on 04/24/2025 at 09:36 PM CDT Sign off status: Pending * Provider: Mil Rubalcava MD Date: 0 03/28/2025 Generated for Ashley hauser/Delmy/Dev on: 0 04/24/2025 09:36 PM CDT
--- NOTE | 2025-04-24 21:29 | XRR_ITS ---
PROCEDURE INFORMATION: Exam: XR Chest Exam date and time: 04/24/2025 9:35 PM Age: 85 years old Clinical indication: Pain; Angina pectoris; Additional info: Cp TECHNIQUE: Imaging protocol: Radiologic exam of the chest. Views: 1 view. COMPARISON: CR XR chest 2V* [id number] 09/27/2024 4:05 PM FINDINGS: Lungs: Minimal patchy airspace opacity in the left lung base favors atelectasis. Airspace disease is not excluded. Pleural spaces: Unremarkable. No pleural effusion. No pneumothorax. Heart/Mediastinum: Unremarkable. No cardiomegaly. Vasculature: Atherosclerotic changes of the aorta are noted. Bones/joints: Unremarkable. XR/XR chest 1V portable [id number] IMPRESSION: Minimal patchy airspace opacity in the left lung base favors atelectasis. Airspace disease is not excluded.
--- NOTE | 2025-04-24 21:29 | ECG_ITS ---
[facility] Test Date: 2025-04-24 Pat Name: John Valadez Department: Room: Gender: Male Evp Chief Exploration Officer: : 1940 Requested By: Srinath Richmond Order Number: [id number] Pierson MD: Amanuel Mayer M.D. Measurements Intervals [place] Rate: 85 P: 60 [place]: 199 QRS: 20 QRSD: 81 T: 48 QT: 351 QTc: 419 Interpretive Statements SINUS RHYTHM Compared to ECG 03/08/2025 10:28:55 Left-axis deviation no longer present Electronically Signed On 04-24-2025 22:46:55 CDT by Amanuel Mayer M.D. [id number]
[2025-04-24 21:34] VITALS: BP 109/67; PULSE 78; RESP 14; TEMP 36.5; O2SAT 98; BMI 21.8
--- OUTSIDE RECORDS SUMMARY | 2025-04-24 21:35 | XMS_ITS | Encounter Summary ---
Author Organization [facility] Address [address] [place] [address] Care Team Providers Care Factory Assembler Name Role Phone Jl Felix MD Primary Care Provider [phone]- [phone] Encounter Details Date Type Department Care Team (Latest Contact Info) Description 03/09/2002 Outpatient [facility] Facial Plastic Surgery- [address] [place] [phone] Ryan Almazan MD NO ADDRESS ON FILE SURGERY FOLLOWUP, UNSPEC (Primary Dx) Social History Tobacco Use Types Packs/Day Years Used Date Smoking Tobacco: Never Assessed Sex and Gender Information Value Date Recorded Sex Assigned at Not on file 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
--- OUTSIDE RECORDS SUMMARY | 2025-04-24 21:35 | XMS_ITS | Encounter Summary ---
Author Organization [facility] Address [address] [place] [address] Care Team Providers Care Publications Distribution Clerk Name Role Phone Jl Felix MD Primary Care Provider [phone]- [phone] Encounter Details Date Type Department Care Team (Latest Contact Info) Description 04/20/2002 Outpatient [facility] Facial Plastic Surgery- [address] [place] [phone] Ryan Almazan MD NO ADDRESS ON FILE SURGERY FOLLOWUP, UNSPEC (Primary Dx) Social History Tobacco Use Types Packs/Day Years Used Date Smoking Tobacco: Never Assessed Sex and Gender Information Value Date Recorded Sex Assigned at Not on file 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
--- OUTSIDE RECORDS SUMMARY | 2025-04-24 21:35 | XMS_ITS | Encounter Summary ---
Author Organization [facility] Address [address] [place] [address] Care Team Providers Care It Infrastructure Consultant Name Role Phone Jl Felix MD Primary Care Provider [phone]- [phone] Encounter Details Date Type Department Care Team (Latest Contact Info) Description 03/16/2002 Outpatient [facility] Facial Plastic Surgery- [address] [place] [phone] Ryan Almazan MD NO ADDRESS ON FILE SURGERY FOLLOWUP, UNSPEC (Primary Dx) Social History Tobacco Use Types Packs/Day Years Used Date Smoking Tobacco: Never Assessed Sex and Gender Information Value Date Recorded Sex Assigned at Not on file 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
--- OUTSIDE RECORDS SUMMARY | 2025-04-24 21:35 | XMS_ITS | Encounter Summary ---
Author Organization [facility] Address [address] [place] [address] Care Team Providers Care Laboratory Assistant Name Role Phone Jl Felix MD Primary Care Provider [phone]- [phone] Encounter Details Date Type Department Care Team (Latest Contact Info) Description 06/13/1998 Outpatient Historical [facility] John Saleem Jr., MD [address] [place] [address] Pure hypercholesterolem (Primary Dx); Insomnia, unspecified Social History Tobacco Use Types Packs/Day Years Used Date Smoking Tobacco: Never Assessed Sex and Gender Information Value Date Recorded Sex Assigned at Not on file 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
--- OUTSIDE RECORDS SUMMARY | 2025-04-24 21:36 | XMS_ITS | Encounter Summary ---
Author Organization [facility] Address [address] [place] [address] Care Team Providers Care Muffle Worker Name Role Phone Jl Felix MD Primary Care Provider +1- [phone] Encounter Details Date Type Department Care Team (Latest Contact Info) Description 12/08/2001 Outpatient [facility] Facial Plastic Surgery- [address] [place] [phone] Ryan Almazan MD NO ADDRESS ON FILE SURGERY FOLLOWUP, UNSPEC (Primary Dx) Social History Tobacco Use Types Packs/Day Years Used Date Smoking Tobacco: Never Assessed Sex and Gender Information Value Date Recorded Sex Assigned at Not on file 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
--- OUTSIDE RECORDS SUMMARY | 2025-04-24 21:36 | XMS_ITS | Clinical Summary ---
Author Organization [facility] Address [address] [facility] Attn: Epic Prelude ADT [place], [place] [address] Care Team Providers Care Organic Search Lead Name Role Phone Jl Felix MD Primary Care Provider +1- [phone] Allergies No known active allergies Active Problems Problem Noted Date Diagnosed Date Hallux abducto valgus, bilateral 03/22/2018 Diabetes mellitus type II, c ontrolled, with no complications 03/22/2018 Hammer toes of both feet 03/22/2018 Metatarsus primus varus 03/22/2018 Exostosis of left foot 03/22/2018 Primary localized osteoarthrosis, ankle and foot 07/24/2010 Tenosynovitis of foot 06/30/2010 Lesion of plantar nerve 06/30/2010 Social History Tobacco Use Types Packs/Day Years Used Date Smoking Tobacco: Never Alcohol Use Standard Drinks/Week Comments No 0 (1 standard drink = 0.6 oz pur e alcohol) Sex and Gender Information Value Date Recorded Sex Assigned at Not on file 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 Gender Identity Not on file Sexual Orientation Not on file Last Filed Vital Signs Vital Sign Reading Time Taken Comments Blood Pressure 131/70 03/22/2018 2:09 PM CDT Pulse 68 03/22/2018 2:09 PM CDT Temperature - - Respiratory Rate - - Oxygen Saturation - - Inhaled Oxygen Concentration - - Weight 74.8 kg (165 lb) 03/22/2018 2:09 PM CDT Height 175.3 cm (5' 9 ) 03/22/2018 2:09 PM CDT Body Mass Index 24.37 03/22/2018 2:09 PM CDT Plan of Treatment Health Maintenance Due Date Last Done Comments DIABETES ANNUAL RETINAL EXAM 1959 DIABETES HBA1C Q 6 MONTHS 1959 DIABETES MICROALBUMIN ANNUAL SCREEN 1959 LDL CHOLESTEROL ANNUAL 1959 DTAP/TDAP/TD VACCINES (1 - Tdap) 1960 PNEUMOCOCCAL VACCINE 50+ YEARS (1 of 2 - PCV) 04/13/19 60 ZOSTER VACCINE (1 of 2) 1991 RSV VACCINE (60+ or ) (1 - 1-dose 75+ series) 2016 DIABETES ANNUAL FOOT EXAM 04/01/2019 04/01/2018 INFLUENZA VACCINE (#1) 2025 Care Teams Organic Search Lead Relationship Specialty Start Date End Date Jl Felix MD [address] [place] [phone] PCP - General Family Practice 06/30/10
--- OUTSIDE RECORDS SUMMARY | 2025-04-24 21:36 | XMS_ITS | Clinical Summary ---
Author Organization [facility] Address [address] [facility] [place] [address] Care Team Providers Care Silver Miner Blasting Name Role Phone Jl Felix MD Primary Care Provider +1- [phone] Allergies No known active allergies Medications clopidogrel (PLAVIX) 75 mg Oral Tab Take 75 mg by mouth daily. Active citalopram (CELEXA) 20 mg Oral tablet Take 20 mg by mouth daily at bedtime. Active diazepam (VALIUM) 5 mg Oral tablet Take 5 mg by mouth every 6 hours as needed. Active traZODone (DESYREL) 50 mg Oral tablet Take 50 mg by mouth daily at bedtime. Active omeprazole (PRILOSEC) 20 mg Oral CpDR Take 20 mg by mouth daily. Active SIMVASTATIN (ZOCOR ORAL) Take by mouth. Active ciprofloxacin (CIPRO) 500 mg Oral tablet Take 500 mg by mouth 2 times daily. Active triamterene-hydr ochlorothiazide (MAXZIDE) 18.75-12.5 mg Oral Tab Take 1 Tab by mouth daily. Active aspirin (RACHAEL CHEWABLE) 81 mg Oral Chew Take 81 mg by mouth daily. Active OMEGA-3 FATTY ACIDS (FISH OIL ORAL) Take by mouth. Active NIACIN ORAL Take by mouth. Active Active Problems Problem Noted Date Diagnosed Date Hallux abducto valgus, bilateral 03/22/2018 Metatarsus primus varus 03/22/2018 Exostosis of left foot 03/22/2018 Diabetes mellitus type II, c ontrolled, with no complications 03/22/2018 Hammer toes of both feet 03/22/2018 Primary localized osteoarthrosis, ankle and foot 07/24/2010 Tenosynovitis of foot 06/30/2010 Lesion of plantar nerve 06/30/2010 Social History Tobacco Use Types Packs/Day Years Used Date Smoking Tobacco: Never Alcohol Use Standard Drinks/Week Comments No 0 (1 standard drink = 0.6 oz pur e alcohol) Sex and Gender Information Value Date Recorded Sex Assigned at Not on file 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 Gender Identity Not on file Sexual Orientation [...] MONTHS 1959 DIABETES MICROALBUMIN ANNUAL SCREEN 1959 DTAP/TDAP/TD VACCINES (1 - Tdap) 1960 PNEUMOCOCCAL VACCINE 50+ YEARS (1 of 2 - PCV) 04/13/19 60 ZOSTER VACCINE (1 of 2) 1991 LDL CHOLESTEROL ANNUAL 06/13/1999 06/13/1998 RSV VACCINE (60+ or ) (1 - 1-dose 75+ series) 2016 DIABETES ANNUAL FOOT EXAM 04/01/2019 04/01/2018 INFLUENZA VACCINE (#1) 2025 Insurance MEDICARE PART A AND B [facility] Care Teams Silver Miner Blasting Relationship Specialty Start Date End Date Jl Felix MD [address] [phone] PCP - General Family Practice 06/30/10
--- OUTSIDE RECORDS SUMMARY | 2025-04-24 21:36 | XMS_ITS | Encounter Summary ---
Author Organization [facility] Address [address] [place] [address] Care Team Providers Care Finger Cobbler Name Role Phone Jl Felix MD Primary Care Provider +1- [phone] Encounter Details Date Type Department Care Team (Latest Contact Info) Description 09/29/2001 Outpatient [facility] Facial Plastic Surgery- [address] [place] [phone] Ryan Almazan MD NO ADDRESS ON FILE SURGERY FOLLOWUP, UNSPEC (Primary Dx) Social History Tobacco Use Types Packs/Day Years Used Date Smoking Tobacco: Never Assessed Sex and Gender Information Value Date Recorded Sex Assigned at Not on file 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
--- OUTSIDE RECORDS SUMMARY | 2025-04-24 21:36 | XMS_ITS | Encounter Summary ---
Author Organization [facility] Address [address] [place] [address] Care Team Providers Care Rubber Insulator Name Role Phone Jl Felix MD Primary Care Provider +1- [phone] Encounter Details Date Type Department Care Team (Latest Contact Info) Description 12/22/2001 Outpatient [facility] Facial Plastic Surgery- [address] [place] [phone] Ryan Almazan MD NO ADDRESS ON FILE SURGERY FOLLOWUP, UNSPEC (Primary Dx) Social History Tobacco Use Types Packs/Day Years Used Date Smoking Tobacco: Never Assessed Sex and Gender Information Value Date Recorded Sex Assigned at Not on file 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
--- OUTSIDE RECORDS SUMMARY | 2025-04-24 21:36 | XMS_ITS | Encounter Summary ---
Author Organization [facility] Address [address] [place] [address] Care Team Providers Care Upper Trimmer Name Role Phone Jl Felix MD Primary Care Provider +1- [phone] Encounter Details Date Type Department Care Team (Latest Contact Info) Description 09/08/2001 Outpatient [facility] Facial Plastic Surgery- [address] [place] [phone] Ryan Almazan MD NO ADDRESS ON FILE SURGERY FOLLOWUP, UNSPEC (Primary Dx) Social History Tobacco Use Types Packs/Day Years Used Date Smoking Tobacco: Never Assessed Sex and Gender Information Value Date Recorded Sex Assigned at Not on file 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
--- OUTSIDE RECORDS SUMMARY | 2025-04-24 21:36 | XMS_ITS | Encounter Summary ---
Author Organization [facility] Address [address] [place] [address] Care Team Providers Care Central Supply Worker Name Role Phone Jl Felix MD Primary Care Provider +1- [phone] Encounter Details Date Type Department Care Team (Latest Contact Info) Description 09/22/2001 Outpatient [facility] Facial Plastic Surgery- [address] [place] [phone] Ryan Almazan MD NO ADDRESS ON FILE SURGERY FOLLOWUP, UNSPEC (Primary Dx) Social History Tobacco Use Types Packs/Day Years Used Date Smoking Tobacco: Never Assessed Sex and Gender Information Value Date Recorded Sex Assigned at Not on file 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
--- OUTSIDE RECORDS SUMMARY | 2025-04-24 21:36 | XMS_ITS | Patient Health Record ---
Author Organization [facility] Address [address] [place] [address] Care Team Providers Care Air Compressor Operator Name Role Phone Kalyanjessica Jl Primary Care Provider UnavailHENRY Callejas Unavailable [phone] ESSENCE AMARO Unavailable [phone] DILEEP COHN Unavailable [phone] Allergies Allergen (clinical drug ingredient) Drug/Non Drug Allergy documented on EMR Reaction Allergy Type Onset Date Status Ciprofloxacin , Drug Allergy Act geovani doxycycline Doxycycline Unknown Drug Allergy Act geovani Results Component Value Reference Range Notes CULTURE, URINE, ROUTINE (395 ) Reviewed date:12/06/2024 09:17:36 AM Interpretation: Performing Lab:[place], [id number], [id number] Megan Rebolledo MD Notes/Report: NON-FASTING CULTURE, URINE, ROUTINE SEE NOTE CULTURE, URINE, ROUTINE Micro Number: [id number] Test Status: Final Specimen Source: Not given Specimen Quality: Adequate Result: Mixed genital abby isolated. These superficial bacteria are not indicative of a urinary tract infection. No further organism identification is warranted on this specimen. If clinically indicated, recollect clean-catch, mid-stream urine and transfer immediately to Urine Culture Transport Tube. Comment: No collection date was provided. The specimen is generally defined as stable up to 48 hours. The result(s) need(s) to be interpreted cautiously. Clinicopathologic correlation is required. Repeat testing is recommended as clinically indicated. Customer Service is available with questions or comments based on your area of interest: [place] ([phone]) No collection date was provided. The specimen is generally defined as stable up to 48 hours. The result(s) need(s) to be interpreted cautiously. Clinicopathologic correlation is required. Repeat testing is recommended as clinically indicated. Customer Service is available with questions or comments based on your area of interest: ALEJANDRA ([phone]) NO COLLECTION DATE RECEIVED. WE HAVE USED THE DATE THE SPECIMEN WAS RECEIVED BY THIS LABORATORY THE COLLECTION DATE. IF THIS IS INCORRECT, PLEASE CONTACT CLIENT SERVICES. PHONE NUMBER: [phone] Urinalysis, Routine Reviewed date:12/04/2024 03:56:12 PM Interpretation: Performing Lab: Notes/Report: Urine-Color yellow Appearance clear Glucose - Bilirubin - Ketones - Specific Mauk 1.025 Occult Blood - pH 6.0 Urine Protein - Urobilinogen,Semi-Qn - Nitrite, Urine - WBC Esterase - CBC w/ Auto Diff Reviewed date:12/11/2024 10:30:46 AM Interpretation: Performing Lab: Notes/Report: Testing performed at: [place] [address] CLIA ID [id number] WBC 7.6 4.5-11.0 X10'3 RBC 4.71 4.50-5.90 X10'6 Hgb 14.8 13.5-17.5 G/DL Hct 43.2 41.0-53.0 % MCV 91.7 80.0-100.0 FL MCH 31.4 27.0-31.0 PG MCHC 34.3 31.0-37.0 G/DL Platelet 264 150-400 X10'3 RDW-SD 42.9 35.0-49.0 FL RDW-CV 12.7 12.2-15.6 % MPV 10.4 9.2-12.0 FL Neutro Auto% 60.1 40.0-70.0 % Lymph Auto% 27.9 22.0-44.0 % [place] Auto% 9.5 3.0-7.0 % Eos Auto% 1.3 2.0-4.0 % Baso Auto% 0.7 0.0-1.0 % Imm Gran% .5 .0-.4 % Neutro Abs 4.54 .80-7.70 Absolute Neutrophil Count 4540 Lymph Abs 2.11 .10-4.10 [place] Abs .72 .20-1.00 Eos Abs .10 .00-.40 Baso Abs .05 .00-.20 Imm Gran Abs .04 .00-.10 NRBC# .00 .00-.20 NRBC% .00 .00-.20 /100 int act WBC's Basic Metabolic Panel Reviewed date:12/11/2024 10:30:46 AM Interpretation: Performing Lab: Notes/Report: Testing performed at [facility], [address] [place] [address] [place] [address]. CLIA ID#: [id number] B-aklfxv-x-benzoquinone imine (NAPQI) is a metabolite of acetaminophen, NAPQI concentrations of apparoximately 10 mg/L correlation to toxic levels of acetaminophen demonstrates a greater than or equil to 10% change in results. NAPQI concentrations greater than this may lead to falsely depressed results for patient samples. Calculation performed from GFR calculator provided by the National Kid[employer] Foundation. Glomerular Filtration rate(GRF) is the best overall index of kidney function. Normal GFR varies according to age,sex, body size, and declines with age. The National Kidney Foundation recommends using the CKD-EPI Creatinine Equation(2020) to estimate GFR. Testing performed at: [address] [place] [address] CLIA ID [id number] Use of this assay is not recommended for patients undergoing treatment with phenindione, due to the potential for falsely depressed results. Sodium 138 136-145 MMOL/L Potassium 4.4 3.5-5.1 MMOL/L Chloride 103 98-107 MMOL/L CO2 29.6 20.0-31.0 MMOL/L Glucose Serum 98 71-110 MG/DL BUN 19 7-21 MG/DL Creat .99 .57-1.17 MG/DL GFR 75.2 Anion Gap 10 5-15 BUN/Creat Ratio 19.2 12.0-20.0 % Calcium 9.5 8.7-10.4 MG/DL Osmo Serum,Calculated 288 280-300 MOSM/KG Urinalysis, Routine Reviewed date:11/12/2024 11:17:14 AM Interpretation: Performing Lab: Notes/Report: Urine-Color yellow Appearance clear Glucose - Bilirubin - Ketones - Specific Mauk 1.010 Occult Blood - pH 7.0 Urine Protein - Urobilinogen,Semi-Qn - Nitrite, Urine - WBC Esterase - Reason For Referral No Information Medications Medication SIG (Take, Route, Frequency, Duration) Notes Start Date End Date Status Ketoconazole 2 % 1 application Mechanics Supervisor ally Once a day Active Gabapentin 300 MG 1 capsule Orally Onc e a day Active Aspirin Adult Low Dose 81 MG 1 tablet Or ally Once a day Active Fish Oil Active metFORMIN HCl ER 500 MG 1 tablet with ev ening meal Orally twice a day Active Simvastatin 80 MG 1 tablet in the even ing Orally Once a day Active traZODone HCl 150 MG 0.5 tablet at bedti me Orally Once a day Active diazePAM 5 MG 0.5 tablet Orally On ce a day Active Lisinopril 10 MG 1 tablet Orally Once a day Active Pramipexole Dihydrochloride 0.5 MG 1 tablet Orally Once a day Active Clopidogrel Bisulfate 75 MG 1 tablet Ora lly Once a day Active Ezetimibe 10 MG 1 tablet Orally Once a day Active Immunizations Vaccine Route Administration Date Status Comme nts Influenza (whole), CPT 59589 Inactive Unknown 05/29/2018 Administered Social History Tobacco Use: Social History Observation Description Date Details (start date - stop date) Former Smoker NA - NA Tobacco Control (Standard) Question Answer Notes Tobacco use: Former smoker Problems Problem Type SNOMED Code ICD Code Onset Dates Problem Status W/U Status Risk Notes Problem Chronic prostatitis (77842928) Chronic prostatitis (N41.1) Active confirmed Problem Type II diabetes mellitus without complication (620342299) Type 2 diabetes mellitus without complication, unspecified whether correction insulin use (E11.9) Active confirmed Problem Primary hypertension (09556534) Primary hypertension (I10) Active confirmed Problem Kidney stone (37359155) Bilateral nephrolithiasis (N20.0) Active confirmed Problem Benign prostatic hypertrophy with outflow obstruction (161496888) BPH loc w urin obs/LUTS (N40.1) Active confirmed Vital Signs Heart Rate 71 /min 12/04/2024 Blood pressure diastolic 77 mm Hg 12/04/2024 Weight-kg 73.48 kg 12/04/2024 Height 69 in 12/04/2024 Blood pressure systolic 123 mm Hg 12/04/2024 Weight 162 lbs 12/04/2024 BMI 23.92 kg/m2 12/04/2024 Procedures Procedure Date Ordered Date Performed Result Body Sit e Bladder Scan 11/12/2024 11/12/2024 0ml Encounters Encounter Location Date Provider Diagnosis [facility], [facility] [address] [facility] [address] [place] [address] 11/12/2024 DILEEP COHN Bilateral nephrolithiasis N20.0 ; Right flank discomfort R10.9 ; Chronic prostatitis N41.1 ; BPH loc w urin obs/LUTS N40.1 ; Screening for prostate cancer Z12.5 and Surgical counseling visit Z71.89 [facility], [facility] [address] [facility] [address] [place] [address] 12/04/2024 DILEEP IYERKIKO Surgical counseling visit Z71.89 ; Right flank discomfort R10.9 ; Bilateral nephrolithiasis N20.0 ; BPH loc w urin obs/LUTS N40.1 and Chronic prostatitis N41.1 [facility], [facility] [address] [place] [address] 12/14/2024 HENRY CESPEDES Kidney pain N23 [facility], [facility] [address] [place] [address] 11/22/2024 [facility] [employer] [facility], [facility] [address] [place] [address] 11/26/2024 [facility], [facility] [address] [place] [address] 12/04/2024 ESSENCE AMARO Pre-op testing Z01.8 18 ; Type 2 diabetes mellitus without complication, unspecified whether marine oil terminal superintendent insulin use E11.9 and Primary hypertension I10 [facility], [facility] [address] [place] [address] 01/14/2025 HENRY CESPEDES Assessments Encounter Date Diagnosis (ICD Code) Assessment Notes Treatment Notes Treatment Clinical Notes Section Notes 11/12/2024 Bilateral nephrolithiasis (ICD-10 - N20.0) 11/12/2024 Right flank discomfort (ICD-10 - R10.9) 12/04/2024 Pre-op testing (ICD-10 - Z01.818) 12/04/2024 Surgical counseling visit (ICD-10 - Z71.89) 12/04/2024 Right flank discomfort (ICD-10 - R10.9) 12/14/2024 Kidney pain (ICD-10 - N23) 12/04/2024 Bilateral nephrolithiasis (ICD-10 - N20.0) 12/04/2024 Type 2 diabetes mellitus without complication, unspecified whether correction insulin use (ICD-10 - E11.9) 11/12/2024 Chronic prostatitis (ICD-10 - N41.1) 11/12/2024 BPH loc w urin obs/LUTS (ICD-10 - N40.1) 12/04/2024 Primary hypertension (ICD-10 - I10) 12/04/2024 BPH loc w urin obs/LUTS (ICD-10 - N40.1) 11/12/2024 Screening for prostate cancer (ICD-10 - Z12.5) 12/04/2024 Chronic prostatitis (ICD-10 - N41.1) 11/12/2024 Surgical counseling visit (ICD-10 - Z71.89) 11/12/2024 Other Patient brought disc with KUB from 11/06/24 at [facility] which revealed a few small L nephrolithiasis and a large 7mm R renal stone. I have independently reviewed imaging, along with radiologic report. I reviewed images and discussed findings with patient in the exam room. Patient interested in removal of large right renal stone due to intermittent R flank discomfort and stone likely too large to pass. Discussed intervention options, and since stone is visible on KUB, he elects for ESWL as it is less invasive. How the procedure was performed was discussed along with risks/benefits/alt ernatives and postprocedural expectations. Patient is on anticoagulation with Plavix and ASA, and will need cardiac clearance from Dr. Gallego. Denies problems with anesthesia in the past, no new medications or diagnoses since last visit. All questions that were asked were answered and elects to proceed with procedure as scheduled. Patient will RTC postoperatively and is satisfied with plan of care. Schedule for R ESWL with next available provider. I will ask that KUB is [employer]. 12/04/2024 Other Patient schedul ed for RIGHT ESWL on 12/14/24 . How the procedure was performed was discussed along with risks/benefits/alt ernatives and postprocedural expectations. Patient takes daily ASA and Plavix per Dr. Gallego in [place]. He is going to take the form to their office first thing in AM and have faxed back to us, but understands he will need to hold these medications prior to procedure. Denies problems with anesthesia in the past, no new medications or diagnoses since last visit. Patient has presurgical testing at [facility]. Urine sent for culture and we will treat as indicated preoperatively. All questions that were asked were answered and elects to proceed with procedure as scheduled. Patient will RTC postoperatively and is satisfied with plan of care. Plan Of Treatment Pending Test Test Name Order Date Electrocardiogram, 12 Lead Tracing-[id number] 12/04/2024 Future Test Test Name Order Date [id number] KUB, X-Ray: Abdomen, Kidney, Urete r, bladder 10/14/2023 [id number] KUB, X-Ray: Abdomen, Kidney, Urete r, bladder 10/13/2024 PSA, TOTAL (5363) 10/13/2024 Insurance Providers Payer Name Payer Address Payer Phone Subscriber Number Group Number Insured Name Patient Relationship to Insured Coverage Start Date Coverage End Date [place] [address] [address] [place], [place] [id number] John Valadez Self - patient is the insured [employer] [address] [address] [place], [place] [id number] John Valadez Self - patient is the insured Medical (General) History Medical History History ICD Code Anxiety Coronary arteriosclerosis Diabetes mellitus type 2 History of polyp of colon Hyperlipidemia Hypertension Kidney stone Patient post percutaneous transluminal c oronary angioplasty Surgical History Surgery Date(Month/Year) cardiac stent X 10 back surgery Bunion removal hernia repair Hospitalization History Reason Date(Month/Year) see prior sx hx
--- OUTSIDE RECORDS SUMMARY | 2025-04-24 21:36 | XMS_ITS | Encounter Summary ---
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
--- OUTSIDE RECORDS SUMMARY | 2025-04-24 21:36 | XMS_ITS | Encounter Summary ---
Author Organization [facility] Address [address] [place] [address] Care Team Providers Care Cyber Security Systems Engineer Name Role Phone Jl Felix MD Primary Care Provider [phone]- [phone] Encounter Details Date Type Department Care Team (Latest Contact Info) Description 11/03/2001 Outpatient [facility] Facial Plastic Surgery- [address] [place] [phone] Ryan Almazan MD NO ADDRESS ON FILE SURGERY FOLLOWUP, UNSPEC (Primary Dx) Social History Tobacco Use Types Packs/Day Years Used Date Smoking Tobacco: Never Assessed Sex and Gender Information Value Date Recorded Sex Assigned at Not on file 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
--- OUTSIDE RECORDS SUMMARY | 2025-04-24 21:36 | XMS_ITS | Encounter Summary ---
Author Organization [facility] Address [address] [place] [address] Care Team Providers Care Campus Administrator Name Role Phone Jl Felix MD Primary Care Provider [phone]- [phone] Encounter Details Date Type Department Care Team (Latest Contact Info) Description 03/17/2001 Outpatient [facility] Facial Plastic Surgery- [address] [place] [phone] Ryan Almazan MD NO ADDRESS ON FILE Unspecified congenital anomaly of ear (Primary Dx) Social History Tobacco Use Types Packs/Day Years Used Date Smoking Tobacco: Never Assessed Sex and Gender Information Value Date Recorded Sex Assigned at Not on file 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
--- OUTSIDE RECORDS SUMMARY | 2025-04-24 21:36 | XMS_ITS | Encounter Summary ---
Author Organization [facility] Address [address] [place] [address] Care Team Providers Care Jack Frame Tender Name Role Phone Jl Felix MD Primary Care Provider +1- [phone] Encounter Details Date Type Department Care Team (Latest Contact Info) Description 07/27/2001 Outpatient [facility] Facial Plastic Surgery- [address] [place] [phone] Ryan Almazan MD NO ADDRESS ON FILE SURGERY FOLLOWUP, UNSPEC (Primary Dx) Social History Tobacco Use Types Packs/Day Years Used Date Smoking Tobacco: Never Assessed Sex and Gender Information Value Date Recorded Sex Assigned at Not on file 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
--- OUTSIDE RECORDS SUMMARY | 2025-04-24 21:37 | XMS_ITS | Patient Health Record ---
Author Organization [facility] Address [address] [place] [address] Care Team Providers Care Contracting Specialist Name Role Phone Jl Felix MD Primary Care Provider Irma Davenport Unavailable [phone] Sumanth Rubalcava Unavailable [phone] Migration, Provider Unavailable Unavailable Seda Montes Unavailable [phone] Mario De Anda Unavailable [phone] Katharine Wang Unavailable [phone] Allergies Allergen (clinical drug ingredient) Drug/Non Drug Allergy documented on EMR Reaction Allergy Type Onset Date Status Ciprofloxacin , Drug Allergy Act geovani niacin Niacin Unknown Drug Allergy Active doxycycline Doxycycline Unknown Drug Allergy Act geovani Results Component Value Reference Range Flag Notes Glucometer WBG--[id number] Reviewed date:03/29/2025 12:32:19 PM Interpretation: Performing Lab: Notes/Report: Glucometer WBG 120 65-110 MG/DL MO Meter: U [id number]~Associate Dentist: [id number] NICHOLED, Upper GI Diagnostic-432 35 Reviewed date:04/02/2025 09:04:09 AM Interpretation: Performing Lab: Notes/Report: Fluoro Needle For Placement - Non-Spine 54133 Reviewed date:10/09/2024 02:20:01 PM Interpretation: Performing Lab: Notes/Report: Pre-Procedure Blood Glucose Test - 06161 Reviewed date:10/09/2024 02:20:12 PM Interpretation:118 Performing Lab: Notes/Report: 118 Reason For Referral No Information Medications Medication SIG (Take, Route, Frequency, Duration) Notes Start Date End Date Status Ayse Allergy 180 MG Tablet 1 tablet Orally Twice a day Active Diazepam 5 MG Oral Tablet Diazepam 5 MG Oral Tablet 05/18/2019 Active clopidogrel 75 MG Oral Tablet clopidogrel 75 MG Oral Tablet 03/13/2019 Active Aspirin 81 MG Enteric Coated Tablet Aspirin 81 MG Enteric Coated Tablet 03/13/2019 Active Lisinopril 2.5 MG Oral Tablet Lisinopril 2.5 MG Oral Tablet 05/18/2019 Active Gabapentin 300 MG Capsule 1 capsule Orally Once a day Active Trazodone Hydrochloride 150 MG Oral Tablet Trazodone Hydrochloride 150 MG Oral Tablet 05/18/2019 Active Simvastatin 80 MG Oral Tablet Simvastatin 80 MG Oral Tablet 03/13/2019 Active Omeprazole 20 MG Tablet Delayed Release 1 tablet 30 minutes before morning meal Orally Once a day; Duration: 90 days 01/28/2025 Active Magnesium 125 MG Capsule as directed Orally Active Imiquimod *Pick strength-f orm from [employer] for eRX* Not-Taking Gabapentin 300 MG Capsule 1 capsule Orally Once a day *Pick strength-form from [employer] for eRX* Not-Taking carvedilol 3.13 MG Oral Tablet carvedilol 3.13 MG Oral Tablet 03/13/2019 Not-Taking Tylenol 325 MG Tablet 1 tablet as needed Orally every 6 hrs Active Metformin hydrochloride 500 MG Oral Tablet Metformin hydrochloride 500 MG Oral Tablet 03/13/2019 Not-Taking Metformin *Reorder from [employer] for eRx and Interaction Alerts* Not-Taking Fish Oil 500 MG Capsule 1 capsule Orally Three times a day Active Ketoconazole *Pick strength-f orm from [employer] for eRX* Not-Taking ezetimibe 10 MG Oral Tablet ezetimibe 10 MG Oral Tablet 03/13/2019 Active Pramipexole *Reorder from [employer] for eRx and Interaction Alerts* Not-Taking Potassium Chloride 1.33 MEQ Oral Tablet Potassium Chloride 1.33 MEQ Oral Tablet 03/13/2019 Not-Taking Levy Stool Softener Cam Stool Softener 03/13/2019 Not-Taking pantoprazole 40 MG Enteric Coated Tablet pantoprazole 40 MG Enteric Coated Tablet 05/18/2019 Not-Taking Simvastatin *Pick strength-f orm from [employer] for eRX* Not-Taking Pramipexole dihydrochloride 0.25 MG Oral Tablet Pramipexole dihydrochloride 0.25 MG Oral Tablet 03/13/2019 Not-Taking Immunizations Vaccine Route Administration Date Status Comme nts Influenza (whole), CPT 13509 Inactive Unknown 05/29/2018 Administered Social History Tobacco Use: Social History Observation Description Date Details (start date - stop date) Former Smoker NA - NA Social History Drugs/Alcohol: Social Info Question Answer Notes Caffeine Intake: 1-2 cups per day Tobacco Use: Social Info Question Answer Notes Tobacco Control (Standard) Tobacco use: Former smoker How long has it been since you last smoked? Greater than 10 years Additional Details Category Social Info Options Details Drugs/Alcohol: Do you smoke marijuana? De nies Do you drink alcohol? No Migrated Social History Migrated Social History Alcoholic beverages? - Yes, Education - High School, If yes, frequency of alcoholic beverages - Less than 1 drink per week., Marital Status - Problems Problem Type SNOMED Code ICD Code Onset Dates Problem Status W/U Status Risk Notes Problem Chronic pain syndrome (272055037) Chronic pain syndrome (G89.4) Active confirmed Problem Lumbosacral spondylosis without myelopathy (disorder) (87621262) Spondylosis without myelopathy or radiculopathy, lumbosacral region (M47.817) Active confirmed Problem Chronic prostatitis (59882819) Chronic prostatitis (N41.1) Active confirmed Problem Neurogenic claudication (654439096) Spinal stenosis, lumbar region with neurogenic claudication (M48.062) Active confirmed Problem Lumbosacral spondylosis with radiculopathy (417472693) Lumbosacral spondylosis with radiculopathy (M47.27) Active confirmed Problem Globus sensation (728124466) Globus sensation (F45.8) Active confirmed Problem Dysphagia (17148012) Dysphagia (R13.10) Active confirmed Problem Sacroiliitis (28426452) Sacroiliitis (M46.1) Active confirmed Problem Loss of appetite (13932690) Loss of appetite (R63.0) Active confirmed Problem Gastroesophageal reflux disease (665874073) GERD (gastroesophagea l reflux disease) (K21.9) Active confirmed Problem Lumbar post-laminectomy syndrome (731274005) Lumbar post-laminectomy syndrome (M96.1) Active confirmed Problem Abnormal gait (40194429) Abnormality of gait and mobility (R26.9) Active confirmed Problem Lumbosacral spondylosis without myelopathy (57748881) Lumbosacral spondylosis without myelopathy (M47.817) Active confirmed Problem Long-term current use of antiplatelet drug (720631877735198) FPC current use of clopidogrel (Z79.02) Active confirmed Vital Signs Heart Rate 78 /min 03/07/2025 Temperature 97.7 degrees Fahrenheit 03/07/2025 Oximetry 95 % 03/07/2025 Blood pressure diastolic 60 mm Hg 03/07/2025 Height-cm 175.26 cm 03/22/2025 Weight-kg 68.95 kg 03/22/2025 Height 69.00 in 03/22/2025 Blood pressure systolic 108 mm Hg 03/07/2025 Weight 152 lbs 03/22/2025 BMI 22.44 kg/m2 03/22/2025 Procedures Procedure Date Ordered Date Performed Result Body Sit e Inj. SI Joint w/ imaging patricio dance (CT or fluoroscopy) - 57347 10/02/2024 10/09/2024 N/A Neurotomy Lumbar/Sacral, 2 o r more levels - 87737, 64787 01/01/2025 01/01/2025 N/A Neurotomy Lumbar/Sacral, 2 o r more levels - 66505, 43733 01/29/2025 01/29/2025 N/A Encounters Encounter Location Date Provider Diagnosis [facility] [address] [place] [address] 03/28/2025 Sumanth Rubalcava [facility] [place] [address] [place] [address] 09/05/2024 Mario De Anda Chronic pain syndrome G89.4 ; Degeneration of intervertebral disc of lumbar region with discogenic back pain and lower extremity pain M51.362 ; Lumbosacral spondylosis with radiculopathy M47.27 ; Spinal stenosis, lumbar region with neurogenic claudication M48.062 ; Sacroiliitis M46.1 ; Lumbar post-laminectomy syndrome M96.1 and Abnormality of gait and mobility R26.9 [facility] [address] [place] [address] 10/09/2024 Mario De Anda Sacroiliitis M46.1 [facility] [place] [address] [place] [address] 11/07/2024 Mario De Anda Degeneration of intervertebral disc of lumbar region with discogenic back pain and lower extremity pain M51.362 ; Chronic pain syndrome G89.4 ; Lumbosacral spondylosis with radiculopathy M47.27 ; Spinal stenosis, lumbar region with neurogenic claudication M48.062 ; Sacroiliitis M46.1 ; Lumbar post-laminectomy syndrome M96.1 and Abnormality of gait and mobility R26.9 [facility] [address] [facility] [place] [address] 01/01/2025 Mario Talaverafft Spondylosis without myelopathy or radiculopathy, lumbosacral region M47.817 [facility] [address] [facility] [place] [address] 01/28/2025 Katharine Wang GERD (gastroesophageal reflux disease) K21.9 ; Dysphagia R13.10 and Globus sensation F45.8 [facility] [address] [facility] [place] [address] 01/29/2025 Mario Hymant Spondylosis without myelopathy or radiculopathy, lumbosacral region M47.817 [facility] [address] [place] [address] 03/07/2025 Katharine Wang GERD (gastroesophageal reflux disease) K21.9 ; Loss of appetite R63.0 ; Unintentional weight loss R63.4 ; Epigastric pain R10.13 ; Dysphagia R13.10 ; Globus sensation F45.8 and Blood pressure check Z01.30 [facility] [place] [address] [place] [address] 03/22/2025 Irma Verde Chronic pain syndrome G89.4 ; Degeneration of intervertebral disc of lumbar region with discogenic back pain and lower extremity pain M51.362 ; Lumbosacral spondylosis with radiculopathy M47.27 ; Sacroiliitis M46.1 ; Lumbar post-laminectomy syndrome M96.1 ; Spinal stenosis, lumbar region with neurogenic claudication M48.062 and Abnormality of gait and mobility R26.9 Migrated_Facility 0 0 06/09/2024 Provider Migration Migrated_Facility 0 0 06/10/2024 Provider Migration [facility] [address] [place] [address] 03/08/2025 Seda Montes [facility] [address] [place] [address] 03/21/2025 Katharine Wang [facility] [address] [place] [address] 03/25/2025 Sumanth Rubalcava Assessments Encounter Date Diagnosis (ICD Code) Assessment Notes Treatment Notes Treatment Clinical Notes Section Notes 09/05/2024 Chronic pain syndrome (ICD-10 - G89.4) I had a nice visit with the patient today regarding his chronic pain issues. He's had recurrence of some lumbosacral pain over the last month or so and it mainly seems to be when he's standing up; If he's sitting down or laying down, the lumbosacral pain isn't as bad. We discussed treatments and the worst of it does localize to that right sacroiliac joint. He is interested in repeating a right sacroiliac injection so we will get that scheduled in the near future and proceed accordingly. Schedule repeat R-SI joint injection 09/05/2024 Degeneration of intervertebral disc of lumbar region with discogenic back pain and lower extremity pain (ICD-10 - M51.362) 10/09/2024 Sacroiliitis (ICD-10 - M46.1) 11/07/2024 Degeneration of intervertebral disc of lumbar region with discogenic back pain and lower extremity pain (ICD-10 - M51.362) 11/07/2024 Chronic pain syndrome (ICD-10 - G89.4) I had a nice visit with the patient today regarding his chronic pain issues. He reports some relief from the SI joint injection, especially for the first 24 hours. He feels like the pain is more persistent and the pain he is now describing is consistent with the symptoms he experienced before we did the lumbar rhizotomies. He is unable to golf with golf with aggravating it and he cannot do dishes or yard work, which is challenging as his is down with her back currently. He has had to do more. We discussed treatment options and he is interested in repeating his lumbar rhizotomies so we will get these scheduled in the near future and follow up with him thereafter. Schedule repeat LMBRs, Right side first 01/29/2025 Spondylosis without myelopathy or radiculopathy, lumbosacral region (ICD-10 - M47.817) 03/07/2025 GERD (gastroesophageal reflux disease) (ICD-10 - K21.9) Chronic GERD associated with dysphagia, globus sensation, loss of appetite, unintentional weight loss, and epigastric pain.Current reflux treatment: Omeprazole 20 mg daily. Risk factors: Chronic reflux Differentials: Uncontrolled reflux, Esophageal stricture, esophagitis, esophageal dysmotility, esophageal spasm, oropharyngeal dysphagia Previous endoscopy records reviewed and noted. Last EGD: 2018. Recommend EGD for further evaluation with endoscopic intervention as indicated. EGD procedure, risks, benefits, potential complications, and potential interventions discussed. Questions answered to apparent satisfaction. Verbalizes understanding. Desires to proceed with the proposed plan. Schedule EGD Advised to avoid any OTC supplements, NSAIDs, and aspirin 3 days prior to endoscopy.Hold Plavix for 3 days prior to endoscopy. Obtain cardiac clearance from Dr. Gallego in [place]. Follow-up to be arranged based on endoscopy findings and interventions Recommend strict reflux precautions Continue PPI as prescribed. 03/07/2025 Loss of appetite (ICD-10 - R63.0) 01/01/2025 Spondylosis without myelopathy or radiculopathy, lumbosacral region (ICD-10 - M47.817) 01/28/2025 GERD (gastroesophageal reflux disease) (ICD-10 - K21.9) Recommend 6-8-week trial of PPI therapyStart Omeprazole 20 mg daily. Consider endoscopic evaluation if persistent symptoms despite PPI Recommend strict reflux precautions Avoid GI irritants including alcohol, aspirin, ibuprofen, naproxen, and other nonsteroidal anti-inflammatory drugs. 01/28/2025 Dysphagia (ICD-10 - R13.10) 03/22/2025 Chronic pain syndrome (ICD-10 - G89.4) I had a nice discussion with the patient today regarding his chronic pain complaints. He continues with lower back pain as well as some occasional radicular symptoms. He is status post bilateral lumbar rhizotomies which he reports helped relieve his pain at least 50%. He states he is functioning better overall. He does still have a hard time if he is doing dishes or out working in the yard doing things such as cutting brush. He states when he starts hurting he is able to come inside and put an ice pack on his back and lie down and this does resolve. He states he is not really having any pain sitting today in the room. He is not on any medications or clinic. He denies any changes in his health since we last seen him. I did discuss lifestyle modifications with him today. The patient states he is going to [place] for a little while and states he will just call us when he returns to schedule an appointment. The patient continues with chronic pain requiring treatment to help restore function and improve quality of life. Patient is advised that best long-term goals include increased activity, core strengthening, proper weight management, coping strategies, avoidance of painful triggers, and targeted interventional therapy. We will see the patient for routine follow up in accordance with all clinic policies. We will continue to stress nonopioid treatment. 03/22/2025 Degeneration of intervertebral disc of lumbar region with discogenic back pain and lower extremity pain (ICD-10 - M51.362) 03/22/2025 Lumbosacral spondylosis with radiculopathy (ICD-10 - M47.27) 01/28/2025 Globus sensation (ICD-10 - F45.8) 03/07/2025 Unintentional weight loss (ICD-10 - R63.4) 11/07/2024 Lumbosacral spondylosis with radiculopathy (ICD-10 - M47.27) RECOMMEND REPEAT FACET MEDIAL BRANCH RHIZOTOMY, AT L2-3 L3-4 LEVELS Repeat facet medial branch nerve rhizotomies are being recommended. The patient has pain of well-documented facet joint origin as evidenced by successful response to previous medial branch rhizotomies at L2-3 L3-4 levels on 10/04/2023 (RT) and 09/20/2023 (LT) with 70% relief for 8 months or greater as criterion standard. Patient experienced 50% or greater improvement in ability to perform previously painful movement without deterioration of the relief, as mentioned in previous records, compared to a baseline functional disability of 76% prior to rhizotomies. We will now proceed with facet rhizotomy using continuous radiofrequency denervation at a temperature of 90 degrees Celsius for 60 seconds. The procedure and risks were discussed with the patient including but not limited to infection, bleeding, neurological complications, side effects from medications, no change in pain, worsening of pain, or even . We also discussed conservative options, surgical options, and medical management with patient as well. The patient indicates understanding and wishes to proceed with the recommended treatment approach. The patient was given written information about the procedure and all questions were answered. 09/05/2024 Lumbosacral spondylosis with radiculopathy (ICD-10 - M47.27) 09/05/2024 Spinal stenosis, lumbar region with neurogenic claudication (ICD-10 - M48.062) 11/07/2024 Spinal stenosis, lumbar region with neurogenic claudication (ICD-10 - M48.062) 03/07/2025 Epigastric pain (ICD-10 - R10.13) 03/22/2025 Sacroiliitis (ICD-10 - M46.1) 03/22/2025 Lumbar post-laminectomy syndrome (ICD-10 - M96.1) 03/07/2025 Dysphagia (ICD-10 - R13.10) 11/07/2024 Sacroiliitis (ICD-10 - M46.1) 09/05/2024 Sacroiliitis (ICD-10 - M46.1) 09/05/2024 Lumbar post-laminectomy syndrome (ICD-10 - M96.1) 11/07/2024 Lumbar post-laminectomy syndrome (ICD-10 - M96.1) 03/07/2025 Globus sensation (ICD-10 - F45.8) 03/22/2025 Spinal stenosis, lumbar region with neurogenic claudication (ICD-10 - M48.062) 03/22/2025 Abnormality of gait and mobility (ICD-10 - R26.9) 03/07/2025 Blood pressure check (ICD-10 - Z01.30) 11/07/2024 Abnormality of gait and mobility (ICD-10 - R26.9) 09/05/2024 Abnormality of gait and mobility (ICD-10 - R26.9) 09/05/2024 Other I, John Cuevas, am scribing for Dr. Mario De Anda. I, Dr. Mario De Anda, personally performed the services described in this documentation , as scribed by John Cuevas, and it is both accurate and complete. 11/07/2024 Other I, John Cuevas, am scribing for Dr. Mario De Anda. I, Dr. Mario De Anda, personally performed the services described in this documentation, as scribed by John Cuevas, and it is both accurate and complete. Plan Of Treatment Pending Test Test Name Order Date Fluoro Needle For Placement - Non-Spine 80928 10/02/2024 Insurance Providers Payer Name Payer Address Payer Phone Subscriber Number Group Number Insured Name Patient Relationship to Insured Coverage Start Date Coverage End Date [place] [address] [address] [place] [address] [phone] [id number] John Valadez Self - patient is the insured [employer] [address] [address] [place] [address] [id number] John Valadez Self - patient is the insured Medical (General) History Medical History History ICD Code Problem:Anxiety (finding) , Status :: Ac tive Problem:Coronary arteriosclerosis (disor martha) , Status :: Active Problem:Diabetes mellitus type 2 (disord er) , Status :: Active Problem:History of polyp of colon (situa tion) , Status :: Active Problem:Hyperlipidemia (disorder) , Stat us :: Active Problem:Hypertensive disorde r, systemic arterial (disorder) , Status :: Active Problem:Kidney stone (disorder) , Status :: Active Problem:Patient post percuta neous transluminal coronary angioplasty (finding) , Status :: Active Measles, mumps, chicken pox Pneumonia hernia Depression bronchitis hemorrhoids Surgical History Surgery Date(Month/Year) Back surgery Bunionectomy Gallbladder surgery Hernia surgery knee meniscus Trigger Finger Repair Trigger Thumb heart attack 1999 Hospitalization History Reason Date(Month/Year) see sug hx
--- OUTSIDE RECORDS SUMMARY | 2025-04-24 21:37 | XMS_ITS | Encounter Summary ---
Author Organization [facility] Address [address] [place] [address] Care Team Providers Care Senior Marketing Specialist Name Role Phone Jl Felix MD Primary Care Provider [phone] Encounter Details Date Type Department Care Team (Latest Contact Info) Description 09/14/1999 Outpatient Historical [facility] John Saleem Jr., MD [address] [place] [address] Pure hypercholesterolem (Primary Dx); Unspecified adjustment reaction Social History Tobacco Use Types Packs/Day Years Used Date Smoking Tobacco: Never Assessed Sex and Gender Information Value Date Recorded Sex Assigned at Not on file Legal Sex Male 3:36 AM [employer] Gender Identity Not on file Sexual Orientation Not on file documented as of this encounter Plan of Treatment Not on file documented as of this encounter Visit Diagnoses Diagnosis Pure hypercholesterolem- Primary Pure hypercholesterolemia Unspecified adjustment reaction documented in this encounter Care Teams Senior Marketing Specialist Relationship Specialty Start Date End Date Jl Felix MD [address] [phone] PCP - General Family Practice 06/30/10 documented as of this encounter
[2025-04-24 21:57] LABS: Hematocrit 41.2 % (37-53); Hemoglobin 14.20 g/dL (11.27-16.99); Mean Corpuscular HGB Conc 34.5 g/dL (30-55); Mean Corpuscular Hemoglobin 31.3 pg (27-33); Mean Corpuscular Volume 90.9 fl (82-101); Nucleated Red Blood Cells % 0 %; Platelet Count 265 10^3/cmm (157-399); Red Blood Count 4.53 10^6/uL (3.85-5.65); White Blood Count 7.52 10^3/uL (3.29-11.43)
[2025-04-24 22:16] LABS: INR 0.82 (0.8-1.2); Prothrombin Time 11.90 SECONDS (12.1-14.9)
[2025-04-24 22:19] LABS: Alanine Aminotransferase 16 U/L (0-41); Albumin Level 4.4 g/dL (3.5-5.2); Alkaline Phosphatase 42 U/L (40-130); Anion Gap 15.4 (5-19); Aspartate Amino Transferase 22 U/L (0-40); Blood Urea Nitrogen 15 mg/dL (8-23); Calcium 10.1 mg/dL (8.5-10.5); Carbon Dioxide 27 mmol/L (22-29); Chloride 102 mmol/L (98-107); Creatinine Clr Calc Pharmacy 59.8654; Globulin 2.8 g/dL (1.3-4.6); Glucose 135 mg/dL (65-115); Lipase 51 U/L (13-60); Osmolality Calculated 293 mOsm/kg (285-295); Potassium 4.4 mmol/L (3.5-5.1); Sodium 140 mmol/L (136-145); Total Protein 7.2 g/dL (6.6-8.7)
[2025-04-24 22:23] LABS: Troponin(5th) Baseline 19 ng/L (0-15)
[2025-04-24 22:45] VITALS: BP 137/89; PULSE 71; RESP 16; O2SAT 94
--- NOTE | 2025-04-24 22:47 | W.ED.CHESTPA ---
HPI - Chest Pain General: Chief Complaint: Chest Pain Stated Complaint: CP Time Seen by Provider: 04/24/25 21:51 Source: patient Mode of arrival: ambulatory Limitations: no limitations History of Present Illness: 85-year-old male states he has been having chest pain throughout the day today. States been a constant dull ache he rates it 6 out of 10 currently. He denies any shortness of breath denies any nausea or diaphoresis he denies any worsening improving factors. Associated symptoms: Deny abdominal pain, dyspnea, fever(s), nausea or vomiting Related Data Home Medications ?Medication ?Instructions ?Recorded ?Confirmed ketoconazole 2 % topical cream See Rx Instructions .Route .COMPLEX 11/17/21 03/08/25 omega 3-pxb-snl-fish oil 60 mg-90 1 cap PO DAILY 11/17/21 03/08/25 mg-500 mg capsule (Fish Oil) trazodone 150 mg tablet 75 mg PO BEDTIME 12/14/21 03/08/25 clopidogrel 75 mg tablet 75 mg PO QAM 05/04/22 03/08/25 gabapentin 300 mg capsule 300 mg PO DAILY 08/26/22 03/08/25 ghyrnelhtakv-hqh-lojvq acid-vit 1 tab PO DAILY 08/26/22 03/08/25 K-lycop 400 mcg-20 mcg-370 mcg tablet (Men's 50 Plus Multivitamin) pramipexole 0.5 mg tablet 0.5 mg PO QPM 08/26/22 03/08/25 aspirin 81 mg tablet,delayed 81 mg PO DAILY 12/29/22 03/08/25 release diazepam 5 mg tablet 5 mg PO BID PRN Anxiety 12/23/23 03/08/25 ezetimibe 10 mg tablet 10 mg PO DAILY 07/22/24 03/08/25 lisinopril 10 mg tablet 10 mg PO QPM 07/22/24 03/08/25 simvastatin 80 mg tablet 80 mg PO DAILY 07/22/24 03/08/25 omeprazole 20 mg tablet,delayed 20 mg PO DAILY PRN 08/23/24 03/08/25 release Previous Rx's ?Medication ?Instructions ?Recorded Sole Supports #1 ea 10/20/20 nitroglycerin 0.4 mg sublingual 0.4 mg sublingual Q5M PRN chest 07/05/24 tablet (Nitrostat) pain #50 tabs Allergies Allergy/AdvReac Type Severity Reaction Status Date / Time ciprofloxacin (From Cipro) Allergy Unknown unknown Verified 04/24/25 21:38 doxycycline Allergy Unknown hives Verified 04/24/25 21:38 Review of Systems Const: Denies: fever(s), chills, body aches or change in appetite ENMT: Denies: throat pain or dental pain Card: Reports: chest pain Resp: Denies: dyspnea GI: Denies: abdominal pain, nausea, vomiting or diarrhea : Denies: dysuria Musc: Denies: neck pain or back pain Skin/Breast: Denies: rash Neuro: Denies: headache(s) PFSH ED PFSH: Medical History Acute prostatitis BPH w urinary obs/LUTS Unstable angina Chest pain Cervical spondylosis with radiculopathy Chronic prostatitis Sacroiliac dysfunction Lumbar stenosis with neurogenic claudication Dyslipidemia Benign essential hypertension with target blood pressure below 140/90 Abnormal stress echo Dyspnea Chest pain Leg cramps Atherosclerosis of coronary artery of [place] heart CAD (coronary artery disease) Hypertension Hyperlipidemia LDL was 80s, HDL 60 Renal calculus Aortic atherosclerosis 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 Surgical History History of foot surgery History of PTCA S/P extracorporeal shock wave therapy H/O thumb surgery H/O arthroscopy of knee History of hernia surgery History of back surgery Family History Brother CAD (coronary artery disease) Lung disease Family/Other CAD (coronary artery disease) Cancer Grandfather Stroke Cancer Mother , at age 81 Diabetes Father , at age 87 Diabetes Stroke Denies family history of Clotting disorder Dementia Chronic kidney disease (CKD) Suicide Anesthesia complication Bleeding disorder Social History Smoking and tobacco/nicotine status: never used tobacco/nicotine Alcohol intake: current Alcohol intake frequency: holidays/special occasions only Alcohol type: wine Substance/Drug Use: never Marital status: Current occupational status: retired Physical Exam Const: COMMON NORMALS: no acute distress, patient oriented x3 and healthy appearing HENMT: COMMON NORMALS: normocephalic and atraumatic HEAD & SCALP: normocephalic and atraumatic Eye: COMMON NORMALS: Equal, round and reactive pupils present and EOMs intact bilaterally PUPIL: Yes Equal, round and reactive pupils present Neck/C-Spine: COMMON NORMALS: full ROM and supple Chest: COMMONS NORMALS: normal inspection of the chest and normal palpation of entire chest wall Resp: COMMON NORMALS: normal respiratory effort, No retractions, No use of accessory muscles and clear to auscultation bilaterally AUSCULTATION: clear to auscultation bilaterally Cardio: COMMON NORMALS: regular rate, regular rhythm and No murmurs present (Cardio) RATE: regular rate RHYTHM: regular rhythm GI: COMMON NORMALS: Normal to inspection, nondistended, normoactive bowel sounds present, Soft to palpation, non-tender and no masses PALPATION: Yes Soft to palpation Extremity: COMMON NORMALS: normal to inspection and full ROM Neuro: COMMON NORMALS: patient oriented x3, moves all extremities and no focal motor deficits Psych: COMMON NORMALS: mental status grossly normal, Normal thought process present and cooperative THOUGHT PROCESS: Normal thought process present Skin: COMMON NORMALS: no rashes or lesions noted and no wounds GENERAL SKIN EXAM: no rashes or lesions noted Course Vital Signs: Vital signs: Vital Signs Temperature 97.7 F 04/24/25 21:34 Pulse Rate 68 04/24/25 23:58 Respiratory Rate 16 04/24/25 23:58 Blood Pressure 129/75 04/24/25 23:58 Pulse Oximetry 94 04/24/25 23:58 Oxygen Delivery Me thod Room Air 04/24/25 23:58 MDM - Chest Pain Medical Decision Making Patient presents for chest pain is atypical in nature he is pain-free currently states he is feeling anxious as well his initial repeat troponin were normal no signs of ACS no signs of pulm embolism no signs of dissection he stable for discharge follow-up with PCP return if worsening. Medical Records I reviewed the patient's medical records. Lab Data I reviewed the patient's lab results. 04/24/25 21:46 04/24/25 21:46 Radiology Impressions Chest X-Ray 04/24/25 21:29 IMPRESSION: Minimal patchy airspace opacity in the left lung base favors atelectasis. Airspace disease is not excluded. Laboratory Results WBC 7.52 10^3/uL (3.29-11.43) 04/24/25 21:46 RBC 4.53 10^6/uL (3.85-5.65) 04/24/25 21:46 Hgb 14.20 g/dL (11.27-16.99) 04/24/25 21:46 Hct 41.2 % (37-53) 04/24/25 21:46 MCV 90.9 fl (82-101) 04/24/25 21:46 MCH 31.3 pg (27-33) 04/24/25 21:46 MCHC 34.5 g/dL (30-55) 04/24/25 21:46 RDW 12.3 % (12.1-15.1) 04/24/25 21:46 Plt Count 265 10^3/cmm (157-399) 04/24/25 21:46 MPV 9.8 fL (7.4-10.4) 04/24/25 21:46 Neut % (Auto) 65.1 % 04/24/25 21:46 Lymph % (Auto) 22.6 % 04/24/25 21:46 Lipscomb % (Auto) 9.4 % 04/24/25 21:46 Eos % (Auto) 2.1 % 04/24/25 21:46 Baso % (Auto) 0.5 % 04/24/25 21:46 Neut # (Auto) 4.89 10^3/uL (1.8-7.7) 04/24/25 21:46 Lymph # (Auto) 1.7 10^3/uL (0.8-4.8) 04/24/25 21:46 Lipscomb # (Auto) 0.7 10^3/uL (0.2-0.9) 04/24/25 21:46 Eos # (Auto) 0.2 10^3/uL (0.0-0.8) 04/24/25 21:46 Baso # (Auto) 0.0 10^3/uL (0.0-0.1) 04/24/25 21:46 Nucleated RBC % (auto) 0 % 04/24/25 21:46 Nucleated RBCs # 0.0 /100WBC 04/24/25 21:46 PT 11.90 SECONDS (12.1-14.9) L 04/24/25 21:46 INR 0.82 (0.8-1.2) 04/24/25 21:46 Sodium 140 mmol/L (136-145) 04/24/25 21:46 Potassium 4.4 mmol/L (3.5-5.1) 04/24/25 21:46 Chloride 102 mmol/L (98-107) 04/24/25 21:46 Carbon Dioxide 27 mmol/L (22-29) 04/24/25 21:46 Anion Gap 15.4 (5-19) 04/24/25 21:46 BUN 15 mg/dL (8-23) 04/24/25 21:46 Creatinine 0.9 mg/dL (0.7-1.2) 04/24/25 21:46 GFR Calculation Not Reportable 04/24/25 21:46 Glucose 135 mg/dL (65-115) H 04/24/25 21:46 Calculated Osmolality 293 mOsm/kg (285-295) 04/24/25 21:46 Calcium 10.1 mg/dL (8.5-10.5) 04/24/25 21:46 Total Bilirubin 0.5 mg/dL (0.15-1.2) 04/24/25 21:46 AST 22 U/L (0-40) 04/24/25 21:46 ALT 16 U/L (0-41) 04/24/25 21:46 Alkaline Phosphatase 42 U/L (40-130) 04/24/25 21:46 Troponin T Baseline 19 ng/L (0-15) H 04/24/25 21:46 Troponin T 120 Minute 17.14 ng/L (0-15) H 04/24/25 23:35 Delta Troponin T -1.86 ABS# (0-10) L 04/24/25 23:35 Total Protein 7.2 g/dL (6.6-8.7) 04/24/25 21:46 Albumin 4.4 g/dL (3.5-5.2) 04/24/25 21:46 Globulin 2.8 g/dL (1.3-4.6) 04/24/25 21:46 Lipase 51 U/L (13-60) 04/24/25 21:46 All radiology interpretation(s) finalized by discharge EKG Data EKG 1: I personally reviewed and interpreted this EKG as follows: EKG interpretation date: 04/24/25 EKG interpretation time: 21:32 Interpretation: nsr hr [address] elevation qrs 81 qtc 393 EKG 2: I personally reviewed and interpreted this EKG as follows: EKG interpretation date: 04/24/25 EKG interpretation time: 23:34 Interpretation: nsr hr [address] or t wave abnormalities qrs 90 qtc 390 Clincial Decision Support The following clinical decision support tools were used to aid in care of the patient HEART Score -> History: Slightly Suspicous, EKG: Normal, Age: 65 or more yrs, Risk Factors: 1 or 2 Risk Factors, Troponin: Baseline Trop 16-45 ng/L. Resulting HEART Score: 4. Discharge Plan Discharge Patient Disposition: Home Clinical Impression: Atypical chest pain Condition: Stable Prescriptions: No Action (DME) Sole Supports See Rx Instructions .ROUTE .MEDSUPPLY Qty: 1 0RF Rx Instructions: As directed ketoconazole 2 % cream See Rx Instructions .ROUTE .COMPLEX Rx Instructions: Apply to red, scaly areas on face 1-2 times daily prn omega 9-dju-nrg-fish oil [Fish Oil] 60-90-500 mg capsule 1 cap PO DAILY omeprazole 20 mg tablet,delayed release (DR/EC) 20 mg PO DAILY PRN aspirin 81 mg tablet,delayed release (DR/EC) 81 mg PO DAILY nitroglycerin [Nitrostat] 0.4 mg tablet, sublingual 0.4 mg sublingual Q5M PRN (Reason: chest pain) Qty: 50 5RF Rx Instructions: do not exceed 3 doses per episode trazodone 150 mg tablet 75 mg PO BEDTIME simvastatin 80 mg tablet 80 mg PO DAILY lisinopril 10 mg tablet 10 mg PO QPM ezetimibe 10 mg tablet 10 mg PO DAILY Rx Instructions: Take 1 tablet by mouth once daily clopidogrel 75 mg tablet 75 mg PO QAM pramipexole 0.5 mg tablet 0.5 mg PO QPM gabapentin 300 mg capsule 300 mg PO DAILY Men's 50 Plus Multivitamin 400-20-370 mcg Tablet 1 tab PO DAILY diazepam 5 mg tablet 5 mg PO BID PRN (Reason: Anxiety) Discharge Orders: Discharge ED (Routine); Ordered 04/25/25 Ordered By: Srinath Richmond Referrals: Jl Felix MD [Primary Care Provider, [facility] [place] - 1-3 days Discharge Diet: Advance as tolerated Discharge Activity: Resume usual activity Patient Instructions: Chest Pain (ED) Print Language: Tajik Coding Level of Care Code ED Spectrographic Analyst for Juwan Caldera
--- NOTE | 2025-04-24 23:34 | ECG_ITS ---
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
[2025-04-24 23:58] VITALS: BP 129/75; PULSE 68; RESP 16; O2SAT 94
[2025-04-25 00:03] LABS: Troponin 5 2HR 17.14 ng/L (0-15); Troponin 5 2HR Delta -1.86 ABS# (0-10)
[2025-04-25 00:38] VITALS: BP 132/79; PULSE 69; RESP 20; O2SAT 94
== END 2025-04-25 00:39 | disposition home or self-care (01) ==
PROVIDERS: Emergency Provider Emergency Medicine; PCP Family Medicine
DX: R07.89 Other chest pain (principal); Z79.82 Long term (current) use of aspirin; Z79.02 Long term (current) use of antithrombotics/antiplatelets; E78.5 Hyperlipidemia, unspecified; I25.10 Atherosclerotic heart disease of native coronary artery without angina pectoris; I10 Essential (primary) hypertension
CPT/HCPCS: 36415; 71045; 80053; 83690; 84484; 85025; 85610; 93005; 99285; J9999